=== PATIENT | male | born 1940 | race Caucasian/White ===

== ENCOUNTER → 2020-08-29 | Outpatient (CLI) | payer MEDICARE, OTHER ==
[~2020-08-29] MED LIST: ATOR80 PO; Bactrim Ds Tab1 EACH PO; Flagyl500 MG PO; GLIP5 PO; LOSA25 PO; MIRALAX119 G2; Magnesium Citr296 ML PO; Percocet 5-3251 EACH PO; TRAM50 PO
== END ==
LOC: LAB EV 12:00 → LAB SHORT 12:00
DX: N39.0 Urinary tract infection, site not specified (principal)
CPT/HCPCS: 87077; 87086; 87186

== ENCOUNTER 2020-09-01 09:55 | Emergency (ER) | payer MEDICARE, OTHER ==
[~2020-09-01] VITALS: Ht 182.9 cm; Wt 87.5 kg
[~2020-09-01 09:55] MED LIST changes: -ATOR80 PO; -GLIP5 PO; -LOSA25 PO; -MIRALAX119 G2
[2020-09-01] MEDS ORDERED: MIRALAX119 G2 (10:41)
[2020-09-01 10:42] LABS: BASOPHILS ABSOLUTE AUTO 0.02 K/mm3 (0.00-0.23); BASOPHILS PERCENT AUTO 0 % (0-2); EOSINOPHILS ABSOLUTE AUTO 0.06 K/mm3 (0.00-0.68); EOSINOPHILS PERCENT AUTO 1 % (0-6); Hematocrit 38.6 % (37.0-53.0); Hemoglobin 12.1 g/dL (13.5-17.5); IMMATURE GRAN ABSOLUTE AUTO 0.02 K/mm3 (0.00-0.10); IMMATURE GRAN PERCENT AUTO 0 % (0-1); LYMPHOCYTES ABSOLUTE AUTO 0.36 K/mm3 (0.84-5.20); LYMPHOCYTES PERCENT AUTO 7 % (21-46); MONOCYTES ABSOLUTE AUTO 0.33 K/mm3 (0.16-1.47); MONOCYTES PERCENT AUTO 7 % (4-13); Mean Corpuscular HGB 28.8 pg (26.0-34.0); Mean Corpuscular HGB Conc 31.3 g/dL (31.5-36.5); Mean Corpuscular Volume 92 fL (80-100); Mean Platelet Volume 10.3 fL (9.1-12.4); NEUTROPHILS ABSOLUTE AUTO 4.16 K/mm3 (1.96-9.15); NEUTROPHILS PERCENT AUTO 84 % (41-73); Platelet Count 196 K/mm3 (150-400); RDW Standard Deviation 47.2 fL (35.1-46.3); White Blood Cell Count 4.95 K/mm3 (4.00-11.30)
[2020-09-01 10:56] LABS: Albumin, Blood 3.7 g/dL (3.4-5.0); Albumin/Globulin Ratio 0.9 (0.8-1.8); Bilirubin, Total 0.3 mg/dL (0.1-1.0); Calcium, Blood 9.4 mg/dL (8.5-10.1); Creatinine, Blood 2.2 mg/dL (0.60-1.20); Globulin, Blood 3.9 g/dL (2.2-4.0); Potassium, Blood 4.5 mmol/L (3.5-5.5); Total Protein, Blood 7.6 g/dL (6.4-8.2)
[2020-09-01 11:19] LABS: Source, Urine Clean Catch
[2020-09-01 11:39] LABS: Appearance, Urine Hazy (Clear); Bilirubin, Urine Neg (Neg); Blood, Urine 4+ (Neg); Color, Urine Yellow (P-Yellow); Glucose Qualitative, Urine Neg (Neg); Ketones, Urine Neg (Neg); Leukocyte Esterase, Urine 3+ (Neg); Nitrite, Urine Neg (Neg); Protein, Urine 3+ (Neg); Urobilinogen, Urine NORM (Normal)
[2020-09-01 11:49] LABS: White Blood Cells, Urine TNTC /hpf (0-5)
[2020-09-01 11:50] LABS: Bacteria Many /hpf; Squamous Epithelial Cells Not Seen /hpf (Few)
[2020-09-01] MEDS ORDERED: Percocet 5-3251 EACH PO (12:18)
[2020-09-05] MEDS ORDERED: LOSA25 (04:25)
== END 2020-09-01 12:27 | disposition home or self-care (01) ==
LOC: ER 09:55
PROVIDERS: Physician Assistant
DX: M25.561 Pain in right knee (principal); G89.29 Other chronic pain; N18.9 Chronic kidney disease, unspecified; Z43.6 Encounter for attention to other artificial openings of urinary tract; Z79.899 Other long term (current) drug therapy
CPT/HCPCS: 36415; 73562-RT; 80053; 81001; 83690; 85025; 87077; 87086; 87186; 99283-25

== ENCOUNTER 2020-09-05 04:13 | Observation (INO) | payer MEDICARE, OTHER ==
[~2020-09-05] VITALS: Ht 182.9 cm; Wt 87.9 kg
[~2020-09-05 04:13] MED LIST changes: +MIRALAX119 G2
[2020-09-05] MEDS ORDERED: LOSA25 PO (04:25)
[2020-09-05] MEDS ORDERED: ATOR80 PO (04:26)
[2020-09-05] MEDS ORDERED: GLIP5 PO (04:26)
[2020-09-05 05:42] LABS: BASOPHILS ABSOLUTE AUTO 0.03 K/mm3 (0.00-0.23); BASOPHILS PERCENT AUTO 1 % (0-2); EOSINOPHILS ABSOLUTE AUTO 0.17 K/mm3 (0.00-0.68); EOSINOPHILS PERCENT AUTO 4 % (0-6); Hematocrit 36.9 % (37.0-53.0); Hemoglobin 11.6 g/dL (13.5-17.5); IMMATURE GRAN ABSOLUTE AUTO 0.01 K/mm3 (0.00-0.10); IMMATURE GRAN PERCENT AUTO 0 % (0-1); LYMPHOCYTES PERCENT AUTO 13 % (21-46); MONOCYTES PERCENT AUTO 10 % (4-13); Mean Corpuscular HGB 29.5 pg (26.0-34.0); Mean Corpuscular HGB Conc 31.4 g/dL (31.5-36.5); Mean Corpuscular Volume 94 fL (80-100); Mean Platelet Volume 11.5 fL (9.1-12.4); NEUTROPHILS ABSOLUTE AUTO 2.72 K/mm3 (1.96-9.15); NEUTROPHILS PERCENT AUTO 71 % (41-73); Platelet Count 185 K/mm3 (150-400); RDW Coefficient Variation 14.8 % (11.7-14.2); RDW Standard Deviation 50.1 fL (35.1-46.3); Red Blood Cell Count 3.93 M/mm3 (4.30-5.90); White Blood Cell Count 3.83 K/mm3 (4.00-11.30)
[2020-09-05 06:03] LABS: Albumin, Blood 3.2 g/dL (3.4-5.0); Albumin/Globulin Ratio 0.9 (0.8-1.8); Bilirubin, Total 0.3 mg/dL (0.1-1.0); Bun/Creatinine Ratio 16.4 (12.0-20.0); Calcium, Blood 9.1 mg/dL (8.5-10.1); Creatinine, Blood 1.77 mg/dL (0.60-1.20); Globulin, Blood 3.7 g/dL (2.2-4.0); Potassium, Blood 4.8 mmol/L (3.5-5.5); Total Protein, Blood 6.9 g/dL (6.4-8.2)
--- NOTE | 2020-09-05 15:33 | NUR ---
HE IS SLEEPING LIGHTLY.HIS IS AT THE BEDSIDE. HE HAS RECEIVED FENTANYL AT SHIFT CHANGE, THEN PERCOCET WITH SIPS OF WATER. I SPOKE WITH WHO WILL NOT SEE THIS PATIENT BECAUSE HE HAS NOT HAD HIS FIRST [facility] VISIT YET TO BECOME ESTABLISHED. IT WOULD HAVE BEEN TODAY BUT HE ENDED UP IN THE EMERGENCY ROOM INSTEAD. I THEN SPOKE WITH AND CONSULTED . DILAUDID WAS ORDERED AND GIVEN. HE HAS TAKEN IT Q2 HRS. HIS RT.NEPHROSTOMY TUBE HAS BEEN DRAINING PRETTY CLEAR YELLOW URINE. DRESSING FALLING OFF AND SUTURE IS NO LONGER CONNECTED TO THE SKIN. NEW DRESSING APPLIED AND DRAINAGE BAG PINNED TO GOWN SO IT DOES NOT PULL. THE PHYSICIAN SLAB PULLER AND HAVE EACH ROUNDED ON THE PATIENT. LT.NEPH SITE RED. NO TUBE. WILL COVER WITH A BAND AID. COVID TEST NEGATIVE. BP IMPROVED AFTER PAIN CONTROLLED WITH DILAUDID.
--- NOTE | 2020-09-05 16:14 | NUR ---
TO THE [facility] FOR HIS PROCEDURE.
--- NOTE | 2020-09-05 18:46 | NUR ---
HE IS TOO SLEEPY TO EAT. LAST DILAUDID DOSE WAS JUST BEFORE 4 PM. HIS IS AT THE BEDSIDE. SCD'S ON BILAT. OXIMETRY ON. RA 89 TO 90%. WILL PUT 2L NC ON. TACHY BUT REGULAR UP TO 120. BP STABLE. BILATERAL NEPH TUBES DRAINING DANY COLORED URINE, THE LEFT MORE THAN THE RIGHT.
[2020-09-06] MEDS ORDERED: Percocet 5-3251 EACH PO (09:13)
--- NOTE | 2020-09-06 10:18 | NUR ---
HE HAD 1 PERCOCET FOR ABD PAIN AT SHIFT CHANGE. HIS URINE IS BLOOD TINGED DORIS IN THE RT.NEPHROSTOMY BAG AND MEDIUM RED IN THE LT. NEPHROSTOMY BAG. HE FEELS MUCH BETTER AND HAS BEEN ANXIOUS TO LEAVE. DISCHARGED NOW AT 1022 TO HOME WITH HIS BELONGINGS AND INSTRUCTIONS. HIS PICKED HIM UP.
== END 2020-09-06 10:19 | disposition home or self-care (01) ==
LOC: ER 04:13 → MEDS 04:14 → ENPENDDIS 09-06 08:18 → MEDS 09-06 10:19
PROVIDERS: Emergency Medicine; ADMIT Internal Medicine
DX: T83.022A Displacement of nephrostomy catheter, initial encounter (principal); N13.6 Pyonephrosis; I16.0 Hypertensive urgency; I12.9 Hypertensive chronic kidney disease with stage 1 through stage 4 chronic kidney disease, or unspecified chronic kidney disease; E11.22 Type 2 diabetes mellitus with diabetic chronic kidney disease; N18.4 Chronic kidney disease, stage 4 (severe); Z79.84 Long term (current) use of oral hypoglycemic drugs; Z79.899 Other long term (current) drug therapy; Z85.46 Personal history of malignant neoplasm of prostate; Z92.3 Personal history of irradiation; Z20.828 Contact with and (suspected) exposure to other viral communicable diseases; Z23 Encounter for immunization; Y84.6 Urinary catheterization as the cause of abnormal reaction of the patient, or of later complication, without mention of misadventure at the time of the procedure
CPT/HCPCS: 36415; 50432; 50435; 76937; 80053; 85025; 94762; 96374-59; 96375; 96376; 96376-59; 99152; 99153; 99284-25; A9270; A9270-GY; C1729; C1769; C1887; G0378; J1170; J2250; J2405; J3010; J7040; J7050; Q9967; U0004

== ENCOUNTER → 2020-09-16 | Outpatient (CLI) | payer MEDICARE, OTHER ==
[~2020-09-16] MED LIST changes: +ATOR80 PO; +GLIP5 PO; +LOSA25 PO
== END | disposition home or self-care (01) ==
LOC: LAB SHORT 14:31 → PLD 14:31
DX: N39.0 Urinary tract infection, site not specified (principal)
CPT/HCPCS: 87077; 87086; 87186

== ENCOUNTER → 2020-10-14 | Outpatient (CLI) | payer MEDICARE, OTHER ==
[~2020-10-14] MED LIST changes: +AMLODIPINE BES2.5 MG PO; +AMOCLA500 PO; +AMOCLA875 PO; +ATOR40TA PO; -ATOR80 PO; +BISA10S PR; +DOC250 PO; +LEVFLO500 PO; +LINE600 PO; -LOSA25 PO; +LOSARTAN POTAS100 M1 PO; +Levaquin500 MG PO; +METFORMIN HCL500 M3 PO; +Macrobid 100 M100 MG PO; +OXYACE7.5T PO; +OXYC5; +PHENA200 PO; +Pyridium100 MG PO; +SULFAMETHOXAZO1 EACH PO
== END | disposition home or self-care (01) ==
LOC: LAB SHORT 10:15 → LAB EV 10:15
PROVIDERS: Family Medicine
DX: G89.4 Chronic pain syndrome (principal); Z79.899 Other long term (current) drug therapy
CPT/HCPCS: G0480

== ENCOUNTER 2020-10-20 11:05 | Emergency (ER) | payer MEDICARE, OTHER ==
[~2020-10-20] VITALS: Ht 182.9 cm; Wt 85.3 kg
[~2020-10-20 11:05] MED LIST changes: -AMLODIPINE BES2.5 MG PO; -AMOCLA500 PO; -AMOCLA875 PO; -ATOR40TA PO; +ATOR80 PO; -BISA10S PR; -DOC250 PO; -LEVFLO500 PO; -LINE600 PO; +LOSA25 PO; -LOSARTAN POTAS100 M1 PO; -Levaquin500 MG PO; -METFORMIN HCL500 M3 PO; -Macrobid 100 M100 MG PO; -OXYACE7.5T PO; -OXYC5; -PHENA200 PO; -Pyridium100 MG PO; -SULFAMETHOXAZO1 EACH PO
[2020-10-20 11:39] LABS: BASOPHILS ABSOLUTE AUTO 0.02 K/mm3 (0.00-0.23); BASOPHILS PERCENT AUTO 0 % (0-2); EOSINOPHILS ABSOLUTE AUTO 0.08 K/mm3 (0.00-0.68); EOSINOPHILS PERCENT AUTO 2 % (0-6); Hematocrit 38.3 % (37.0-53.0); Hemoglobin 12.2 g/dL (13.5-17.5); IMMATURE GRAN ABSOLUTE AUTO 0.11 K/mm3 (0.00-0.10); IMMATURE GRAN PERCENT AUTO 3 % (0-1); LYMPHOCYTES ABSOLUTE AUTO 0.71 K/mm3 (0.84-5.20); LYMPHOCYTES PERCENT AUTO 16 % (21-46); MONOCYTES ABSOLUTE AUTO 0.45 K/mm3 (0.16-1.47); MONOCYTES PERCENT AUTO 10 % (4-13); Mean Corpuscular HGB 29.3 pg (26.0-34.0); Mean Corpuscular HGB Conc 31.9 g/dL (31.5-36.5); Mean Corpuscular Volume 92 fL (80-100); Mean Platelet Volume 9.5 fL (9.1-12.4); NEUTROPHILS PERCENT AUTO 69 % (41-73); Platelet Count 251 K/mm3 (150-400); RDW Coefficient Variation 15.6 % (11.7-14.2); RDW Standard Deviation 52.5 fL (35.1-46.3); Red Blood Cell Count 4.17 M/mm3 (4.30-5.90); White Blood Cell Count 4.47 K/mm3 (4.00-11.30)
[2020-10-20 11:52] LABS: Albumin, Blood 3.2 g/dL (3.4-5.0); Albumin/Globulin Ratio 0.7 (0.8-1.8); Bilirubin, Total 0.5 mg/dL (0.1-1.0); Bun/Creatinine Ratio 14.5 (12.0-20.0); Calcium, Blood 9.5 mg/dL (8.5-10.1); Creatinine, Blood 1.79 mg/dL (0.60-1.20); Globulin, Blood 4.6 g/dL (2.2-4.0); Potassium, Blood 3.9 mmol/L (3.5-5.5); Total Protein, Blood 7.8 g/dL (6.4-8.2)
== END 2020-10-20 12:45 | disposition home or self-care (01) ==
LOC: ER 11:05
PROVIDERS: Emergency Medicine
DX: R10.9 Unspecified abdominal pain (principal); G89.29 Other chronic pain; Z79.899 Other long term (current) drug therapy; Z79.84 Long term (current) use of oral hypoglycemic drugs
CPT/HCPCS: 36415; 80053; 83690; 85025; 99284

== ENCOUNTER → 2020-10-31 | Outpatient (CLI) | payer MEDICARE, OTHER ==
[~2020-10-31] MED LIST changes: +AMLODIPINE BES2.5 MG PO; +AMOCLA500 PO; +AMOCLA875 PO; +ATOR40TA PO; -ATOR80 PO; +BISA10S PR; +DOC250 PO; +LEVFLO500 PO; +LINE600 PO; -LOSA25 PO; +LOSARTAN POTAS100 M1 PO; +Levaquin500 MG PO; +METFORMIN HCL500 M3 PO; +Macrobid 100 M100 MG PO; +OXYACE7.5T PO; +OXYC5; +PHENA200 PO; +Pyridium100 MG PO; +SULFAMETHOXAZO1 EACH PO
== END | disposition home or self-care (01) ==
LOC: LAB SHORT 11:35 → LAB 11:35
DX: N39.0 Urinary tract infection, site not specified (principal)
CPT/HCPCS: 87077; 87086; 87186

== ENCOUNTER 2020-11-08 11:18 | Emergency (ER) | payer MEDICARE, OTHER ==
[~2020-11-08] VITALS: Ht 182.9 cm; Wt 79.4 kg
[~2020-11-08 11:18] MED LIST changes: -AMLODIPINE BES2.5 MG PO; -AMOCLA500 PO; -AMOCLA875 PO; -BISA10S PR; -DOC250 PO; -LEVFLO500 PO; -LINE600 PO; -Levaquin500 MG PO; -METFORMIN HCL500 M3 PO; -Macrobid 100 M100 MG PO; -OXYACE7.5T PO; -OXYC5; -PHENA200 PO; -Pyridium100 MG PO; -SULFAMETHOXAZO1 EACH PO
[2020-11-08] MEDS ORDERED: METFORMIN HCL500 M3 PO (11:38)
[2020-11-08 12:19] LABS: BASOPHILS ABSOLUTE AUTO 0.02 K/mm3 (0.00-0.23); BASOPHILS PERCENT AUTO 1 % (0-2); EOSINOPHILS ABSOLUTE AUTO 0.04 K/mm3 (0.00-0.68); EOSINOPHILS PERCENT AUTO 1 % (0-6); Hematocrit 35.4 % (37.0-53.0); Hemoglobin 11.3 g/dL (13.5-17.5); IMMATURE GRAN ABSOLUTE AUTO 0.01 K/mm3 (0.00-0.10); IMMATURE GRAN PERCENT AUTO 0 % (0-1); LYMPHOCYTES PERCENT AUTO 12 % (21-46); MONOCYTES ABSOLUTE AUTO 0.32 K/mm3 (0.16-1.47); MONOCYTES PERCENT AUTO 8 % (4-13); Mean Corpuscular HGB 29.6 pg (26.0-34.0); Mean Corpuscular HGB Conc 31.9 g/dL (31.5-36.5); Mean Corpuscular Volume 93 fL (80-100); Mean Platelet Volume 9.8 fL (9.1-12.4); NEUTROPHILS ABSOLUTE AUTO 3.15 K/mm3 (1.96-9.15); NEUTROPHILS PERCENT AUTO 78 % (41-73); Platelet Count 145 K/mm3 (150-400); RDW Coefficient Variation 15.9 % (11.7-14.2); RDW Standard Deviation 53.5 fL (35.1-46.3); Red Blood Cell Count 3.82 M/mm3 (4.30-5.90); White Blood Cell Count 4.04 K/mm3 (4.00-11.30)
[2020-11-08 12:36] LABS: Albumin, Blood 3.5 g/dL (3.4-5.0); Bilirubin, Total 0.5 mg/dL (0.1-1.0); Bun/Creatinine Ratio 12.9 (12.0-20.0); Calcium, Blood 9.2 mg/dL (8.5-10.1); Creatinine, Blood 1.86 mg/dL (0.60-1.20); Globulin, Blood 3.6 g/dL (2.2-4.0); Potassium, Blood 3.6 mmol/L (3.5-5.5); Total Protein, Blood 7.1 g/dL (6.4-8.2)
[2020-11-08] MEDS ORDERED: OXYACE7.5T PO (13:08)
== END 2020-11-08 13:23 | disposition home or self-care (01) ==
LOC: ER 11:18
PROVIDERS: Emergency Medicine
DX: K59.00 Constipation, unspecified (principal); Z79.84 Long term (current) use of oral hypoglycemic drugs; Z79.899 Other long term (current) drug therapy
CPT/HCPCS: 36415; 74176; 80053; 85025; 99284-25; A9270; J3010

== ENCOUNTER 2020-11-12 20:43 | Emergency (ER) | payer MEDICARE, OTHER ==
[~2020-11-12] VITALS: Ht 182.9 cm; Wt 86.2 kg
[~2020-11-12 20:43] MED LIST changes: +METFORMIN HCL500 M3 PO; +OXYACE7.5T PO
== END 2020-11-12 22:13 | disposition home or self-care (01) ==
LOC: ER 20:43
DX: R10.9 Unspecified abdominal pain (principal); G89.29 Other chronic pain; Z79.899 Other long term (current) drug therapy; Z79.84 Long term (current) use of oral hypoglycemic drugs
CPT/HCPCS: 96372; 99283-25; J1170

== ENCOUNTER → 2020-11-13 | Outpatient (CLI) | payer MEDICARE, OTHER ==
[~2020-11-13] MED LIST changes: +AMLODIPINE BES2.5 MG PO; +AMOCLA500 PO; +AMOCLA875 PO; +BISA10S PR; +DOC250 PO; +LEVFLO500 PO; +LINE600 PO; +Levaquin500 MG PO; +Macrobid 100 M100 MG PO; +OXYC5; +PHENA200 PO; +Pyridium100 MG PO; +SULFAMETHOXAZO1 EACH PO
== END | disposition home or self-care (01) ==
LOC: LAB SHORT 10:41 → LAB 10:41
DX: R35.0 Frequency of micturition (principal)
CPT/HCPCS: 87086

== ENCOUNTER → 2020-11-29 | Outpatient (CLI) | payer MEDICARE, OTHER | END | disposition home or self-care (01) | LOC: LAB 18:22 → LAB SHORT 18:22 | DX: R30.9 Painful micturition, unspecified (principal) | CPT/HCPCS: 87077; 87086; 87186 ==

== ENCOUNTER 2020-12-05 11:39 | Emergency (ER) | payer MEDICARE, OTHER ==
[~2020-12-05] VITALS: Ht 182.9 cm; Wt 85.7 kg
[~2020-12-05 11:39] MED LIST changes: -AMLODIPINE BES2.5 MG PO; -AMOCLA500 PO; -AMOCLA875 PO; -BISA10S PR; -DOC250 PO; -LEVFLO500 PO; -LINE600 PO; -Levaquin500 MG PO; -Macrobid 100 M100 MG PO; -OXYC5; -PHENA200 PO; -Pyridium100 MG PO; -SULFAMETHOXAZO1 EACH PO
[2020-12-05 13:25] LABS: BASOPHILS ABSOLUTE AUTO 0.01 K/mm3 (0.00-0.23); BASOPHILS PERCENT AUTO 0 % (0-2); EOSINOPHILS ABSOLUTE AUTO 0.07 K/mm3 (0.00-0.68); EOSINOPHILS PERCENT AUTO 3 % (0-6); Hematocrit 36.8 % (37.0-53.0); Hemoglobin 11.9 g/dL (13.5-17.5); IMMATURE GRAN ABSOLUTE AUTO 0.01 K/mm3 (0.00-0.10); IMMATURE GRAN PERCENT AUTO 0 % (0-1); LYMPHOCYTES ABSOLUTE AUTO 0.45 K/mm3 (0.84-5.20); LYMPHOCYTES PERCENT AUTO 16 % (21-46); MONOCYTES ABSOLUTE AUTO 0.25 K/mm3 (0.16-1.47); MONOCYTES PERCENT AUTO 9 % (4-13); Mean Corpuscular HGB 30.9 pg (26.0-34.0); Mean Corpuscular HGB Conc 32.3 g/dL (31.5-36.5); Mean Corpuscular Volume 96 fL (80-100); Mean Platelet Volume 9.8 fL (9.1-12.4); NEUTROPHILS ABSOLUTE AUTO 2.03 K/mm3 (1.96-9.15); NEUTROPHILS PERCENT AUTO 72 % (41-73); Platelet Count 163 K/mm3 (150-400); RDW Coefficient Variation 14.8 % (11.7-14.2); RDW Standard Deviation 51.9 fL (35.1-46.3); Red Blood Cell Count 3.85 M/mm3 (4.30-5.90); White Blood Cell Count 2.82 K/mm3 (4.00-11.30)
[2020-12-05 13:59] LABS: Albumin, Blood 3.3 g/dL (3.4-5.0); Albumin/Globulin Ratio 0.9 (0.8-1.8); Bilirubin, Total 0.4 mg/dL (0.1-1.0); Bun/Creatinine Ratio 14.2 (12.0-20.0); Calcium, Blood 9.1 mg/dL (8.5-10.1); Creatinine, Blood 1.76 mg/dL (0.60-1.20); Globulin, Blood 3.7 g/dL (2.2-4.0); Potassium, Blood 5.1 mmol/L (3.5-5.5)
[2020-12-05] MEDS ORDERED: DOC250 PO (14:41)
[2020-12-05] MEDS ORDERED: BISA10S PR (14:41)
== END 2020-12-05 15:05 | disposition home or self-care (01) ==
LOC: ER 11:39
PROVIDERS: Emergency Medicine
DX: N39.0 Urinary tract infection, site not specified (principal); K59.00 Constipation, unspecified; Z79.84 Long term (current) use of oral hypoglycemic drugs
CPT/HCPCS: 36415; 74176; 80053; 83690; 85025; 96374; 96375; 99284-25; J2405; J3010

== ENCOUNTER 2020-12-12 10:26 | Emergency (ER) | payer MEDICARE, OTHER ==
[~2020-12-12] VITALS: Ht 182.9 cm; Wt 86.2 kg
[~2020-12-12 10:26] MED LIST changes: +BISA10S PR; +DOC250 PO
[2020-12-12 11:41] LABS: BASOPHILS ABSOLUTE AUTO 0.02 K/mm3 (0.00-0.23); BASOPHILS PERCENT AUTO 0 % (0-2); EOSINOPHILS ABSOLUTE AUTO 0.09 K/mm3 (0.00-0.68); EOSINOPHILS PERCENT AUTO 2 % (0-6); Hematocrit 37.8 % (37.0-53.0); Hemoglobin 12.6 g/dL (13.5-17.5); IMMATURE GRAN ABSOLUTE AUTO 0.01 K/mm3 (0.00-0.10); IMMATURE GRAN PERCENT AUTO 0 % (0-1); LYMPHOCYTES ABSOLUTE AUTO 0.51 K/mm3 (0.84-5.20); LYMPHOCYTES PERCENT AUTO 11 % (21-46); MONOCYTES ABSOLUTE AUTO 0.36 K/mm3 (0.16-1.47); MONOCYTES PERCENT AUTO 8 % (4-13); Mean Corpuscular HGB 31.1 pg (26.0-34.0); Mean Corpuscular HGB Conc 33.3 g/dL (31.5-36.5); Mean Corpuscular Volume 93 fL (80-100); Mean Platelet Volume 9.6 fL (9.1-12.4); NEUTROPHILS ABSOLUTE AUTO 3.58 K/mm3 (1.96-9.15); NEUTROPHILS PERCENT AUTO 78 % (41-73); Platelet Count 175 K/mm3 (150-400); RDW Coefficient Variation 14.3 % (11.7-14.2); RDW Standard Deviation 48.9 fL (35.1-46.3); Red Blood Cell Count 4.05 M/mm3 (4.30-5.90); White Blood Cell Count 4.57 K/mm3 (4.00-11.30)
[2020-12-12 12:16] LABS: Albumin, Blood 3.5 g/dL (3.4-5.0); Albumin/Globulin Ratio 0.9 (0.8-1.8); Bilirubin, Total 0.5 mg/dL (0.1-1.0); Bun/Creatinine Ratio 17.3 (12.0-20.0); Calcium, Blood 9.1 mg/dL (8.5-10.1); Creatinine, Blood 1.56 mg/dL (0.60-1.20); Globulin, Blood 3.7 g/dL (2.2-4.0); Total Protein, Blood 7.2 g/dL (6.4-8.2)
[2020-12-12] MEDS ORDERED: Percocet 5-3251 EACH PO (13:17)
== END 2020-12-12 13:58 | disposition home or self-care (01) ==
LOC: ER 10:26
PROVIDERS: Physician Assistant
DX: K59.00 Constipation, unspecified (principal); Z79.84 Long term (current) use of oral hypoglycemic drugs; Z79.899 Other long term (current) drug therapy
CPT/HCPCS: 36415; 74018; 80053; 85025; 99284-25; A9270

== ENCOUNTER 2020-12-24 07:09 | Day surgery (SDC) | payer MEDICARE, OTHER ==
[~2020-12-24] VITALS: Ht 182.9 cm; Wt 85.8 kg
--- NOTE | 2020-12-24 07:22 | NUR ---
History, Chart, Medications and Allergies reviewed before start of procedure. Patient confirms NPO status and agrees with scheduled surgery. Patient States Post-Procedure ride home has been arranged with his .
--- NOTE | 2020-12-24 08:44 | NUR ---
Ambulatory in Day Surgery History, Chart, Medications and Allergies reviewed before start of procedure. Lungs clear T/O to Auscultation. Patient confirms NPO status and agrees with scheduled surgery. Patient reports completing Chlorhexadine shower X2 prior to admission to hospital. PT AMBULATES TO RESTROOM c STEADY GAIT TO VOID.
--- NOTE | 2020-12-24 11:42 | NUR ---
Patient up to Ambulate independently. Gait steady. PATIENT WITH CHRONIC PAIN. MEDICATED WITH 2 PERCOCET IN RECOVERY FOR PAIN. PT REPORTS /. BELEIVES TO BE SURGICAL, BUT UNCERTAIN TO CHRONIC VS SURGICAL PAIN. HAS NORMAL PERCOCET AT HOME FOR PAIN. PT IRRITABLE. REPORTS FREQUENTLY IRRITABLE AND NORMAL FOR PATIETN. DENIES NAUSEA, TOLERATING PO, VITALS STABLE. Discharge instructions reviewed with patient. Patient verbalizes understanding. Copy given to patient to take home. Discharged via wheelchair to private car for ride home WITH SPOUSE.
== END 2020-12-24 23:26 | disposition home or self-care (01) ==
LOC: ORSCMMR 07:09 → ORD 08:30 → ORSCMMR 23:26
PROVIDERS: Surgery
PROC: 0WUF4JZ Supplement Abdominal Wall with Synthetic Substitute, Percutaneous Endoscopic Approach (ICD-10-PCS; principal; 2020-12-24 08:30)
DX: K42.0 Umbilical hernia with obstruction, without gangrene (principal); I10 Essential (primary) hypertension; N18.9 Chronic kidney disease, unspecified; E11.9 Type 2 diabetes mellitus without complications; E78.5 Hyperlipidemia, unspecified; Z79.899 Other long term (current) drug therapy; Z79.84 Long term (current) use of oral hypoglycemic drugs
CPT/HCPCS: 82947; A9270; C1781; J0690; J1100; J2370; J2405; J2704; J3010; J7120

== ENCOUNTER 2020-12-30 15:29 | Emergency (ER) | payer MEDICARE, OTHER ==
[~2020-12-30] VITALS: Ht 182.9 cm; Wt 86.6 kg
[2020-12-30 16:02] LABS: Source, Urine Clean Catch
[2020-12-30 16:16] LABS: Appearance, Urine Cloudy (Clear); Bilirubin, Urine Neg (Neg); Blood, Urine 5+ (Neg); Color, Urine Yellow (P-Yellow); Glucose Qualitative, Urine Neg (Neg); Ketones, Urine Neg (Neg); Leukocyte Esterase, Urine 3+ (Neg); Nitrite, Urine Neg (Neg); Protein, Urine 3+ (Neg); Urobilinogen, Urine NORM (Normal)
[2020-12-30 16:33] LABS: Red Blood Cells, Urine TNTC /hpf (0-2); White Blood Cells, Urine TNTC /hpf (0-5)
[2020-12-30 16:34] LABS: Bacteria Many /hpf; Squamous Epithelial Cells Not Seen /hpf (Few)
[2020-12-30] MEDS ORDERED: LEVFLO500 PO (16:52)
[2020-12-30] MEDS ORDERED: PHENA200 PO (16:52)
== END 2020-12-30 17:14 | disposition home or self-care (01) ==
LOC: ER 15:29
PROVIDERS: Physician Assistant
DX: N39.0 Urinary tract infection, site not specified (principal); Z79.84 Long term (current) use of oral hypoglycemic drugs; Z79.899 Other long term (current) drug therapy; Z91.041 Radiographic dye allergy status
CPT/HCPCS: 74018; 81001; 87077; 87086; 87186; 99283-25; A9270

== ENCOUNTER 2020-12-31 16:58 | Emergency (ER) | payer MEDICARE, OTHER ==
[~2020-12-31] VITALS: Ht 182.9 cm; Wt 86.2 kg
[~2020-12-31 16:58] MED LIST changes: +LEVFLO500 PO; +PHENA200 PO
[2020-12-31 20:09] LABS: BASOPHILS ABSOLUTE AUTO 0.01 K/mm3 (0.00-0.23); BASOPHILS PERCENT AUTO 0 % (0-2); EOSINOPHILS ABSOLUTE AUTO 0.08 K/mm3 (0.00-0.68); EOSINOPHILS PERCENT AUTO 1 % (0-6); Hematocrit 35.6 % (37.0-53.0); Hemoglobin 11.8 g/dL (13.5-17.5); IMMATURE GRAN ABSOLUTE AUTO 0.04 K/mm3 (0.00-0.10); IMMATURE GRAN PERCENT AUTO 0 % (0-1); LYMPHOCYTES ABSOLUTE AUTO 0.63 K/mm3 (0.84-5.20); LYMPHOCYTES PERCENT AUTO 6 % (21-46); MONOCYTES ABSOLUTE AUTO 0.85 K/mm3 (0.16-1.47); MONOCYTES PERCENT AUTO 8 % (4-13); Mean Corpuscular HGB 31.1 pg (26.0-34.0); Mean Corpuscular HGB Conc 33.1 g/dL (31.5-36.5); Mean Corpuscular Volume 94 fL (80-100); Mean Platelet Volume 9.9 fL (9.1-12.4); NEUTROPHILS ABSOLUTE AUTO 8.72 K/mm3 (1.96-9.15); NEUTROPHILS PERCENT AUTO 84 % (41-73); Platelet Count 145 K/mm3 (150-400); RDW Coefficient Variation 13.4 % (11.7-14.2); RDW Standard Deviation 45.9 fL (35.1-46.3); Red Blood Cell Count 3.79 M/mm3 (4.30-5.90); White Blood Cell Count 10.33 K/mm3 (4.00-11.30)
[2020-12-31 20:23] LABS: International Normalized Ratio 1.12; Prothrombin Time Results 11.9 Sec (9.7-11.5)
[2020-12-31 20:29] LABS: Albumin, Blood 3.2 g/dL (3.4-5.0); Albumin/Globulin Ratio 0.8 (0.8-1.8); Bilirubin, Total 0.3 mg/dL (0.1-1.0); Bun/Creatinine Ratio 17.6 (12.0-20.0); Calcium, Blood 9.1 mg/dL (8.5-10.1); Creatinine, Blood 2.04 mg/dL (0.60-1.20); Globulin, Blood 4.1 g/dL (2.2-4.0); Total Protein, Blood 7.3 g/dL (6.4-8.2)
== END 2020-12-31 20:08 | disposition left against medical advice (07) ==
LOC: ER 16:58
PROVIDERS: Physician Assistant
DX: T83.092A Other mechanical complication of nephrostomy catheter, initial encounter (principal); N13.2 Hydronephrosis with renal and ureteral calculous obstruction; C61 Malignant neoplasm of prostate; Z91.040 Latex allergy status; Z79.899 Other long term (current) drug therapy
CPT/HCPCS: 36415; 76770; 80053; 85025; 85610; 99283-25

== ENCOUNTER → 2021-01-24 | Outpatient (CLI) | payer MEDICARE, OTHER ==
[~2021-01-24] MED LIST changes: +AMLODIPINE BES2.5 MG PO; +AMOCLA500 PO; +AMOCLA875 PO; +LINE600 PO; +Levaquin500 MG PO; +Macrobid 100 M100 MG PO; +OXYC5; +Pyridium100 MG PO; +SULFAMETHOXAZO1 EACH PO
[2021-01-24 11:08] LABS: BASOPHILS ABSOLUTE AUTO 0.02 K/mm3 (0.00-0.23); BASOPHILS PERCENT AUTO 0 % (0-2); EOSINOPHILS ABSOLUTE AUTO 0.13 K/mm3 (0.00-0.68); EOSINOPHILS PERCENT AUTO 3 % (0-6); Hematocrit 38.7 % (37.0-53.0); Hemoglobin 12.7 g/dL (13.5-17.5); IMMATURE GRAN ABSOLUTE AUTO 0.02 K/mm3 (0.00-0.10); IMMATURE GRAN PERCENT AUTO 0 % (0-1); LYMPHOCYTES ABSOLUTE AUTO 0.58 K/mm3 (0.84-5.20); LYMPHOCYTES PERCENT AUTO 13 % (21-46); MONOCYTES ABSOLUTE AUTO 0.39 K/mm3 (0.16-1.47); MONOCYTES PERCENT AUTO 9 % (4-13); Mean Corpuscular HGB 30.3 pg (26.0-34.0); Mean Corpuscular HGB Conc 32.8 g/dL (31.5-36.5); Mean Corpuscular Volume 92 fL (80-100); Mean Platelet Volume 9.9 fL (9.1-12.4); NEUTROPHILS ABSOLUTE AUTO 3.38 K/mm3 (1.96-9.15); NEUTROPHILS PERCENT AUTO 75 % (41-73); Platelet Count 150 K/mm3 (150-400); RDW Coefficient Variation 13.4 % (11.7-14.2); RDW Standard Deviation 45.4 fL (35.1-46.3); Red Blood Cell Count 4.19 M/mm3 (4.30-5.90); White Blood Cell Count 4.52 K/mm3 (4.00-11.30)
[2021-01-24 11:27] LABS: Albumin, Blood 3.6 g/dL (3.4-5.0); Albumin/Globulin Ratio 0.9 (0.8-1.8); Bilirubin, Total 0.5 mg/dL (0.1-1.0); Calcium, Blood 9.8 mg/dL (8.5-10.1); Creatinine, Blood 1.79 mg/dL (0.60-1.20); Globulin, Blood 3.9 g/dL (2.2-4.0); Potassium, Blood 4.7 mmol/L (3.5-5.5); Total Protein, Blood 7.5 g/dL (6.4-8.2)
== END | disposition home or self-care (01) ==
LOC: LAB SHORT 11:03 → LAB EV 11:03
PROVIDERS: General Practice
DX: R10.9 Unspecified abdominal pain (principal)
CPT/HCPCS: 80053; 85025

== ENCOUNTER 2021-02-06 07:44 | Inpatient (IN) | payer MEDICARE, OTHER ==
[~2021-02-06] VITALS: Ht 182.9 cm; Wt 83.0 kg
[~2021-02-06 07:44] MED LIST changes: -AMLODIPINE BES2.5 MG PO; -AMOCLA500 PO; -AMOCLA875 PO; -LINE600 PO; -Levaquin500 MG PO; -Macrobid 100 M100 MG PO; -OXYC5; -Pyridium100 MG PO; -SULFAMETHOXAZO1 EACH PO
[2021-02-06 08:46] LABS: BASOPHILS ABSOLUTE AUTO 0.02 K/mm3 (0.00-0.23); BASOPHILS PERCENT AUTO 1 % (0-2); EOSINOPHILS ABSOLUTE AUTO 0.08 K/mm3 (0.00-0.68); EOSINOPHILS PERCENT AUTO 2 % (0-6); Hematocrit 40.6 % (37.0-53.0); Hemoglobin 13.7 g/dL (13.5-17.5); IMMATURE GRAN ABSOLUTE AUTO 0.01 K/mm3 (0.00-0.10); IMMATURE GRAN PERCENT AUTO 0 % (0-1); LYMPHOCYTES ABSOLUTE AUTO 0.45 K/mm3 (0.84-5.20); LYMPHOCYTES PERCENT AUTO 13 % (21-46); MONOCYTES ABSOLUTE AUTO 0.29 K/mm3 (0.16-1.47); MONOCYTES PERCENT AUTO 9 % (4-13); Mean Corpuscular HGB 30.6 pg (26.0-34.0); Mean Corpuscular HGB Conc 33.7 g/dL (31.5-36.5); Mean Corpuscular Volume 91 fL (80-100); Mean Platelet Volume 9.7 fL (9.1-12.4); NEUTROPHILS ABSOLUTE AUTO 2.58 K/mm3 (1.96-9.15); NEUTROPHILS PERCENT AUTO 75 % (41-73); Platelet Count 162 K/mm3 (150-400); RDW Coefficient Variation 13.3 % (11.7-14.2); RDW Standard Deviation 44.8 fL (35.1-46.3); Red Blood Cell Count 4.48 M/mm3 (4.30-5.90); White Blood Cell Count 3.43 K/mm3 (4.00-11.30)
[2021-02-06 09:05] LABS: Bilirubin, Total 0.8 mg/dL (0.1-1.0); Bun/Creatinine Ratio 13.5 (12.0-20.0); Calcium, Blood 9.4 mg/dL (8.5-10.1); Creatinine, Blood 2.29 mg/dL (0.60-1.20); Globulin, Blood 3.9 g/dL (2.2-4.0); Potassium, Blood 4.1 mmol/L (3.5-5.5); Total Protein, Blood 7.9 g/dL (6.4-8.2)
[2021-02-06] MEDS ORDERED: SULFAMETHOXAZO1 EACH PO (12:31)
[2021-02-06 14:13] LABS: Source, Urine Catheter; Source, Urine Urostomy Bag
[2021-02-06 14:18] LABS: Appearance, Urine Hazy (Clear); Bilirubin, Urine Neg (Neg); Blood, Urine 2+ (Neg); Color, Urine Yellow (P-Yellow); Glucose Qualitative, Urine Neg (Neg); Ketones, Urine Neg (Neg); Leukocyte Esterase, Urine 3+ (Neg); Nitrite, Urine Neg (Neg); Protein, Urine 2+ (Neg); Urobilinogen, Urine NORM (Normal)
[2021-02-06 14:19] LABS: Appearance, Urine Clear (Clear); Bilirubin, Urine Neg (Neg); Blood, Urine 1+ (Neg); Color, Urine Yellow (P-Yellow); Glucose Qualitative, Urine Neg (Neg); Ketones, Urine Neg (Neg); Leukocyte Esterase, Urine 1+ (Neg); Nitrite, Urine Neg (Neg); Protein, Urine 2+ (Neg); Urobilinogen, Urine NORM (Normal)
[2021-02-06 14:32] LABS: Bacteria Many /hpf; Squamous Epithelial Cells Few /hpf (Few); White Blood Cells, Urine 25-50 /hpf (0-5)
[2021-02-06 14:36] LABS: Hyaline Casts Rare /lpf (0-2); Red Blood Cells, Urine 0-2 /hpf (0-2)
[2021-02-06 14:38] LABS: Bacteria Many /hpf; Squamous Epithelial Cells Rare /hpf (Few)
[2021-02-06 14:57] LABS: Influenza A, PCR NEGATIVE (NEGATIVE); Influenza B, PCR NEGATIVE (NEGATIVE); Resp Syncytial Virus, PCR NEGATIVE (NEGATIVE); SARS-Cov-2 (COVID-19) PCR, MMC NEGATIVE (NEGATIVE)
--- NOTE | 2021-02-06 15:19 | NUR ---
PATIENT ADMITTED FROM ED TO THIS UNIT AT APPROX 1345. HOUSESMITH REPORT FROM RADHA CHOWDHURY. PT A&OX4, ABLE TO MAKE NEEDS KNOWN. PLEASANT AND COOOPERATIVE TO CARE. NO C/O PAIN OR ANY DISCOMFORT UPON ADMISSION. DENIES CP, SOB, OR N&V. NEHEMIAS NEPRHO TUBES INTACT TO AA. NO ISSUES NOTED TO AA. PT CALM AND COOPERATIVE T/O ASSESSMENT.
--- NOTE | 2021-02-06 16:16 | NUR ---
RETURN FROM [employer]RO[employer]PER[employer]INE[employer] PT RETURNED FROM [employer], TRANSPORTED BY RAILROAD OPERATING ENGINEER STAFF. NO ACUTE CHANGES NOTED TO PATIENT, A&OX4, ABLE TO MAKE NEEDS KNOWN. DENIES ANY PAIN OR DISCOMFORT. VSS. BED AT LOWEST POSITION. CALL LIGHT WITHIN REACH.
--- NOTE | 2021-02-06 19:19 | NUR ---
PT CONCERN PT REPORTED THAT HE IS CONCERNED THAT HE IS GOING TO MISS HIS SCHEDULED APPOINTMENT WITH HCP TOMORROW 02/07/21 AT 0945, PT VERBALIZED THAT IF HE MISSED THE APPOINTMENT THAT HE IS GOING TO HAVE TO WAIT ANOTHER MONTH FOR A REFILL ON HIS PAIN MEDICATION. NOTIFIED DR. GALVAN ON PATIENT'S CONCERN. PER DR. GALVAN, PLAN IS TO DC PATIENT PRIOR TO SCHEDULED APPOINTMENT TOMORROW. NOTIFIED ENERGY CONTROL OFFICER RN AND PATIENT VIA BEDSIDE REPORT.
--- NOTE | 2021-02-06 20:19 | NUR ---
PT GAVE THIS STUDENT PERMISSION TO PROVIDE CARE ON 02/06/21
--- NOTE | 2021-02-07 04:31 | NUR ---
SHIFT SUMMARY START OF SHIFT PT AGITATED&UPSET WITH NOT BEING D/C. PT WAS ANXIOUS & FIXATED ON KEEPING APT WITH NEW PCP IN [facility] TODAY 02/07. PT MEDICATED T/O THE NIGHT FOR PAIN PER DEC. PT. RESTED COMFORTABLY FROM 2300 ON. L NEPHROSTOMY DRAINING APPROPRIATELY. BED IN LOWEST POSITION, CALL LIGHT WITHIN REACH. WILL CONTINUE TO MONITOR UNTIL DAY RN COMES ON.
[2021-02-07 06:05] LABS: BASOPHILS ABSOLUTE AUTO 0.02 K/mm3 (0.00-0.23); BASOPHILS PERCENT AUTO 1 % (0-2); EOSINOPHILS ABSOLUTE AUTO 0.12 K/mm3 (0.00-0.68); EOSINOPHILS PERCENT AUTO 3 % (0-6); Hematocrit 38.9 % (37.0-53.0); Hemoglobin 12.5 g/dL (13.5-17.5); IMMATURE GRAN ABSOLUTE AUTO 0.02 K/mm3 (0.00-0.10); IMMATURE GRAN PERCENT AUTO 1 % (0-1); LYMPHOCYTES ABSOLUTE AUTO 0.41 K/mm3 (0.84-5.20); LYMPHOCYTES PERCENT AUTO 11 % (21-46); MONOCYTES ABSOLUTE AUTO 0.35 K/mm3 (0.16-1.47); MONOCYTES PERCENT AUTO 10 % (4-13); Mean Corpuscular HGB 30.4 pg (26.0-34.0); Mean Corpuscular HGB Conc 32.1 g/dL (31.5-36.5); Mean Corpuscular Volume 95 fL (80-100); Mean Platelet Volume 10.5 fL (9.1-12.4); NEUTROPHILS ABSOLUTE AUTO 2.67 K/mm3 (1.96-9.15); NEUTROPHILS PERCENT AUTO 74 % (41-73); Platelet Count 147 K/mm3 (150-400); RDW Coefficient Variation 13.3 % (11.7-14.2); RDW Standard Deviation 46.6 fL (35.1-46.3); Red Blood Cell Count 4.11 M/mm3 (4.30-5.90); White Blood Cell Count 3.59 K/mm3 (4.00-11.30)
[2021-02-07 06:18] LABS: Albumin, Blood 3.3 g/dL (3.4-5.0); Bilirubin, Total 0.4 mg/dL (0.1-1.0); Bun/Creatinine Ratio 14.7 (12.0-20.0); Calcium, Blood 8.9 mg/dL (8.5-10.1); Creatinine, Blood 1.97 mg/dL (0.60-1.20); Globulin, Blood 3.4 g/dL (2.2-4.0); Potassium, Blood 4.8 mmol/L (3.5-5.5); Total Protein, Blood 6.7 g/dL (6.4-8.2)
[2021-02-07] MEDS ORDERED: AMOCLA500 PO (14:42)
--- NOTE | 2021-02-07 15:00 | NUR ---
DISCHARGE NOTE PT IS AOX4 AND ANXIOUS. PT IV REMOVED BY THIS RN PER DOCUMENTATION. DC INSTRUCTIONS AND MEDICATIONS REVIEWED WITH PT WHO VERBALIZED UNDERSTANDING. PT GATHERED BELONGINGS FROM ROOM AND DRESSED SELF IN HOME CLOTHING. THIS RN PROVIDED HARD SCRIPT FOR PERCOCET WITH PT'S DC INSTRUCTIONS. PT GATHERED BELONGINGS AND PAPERWORK AND WALKED OFF THE UNIT WITH FOREST PATROLMAN. CONTACT PRECUATIONS MAINTAINED T/O SHIFT.
== END 2021-02-07 14:58 | disposition home or self-care (01) | DRG 690 ==
LOC: ER 07:44 → MEDS 12:07
PROVIDERS: Emergency Medicine; Nurse Practitioner Acute Care; ADMIT Internal Medicine
PROC: 0T25X0Z Change Drainage Device in Kidney, External Approach (ICD-10-PCS; principal; 2021-02-06)
DX: N13.6 Pyonephrosis (principal); F11.20 Opioid dependence, uncomplicated; N17.9 Acute kidney failure, unspecified; Z20.822 Contact with and (suspected) exposure to COVID-19; I12.9 Hypertensive chronic kidney disease with stage 1 through stage 4 chronic kidney disease, or unspecified chronic kidney disease; N18.30 Chronic kidney disease, stage 3 unspecified; E11.22 Type 2 diabetes mellitus with diabetic chronic kidney disease; G89.4 Chronic pain syndrome; E78.5 Hyperlipidemia, unspecified; Z85.46 Personal history of malignant neoplasm of prostate; Z98.890 Other specified postprocedural states; Z79.84 Long term (current) use of oral hypoglycemic drugs; Z79.899 Other long term (current) drug therapy
CPT/HCPCS: 0241U; 36415; 50435; 74176; 80053; 81001; 82550; 82947; 83690; 83735; 84100; 85025; 87077; 87086; 87186; 96374; 96375; 99152; 99285-25; A9270; C1729; C1769; C1887; J0295; J0690; J1170; J2250; J2405; J3010; J7030; J7040; Q9967

== ENCOUNTER → 2021-02-19 | Outpatient (CLI) | payer MEDICARE, OTHER ==
[~2021-02-19] MED LIST changes: +AMOCLA500 PO; +SULFAMETHOXAZO1 EACH PO
[2021-02-19 16:21] LABS: Creatinine Urine 51.9 mg/dL (27.00-270.00); Protein, Urine Quantitative 89.7 mg/dL (0.0-11.9)
== END | disposition home or self-care (01) ==
LOC: LAB 13:31 → LAB SHORT 13:31
PROVIDERS: Internal Medicine Nephrology
DX: E11.21 Type 2 diabetes mellitus with diabetic nephropathy (principal); E11.22 Type 2 diabetes mellitus with diabetic chronic kidney disease; N18.30 Chronic kidney disease, stage 3 unspecified; D63.1 Anemia in chronic kidney disease; N25.81 Secondary hyperparathyroidism of renal origin; E55.9 Vitamin D deficiency, unspecified; E78.00 Pure hypercholesterolemia, unspecified; D51.8 Other vitamin B12 deficiency anemias; D52.8 Other folate deficiency anemias; R76.9 Abnormal immunological finding in serum, unspecified; R94.5 Abnormal results of liver function studies; R94.6 Abnormal results of thyroid function studies
CPT/HCPCS: 81050; 82570; 84156

== ENCOUNTER 2021-03-07 08:16 | Emergency (ER) | payer MEDICARE, OTHER ==
[~2021-03-07] VITALS: Ht 182.9 cm; Wt 86.2 kg
[2021-03-07 08:48] LABS: BASOPHILS ABSOLUTE AUTO 0.02 K/mm3 (0.00-0.23); BASOPHILS PERCENT AUTO 1 % (0-2); EOSINOPHILS PERCENT AUTO 3 % (0-6); Hematocrit 37.4 % (37.0-53.0); Hemoglobin 12.2 g/dL (13.5-17.5); IMMATURE GRAN ABSOLUTE AUTO 0.01 K/mm3 (0.00-0.10); IMMATURE GRAN PERCENT AUTO 0 % (0-1); LYMPHOCYTES ABSOLUTE AUTO 0.66 K/mm3 (0.84-5.20); LYMPHOCYTES PERCENT AUTO 19 % (21-46); MONOCYTES ABSOLUTE AUTO 0.33 K/mm3 (0.16-1.47); MONOCYTES PERCENT AUTO 9 % (4-13); Mean Corpuscular HGB 30.5 pg (26.0-34.0); Mean Corpuscular HGB Conc 32.6 g/dL (31.5-36.5); Mean Corpuscular Volume 94 fL (80-100); Mean Platelet Volume 9.8 fL (9.1-12.4); NEUTROPHILS ABSOLUTE AUTO 2.41 K/mm3 (1.96-9.15); NEUTROPHILS PERCENT AUTO 68 % (41-73); Platelet Count 175 K/mm3 (150-400); RDW Coefficient Variation 14.2 % (11.7-14.2); RDW Standard Deviation 48.4 fL (35.1-46.3); White Blood Cell Count 3.53 K/mm3 (4.00-11.30)
[2021-03-07 09:05] LABS: Albumin, Blood 3.4 g/dL (3.4-5.0); Albumin/Globulin Ratio 0.8 (0.8-1.8); Bilirubin, Total 0.5 mg/dL (0.1-1.0); Bun/Creatinine Ratio 15.9 (12.0-20.0); Calcium, Blood 8.8 mg/dL (8.5-10.1); Creatinine, Blood 1.7 mg/dL (0.60-1.20); Globulin, Blood 4.1 g/dL (2.2-4.0); Potassium, Blood 4.4 mmol/L (3.5-5.5); Total Protein, Blood 7.5 g/dL (6.4-8.2)
[2021-03-07] MEDS ORDERED: Percocet 5-3251 EACH PO (11:00)
== END 2021-03-07 11:12 | disposition home or self-care (01) ==
LOC: ER 08:16
PROVIDERS: Emergency Medicine
DX: R10.9 Unspecified abdominal pain (principal); G89.18 Other acute postprocedural pain; R03.0 Elevated blood-pressure reading, without diagnosis of hypertension; Z76.0 Encounter for issue of repeat prescription
CPT/HCPCS: 36415; 74176; 80053; 85025; 99284-25; A9270

== ENCOUNTER 2021-03-26 14:25 | Emergency (ER) | payer MEDICARE, OTHER ==
[~2021-03-26] VITALS: Ht 177.8 cm; Wt 86.2 kg
[2021-03-26 15:50] LABS: BASOPHILS ABSOLUTE AUTO 0.02 K/mm3 (0.00-0.23); BASOPHILS PERCENT AUTO 1 % (0-2); EOSINOPHILS ABSOLUTE AUTO 0.02 K/mm3 (0.00-0.68); EOSINOPHILS PERCENT AUTO 1 % (0-6); Hematocrit 37.2 % (37.0-53.0); Hemoglobin 12.1 g/dL (13.5-17.5); IMMATURE GRAN ABSOLUTE AUTO 0.01 K/mm3 (0.00-0.10); IMMATURE GRAN PERCENT AUTO 0 % (0-1); LYMPHOCYTES ABSOLUTE AUTO 0.49 K/mm3 (0.84-5.20); LYMPHOCYTES PERCENT AUTO 12 % (21-46); MONOCYTES ABSOLUTE AUTO 0.36 K/mm3 (0.16-1.47); MONOCYTES PERCENT AUTO 9 % (4-13); Mean Corpuscular HGB 30.5 pg (26.0-34.0); Mean Corpuscular HGB Conc 32.5 g/dL (31.5-36.5); Mean Corpuscular Volume 94 fL (80-100); Mean Platelet Volume 9.9 fL (9.1-12.4); NEUTROPHILS ABSOLUTE AUTO 3.04 K/mm3 (1.96-9.15); NEUTROPHILS PERCENT AUTO 77 % (41-73); Platelet Count 166 K/mm3 (150-400); RDW Standard Deviation 47.6 fL (35.1-46.3); Red Blood Cell Count 3.97 M/mm3 (4.30-5.90); White Blood Cell Count 3.94 K/mm3 (4.00-11.30)
[2021-03-26 16:07] LABS: Albumin, Blood 3.4 g/dL (3.4-5.0); Albumin/Globulin Ratio 0.9 (0.8-1.8); Bilirubin, Total 0.4 mg/dL (0.1-1.0); Bun/Creatinine Ratio 12.5 (12.0-20.0); Creatinine, Blood 1.84 mg/dL (0.60-1.20); Globulin, Blood 3.7 g/dL (2.2-4.0); Potassium, Blood 5.5 mmol/L (3.5-5.5); Total Protein, Blood 7.1 g/dL (6.4-8.2)
[2021-03-26 16:42] LABS: Source, Urine Catheter
[2021-03-26 16:46] LABS: Bilirubin, Urine Neg (Neg); Blood, Urine 5+ (Neg); Glucose Qualitative, Urine Neg (Neg); Ketones, Urine Neg (Neg); Leukocyte Esterase, Urine 3+ (Neg); Nitrite, Urine Pos (Neg); Protein, Urine 3+ (Neg); Urobilinogen, Urine NORM (Normal)
[2021-03-26] MEDS ORDERED: AMLODIPINE BES2.5 MG PO (16:50)
[2021-03-26 16:54] LABS: Appearance, Urine Cloudy (Clear); Color, Urine Yellow (P-Yellow)
[2021-03-26 16:55] LABS: Bacteria Many /hpf; Red Blood Cells, Urine TNTC /hpf (0-2); Squamous Epithelial Cells Mod /hpf (Few); White Blood Cells, Urine TNTC /hpf (0-5)
[2021-03-26] MEDS ORDERED: Macrobid 100 M100 MG PO (18:40)
== END 2021-03-26 19:08 | disposition home or self-care (01) ==
LOC: ER 14:25
PROVIDERS: Emergency Medicine; Physician Assistant
DX: N39.0 Urinary tract infection, site not specified (principal); G89.28 Other chronic postprocedural pain; Z91.041 Radiographic dye allergy status; Z79.899 Other long term (current) drug therapy
CPT/HCPCS: 36415; 74022; 80053; 81001; 83690; 85025; 87086; 99284-25

== ENCOUNTER 2021-04-06 12:18 | Emergency (ER) | payer MEDICARE, OTHER ==
[~2021-04-06] VITALS: Ht 182.9 cm; Wt 84.4 kg
[~2021-04-06 12:18] MED LIST changes: +AMLODIPINE BES2.5 MG PO; +Macrobid 100 M100 MG PO
[2021-04-06 14:18] LABS: Source, Urine Urostomy Bag
[2021-04-06 14:25] LABS: Appearance, Urine Cloudy (Clear); Bilirubin, Urine Neg (Neg); Blood, Urine 5+ (Neg); Color, Urine Yellow (P-Yellow); Glucose Qualitative, Urine Neg (Neg); Ketones, Urine Neg (Neg); Leukocyte Esterase, Urine 3+ (Neg); Nitrite, Urine Neg (Neg); Protein, Urine 3+ (Neg); Specific Gravity, Urine 1.015 (1.003-1.022); Urobilinogen, Urine NORM (Normal)
[2021-04-06 14:32] LABS: Mucus Light (0-Heavy); Transitional Epithelial Cells Few /hpf (0-Rare)
[2021-04-06 14:33] LABS: Bacteria Few /hpf; Red Blood Cells, Urine TNTC /hpf (0-2); Renal Epithelial Rare /hpf (0-Rare); Squamous Epithelial Cells Not Seen /hpf (Few); White Blood Cells, Urine TNTC /hpf (0-5)
[2021-04-06] MEDS ORDERED: Levaquin500 MG PO (15:11)
== END 2021-04-06 15:20 | disposition home or self-care (01) ==
LOC: ER 12:18
PROVIDERS: Physician Assistant
DX: N39.0 Urinary tract infection, site not specified (principal); Z79.899 Other long term (current) drug therapy; Z91.041 Radiographic dye allergy status
CPT/HCPCS: 81001; 87077; 87086; 87186; 96372; 99283; A9270; J1885

== ENCOUNTER 2021-04-10 06:03 | Emergency (ER) | payer MEDICARE, OTHER ==
[~2021-04-10] VITALS: Ht 182.9 cm; Wt 83.9 kg
[~2021-04-10 06:03] MED LIST changes: +Levaquin500 MG PO
[2021-04-10] MEDS ORDERED: AMOCLA875 PO (06:51)
== END 2021-04-10 06:58 | disposition home or self-care (01) ==
LOC: ER 06:03
DX: N39.0 Urinary tract infection, site not specified (principal); Z91.041 Radiographic dye allergy status; Z79.899 Other long term (current) drug therapy
CPT/HCPCS: 99283; A9270

== ENCOUNTER 2021-04-12 11:52 | Emergency (ER) | payer MEDICARE, OTHER ==
[~2021-04-12] VITALS: Ht 182.9 cm; Wt 83.9 kg
[~2021-04-12 11:52] MED LIST changes: +AMOCLA875 PO
[2021-04-12 12:24] LABS: BASOPHILS ABSOLUTE AUTO 0.02 K/mm3 (0.00-0.23); BASOPHILS PERCENT AUTO 0 % (0-2); EOSINOPHILS ABSOLUTE AUTO 0.03 K/mm3 (0.00-0.68); EOSINOPHILS PERCENT AUTO 1 % (0-6); Hematocrit 41.2 % (37.0-53.0); Hemoglobin 13.7 g/dL (13.5-17.5); IMMATURE GRAN ABSOLUTE AUTO 0.02 K/mm3 (0.00-0.10); IMMATURE GRAN PERCENT AUTO 0 % (0-1); LYMPHOCYTES ABSOLUTE AUTO 0.66 K/mm3 (0.84-5.20); LYMPHOCYTES PERCENT AUTO 14 % (21-46); MONOCYTES ABSOLUTE AUTO 0.47 K/mm3 (0.16-1.47); MONOCYTES PERCENT AUTO 10 % (4-13); Mean Corpuscular HGB 30.9 pg (26.0-34.0); Mean Corpuscular HGB Conc 33.3 g/dL (31.5-36.5); Mean Corpuscular Volume 93 fL (80-100); Mean Platelet Volume 9.9 fL (9.1-12.4); NEUTROPHILS ABSOLUTE AUTO 3.42 K/mm3 (1.96-9.15); NEUTROPHILS PERCENT AUTO 74 % (41-73); Platelet Count 159 K/mm3 (150-400); RDW Standard Deviation 48.3 fL (35.1-46.3); Red Blood Cell Count 4.44 M/mm3 (4.30-5.90); White Blood Cell Count 4.62 K/mm3 (4.00-11.30)
[2021-04-12 12:38] LABS: Albumin, Blood 3.7 g/dL (3.4-5.0); Bilirubin, Total 0.4 mg/dL (0.1-1.0); Bun/Creatinine Ratio 15.7 (12.0-20.0); Calcium, Blood 8.1 mg/dL (8.5-10.1); Creatinine, Blood 1.66 mg/dL (0.60-1.20); Globulin, Blood 3.7 g/dL (2.2-4.0); Total Protein, Blood 7.4 g/dL (6.4-8.2)
[2021-04-12] MEDS ORDERED: OXYC5 (13:22)
[2021-04-12] MEDS ORDERED: LINE600 PO (14:46)
[2021-04-12] MEDS ORDERED: Pyridium100 MG PO (14:46)
== END 2021-04-12 15:02 | disposition home or self-care (01) ==
LOC: ER 11:52
PROVIDERS: Physician Assistant
DX: N39.0 Urinary tract infection, site not specified (principal); Z91.041 Radiographic dye allergy status; Z79.899 Other long term (current) drug therapy
CPT/HCPCS: 36415; 80053; 85025; 99283; A9270; J0878

== ENCOUNTER 2021-04-13 07:23 | Emergency (ER) | payer MEDICARE, OTHER ==
[~2021-04-13] VITALS: Ht 182.9 cm; Wt 83.9 kg
[~2021-04-13 07:23] MED LIST changes: +LINE600 PO; +OXYC5; +Pyridium100 MG PO
== END 2021-04-13 14:30 | disposition home or self-care (01) ==
LOC: ER 07:23
DX: K59.00 Constipation, unspecified (principal); Z91.041 Radiographic dye allergy status; Z79.899 Other long term (current) drug therapy
CPT/HCPCS: 74176; 93005; 93010; 96374; 96375; 99284-25; A9270; J1170; J2405

== ENCOUNTER 2021-04-14 08:12 | Emergency (ER) | payer MEDICARE, OTHER ==
[~2021-04-14] VITALS: Ht 182.9 cm; Wt 80.9 kg
== END 2021-04-14 10:15 | disposition home or self-care (01) ==
LOC: ER 08:12
DX: R10.9 Unspecified abdominal pain (principal); R39.89 Other symptoms and signs involving the genitourinary system; Z91.041 Radiographic dye allergy status; Z79.899 Other long term (current) drug therapy
CPT/HCPCS: 99283

== ENCOUNTER 2021-04-16 22:54 | Emergency (ER) | payer MEDICARE, OTHER ==
[~2021-04-16] VITALS: Ht 182.9 cm; Wt 79.4 kg
== END 2021-04-16 23:48 | disposition home or self-care (01) ==
LOC: ER 22:54
DX: T83.84XA Pain due to genitourinary prosthetic devices, implants and grafts, initial encounter (principal); R10.33 Periumbilical pain; Z79.899 Other long term (current) drug therapy; Z91.041 Radiographic dye allergy status
CPT/HCPCS: 96374; 99284-25; J3010

== ENCOUNTER → 2021-06-13 | Outpatient (CLI) | payer MEDICARE, OTHER ==
[~2021-06-13] MED LIST changes: +AMLO5 PO; +HYOS.125 PO; +LOSA25 PO
[2021-06-13 18:01] LABS: CHOL/HDL RATIO 3.7; Cholesterol 131 mg/dL (50-200); Free Thyroxine 0.94 ng/dL (0.70-1.60); HDL Cholesterol 35 mg/dL (>39); LDL/HDL RATIO 1.5; Low Density Lipoprotein Chol 53 mg/dL (0-110); Triglycerides 213 mg/dL (30-160); Triiodothyronine, Free 2.21 pg/mL (2.18-3.98); Very Low Density Lipoprot Chol 42 mg/dL (6-32)
[2021-06-13 18:07] LABS: Albumin, Blood 3.5 g/dL (3.4-5.0); Bilirubin, Total 0.4 mg/dL (0.1-1.0); Bun/Creatinine Ratio 18.1 (12.0-20.0); Calcium, Blood 8.4 mg/dL (8.5-10.1); Creatinine, Blood 1.82 mg/dL (0.60-1.20); Globulin, Blood 3.5 g/dL (2.2-4.0); Potassium, Blood 4.4 mmol/L (3.5-5.5); Thyroid Stimulating Hormone 0.922 uIU/mL (0.360-4.800)
[2021-06-14 07:11] LABS: HCV ANTIBODY 0.1 (0.0-0.9)
[2021-06-14 08:12] LABS: EBV NUCLEAR ANTIGEN AB, IGG >600.0 U/mL (0.0-17.9)
== END | disposition home or self-care (01) ==
LOC: LAB SHORT 12:30 → LAB 12:30
PROVIDERS: Family Medicine
DX: Z11.59 Encounter for screening for other viral diseases (principal); E11.21 Type 2 diabetes mellitus with diabetic nephropathy; E11.22 Type 2 diabetes mellitus with diabetic chronic kidney disease; N18.4 Chronic kidney disease, stage 4 (severe); F32.9 Major depressive disorder, single episode, unspecified; E78.00 Pure hypercholesterolemia, unspecified; R53.83 Other fatigue
CPT/HCPCS: 80053; 80061; 82043; 82306; 83036; 84439; 84443; 84481; 86664; 86803

== ENCOUNTER → 2021-06-26 | Outpatient (CLI) | payer MEDICARE, OTHER | END | disposition home or self-care (01) | LOC: LAB SHORT 14:43 | DX: N39.0 Urinary tract infection, site not specified (principal) | CPT/HCPCS: 87077; 87086; 87186 ==

== ENCOUNTER 2021-07-03 08:19 | Emergency (ER) | payer MEDICARE, OTHER ==
[~2021-07-03] VITALS: Ht 182.9 cm; Wt 83.9 kg
[~2021-07-03 08:19] MED LIST changes: -AMLO5 PO
[2021-07-03] MEDS ORDERED: AMLO5 PO (08:48)
== END 2021-07-03 10:51 | disposition home or self-care (01) ==
LOC: ER 08:19
DX: R07.81 Pleurodynia (principal); Z91.041 Radiographic dye allergy status; Z79.899 Other long term (current) drug therapy; W18.30XA Fall on same level, unspecified, initial encounter
CPT/HCPCS: 71101; 99283-25

== ENCOUNTER → 2021-07-16 | Outpatient (CLI) | payer MEDICARE, OTHER ==
[~2021-07-16] MED LIST changes: +AMLO5 PO; +Cipro250 MG PO; +ESCI10 PO; +Nitrofurantoin100 M1
[2021-07-16 14:51] LABS: Source, Urine Catheter
[2021-07-16 15:57] LABS: Squamous Epithelial Cells Few /hpf (Few); White Blood Cells, Urine 50-100 /hpf (0-5)
[2021-07-16 15:58] LABS: Bacteria Few /hpf
== END | disposition home or self-care (01) ==
LOC: LAB SHORT 12:30
PROVIDERS: Family Medicine
DX: N39.0 Urinary tract infection, site not specified (principal)
CPT/HCPCS: 81015

== ENCOUNTER 2021-07-21 16:08 | Emergency (ER) | payer MEDICARE, OTHER ==
[~2021-07-21] VITALS: Ht 182.9 cm; Wt 83.9 kg
[~2021-07-21 16:08] MED LIST changes: -Cipro250 MG PO; -ESCI10 PO; -Nitrofurantoin100 M1
[2021-07-21 16:43] LABS: BASOPHILS ABSOLUTE AUTO 0.03 K/mm3 (0.00-0.23); BASOPHILS PERCENT AUTO 1 % (0-2); EOSINOPHILS ABSOLUTE AUTO 0.11 K/mm3 (0.00-0.68); EOSINOPHILS PERCENT AUTO 2 % (0-6); Hematocrit 37.1 % (37.0-53.0); Hemoglobin 12.3 g/dL (13.5-17.5); IMMATURE GRAN ABSOLUTE AUTO 0.02 K/mm3 (0.00-0.10); IMMATURE GRAN PERCENT AUTO 0 % (0-1); LYMPHOCYTES ABSOLUTE AUTO 0.76 K/mm3 (0.84-5.20); LYMPHOCYTES PERCENT AUTO 16 % (21-46); MONOCYTES ABSOLUTE AUTO 0.26 K/mm3 (0.16-1.47); MONOCYTES PERCENT AUTO 5 % (4-13); Mean Corpuscular HGB 31.9 pg (26.0-34.0); Mean Corpuscular HGB Conc 33.2 g/dL (31.5-36.5); Mean Corpuscular Volume 96 fL (80-100); Mean Platelet Volume 9.4 fL (9.1-12.4); NEUTROPHILS PERCENT AUTO 75 % (41-73); Platelet Count 165 K/mm3 (150-400); RDW Coefficient Variation 13.2 % (11.7-14.2); RDW Standard Deviation 46.8 fL (35.1-46.3); Red Blood Cell Count 3.86 M/mm3 (4.30-5.90); White Blood Cell Count 4.78 K/mm3 (4.00-11.30)
[2021-07-21 17:09] LABS: Albumin, Blood 3.2 g/dL (3.4-5.0); Albumin/Globulin Ratio 0.8 (0.8-1.8); Bilirubin, Total 0.4 mg/dL (0.1-1.0); Bun/Creatinine Ratio 19.1 (12.0-20.0); Calcium, Blood 9.3 mg/dL (8.5-10.1); Creatinine, Blood 1.88 mg/dL (0.60-1.20); Globulin, Blood 3.9 g/dL (2.2-4.0); Potassium, Blood 4.7 mmol/L (3.5-5.5); Total Protein, Blood 7.1 g/dL (6.4-8.2)
[2021-07-21] MEDS ORDERED: Cipro250 MG PO (19:11)
[2021-07-21] MEDS ORDERED: Nitrofurantoin100 M1 (19:18)
[2021-07-21] MEDS ORDERED: ESCI10 PO (19:18)
== END 2021-07-21 19:43 | disposition home or self-care (01) ==
LOC: ER 16:08
PROVIDERS: Physician Assistant
DX: N39.0 Urinary tract infection, site not specified (principal); B96.5 Pseudomonas (aeruginosa) (mallei) (pseudomallei) as the cause of diseases classified elsewhere; Z91.041 Radiographic dye allergy status; Z79.899 Other long term (current) drug therapy; Z85.46 Personal history of malignant neoplasm of prostate
CPT/HCPCS: 36415; 80053; 85025; 96365; 99281-25; A9270; J2185

== ENCOUNTER 2021-07-22 10:02 | Day surgery (SDC) | payer MEDICARE, OTHER ==
[~2021-07-22 10:02] MED LIST changes: +Cipro250 MG PO; +ESCI10 PO; +Nitrofurantoin100 M1
== END 2021-07-22 16:47 | disposition home or self-care (01) ==
LOC: ATC 10:02
DX: N39.0 Urinary tract infection, site not specified (principal); A49.8 Other bacterial infections of unspecified site; Z85.46 Personal history of malignant neoplasm of prostate; Z91.041 Radiographic dye allergy status
CPT/HCPCS: 96365; J2185

== ENCOUNTER 2021-07-25 00:25 | Day surgery (SDC) | payer MEDICARE, OTHER | END 2021-07-25 17:36 | disposition home or self-care (01) | LOC: ATC 00:25 | DX: N39.0 Urinary tract infection, site not specified (principal); A49.8 Other bacterial infections of unspecified site | CPT/HCPCS: 96365; J2185 ==

== ENCOUNTER 2021-07-27 02:05 | Day surgery (SDC) | payer MEDICARE, OTHER ==
[2021-07-27] MEDS ORDERED: MEROPENEM IV (07:53)
== END 2021-07-27 16:40 | disposition home or self-care (01) ==
LOC: ATC 02:05
DX: N39.0 Urinary tract infection, site not specified (principal); B96.5 Pseudomonas (aeruginosa) (mallei) (pseudomallei) as the cause of diseases classified elsewhere; Z85.46 Personal history of malignant neoplasm of prostate; Z91.041 Radiographic dye allergy status
CPT/HCPCS: 96365; J2185

== ENCOUNTER 2021-07-30 02:14 | Day surgery (SDC) | payer MEDICARE, OTHER ==
[~2021-07-30 02:14] MED LIST changes: +MEROPENEM IV
== END 2021-07-30 16:47 | disposition home or self-care (01) ==
LOC: ATC 02:14
DX: N39.0 Urinary tract infection, site not specified (principal); B96.5 Pseudomonas (aeruginosa) (mallei) (pseudomallei) as the cause of diseases classified elsewhere; B96.89 Other specified bacterial agents as the cause of diseases classified elsewhere; Z85.46 Personal history of malignant neoplasm of prostate; Z93.6 Other artificial openings of urinary tract status
CPT/HCPCS: 96365; J2185

== ENCOUNTER 2021-07-31 01:23 | Day surgery (SDC) | payer MEDICARE, OTHER ==
--- NOTE | 2021-07-31 08:40 | NUR ---
PT STATES HIS IV IS BOTHERING HIM. WE WILL DISCONTINUE AFTER TONIGHTS DOSE.
== END 2021-07-31 12:00 | disposition home or self-care (01) ==
LOC: ATC 01:23
DX: N39.0 Urinary tract infection, site not specified (principal); B96.5 Pseudomonas (aeruginosa) (mallei) (pseudomallei) as the cause of diseases classified elsewhere; Z85.46 Personal history of malignant neoplasm of prostate; Z91.041 Radiographic dye allergy status; Z79.899 Other long term (current) drug therapy
CPT/HCPCS: 96365; J2185

== ENCOUNTER 2021-07-31 01:36 | Day surgery (SDC) | payer MEDICARE, OTHER | END 2021-07-31 16:47 | disposition home or self-care (01) | LOC: ATC 01:36 | DX: Z43.6 Encounter for attention to other artificial openings of urinary tract (principal); Z91.041 Radiographic dye allergy status; Z79.899 Other long term (current) drug therapy; Z85.46 Personal history of malignant neoplasm of prostate | CPT/HCPCS: J2185 ==

== ENCOUNTER 2021-08-01 01:39 | Day surgery (SDC) | payer MEDICARE, OTHER | END 2021-08-01 16:47 | disposition home or self-care (01) | LOC: ATC 01:39 | DX: N39.0 Urinary tract infection, site not specified (principal); B95.62 Methicillin resistant Staphylococcus aureus infection as the cause of diseases classified elsewhere; Z85.46 Personal history of malignant neoplasm of prostate; Z91.041 Radiographic dye allergy status; Z79.899 Other long term (current) drug therapy | CPT/HCPCS: 96365; J2185 ==

== ENCOUNTER 2021-08-02 04:49 | Day surgery (SDC) | payer MEDICARE, OTHER | END 2021-08-02 16:59 | disposition home or self-care (01) | LOC: ATC 04:49 | DX: N39.0 Urinary tract infection, site not specified (principal); B95.62 Methicillin resistant Staphylococcus aureus infection as the cause of diseases classified elsewhere; Z85.46 Personal history of malignant neoplasm of prostate; Z91.041 Radiographic dye allergy status; Z79.899 Other long term (current) drug therapy | CPT/HCPCS: 96365; J2185 ==

== ENCOUNTER → 2021-08-14 | Outpatient (CLI) | payer MEDICARE, OTHER | END | disposition home or self-care (01) | LOC: LAB SHORT 19:03 | DX: R39.198 Other difficulties with micturition (principal) | CPT/HCPCS: 87077; 87086; 87186 ==

== ENCOUNTER 2021-08-20 11:12 | Emergency (ER) | payer MEDICARE, OTHER ==
[~2021-08-20] VITALS: Ht 182.9 cm; Wt 81.7 kg
[2021-08-20] MEDS ORDERED: ONDA4ODT MM (12:32)
[2021-08-21] MEDS ORDERED: Percocet 5-3251 EACH PO (08:56)
== END 2021-08-20 14:31 | disposition home or self-care (01) ==
LOC: ER 11:12
DX: U07.1 COVID-19 (principal); Z91.048 Other nonmedicinal substance allergy status; Z79.899 Other long term (current) drug therapy
CPT/HCPCS: 96374; 99283; A9270; J2405; J7030; M0243; Q0243

== ENCOUNTER 2021-08-21 08:23 | Emergency (ER) | payer MEDICARE, OTHER ==
[~2021-08-21] VITALS: Ht 182.9 cm; Wt 81.7 kg
[~2021-08-21 08:23] MED LIST changes: +ONDA4ODT MM
[2021-08-21] MEDS ORDERED: Percocet 5-3251 EACH PO (08:56)
[2021-08-22] MEDS ORDERED: GLIP5 (09:41)
[2021-08-22] MEDS ORDERED: ATOR10 (09:42)
[2021-08-22] MEDS ORDERED: BACTRIM DS TAB1 EAC6 PO (09:42)
[2021-08-22] MEDS ORDERED: SERT25 (09:42)
[2021-08-22] MEDS ORDERED: CEFP200 PO (12:56)
== END 2021-08-21 09:17 | disposition home or self-care (01) ==
LOC: ER 08:23
DX: Z00.00 Encounter for general adult medical examination without abnormal findings (principal); U07.1 COVID-19; G89.29 Other chronic pain; Z76.0 Encounter for issue of repeat prescription; Z91.041 Radiographic dye allergy status; Z79.899 Other long term (current) drug therapy
CPT/HCPCS: 99283

== ENCOUNTER 2021-08-22 09:09 | Emergency (ER) | payer MEDICARE, OTHER ==
[~2021-08-22] VITALS: Ht 182.9 cm; Wt 81.7 kg
[2021-08-22 09:30] LABS: Calcium, Ionized (POC) 1.13 mmol/L (1.10-1.46); Chloride (POC) 102 mmol/L (98-108); Creatinine (POC) 2.6 mg/dL (0.8-1.3); Glucose (ISTAT POC) 76 mg/dL (70-99); Hemoglobin (POC) 13.9 g/dL (13.5-17.5); Potassium (POC) 3.3 mmol/L (3.5-5.5); Sodium (POC) 139 mmol/L (135-148); Total CO2 (POC) 24 mmol/L (21-32)
[2021-08-22] MEDS ORDERED: GLIP5 (09:41)
[2021-08-22] MEDS ORDERED: BACTRIM DS TAB1 EAC6 PO (09:42)
[2021-08-22] MEDS ORDERED: SERT25 (09:42)
[2021-08-22] MEDS ORDERED: ATOR10 (09:42)
[2021-08-22 09:50] LABS: BASOPHILS ABSOLUTE AUTO 0.01 K/mm3 (0.00-0.23); BASOPHILS PERCENT AUTO 0 % (0-2); EOSINOPHILS ABSOLUTE AUTO 0.01 K/mm3 (0.00-0.68); EOSINOPHILS PERCENT AUTO 0 % (0-6); Hematocrit 40.1 % (37.0-53.0); Hemoglobin 13.4 g/dL (13.5-17.5); IMMATURE GRAN ABSOLUTE AUTO 0.01 K/mm3 (0.00-0.10); IMMATURE GRAN PERCENT AUTO 0 % (0-1); LYMPHOCYTES ABSOLUTE AUTO 0.33 K/mm3 (0.84-5.20); LYMPHOCYTES PERCENT AUTO 8 % (21-46); MONOCYTES ABSOLUTE AUTO 0.23 K/mm3 (0.16-1.47); MONOCYTES PERCENT AUTO 5 % (4-13); Mean Corpuscular HGB 31.5 pg (26.0-34.0); Mean Corpuscular HGB Conc 33.4 g/dL (31.5-36.5); Mean Corpuscular Volume 94 fL (80-100); Mean Platelet Volume 10.4 fL (9.1-12.4); NEUTROPHILS PERCENT AUTO 87 % (41-73); Platelet Count 112 K/mm3 (150-400); RDW Coefficient Variation 12.8 % (11.7-14.2); RDW Standard Deviation 44.2 fL (35.1-46.3); Red Blood Cell Count 4.25 M/mm3 (4.30-5.90); White Blood Cell Count 4.39 K/mm3 (4.00-11.30)
[2021-08-22 09:59] LABS: Alanine Aminotransfer (ALT/SGP 18 U/L (12-78); Albumin, Blood 2.8 g/dL (3.4-5.0); Albumin/Globulin Ratio 0.6 (0.8-1.8); Alk Phos 90 U/L (50-136); Anion Gap 8 mmol/L (6-16); Aspartate Aminotrans (AST/SGOT 33 U/L (12-37); Bilirubin, Total 0.3 mg/dL (0.1-1.0); Blood Urea Nitrogen 47 mg/dL (8-24); Bun/Creatinine Ratio 19.9 (12.0-20.0); CO2, Blood 25 mmol/L (21-32); Calcium, Blood 9.4 mg/dL (8.5-10.1); Chloride, Blood 105 mmol/L (98-108); Creatinine, Blood 2.36 mg/dL (0.60-1.20); Ethanol (Alcohol), Blood, Med <3 mg/dL; Globulin, Blood 4.7 g/dL (2.2-4.0); Glomerular Filtration Rate 27 (60-); Glucose, Blood 77 mg/dL (70-99); Potassium, Blood 3.4 mmol/L (3.5-5.5); Salicylate 2.7 mg/dL (2.8-20.0); Sodium, Blood 138 mmol/L (136-145); Thyroxine (T4) 10.7 ug/dL (4.5-12.1); Total Protein, Blood 7.5 g/dL (6.4-8.2)
[2021-08-22 10:08] LABS: Acetaminophen, Random <2.0 ug/mL (10.0-30.0)
[2021-08-22 12:05] LABS: Source, Urine Clean Catch
[2021-08-22 12:08] LABS: Appearance, Urine Cloudy (Clear); Bilirubin, Urine Neg (Neg); Blood, Urine 4+ (Neg); Color, Urine Yellow (P-Yellow); Glucose Qualitative, Urine 1+ (Neg); Ketones, Urine Neg (Neg); Leukocyte Esterase, Urine 3+ (Neg); Nitrite, Urine Neg (Neg); Protein, Urine 3+ (Neg); Urobilinogen, Urine NORM (Normal)
[2021-08-22 12:20] LABS: White Blood Cells, Urine 50-100 /hpf (0-5)
[2021-08-22 12:21] LABS: Bacteria Many /hpf; Red Blood Cells, Urine 25-50 /hpf (0-2); Squamous Epithelial Cells Few /hpf (Few)
[2021-08-22 12:36] LABS: U Amphetamine Screen Not Detected; U Barbituate Screen Not Detected; U Benzodiazapine Screen Not Detected; U Cocaine Screen Not Detected; U Methadone Screen Not Detected; U Methamphetamine Screen Not Detected; U Opiates Screen DETECTED
[2021-08-22 12:37] LABS: U Buprenorphine Screen Not Detected; U Cannabinoids Screen Not Detected; U Oxycodone Screen DETECTED; U Phencyclidine Screen Not Detected; U Propoxyphene Screen Not Detected
[2021-08-22] MEDS ORDERED: CEFP200 PO (12:56)
[2021-08-23] MEDS ORDERED: Percocet 10-321 EACH PO (15:00)
[2021-08-23] MEDS ORDERED: Roxicodone5 MG PO (16:33)
== END 2021-08-22 13:15 | disposition home or self-care (01) ==
LOC: ER 09:09
PROVIDERS: Student in an Organized Health Care Education/Training Program
DX: N39.0 Urinary tract infection, site not specified (principal); U07.1 COVID-19; G89.29 Other chronic pain; R10.9 Unspecified abdominal pain; R82.71 Bacteriuria; Z91.041 Radiographic dye allergy status; Z79.899 Other long term (current) drug therapy
CPT/HCPCS: 36415; 51798; 71045; 74176; 80047; 80053; 81001; 82947; 84436; 85014; 85025; 87077; 87086; 87186; 93005; 93010; 96374; 96375; 99285-25; A9270; G0480; J1790; J7042

== ENCOUNTER 2021-08-23 14:22 | Emergency (ER) | payer MEDICARE, OTHER ==
[~2021-08-23] VITALS: Ht 188 cm; Wt 81.7 kg
[~2021-08-23 14:22] MED LIST changes: +ATOR10; +BACTRIM DS TAB1 EAC6 PO; +CEFP200 PO; +GLIP5; +SERT25
[2021-08-23] MEDS ORDERED: Percocet 10-321 EACH PO (15:00)
[2021-08-23 15:27] LABS: BASOPHILS PERCENT AUTO 0 % (0-2); EOSINOPHILS ABSOLUTE AUTO 0.01 K/mm3 (0.00-0.68); EOSINOPHILS PERCENT AUTO 0 % (0-6); Hematocrit 38.1 % (37.0-53.0); Hemoglobin 12.9 g/dL (13.5-17.5); IMMATURE GRAN ABSOLUTE AUTO 0.02 K/mm3 (0.00-0.10); IMMATURE GRAN PERCENT AUTO 1 % (0-1); LYMPHOCYTES ABSOLUTE AUTO 0.27 K/mm3 (0.84-5.20); LYMPHOCYTES PERCENT AUTO 8 % (21-46); MONOCYTES ABSOLUTE AUTO 0.29 K/mm3 (0.16-1.47); MONOCYTES PERCENT AUTO 9 % (4-13); Mean Corpuscular HGB 31.9 pg (26.0-34.0); Mean Corpuscular HGB Conc 33.9 g/dL (31.5-36.5); Mean Corpuscular Volume 94 fL (80-100); Mean Platelet Volume 9.6 fL (9.1-12.4); NEUTROPHILS ABSOLUTE AUTO 2.65 K/mm3 (1.96-9.15); NEUTROPHILS PERCENT AUTO 82 % (41-73); Platelet Count 119 K/mm3 (150-400); RDW Coefficient Variation 12.7 % (11.7-14.2); RDW Standard Deviation 44.4 fL (35.1-46.3); Red Blood Cell Count 4.05 M/mm3 (4.30-5.90); White Blood Cell Count 3.24 K/mm3 (4.00-11.30)
[2021-08-23 15:46] LABS: Albumin, Blood 2.7 g/dL (3.4-5.0); Albumin/Globulin Ratio 0.6 (0.8-1.8); Bilirubin, Total 0.4 mg/dL (0.1-1.0); Bun/Creatinine Ratio 16.4 (12.0-20.0); Calcium, Blood 9.2 mg/dL (8.5-10.1); Creatinine, Blood 1.89 mg/dL (0.60-1.20); Globulin, Blood 4.5 g/dL (2.2-4.0); Potassium, Blood 4.5 mmol/L (3.5-5.5); Total Protein, Blood 7.2 g/dL (6.4-8.2)
[2021-08-23] MEDS ORDERED: Roxicodone5 MG PO (16:33)
== END 2021-08-23 16:49 | disposition home or self-care (01) ==
LOC: ER 14:22
PROVIDERS: Emergency Medicine
DX: U07.1 COVID-19 (principal); Z76.0 Encounter for issue of repeat prescription; R10.9 Unspecified abdominal pain; Z79.899 Other long term (current) drug therapy
CPT/HCPCS: 80053; 85025; 99285; A9270

== ENCOUNTER 2021-08-25 07:09 | Emergency (ER) | payer MEDICARE, OTHER ==
[~2021-08-25] VITALS: Ht 182.9 cm; Wt 81.7 kg
[~2021-08-25 07:09] MED LIST changes: +Percocet 10-321 EACH PO; +Roxicodone5 MG PO
[2021-08-25] MEDS ORDERED: CEFP200 PO (08:25)
== END 2021-08-25 09:17 | disposition home or self-care (01) ==
LOC: ER 07:09
DX: U07.1 COVID-19 (principal); N39.0 Urinary tract infection, site not specified; Z79.899 Other long term (current) drug therapy
CPT/HCPCS: 71045; 99284-25; A9270

== ENCOUNTER 2021-08-26 15:14 | Emergency (ER) | payer MEDICARE, OTHER ==
[~2021-08-26] VITALS: Ht 182.9 cm; Wt 81.7 kg
== END 2021-08-26 18:00 | disposition home or self-care (01) ==
LOC: ER 15:14
DX: N39.0 Urinary tract infection, site not specified (principal); Z91.041 Radiographic dye allergy status; Z79.899 Other long term (current) drug therapy
CPT/HCPCS: 96365; 99283-25; J0696

== ENCOUNTER → 2021-10-02 | Outpatient (CLI) | payer MEDICARE, OTHER | END | disposition home or self-care (01) | LOC: LAB SHORT 17:47 → LAB 17:47 | DX: N39.0 Urinary tract infection, site not specified (principal) | CPT/HCPCS: 87077; 87086; 87186 ==

== ENCOUNTER → 2021-11-02 | Outpatient (CLI) | payer MEDICARE, OTHER | END | disposition home or self-care (01) | LOC: LAB SHORT 16:19 | DX: N39.0 Urinary tract infection, site not specified (principal) | CPT/HCPCS: 87077; 87086; 87186 ==

== ENCOUNTER → 2021-11-11 | Outpatient (CLI) | payer MEDICARE, OTHER ==
[2021-11-11 18:04] LABS: Source, Urine Clean Catch
[2021-11-11 19:26] LABS: Bacteria Many /hpf; Red Blood Cells, Urine TNTC /hpf (0-2); Squamous Epithelial Cells Few /hpf (Few)
== END | disposition home or self-care (01) ==
LOC: LAB SHORT 18:00
PROVIDERS: Student in an Organized Health Care Education/Training Program
DX: R31.9 Hematuria, unspecified (principal)
CPT/HCPCS: 81015

== ENCOUNTER → 2021-11-24 | Outpatient (CLI) | payer MEDICARE, OTHER ==
[2021-11-24 20:33] LABS: Alanine Aminotransfer (ALT/SGP 14 U/L (12-78); Albumin, Blood 3.4 g/dL (3.4-5.0); Alk Phos 97 U/L (50-136); Anion Gap 6 mmol/L (6-16); Aspartate Aminotrans (AST/SGOT 12 U/L (12-37); Bilirubin, Total 0.3 mg/dL (0.1-1.0); Blood Urea Nitrogen 31 mg/dL (8-24); Bun/Creatinine Ratio 15.5 (12.0-20.0); CHOL/HDL RATIO 4.3; CO2, Blood 24 mmol/L (21-32); Calcium, Blood 9.1 mg/dL (8.5-10.1); Chloride, Blood 107 mmol/L (98-108); Cholesterol 143 mg/dL (50-200); Globulin, Blood 3.4 g/dL (2.2-4.0); Glomerular Filtration Rate 32 (60-); Glucose, Blood 109 mg/dL (70-99); HDL Cholesterol 33 mg/dL (>39); LDL/HDL RATIO 2.1; Low Density Lipoprotein Chol 68 mg/dL (0-110); Potassium, Blood 4.3 mmol/L (3.5-5.5); Sodium, Blood 137 mmol/L (136-145); Total Protein, Blood 6.8 g/dL (6.4-8.2); Triglycerides 211 mg/dL (30-160); Very Low Density Lipoprot Chol 42 mg/dL (6-32)
== END ==
LOC: LAB SHORT 18:24
PROVIDERS: Family Medicine
DX: Z00.00 Encounter for general adult medical examination without abnormal findings (principal); Z13.6 Encounter for screening for cardiovascular disorders
CPT/HCPCS: 80053; 80061

== ENCOUNTER → 2021-12-05 | Outpatient (CLI) | payer MEDICARE, OTHER | LOC: LAB SHORT 14:08 → LAB 14:08 | DX: R30.0 Dysuria (principal) | CPT/HCPCS: 87077; 87086; 87186 ==

== ENCOUNTER 2021-12-09 07:49 | Emergency (ER) | payer MEDICARE, OTHER ==
[~2021-12-09] VITALS: Ht 182.9 cm; Wt 82.5 kg
[2021-12-09] MEDS ORDERED: DICY20 PO (09:08)
[2021-12-09] MEDS ORDERED: AMOCLA875 PO (09:08)
== END 2021-12-09 09:28 | disposition home or self-care (01) ==
LOC: ER 07:49
DX: N39.0 Urinary tract infection, site not specified (principal); Z85.46 Personal history of malignant neoplasm of prostate; Z91.041 Radiographic dye allergy status; Z79.899 Other long term (current) drug therapy
CPT/HCPCS: A9270

== ENCOUNTER 2021-12-23 00:23 | Day surgery (SDC) | payer MEDICARE, OTHER ==
[~2021-12-23 00:23] MED LIST changes: +DICY20 PO
== END 2021-12-23 23:03 | disposition home or self-care (01) ==
LOC: WOUND 00:23
DX: S31.60 Unspecified open wound of abdominal wall with penetration into peritoneal cavity (principal); C61 Malignant neoplasm of prostate; D50.9 Iron deficiency anemia, unspecified; I10 Essential (primary) hypertension; E11.9 Type 2 diabetes mellitus without complications; Z96.0 Presence of urogenital implants
CPT/HCPCS: G0463

== ENCOUNTER 2022-01-07 09:07 | Emergency (ER) | payer MEDICARE, OTHER ==
[~2022-01-07] VITALS: Ht 182.9 cm; Wt 82.5 kg
[~2022-01-07 09:07] MED LIST changes: -ATOR10; +ATOR10 PO
[2022-01-07 10:12] LABS: BASOPHILS ABSOLUTE AUTO 0.02 K/mm3 (0.00-0.23); BASOPHILS PERCENT AUTO 0 % (0-2); EOSINOPHILS ABSOLUTE AUTO 0.07 K/mm3 (0.00-0.68); EOSINOPHILS PERCENT AUTO 1 % (0-6); Hematocrit 40.3 % (37.0-53.0); Hemoglobin 13.1 g/dL (13.5-17.5); IMMATURE GRAN ABSOLUTE AUTO 0.01 K/mm3 (0.00-0.10); IMMATURE GRAN PERCENT AUTO 0 % (0-1); LYMPHOCYTES ABSOLUTE AUTO 0.54 K/mm3 (0.84-5.20); LYMPHOCYTES PERCENT AUTO 11 % (21-46); MONOCYTES PERCENT AUTO 6 % (4-13); Mean Corpuscular HGB Conc 32.5 g/dL (31.5-36.5); Mean Corpuscular Volume 95 fL (80-100); Mean Platelet Volume 9.4 fL (9.1-12.4); NEUTROPHILS ABSOLUTE AUTO 4.18 K/mm3 (1.96-9.15); NEUTROPHILS PERCENT AUTO 82 % (41-73); Platelet Count 202 K/mm3 (150-400); RDW Coefficient Variation 14.6 % (11.7-14.2); RDW Standard Deviation 51.2 fL (35.1-46.3); Red Blood Cell Count 4.23 M/mm3 (4.30-5.90); White Blood Cell Count 5.12 K/mm3 (4.00-11.30)
[2022-01-07] MEDS ORDERED: LOSA50 PO (10:41)
[2022-01-07 10:42] LABS: Albumin, Blood 3.9 g/dL (3.4-5.0); Albumin/Globulin Ratio 0.9 (0.8-1.8); Bilirubin, Total 0.5 mg/dL (0.1-1.0); Bun/Creatinine Ratio 13.5 (12.0-20.0); Creatinine, Blood 2.22 mg/dL (0.60-1.20); Globulin, Blood 4.4 g/dL (2.2-4.0); Potassium, Blood 4.4 mmol/L (3.5-5.5); Total Protein, Blood 8.3 g/dL (6.4-8.2)
[2022-01-07 11:30] LABS: Source, Urine Clean Catch
[2022-01-07 11:36] LABS: Appearance, Urine Hazy (Clear); Bilirubin, Urine Neg (Neg); Blood, Urine 4+ (Neg); Color, Urine Yellow (P-Yellow); Glucose Qualitative, Urine Neg (Neg); Ketones, Urine 2+ (Neg); Leukocyte Esterase, Urine 3+ (Neg); Nitrite, Urine Neg (Neg); Protein, Urine 3+ (Neg); Urobilinogen, Urine NORM (Normal)
[2022-01-07 12:39] LABS: Bacteria Few /hpf; Squamous Epithelial Cells Few /hpf (Few); White Blood Cells, Urine 50-100 /hpf (0-5)
[2022-01-07 12:41] LABS: Mucus Light (0-Heavy)
[2022-01-07] MEDS ORDERED: CEFD300 PO (12:46)
[2022-05-31] MEDS ORDERED: Bactrim Ds Tab1 EACH PO (14:38)
[2022-05-31] MEDS ORDERED: LINE600 PO (14:38)
[2022-07-23] MEDS ORDERED: NITR100CA PO (15:44)
== END 2022-01-07 13:14 | disposition home or self-care (01) ==
LOC: ER 09:07
PROVIDERS: Emergency Medicine
DX: N39.0 Urinary tract infection, site not specified (principal); Z91.048 Other nonmedicinal substance allergy status; Z79.899 Other long term (current) drug therapy
CPT/HCPCS: 36415; 74022; 80053; 81001; 85025; 87077; 87086; 87186; 93005; 93010; 96374; 96375; 99284-25; J1200; J1790

== ENCOUNTER → 2022-01-14 | Outpatient (CLI) | payer MEDICARE, OTHER ==
[~2022-01-14] MED LIST changes: +ATOR10; -ATOR10 PO; +CEFD300 PO; +LOSA50 PO
== END | disposition home or self-care (01) ==
LOC: LAB SHORT 11:00
DX: N39.0 Urinary tract infection, site not specified (principal)
CPT/HCPCS: 87077; 87086; 87186

== ENCOUNTER → 2022-02-07 | Outpatient (CLI) | payer MEDICARE, OTHER | LOC: LAB SHORT 12:00 → LAB 12:00 | DX: R30.0 Dysuria (principal) | CPT/HCPCS: 87077; 87086; 87186 ==

== ENCOUNTER → 2022-03-14 | Outpatient (CLI) | payer MEDICARE, OTHER | LOC: LAB SHORT 11:40 → LAB 11:40 | DX: R30.0 Dysuria (principal) | CPT/HCPCS: 87086 ==

== ENCOUNTER 2022-03-17 10:17 | Emergency (ER) | payer MEDICARE, OTHER ==
[~2022-03-17] VITALS: Ht 182.9 cm; Wt 82.1 kg
[2022-03-17 11:12] LABS: Source, Urine Clean Catch
[2022-03-17 11:17] LABS: Appearance, Urine Hazy (Clear); Bilirubin, Urine Neg (Neg); Blood, Urine 5+ (Neg); Color, Urine Yellow (P-Yellow); Glucose Qualitative, Urine Neg (Neg); Ketones, Urine Neg (Neg); Leukocyte Esterase, Urine 3+ (Neg); Nitrite, Urine Neg (Neg); Protein, Urine 3+ (Neg); Specific Gravity, Urine 1.015 (1.003-1.022); Urobilinogen, Urine NORM (Normal)
[2022-03-17 11:27] LABS: Bacteria Few /hpf; Red Blood Cells, Urine 50-100 /hpf (0-2); Squamous Epithelial Cells Few /hpf (Few); White Blood Cells, Urine 50-100 /hpf (0-5)
[2022-03-17 12:08] LABS: BASOPHILS ABSOLUTE AUTO 0.03 K/mm3 (0.00-0.23); BASOPHILS PERCENT AUTO 0 % (0-2); EOSINOPHILS ABSOLUTE AUTO 0.09 K/mm3 (0.00-0.68); EOSINOPHILS PERCENT AUTO 1 % (0-6); Hematocrit 33.6 % (37.0-53.0); Hemoglobin 11.1 g/dL (13.5-17.5); IMMATURE GRAN ABSOLUTE AUTO 0.02 K/mm3 (0.00-0.10); IMMATURE GRAN PERCENT AUTO 0 % (0-1); LYMPHOCYTES PERCENT AUTO 7 % (21-46); MONOCYTES PERCENT AUTO 7 % (4-13); Mean Corpuscular HGB 31.5 pg (26.0-34.0); Mean Corpuscular Volume 96 fL (80-100); Mean Platelet Volume 9.6 fL (9.1-12.4); NEUTROPHILS ABSOLUTE AUTO 5.94 K/mm3 (1.96-9.15); NEUTROPHILS PERCENT AUTO 84 % (41-73); Platelet Count 182 K/mm3 (150-400); RDW Coefficient Variation 13.4 % (11.7-14.2); RDW Standard Deviation 47.5 fL (35.1-46.3); Red Blood Cell Count 3.52 M/mm3 (4.30-5.90); White Blood Cell Count 7.08 K/mm3 (4.00-11.30)
[2022-03-17 12:27] LABS: Bun/Creatinine Ratio 16.9 (12.0-20.0); Calcium, Blood 9.1 mg/dL (8.5-10.1); Creatinine, Blood 2.19 mg/dL (0.60-1.20); Potassium, Blood 4.3 mmol/L (3.5-5.5)
== END 2022-03-17 12:57 | disposition home or self-care (01) ==
LOC: ER 10:17
PROVIDERS: Physician Assistant; Student in an Organized Health Care Education/Training Program
DX: R10.30 Lower abdominal pain, unspecified (principal); R30.0 Dysuria; N20.2 Calculus of kidney with calculus of ureter; N18.30 Chronic kidney disease, stage 3 unspecified; Z93.6 Other artificial openings of urinary tract status; Z91.041 Radiographic dye allergy status; Z79.84 Long term (current) use of oral hypoglycemic drugs; Z79.899 Other long term (current) drug therapy; Z85.46 Personal history of malignant neoplasm of prostate
CPT/HCPCS: 80048; 81001; 85025; A9270

== ENCOUNTER 2022-03-21 07:54 | Inpatient (IN) | payer MEDICARE, OTHER ==
[~2022-03-21] VITALS: Ht 182.9 cm; Wt 80.5 kg
[2022-03-21 09:38] LABS: BASOPHILS ABSOLUTE AUTO 0.03 K/mm3 (0.00-0.23); BASOPHILS PERCENT AUTO 1 % (0-2); EOSINOPHILS ABSOLUTE AUTO 0.15 K/mm3 (0.00-0.68); EOSINOPHILS PERCENT AUTO 3 % (0-6); Hematocrit 35.9 % (37.0-53.0); Hemoglobin 11.7 g/dL (13.5-17.5); IMMATURE GRAN ABSOLUTE AUTO 0.01 K/mm3 (0.00-0.10); IMMATURE GRAN PERCENT AUTO 0 % (0-1); LYMPHOCYTES ABSOLUTE AUTO 0.66 K/mm3 (0.84-5.20); LYMPHOCYTES PERCENT AUTO 14 % (21-46); MONOCYTES ABSOLUTE AUTO 0.33 K/mm3 (0.16-1.47); MONOCYTES PERCENT AUTO 7 % (4-13); Mean Corpuscular HGB 31.6 pg (26.0-34.0); Mean Corpuscular HGB Conc 32.6 g/dL (31.5-36.5); Mean Corpuscular Volume 97 fL (80-100); NEUTROPHILS ABSOLUTE AUTO 3.61 K/mm3 (1.96-9.15); NEUTROPHILS PERCENT AUTO 75 % (41-73); Platelet Count 173 K/mm3 (150-400); RDW Coefficient Variation 13.5 % (11.7-14.2); RDW Standard Deviation 48.1 fL (35.1-46.3); White Blood Cell Count 4.79 K/mm3 (4.00-11.30)
[2022-03-21 09:55] LABS: Bun/Creatinine Ratio 14.9 (12.0-20.0); Creatinine, Blood 2.22 mg/dL (0.60-1.20); Potassium, Blood 4.2 mmol/L (3.5-5.5)
--- NOTE | 2022-03-21 19:13 | NUR ---
SHIFT SUMMARY PATIENT A&OX4. INDEPENDENT IN ROOM. ADMITTED FROM ER TODAY FOR IV ANTIBIOTICS WITH INFECTIONS IN THE URINE AND ON CONTACT ISOLATION. BILATERAL NEPHROSTOMY TUBES PRESENT AND DRAINING, LEFT MORE THAN RIGHT. PATIENT STATES HE HAS ABDOMINAL PAIN FOR PAST 18MONTHS WITH UNKNOWN CAUSE. C/O RIGHT SHOULDER PAIN WELL. VSS. WILL CONTINUE TO MONITOR.
--- NOTE | 2022-03-22 04:06 | NUR ---
Patient A&OX4, kind of frustrated with his antibiotic schedule which I explained that each antibiotic has a specific regimen and not all are given the same amount of times per day. At HS, he asked where his IV (Gentamycin) infusion was, then was upset because he was waiting to ask for pain medication "until he got his infusion". After bringing his pain med, it was explained that he doesn't need to wait for an infusion to take a medication for pain relief. This seemed to satisfy Mr. Bran, and abdominal and R. shoulder pain resolved and he was able to sleep. Urine from nephrostomy tubes ramos and clear. patient maintains himself. He is very private gentleman
[2022-03-22 05:03] LABS: BASOPHILS ABSOLUTE AUTO 0.03 K/mm3 (0.00-0.23); BASOPHILS PERCENT AUTO 1 % (0-2); EOSINOPHILS ABSOLUTE AUTO 0.18 K/mm3 (0.00-0.68); EOSINOPHILS PERCENT AUTO 4 % (0-6); Hematocrit 37.3 % (37.0-53.0); IMMATURE GRAN ABSOLUTE AUTO 0.01 K/mm3 (0.00-0.10); IMMATURE GRAN PERCENT AUTO 0 % (0-1); LYMPHOCYTES ABSOLUTE AUTO 0.69 K/mm3 (0.84-5.20); LYMPHOCYTES PERCENT AUTO 17 % (21-46); MONOCYTES ABSOLUTE AUTO 0.35 K/mm3 (0.16-1.47); MONOCYTES PERCENT AUTO 9 % (4-13); Mean Corpuscular HGB 32.4 pg (26.0-34.0); Mean Corpuscular HGB Conc 32.2 g/dL (31.5-36.5); Mean Corpuscular Volume 101 fL (80-100); Mean Platelet Volume 9.5 fL (9.1-12.4); NEUTROPHILS ABSOLUTE AUTO 2.83 K/mm3 (1.96-9.15); NEUTROPHILS PERCENT AUTO 69 % (41-73); Platelet Count 156 K/mm3 (150-400); RDW Coefficient Variation 13.3 % (11.7-14.2); RDW Standard Deviation 49.6 fL (35.1-46.3); White Blood Cell Count 4.09 K/mm3 (4.00-11.30)
[2022-03-22 05:39] LABS: Bun/Creatinine Ratio 15.6 (12.0-20.0); Calcium, Blood 8.7 mg/dL (8.5-10.1); Creatinine, Blood 2.05 mg/dL (0.60-1.20)
[2022-03-22 12:02] LABS: Gentamicin, Trough 1.3 ug/mL (0.0-1.9)
--- NOTE | 2022-03-22 18:52 | NUR ---
SHIFT SUMMARY PATIENT AO X4. INDEPENDENT IN ROOM AND CALLS APPROPRIATLY. C/O INCREASING PAIN IN RIGHT SHOULDER AND CHRONIC PAIN IN HIS ABD. MEDICATED PER DEC X2. C/O ACID REFLUX, MEDICATED PER DEC. RECEIVING IV ANTIBIOTICS. WILL CONTINUE TO MONITOR.
--- NOTE | 2022-03-23 04:25 | NUR ---
SHIFT SUMMARY: PT IS ALERT AND ORIENTED. PT IS CALM AND COOEPRATIVE WITH CARE. PT CALLS APPROPRIATELY. PT IS INDEPENDENT IN THE ROOM. PT REPORTS PAIN ON SEVERAL OCCASIONS, MEDICATING PER EMAR. PT DENIES NAUSEA, VOMITING, AND SOB. PT SLEPT MUCH OF THE NIGHT WHEN NOT DISTURBED. POSSIBLE DC TODAY. BED IN LOW POSITION, CALL LIGHT WITHIN REACH. WILL REPORT TO DAY NURSE AND CONTINUE TO MONITOR.
[2022-03-23] MEDS ORDERED: LINE600 PO (12:49)
== END 2022-03-23 14:22 | disposition home or self-care (01) | DRG 690 ==
LOC: ER 07:54 → MEDS 09:25
PROVIDERS: Student in an Organized Health Care Education/Training Program; ADMIT Internal Medicine
DX: N39.0 Urinary tract infection, site not specified (principal); Z16.24 Resistance to multiple antibiotics; Z16.21 Resistance to vancomycin; B95.2 Enterococcus as the cause of diseases classified elsewhere; M25.511 Pain in right shoulder; R10.30 Lower abdominal pain, unspecified; G89.29 Other chronic pain; N18.30 Chronic kidney disease, stage 3 unspecified; N13.9 Obstructive and reflux uropathy, unspecified; D50.9 Iron deficiency anemia, unspecified; Z91.041 Radiographic dye allergy status; Z79.899 Other long term (current) drug therapy; Z79.84 Long term (current) use of oral hypoglycemic drugs; Z85.46 Personal history of malignant neoplasm of prostate; Z98.890 Other specified postprocedural states; Z87.442 Personal history of urinary calculi
CPT/HCPCS: 36415; 73030; 80048; 80170; 82947; 85025; 99284; A9270; J1580; J1650; J7040

== ENCOUNTER 2022-03-24 09:28 | Day surgery (SDC) | payer MEDICARE, OTHER ==
[~2022-03-24] VITALS: Ht 182.9 cm; Wt 84.4 kg
[2022-03-24 10:20] LABS: Creatinine, Blood 2.33 mg/dL (0.60-1.20); Gentamicin, Trough 1.2 ug/mL (0.0-1.9)
== END 2022-03-24 12:05 | disposition home or self-care (01) ==
LOC: ATC 09:28
PROVIDERS: Internal Medicine
DX: N39.0 Urinary tract infection, site not specified (principal); B95.2 Enterococcus as the cause of diseases classified elsewhere; Z16.21 Resistance to vancomycin; N20.0 Calculus of kidney; E11.22 Type 2 diabetes mellitus with diabetic chronic kidney disease; E78.00 Pure hypercholesterolemia, unspecified; F32.9 Major depressive disorder, single episode, unspecified; N18.4 Chronic kidney disease, stage 4 (severe)
CPT/HCPCS: 80170; 82565; 96365; J1580

== ENCOUNTER 2022-03-28 08:34 | Day surgery (SDC) | payer MEDICARE, OTHER ==
[2022-03-28] MEDS ORDERED: GENTAMICIN IV (09:03)
--- NOTE | 2022-03-28 10:13 | NUR ---
PT STATES HE FEELS BETTER. HE DRANK A ROOT BEER AND HAD A FEW CRACKERS. I ASKED PT IF HIS GLUCOSE WAS LOW WHEN HE GOT HERE AND HE STATES YES. PT AMBULATED WELL AT DISCHARGE.
== END 2022-03-28 09:50 | disposition home or self-care (01) ==
LOC: ATC 08:34
DX: N39.0 Urinary tract infection, site not specified (principal); B95.2 Enterococcus as the cause of diseases classified elsewhere; Z16.21 Resistance to vancomycin; Z93.6 Other artificial openings of urinary tract status; Z91.041 Radiographic dye allergy status; Z79.84 Long term (current) use of oral hypoglycemic drugs; N20.0 Calculus of kidney
CPT/HCPCS: 96365; J1580

== ENCOUNTER → 2022-04-07 | Outpatient (CLI) | payer MEDICARE, OTHER ==
[~2022-04-07] MED LIST changes: +GENTAMICIN IV
== END | disposition home or self-care (01) ==
LOC: LAB 16:40 → LAB SHORT 16:40
DX: N39.0 Urinary tract infection, site not specified (principal)
CPT/HCPCS: 87077; 87086; 87186

== ENCOUNTER 2022-04-10 16:37 | Inpatient (IN) | payer MEDICARE, OTHER ==
[~2022-04-10] VITALS: Ht 182.9 cm; Wt 79.4 kg
[2022-04-10 17:34] LABS: BASOPHILS ABSOLUTE AUTO 0.02 K/mm3 (0.00-0.23); BASOPHILS PERCENT AUTO 0 % (0-2); EOSINOPHILS ABSOLUTE AUTO 0.06 K/mm3 (0.00-0.68); EOSINOPHILS PERCENT AUTO 1 % (0-6); Hemoglobin 11.8 g/dL (13.5-17.5); IMMATURE GRAN ABSOLUTE AUTO 0.02 K/mm3 (0.00-0.10); IMMATURE GRAN PERCENT AUTO 0 % (0-1); LYMPHOCYTES PERCENT AUTO 13 % (21-46); MONOCYTES ABSOLUTE AUTO 0.31 K/mm3 (0.16-1.47); MONOCYTES PERCENT AUTO 7 % (4-13); Mean Corpuscular HGB 32.2 pg (26.0-34.0); Mean Corpuscular HGB Conc 33.7 g/dL (31.5-36.5); Mean Corpuscular Volume 95 fL (80-100); Mean Platelet Volume 9.4 fL (9.1-12.4); NEUTROPHILS ABSOLUTE AUTO 3.71 K/mm3 (1.96-9.15); NEUTROPHILS PERCENT AUTO 79 % (41-73); Platelet Count 165 K/mm3 (150-400); RDW Coefficient Variation 12.6 % (11.7-14.2); Red Blood Cell Count 3.67 M/mm3 (4.30-5.90); White Blood Cell Count 4.72 K/mm3 (4.00-11.30)
[2022-04-10 17:55] LABS: Albumin, Blood 3.4 g/dL (3.4-5.0); Albumin/Globulin Ratio 0.9 (0.8-1.8); Bilirubin, Total 0.3 mg/dL (0.1-1.0); Bun/Creatinine Ratio 18.4 (12.0-20.0); Calcium, Blood 9.3 mg/dL (8.5-10.1); Creatinine, Blood 2.12 mg/dL (0.60-1.20); Globulin, Blood 3.6 g/dL (2.2-4.0); Potassium, Blood 4.7 mmol/L (3.5-5.5)
[2022-04-10 23:05] LABS: Source, Urine Nephrostomy
[2022-04-10 23:09] LABS: Bilirubin, Urine Neg (Neg); Blood, Urine 2+ (Neg); Glucose Qualitative, Urine Neg (Neg); Ketones, Urine 1+ (Neg); Leukocyte Esterase, Urine 3+ (Neg); Nitrite, Urine Pos (Neg); Protein, Urine 3+ (Neg); Specific Gravity, Urine 1.005 (1.003-1.022); Urobilinogen, Urine NORM (Normal)
[2022-04-10 23:17] LABS: Appearance, Urine Hazy (Clear); Bacteria Many /hpf; Color, Urine Yellow (P-Yellow); Squamous Epithelial Cells Few /hpf (Few); White Blood Cells, Urine TNTC /hpf (0-5)
[2022-04-10 23:54] LABS: Source, Urine Nephrostomy
[2022-04-10 23:58] LABS: Bilirubin, Urine Neg (Neg); Blood, Urine 5+ (Neg); Glucose Qualitative, Urine Neg (Neg); Ketones, Urine Neg (Neg); Leukocyte Esterase, Urine 3+ (Neg); Nitrite, Urine Pos (Neg); Protein, Urine 3+ (Neg); Specific Gravity, Urine 1.005 (1.003-1.022); Urobilinogen, Urine NORM (Normal)
[2022-04-11] LABS: Appearance, Urine Hazy (Clear); Color, Urine Yellow (P-Yellow)
[2022-04-11 00:15] LABS: Bacteria Many /hpf; Red Blood Cells, Urine 50-100 /hpf (0-2); Squamous Epithelial Cells Not Seen /hpf (Few); White Blood Cells, Urine TNTC /hpf (0-5)
--- NOTE | 2022-04-11 04:18 | NUR ---
SHIFT SUMMARY 81 YR M ADMITTED ON 04/10/22 FOR UTI. FULL CODE. PT WAS BROUGHT UP FROM THE ED EARLY THIS A.M. HE IS AN ISOLATION PT FOR VRE URINE. PT HAS NEHEMIAS NEPHROSTOMY TUBES. PER PT HE IS INDEPENDANT AND DOES NOT HAVE ANY SIGNIFICANT HEALTH ISSUES. HE HAS MOSTLY SLEPT SINCE COMING TO THIS UNIT SO THIS NURSE HAS NOT HAD THE OPPORTUNITY TO WATCH PT AMBULATE OR TO READILY DETERMINE HOW STEADY HE IS ON HIS FEET.
--- NOTE | 2022-04-11 16:53 | NUR ---
DAYSHIFT SUMMARY Patient c/o moderate abdominal pain, requested oxycodone/tylenol for pain, PRN effective. IV ABX infused, right AC patent. Bilateral nephrology tubes draining to gravity, patient requested assistance with emptying bags. Patient OOB to use toilet, steady gait, ambulated independently. Vitals stable this shift. Pending urine cultures.
--- NOTE | 2022-04-12 05:17 | NUR ---
SHIFT SUMMARY 81 YR M ADMITTED ON 04/11/22 FOR UTI SEPSIS. FULL CODE. NO ACUTE CHANGES THIS SHIFT. PT C/O ABDOMINAL PAIN AND WAS MEDICATED PER EMAR. ABX WERE INFUSED AND HE SLEPT FOR MOST OF THIS SHIFT. PT STATES THAT HE WANTS TO TALK TO DOC ABOUT HAVING NEPHEROSTOMY BAGS REPLACED HE FEELS THAT THEY ARE FULL OF INFECTION. ADVISED PT THAT HE WAS WELCOME TO TALK TO DOC WHEN HE MAKES HIS NEXT ROUNDS. PT IS PLEASANT AND COOPERATIVE.
[2022-04-12 08:41] LABS: BASOPHILS ABSOLUTE AUTO 0.02 K/mm3 (0.00-0.23); BASOPHILS PERCENT AUTO 1 % (0-2); EOSINOPHILS ABSOLUTE AUTO 0.11 K/mm3 (0.00-0.68); EOSINOPHILS PERCENT AUTO 3 % (0-6); Hematocrit 34.6 % (37.0-53.0); Hemoglobin 11.3 g/dL (13.5-17.5); IMMATURE GRAN ABSOLUTE AUTO 0.01 K/mm3 (0.00-0.10); IMMATURE GRAN PERCENT AUTO 0 % (0-1); LYMPHOCYTES ABSOLUTE AUTO 0.53 K/mm3 (0.84-5.20); LYMPHOCYTES PERCENT AUTO 15 % (21-46); MONOCYTES ABSOLUTE AUTO 0.28 K/mm3 (0.16-1.47); MONOCYTES PERCENT AUTO 8 % (4-13); Mean Corpuscular HGB 32.3 pg (26.0-34.0); Mean Corpuscular HGB Conc 32.7 g/dL (31.5-36.5); Mean Corpuscular Volume 99 fL (80-100); Mean Platelet Volume 9.6 fL (9.1-12.4); NEUTROPHILS ABSOLUTE AUTO 2.58 K/mm3 (1.96-9.15); NEUTROPHILS PERCENT AUTO 73 % (41-73); Platelet Count 159 K/mm3 (150-400); RDW Coefficient Variation 12.9 % (11.7-14.2); White Blood Cell Count 3.53 K/mm3 (4.00-11.30)
[2022-04-12 08:54] LABS: Bun/Creatinine Ratio 16.9 (12.0-20.0); Calcium, Blood 8.7 mg/dL (8.5-10.1); Creatinine, Blood 1.83 mg/dL (0.60-1.20); Potassium, Blood 4.9 mmol/L (3.5-5.5)
--- NOTE | 2022-04-12 10:21 | NUR ---
PT A/O PLEASNT STATES PAIN BACK DOWN TO TOLERABLE AT 5 AT ABD. BILAT NEPHROSTOMY TUBES INTACT. STATES THINKS WANTS CHANGED. ADVISED DR. DONOHUE. H/R SOME IRREG. NO MURMUR NOTED. NO TELE. LUNGS CLEAR, RESP EASEY, UNLABORED. ON R.A. BT X4 ALST BM 2 DAYS. REQUEST MIRALAX. NOT ON EMAR. REQUEST FROM DR. CARBALLO IN ROOM. BED IN LOW POSITION, CALLLITE IN REACH, CALLS APPROP
--- NOTE | 2022-04-12 17:13 | NUR ---
PT STATES HAD BM TODAY
--- NOTE | 2022-04-12 17:18 | NUR ---
STATED CALLED, MICAELA. [phone] HE DECLINED TO ALLOW ME TO TALK TO HER. HE STATES WILL CALL HER HIMSELF
--- NOTE | 2022-04-12 17:32 | NUR ---
PT HAS BEEN PLEASNT TODAY. HE FEELS HIS NEPHROSTOMY TUBES NEED REPLACED. SPOKE TO DR DONOHUE ABOUT THIS, THIS AM. WE DO NOT DO. HOWEVER, IF HE JUST WANTS THE BAGS REPLACED, WE WILL TRY TO OBTAIN AND PLACE FOR HIM. PT STATES THIS WILL DO FOR HIM. CALLED SUPPLY SEVERAL TIMES TODAY. NOT GETTING ITEMS TODAY, WEDNESDAY. WILL TRY AGAIN TOMORROW. PAIN IN CONTROL WITH AVAIL MEDS. HE STATES DID HAVE BM TODAY. NO OTHER NEW CONCERNS NOTED TODAY. BED IN LOW POSITION, CALL LITE IN REACH, CALLS APPROP
--- NOTE | 2022-04-13 05:41 | NUR ---
A&Ox4. hostile towards this proposal manager writer at times. pt said, " you shouldn't be here because you aren't from here." V/S WNL. INDEPENDANT IN ROOM. NEPHROSTOMIES BILAT. OUTPUT WHITE CLEAR. PT CHANGES BAG HIMSELF. ACUCHECKS AC & HS. HS BS NOT INSULIN INDICATED. NO BM THIS SHIFT. PRN PERCOCET GIVEN FOR ABDOMINAL PAIN X3 PER EMAR. WILL CONTINUE TO MONITOR.
[2022-04-13 05:54] LABS: BASOPHILS ABSOLUTE AUTO 0.02 K/mm3 (0.00-0.23); BASOPHILS PERCENT AUTO 1 % (0-2); EOSINOPHILS ABSOLUTE AUTO 0.15 K/mm3 (0.00-0.68); EOSINOPHILS PERCENT AUTO 4 % (0-6); Hemoglobin 11.3 g/dL (13.5-17.5); IMMATURE GRAN ABSOLUTE AUTO 0.02 K/mm3 (0.00-0.10); IMMATURE GRAN PERCENT AUTO 1 % (0-1); LYMPHOCYTES ABSOLUTE AUTO 0.64 K/mm3 (0.84-5.20); LYMPHOCYTES PERCENT AUTO 16 % (21-46); MONOCYTES ABSOLUTE AUTO 0.34 K/mm3 (0.16-1.47); MONOCYTES PERCENT AUTO 9 % (4-13); Mean Corpuscular HGB 32.2 pg (26.0-34.0); Mean Corpuscular HGB Conc 33.2 g/dL (31.5-36.5); Mean Corpuscular Volume 97 fL (80-100); Mean Platelet Volume 9.5 fL (9.1-12.4); NEUTROPHILS ABSOLUTE AUTO 2.78 K/mm3 (1.96-9.15); NEUTROPHILS PERCENT AUTO 70 % (41-73); Platelet Count 164 K/mm3 (150-400); RDW Coefficient Variation 12.8 % (11.7-14.2); RDW Standard Deviation 45.1 fL (35.1-46.3); Red Blood Cell Count 3.51 M/mm3 (4.30-5.90); White Blood Cell Count 3.95 K/mm3 (4.00-11.30)
[2022-04-13 06:18] LABS: Calcium, Blood 9.1 mg/dL (8.5-10.1); Creatinine, Blood 1.79 mg/dL (0.60-1.20); Potassium, Blood 4.8 mmol/L (3.5-5.5)
--- NOTE | 2022-04-13 09:00 | NUR ---
PT A/O X3 SOMEWHAT FLIGHTY IN IDEAS. WANTS TO GET RESULTS OF LAB TO KNOW WHAT ABX KILLS BUG AND GET HOME. REFUSES TO ACCEPT THIS MAY TAKE DAY OR TWO. STATES WILL DISCUSS WITH DR WHEN IN. H/R REG, NO MURMER NOTED. NO TELE . LUNGS CLEAR, RESP EASY, UNLABORED. ON R.A. BT X4 LAST BM YEST. GLAD TO HAVE MIRALAX THIS AM. SAYS PAIN IS ABOUT NORMAL FOR HIM. IN ABD. VOIDS INDEPENDANT IN ROOM TO BATHROOM. MED PER EMAR FOR PAIN REQUEST. BED IN LOW POSITION, CALL LITE IN REACH. CALLS APPROP
--- NOTE | 2022-04-13 15:07 | NUR ---
PT HAS BEEN COMPLAINING THAT WE HAVE NOT GIVEN RESULTS ON 72 HR BLOOD TEST YET. EXPLAINED IT IS A 3 DAYS TEST FOR GROWTH. HE STATES SHOULD BE DONE IN 1 DAY. OVERHEARD HIM MAKE SAME COMPLAINT TO DR SALOMON ADAMS.
--- NOTE | 2022-04-13 16:45 | NUR ---
PT HAS CALLED SEVERAL TIMES THIS AFT. STATES DEMANDS RESULT OF TEST RESULTS TO TEST AND IF NOT WANTS TO LEAVE. CALLED DR. DONOHUE. HE IN TO SEE PT AND SEE IF CAN SETTLE HIM.
--- NOTE | 2022-04-13 16:51 | NUR ---
PT APPEARS TO BE QUITE UPSET. VERY AGITATED. TRYING TO CONVINCE TO STAY. HE APPEARS NOT TO BE CONVICED TO STAY. HE ESCALATED. SAW AND HE IS GOING AMA. SIGNED AMA FORM. PT WHEELED TO DOOR AT 1700
== END 2022-04-13 16:56 | disposition left against medical advice (07) | DRG 690 ==
LOC: ER 16:37 → MEDS 04-11 00:25 → ER 04-11 02:05 → MEDS 04-11 02:05
PROVIDERS: Internal Medicine; Physician Assistant; Student in an Organized Health Care Education/Training Program; ADMIT Internal Medicine
DX: N39.0 Urinary tract infection, site not specified (principal); Z16.24 Resistance to multiple antibiotics; N13.8 Other obstructive and reflux uropathy; I12.9 Hypertensive chronic kidney disease with stage 1 through stage 4 chronic kidney disease, or unspecified chronic kidney disease; E11.22 Type 2 diabetes mellitus with diabetic chronic kidney disease; N18.30 Chronic kidney disease, stage 3 unspecified; B96.89 Other specified bacterial agents as the cause of diseases classified elsewhere; K59.00 Constipation, unspecified; Z85.46 Personal history of malignant neoplasm of prostate; Z87.19 Personal history of other diseases of the digestive system; Z87.442 Personal history of urinary calculi; Z93.6 Other artificial openings of urinary tract status; Z98.890 Other specified postprocedural states; Z91.041 Radiographic dye allergy status; Z79.84 Long term (current) use of oral hypoglycemic drugs; Z79.899 Other long term (current) drug therapy; Y83.3 Surgical operation with formation of external stoma as the cause of abnormal reaction of the patient, or of later complication, without mention of misadventure at the time of the procedure
CPT/HCPCS: 36415; 80048; 80053; 81001; 82947; 83690; 85025; 87077; 87086; 87186; 96374; 96375; 99284-25; A9270; J0696; J1650; J2185; J2270; J2405; J3010; J7030

== ENCOUNTER 2022-04-15 15:59 | Day surgery (SDC) | payer MEDICARE, OTHER ==
[~2022-04-15 15:59] MED LIST changes: -ERTAPENEM1 G6 IV
== END 2022-04-15 17:02 | disposition home or self-care (01) ==
LOC: ATC 15:59
DX: N39.0 Urinary tract infection, site not specified (principal); B95.2 Enterococcus as the cause of diseases classified elsewhere; Z16.21 Resistance to vancomycin; Z91.041 Radiographic dye allergy status; I12.9 Hypertensive chronic kidney disease with stage 1 through stage 4 chronic kidney disease, or unspecified chronic kidney disease; N18.4 Chronic kidney disease, stage 4 (severe); E11.22 Type 2 diabetes mellitus with diabetic chronic kidney disease; Z79.84 Long term (current) use of oral hypoglycemic drugs; Z79.899 Other long term (current) drug therapy
CPT/HCPCS: 96365; C1751; J2185

== ENCOUNTER → 2022-04-15 | Outpatient (CLI) | payer MEDICARE, OTHER ==
[~2022-04-15] MED LIST changes: +ERTAPENEM1 G6 IV
== END | disposition home or self-care (01) ==
LOC: LAB SHORT 11:52 → LAB 11:52
DX: Z01.89 Encounter for other specified special examinations (principal); N39.0 Urinary tract infection, site not specified; B95.2 Enterococcus as the cause of diseases classified elsewhere; Z16.21 Resistance to vancomycin
CPT/HCPCS: 87086

== ENCOUNTER 2022-04-16 00:36 | Day surgery (SDC) | payer MEDICARE, OTHER | END 2022-04-16 16:02 | disposition home or self-care (01) | LOC: ATC 00:36 | DX: N39.0 Urinary tract infection, site not specified (principal); B95.2 Enterococcus as the cause of diseases classified elsewhere; Z16.21 Resistance to vancomycin; Z91.041 Radiographic dye allergy status; I12.9 Hypertensive chronic kidney disease with stage 1 through stage 4 chronic kidney disease, or unspecified chronic kidney disease; N18.4 Chronic kidney disease, stage 4 (severe); E11.22 Type 2 diabetes mellitus with diabetic chronic kidney disease; Z79.84 Long term (current) use of oral hypoglycemic drugs; Z79.899 Other long term (current) drug therapy | CPT/HCPCS: 96365; J2185 ==

== ENCOUNTER 2022-04-17 00:34 | Day surgery (SDC) | payer MEDICARE, OTHER | END 2022-04-17 17:33 | disposition home or self-care (01) | LOC: ATC 00:34 | DX: N39.0 Urinary tract infection, site not specified (principal); B95.2 Enterococcus as the cause of diseases classified elsewhere; Z16.21 Resistance to vancomycin; E11.22 Type 2 diabetes mellitus with diabetic chronic kidney disease; I12.9 Hypertensive chronic kidney disease with stage 1 through stage 4 chronic kidney disease, or unspecified chronic kidney disease; N18.4 Chronic kidney disease, stage 4 (severe) | CPT/HCPCS: 96365; 99211; J2185 ==

== ENCOUNTER 2022-04-18 07:42 | Day surgery (SDC) | payer MEDICARE, OTHER | END 2022-04-18 15:53 | disposition home or self-care (01) | LOC: ATC 07:42 | DX: N39.0 Urinary tract infection, site not specified (principal); B95.2 Enterococcus as the cause of diseases classified elsewhere; Z16.21 Resistance to vancomycin; Z91.041 Radiographic dye allergy status; I12.9 Hypertensive chronic kidney disease with stage 1 through stage 4 chronic kidney disease, or unspecified chronic kidney disease; N18.4 Chronic kidney disease, stage 4 (severe); E11.22 Type 2 diabetes mellitus with diabetic chronic kidney disease; Z79.899 Other long term (current) drug therapy | CPT/HCPCS: J2185 ==

== ENCOUNTER 2022-04-19 00:35 | Day surgery (SDC) | payer MEDICARE, OTHER ==
[2022-04-20] MEDS ORDERED: ERTAPENEM1 G6 IV (07:51)
== END 2022-04-19 15:47 | disposition home or self-care (01) ==
LOC: ATC 00:35
DX: N39.0 Urinary tract infection, site not specified (principal); B95.2 Enterococcus as the cause of diseases classified elsewhere; E11.9 Type 2 diabetes mellitus without complications; I10 Essential (primary) hypertension; Z16.21 Resistance to vancomycin; Z91.041 Radiographic dye allergy status; Z85.46 Personal history of malignant neoplasm of prostate; Z93.6 Other artificial openings of urinary tract status
CPT/HCPCS: J2185

== ENCOUNTER 2022-04-20 02:19 | Day surgery (SDC) | payer MEDICARE, OTHER ==
[2022-04-20] MEDS ORDERED: ERTAPENEM1 G6 IV (07:51)
== END 2022-04-20 17:07 | disposition home or self-care (01) ==
LOC: ATC 02:19
DX: N39.0 Urinary tract infection, site not specified (principal); B95.2 Enterococcus as the cause of diseases classified elsewhere; K59.00 Constipation, unspecified; K57.30 Diverticulosis of large intestine without perforation or abscess without bleeding; Z16.21 Resistance to vancomycin; Z79.84 Long term (current) use of oral hypoglycemic drugs; Z93.6 Other artificial openings of urinary tract status
CPT/HCPCS: J2185

== ENCOUNTER 2022-04-21 05:14 | Day surgery (SDC) | payer MEDICARE, OTHER ==
[~2022-04-21 05:14] MED LIST changes: +ERTAPENEM1 G6 IV
== END 2022-04-21 17:06 | disposition home or self-care (01) ==
LOC: ATC 05:14
DX: N39.0 Urinary tract infection, site not specified (principal); B95.2 Enterococcus as the cause of diseases classified elsewhere; Z16.21 Resistance to vancomycin
CPT/HCPCS: J2185

== ENCOUNTER 2022-04-22 01:29 | Day surgery (SDC) | payer MEDICARE, OTHER | END 2022-04-22 17:02 | disposition home or self-care (01) | LOC: ATC 01:29 | DX: N39.0 Urinary tract infection, site not specified (principal); B95.2 Enterococcus as the cause of diseases classified elsewhere; K59.00 Constipation, unspecified; E11.9 Type 2 diabetes mellitus without complications; I10 Essential (primary) hypertension; Z16.21 Resistance to vancomycin; Z93.6 Other artificial openings of urinary tract status; Z79.84 Long term (current) use of oral hypoglycemic drugs | CPT/HCPCS: 96365; J2185 ==

== ENCOUNTER 2022-04-23 00:15 | Day surgery (SDC) | payer MEDICARE, OTHER | END 2022-04-23 16:19 | disposition home or self-care (01) | LOC: ATC 00:15 | DX: N39.0 Urinary tract infection, site not specified (principal); B95.2 Enterococcus as the cause of diseases classified elsewhere; Z16.21 Resistance to vancomycin | CPT/HCPCS: 96365; J2185 ==

== ENCOUNTER 2022-04-25 07:40 | Day surgery (SDC) | payer MEDICARE, OTHER | END 2022-04-25 16:30 | disposition home or self-care (01) | LOC: ATC 07:40 | DX: N39.0 Urinary tract infection, site not specified (principal); B95.2 Enterococcus as the cause of diseases classified elsewhere; Z16.21 Resistance to vancomycin | CPT/HCPCS: 96365; J2185 ==

== ENCOUNTER 2022-04-26 07:37 | Day surgery (SDC) | payer MEDICARE, OTHER | END 2022-04-26 16:24 | disposition home or self-care (01) | LOC: ATC 07:37 | DX: N39.0 Urinary tract infection, site not specified (principal); B95.2 Enterococcus as the cause of diseases classified elsewhere; N20.0 Calculus of kidney; E11.9 Type 2 diabetes mellitus without complications; I10 Essential (primary) hypertension; Z16.21 Resistance to vancomycin; Z91.041 Radiographic dye allergy status; Z85.46 Personal history of malignant neoplasm of prostate; Z93.6 Other artificial openings of urinary tract status; Z79.84 Long term (current) use of oral hypoglycemic drugs | CPT/HCPCS: 96365; J2185 ==

== ENCOUNTER 2022-04-27 07:20 | Day surgery (SDC) | payer MEDICARE, OTHER | END 2022-04-27 14:50 | disposition home or self-care (01) | LOC: ATC 07:20 | DX: N39.0 Urinary tract infection, site not specified (principal); B95.2 Enterococcus as the cause of diseases classified elsewhere; I12.9 Hypertensive chronic kidney disease with stage 1 through stage 4 chronic kidney disease, or unspecified chronic kidney disease; E11.22 Type 2 diabetes mellitus with diabetic chronic kidney disease; N18.9 Chronic kidney disease, unspecified; Z16.21 Resistance to vancomycin; Z91.041 Radiographic dye allergy status; Z85.46 Personal history of malignant neoplasm of prostate; Z93.6 Other artificial openings of urinary tract status; Z88.8 Allergy status to other drugs, medicaments and biological substances; Z79.84 Long term (current) use of oral hypoglycemic drugs | CPT/HCPCS: 96365; J2185 ==

== ENCOUNTER 2022-05-01 16:05 | Day surgery (SDC) | payer MEDICARE, OTHER ==
[~2022-05-01 16:05] MED LIST changes: -ATOR10; +ATOR10 PO
== END 2022-05-01 16:50 | disposition home or self-care (01) ==
LOC: ATC 16:05
DX: Z43.6 Encounter for attention to other artificial openings of urinary tract (principal); R82.79 Other abnormal findings on microbiological examination of urine; B95.2 Enterococcus as the cause of diseases classified elsewhere; Z16.21 Resistance to vancomycin; I12.9 Hypertensive chronic kidney disease with stage 1 through stage 4 chronic kidney disease, or unspecified chronic kidney disease; N18.4 Chronic kidney disease, stage 4 (severe); E11.22 Type 2 diabetes mellitus with diabetic chronic kidney disease; Z85.46 Personal history of malignant neoplasm of prostate; Z91.041 Radiographic dye allergy status; Z88.8 Allergy status to other drugs, medicaments and biological substances
CPT/HCPCS: 87070; 87205; 99211

== ENCOUNTER → 2022-05-03 | Outpatient (CLI) | payer MEDICARE, OTHER ==
[~2022-05-03] MED LIST changes: +Glucagon Emergen1 MG; +NITR100CA PO
== END | disposition home or self-care (01) ==
LOC: LAB 11:53 → LAB SHORT 11:53
DX: N39.0 Urinary tract infection, site not specified (principal)
CPT/HCPCS: 87077; 87086; 87186

== ENCOUNTER 2022-05-08 02:20 | Day surgery (SDC) | payer MEDICARE, OTHER ==
[~2022-05-08 02:20] MED LIST changes: -Glucagon Emergen1 MG; -NITR100CA PO
[2022-05-31] MEDS ORDERED: LINE600 PO (14:38)
[2022-05-31] MEDS ORDERED: Bactrim Ds Tab1 EACH PO (14:38)
== END 2022-05-08 23:33 | disposition home or self-care (01) ==
LOC: ATC 02:20
DX: Z43.6 Encounter for attention to other artificial openings of urinary tract (principal); B95.2 Enterococcus as the cause of diseases classified elsewhere; I12.9 Hypertensive chronic kidney disease with stage 1 through stage 4 chronic kidney disease, or unspecified chronic kidney disease; N18.4 Chronic kidney disease, stage 4 (severe); E11.22 Type 2 diabetes mellitus with diabetic chronic kidney disease; Z16.24 Resistance to multiple antibiotics
CPT/HCPCS: 80053; 81001; 82947; 85025; 87077; 87086; 87186; 99285; G0480; J7060

== ENCOUNTER 2022-05-09 17:54 | Inpatient (IN) | payer MEDICARE, OTHER ==
[~2022-05-09] VITALS: Ht 182.9 cm; Wt 79.5 kg
[2022-05-09 18:34] LABS: BASOPHILS ABSOLUTE AUTO 0.01 K/mm3 (0.00-0.23); BASOPHILS PERCENT AUTO 0 % (0-2); EOSINOPHILS ABSOLUTE AUTO 0.12 K/mm3 (0.00-0.68); EOSINOPHILS PERCENT AUTO 3 % (0-6); Hematocrit 30.4 % (37.0-53.0); Hemoglobin 10.1 g/dL (13.5-17.5); IMMATURE GRAN ABSOLUTE AUTO 0.02 K/mm3 (0.00-0.10); IMMATURE GRAN PERCENT AUTO 1 % (0-1); LYMPHOCYTES ABSOLUTE AUTO 0.32 K/mm3 (0.84-5.20); LYMPHOCYTES PERCENT AUTO 8 % (21-46); MONOCYTES PERCENT AUTO 10 % (4-13); Mean Corpuscular HGB 32.9 pg (26.0-34.0); Mean Corpuscular HGB Conc 33.2 g/dL (31.5-36.5); Mean Corpuscular Volume 99 fL (80-100); Mean Platelet Volume 9.9 fL (9.1-12.4); NEUTROPHILS ABSOLUTE AUTO 3.33 K/mm3 (1.96-9.15); NEUTROPHILS PERCENT AUTO 79 % (41-73); Platelet Count 146 K/mm3 (150-400); RDW Coefficient Variation 13.2 % (11.7-14.2); RDW Standard Deviation 47.2 fL (35.1-46.3); Red Blood Cell Count 3.07 M/mm3 (4.30-5.90)
[2022-05-09 19:00] LABS: Albumin, Blood 3.1 g/dL (3.4-5.0); Bilirubin, Total 0.2 mg/dL (0.1-1.0); Bun/Creatinine Ratio 24.7 (12.0-20.0); Calcium, Blood 9.5 mg/dL (8.5-10.1); Creatinine, Blood 1.86 mg/dL (0.60-1.20); Globulin, Blood 3.2 g/dL (2.2-4.0); Potassium, Blood 3.7 mmol/L (3.5-5.5); Total Protein, Blood 6.3 g/dL (6.4-8.2)
--- NOTE | 2022-05-10 02:43 | NUR ---
PATIENT TO ROOM ICU 12 FROM ER AT 2220. PATIENT IS ALERT AND ORIENTED X4, FOLLOWS COMMANDS, AMBULATES INDEPENDENTLY. 02 SATS >95% ON RA, LS CLEAR, DENIES SOB. HR SR 60s. BP STABLE, PATIENT DENIES CP/PRESSURE. BILATERAL NEPHROSTOMY DRESSINGS CHANGED AND INSERTION SITES CLEANED, PHOTOS IN CHART. URINE SAMPLE CULTURES FOR RIGHT AND LEFT NEPHROSTOMY SENT TO LAB LABELED. GLUCOSE LEVELS LABILE RANGING FROM 70s-40s, D10 RATE INCREASED FROM 20 MLS/HR ON ARRIVAL TO 75 MLS/HR, GLUCAGON GIVEN ONCE PER DOCTORS ORDERS. ANTIBIOTICS GIVEN. MEDICATED FOR CHRONIC ABDOMINAL PAIN AND BLADDER SPASMS PER EMAR. PATIENT CURRENTLY SLEEPING. CALL LIGHT IN REACH.
[2022-05-10 03:41] LABS: Hematocrit 31.9 % (37.0-53.0); Hemoglobin 10.6 g/dL (13.5-17.5); Mean Corpuscular HGB 32.6 pg (26.0-34.0); Mean Corpuscular HGB Conc 33.2 g/dL (31.5-36.5); Mean Corpuscular Volume 98 fL (80-100); Mean Platelet Volume 9.8 fL (9.1-12.4); Platelet Count 145 K/mm3 (150-400); RDW Coefficient Variation 13.1 % (11.7-14.2); RDW Standard Deviation 46.9 fL (35.1-46.3); Red Blood Cell Count 3.25 M/mm3 (4.30-5.90); White Blood Cell Count 6.62 K/mm3 (4.00-11.30)
[2022-05-10 04:03] LABS: Albumin/Globulin Ratio 0.9 (0.8-1.8); BAND PERCENT MAN 8 % (0-8); BASOPHILS PERCENT MAN 0 % (0-2); Bilirubin, Total 0.4 mg/dL (0.1-1.0); Bun/Creatinine Ratio 23.8 (12.0-20.0); Calcium, Blood 9.6 mg/dL (8.5-10.1); Creatinine, Blood 1.93 mg/dL (0.60-1.20); EOSINOPHILS ABSOLUTE MAN 0.13 K/mm3 (0.00-0.68); EOSINOPHILS PERCENT MAN 2 % (0-6); Globulin, Blood 3.2 g/dL (2.2-4.0); LYMPHOCYTES ABSOLUTE MAN 0.46 K/mm3 (0.84-5.20); LYMPHOCYTES PERCENT MAN 7 % (21-46); MONOCYTES ABSOLUTE MAN 0.33 K/mm3 (0.16-1.47); MONOCYTES PERCENT MAN 5 % (4-13); NEUTROPHILS ABSOLUTE MAN 5.69 K/mm3 (1.96-9.15); Potassium, Blood 3.9 mmol/L (3.5-5.5); SEG NEUTROPHILS PERCENT MAN 78 % (41-73); TOTAL CELLS COUNTED 100; Total Protein, Blood 6.2 g/dL (6.4-8.2)
--- NOTE | 2022-05-10 05:53 | NUR ---
SHIFT SUMMARY PATIENT REMAINS ALERT AND ORIENTED X4. 02 SATS >95% ON RA. HR SR AT 60s. PATIENT HYPERTENSIVE AT TIMES, MOSTLY WHEN IN PAIN, MEDICATED FOR PAIN PER EMAR. PATIENT STATES CHRONIC ABDOMINAL PAIN AND BLADDER SPASMS. BILATERAL NEPHROSTOMY DRAINING. PATIENT INDEPENDENT IN BED. BLOOD GLUCOSE CHECKS Q2 HOURS NOW THAT PATIENTS GLUCOSE IS STABLE ON D10, ORDERS TO TITRATE NEEDED. CALL LIGHT IN REACH.
--- NOTE | 2022-05-10 09:06 | NUR ---
AM NOTE PT ALERT AND ORIENTED AT BASELINE, SLIGHTLY LETHARGIC BU IS ABLE TO HELP MOVE SELF IN BED, VITALS HRR SR 70'S, BP SYSTOLIC 140-150'S, SATS ABOVE 95% ON RA, AFEBRILE. 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 NEPHROSTOMY TUBES DRESSED IN PLACE, DRAINING PATENT HAD 700MLS URINE OUT THIS AM. WILL CONTINUE TO MONITOR
--- NOTE | 2022-05-10 17:17 | NUR ---
PT SUMMARY: D10 GTT HAS BEEN ON STANDBY SINCE , PT ATE ALL HIS MEALS TODAY CBG RANGING 150-170'S, PT HAS BEEN ALERT AND TALKING CAME IN TO VISIT WAS ABLE TO DISCUSS PLAN WITH DR EMERSON. HRR STAYED SR AT 60-70'S, BP SYSTOLIC 130-160'S, SATS ABOVE 92% ON RA. BILATERAL NEPHROSTOMY TUBE DRAINING PATENT WITH CLEAR DORIS URINE. PT'S PAIN MEDICINE RESUMED HAD 2 DOSES OF NORCO FOR BACK AND ABD PAIN. PT IS ABLE TO MOVE AROUND AND RESPOSITION SELF IN BED. CALLS APPROPRIATELY. TRANSITIONED TO MEDICAL STATUS WITH NO TELE. WILL REPORT TO ONCOMING SHIFT
--- NOTE | 2022-05-10 20:30 | NUR ---
PATIENT AWAKENS TO SLIGHT STIMULI, VERBALIZED THAT HIS ABD PAIN IS RETURNING. SHARP CONSTANT IN NATURE RATING 7/10. PERCOCET AND DICYCLOMINE PO GIVEN. LEFT NEPHROSTOMY BAG FULL AND DRAINED OF CLOUDY YELLOW URINE, RIGHT NEPHROSTOMY BAG HALF FULL AND ALSO EMPTIED OF CLOUDY YELLOW URINE. DRESSINGS TO BOTH TUBES CLEAN DRY AND INTACT. DOCTOR BARBARA CALLED TO CLARIFY CBG ORDER DUE TO D10 BEING OFF AND GLUCOSE ISABELLA
[2022-05-11 04:07] LABS: Bun/Creatinine Ratio 25.3 (12.0-20.0); Calcium, Blood 9.7 mg/dL (8.5-10.1); Creatinine, Blood 1.62 mg/dL (0.60-1.20); Potassium, Blood 4.5 mmol/L (3.5-5.5)
--- NOTE | 2022-05-11 05:48 | NUR ---
SUMMARY PATIENT SLEEPING OFF AND ON T/O NIGHT. CONTINUES TO HAVE CRAMPING PAIN TO ABD, MEDICATED WITH PERCOCET AND BENTYL PER EMAR. NEPHROSTOMIES BOTH DRAINING WELL T/O NIGHT.
--- NOTE | 2022-05-11 08:23 | NUR ---
DR EMERSON: PROVIDER AT BEDSIDE TO JOSIE PT THIS AM. HE HAS SPOKEN W/ THE PT & WILL BE PLACING DISCHARGE ORDERS THIS AM AFTER UPDATING THE PT's , NORMAN. HARD SCRIPT WRITTEN FOR GLUCOMETER, LANCETS & TEST STRIPS - PHOTOCOPY PLACED ON CHART. NO OTHER CHANGES AT THIS TIME.
--- NOTE | 2022-05-11 09:00 | NUR ---
ASSUMED CARE: REPORT RECEIVED FROM BRENDA Cassidy RN. ASSUMED CARE OF THIS PT AT APPROX 0700. ON ASSESSMENT, THE PT IS AWAKE, REQUESTING PAIN MEDICATION FOR CHRONIC ABD PAIN/ CRAMPING. MEDS PER EMAR. LS CLEAR T/O, PT ON RA W/ O2 SATS > 95%. NO MONITOR IN PLACE, MEDICAL W/O TELE STATUS. PULSES STRONG/ REGULAR ON PALPATION. PT TOLERATING PO INTAKE WELL W/ NO COMPLAINTS OF INCREASED PAIN. BILATERAL NEPHROSOMIES PATENT/ DRAINING CLOUDY YELLOW URINE. SKIN CONDITION OVERALL INTACT. WILL CONTINUE TO MONITOR & UPDATE NEEDED.
[2022-05-11] MEDS ORDERED: Glucagon Emergen1 MG (12:46)
--- NOTE | 2022-05-11 13:11 | NUR ---
DISCHARGE TO HOME: THE PT's BLOOD SUGARS REMAIN STABLE AT 1130 CHECK & DR EMERSON HAS BEEN NOTIFIED, DISCHARGE ORDERS PLACED. PIV REMOVED & THE PT HAS BEEN ABLE TO DRESS HIMSELF W/ AT BEDSIDE. NEPHROSTOMIES EMPTIED & DRESSINGS REMAIN CDI. ALL BELONGINGS HAVE BEEN GATHERED BY THE PT & HIS . DISCHARGE EDUCATION COMPLETED, HARD SCRIPT GIVEN TO PT & WRITTEN SCRIPTS CALLED TO [facility] PER PT REQUEST. PT HAS AMBULATED OUT OF THE UNIT W/ HIS AT APPROX 1300.
[2022-05-12 05:10] LABS: C-PEPTIDE, SERUM 8.4 ng/mL (1.1-4.4)
[2022-05-13 14:08] LABS: PROINSULIN 16.2 pmol/L (0.0-10.0)
== END 2022-05-11 13:00 | disposition home or self-care (01) | DRG 637 ==
LOC: ER 17:54 → ICUW 19:59
PROVIDERS: Emergency Medicine; Internal Medicine; ADMIT Internal Medicine
DX: E11.649 Type 2 diabetes mellitus with hypoglycemia without coma (principal); G92.8 Other toxic encephalopathy; N39.0 Urinary tract infection, site not specified; I12.9 Hypertensive chronic kidney disease with stage 1 through stage 4 chronic kidney disease, or unspecified chronic kidney disease; E11.22 Type 2 diabetes mellitus with diabetic chronic kidney disease; N18.30 Chronic kidney disease, stage 3 unspecified; N13.9 Obstructive and reflux uropathy, unspecified; E86.0 Dehydration; Z87.19 Personal history of other diseases of the digestive system; Z87.442 Personal history of urinary calculi; Z85.46 Personal history of malignant neoplasm of prostate; Z98.890 Other specified postprocedural states; Z93.6 Other artificial openings of urinary tract status; Z79.899 Other long term (current) drug therapy; Z91.041 Radiographic dye allergy status; Z88.8 Allergy status to other drugs, medicaments and biological substances; Z22.8 Carrier of other infectious diseases
CPT/HCPCS: 36415; 80048; 80053; 82010; 82947; 85025; 87077; 87086; 87186; 93005; 93010; 96360; 99285-25; A9270; J1610; J1650; J2020; J2185; J3010; J7040; J7060

== ENCOUNTER 2022-05-15 16:25 | Day surgery (SDC) | payer MEDICARE, OTHER ==
[~2022-05-15 16:25] MED LIST changes: +Glucagon Emergen1 MG
[2022-05-31] MEDS ORDERED: Bactrim Ds Tab1 EACH PO (14:38)
[2022-05-31] MEDS ORDERED: LINE600 PO (14:38)
== END 2022-05-15 16:50 | disposition home or self-care (01) ==
LOC: ATC 16:25
DX: Z43.6 Encounter for attention to other artificial openings of urinary tract (principal); I12.9 Hypertensive chronic kidney disease with stage 1 through stage 4 chronic kidney disease, or unspecified chronic kidney disease; N18.4 Chronic kidney disease, stage 4 (severe); E11.22 Type 2 diabetes mellitus with diabetic chronic kidney disease
CPT/HCPCS: 99211

== ENCOUNTER 2022-05-22 01:01 | Day surgery (SDC) | payer MEDICARE, OTHER ==
[2022-05-31] MEDS ORDERED: Bactrim Ds Tab1 EACH PO (14:38)
[2022-05-31] MEDS ORDERED: LINE600 PO (14:38)
== END 2022-05-22 16:30 | disposition home or self-care (01) ==
LOC: ATC 01:01
DX: Z43.6 Encounter for attention to other artificial openings of urinary tract (principal); I12.9 Hypertensive chronic kidney disease with stage 1 through stage 4 chronic kidney disease, or unspecified chronic kidney disease; N18.4 Chronic kidney disease, stage 4 (severe); E11.22 Type 2 diabetes mellitus with diabetic chronic kidney disease
CPT/HCPCS: 99211

== ENCOUNTER → 2022-05-23 | Outpatient (CLI) | payer MEDICARE, OTHER ==
[2022-05-23 11:55] LABS: BASOPHILS ABSOLUTE AUTO 0.03 K/mm3 (0.00-0.23); BASOPHILS PERCENT AUTO 1 % (0-2); EOSINOPHILS ABSOLUTE AUTO 0.25 K/mm3 (0.00-0.68); EOSINOPHILS PERCENT AUTO 5 % (0-6); Hematocrit 34.6 % (37.0-53.0); Hemoglobin 11.7 g/dL (13.5-17.5); IMMATURE GRAN ABSOLUTE AUTO 0.02 K/mm3 (0.00-0.10); IMMATURE GRAN PERCENT AUTO 0 % (0-1); LYMPHOCYTES ABSOLUTE AUTO 0.54 K/mm3 (0.84-5.20); LYMPHOCYTES PERCENT AUTO 12 % (21-46); MONOCYTES ABSOLUTE AUTO 0.27 K/mm3 (0.16-1.47); MONOCYTES PERCENT AUTO 6 % (4-13); Mean Corpuscular HGB 32.4 pg (26.0-34.0); Mean Corpuscular HGB Conc 33.8 g/dL (31.5-36.5); Mean Corpuscular Volume 96 fL (80-100); Mean Platelet Volume 9.4 fL (9.1-12.4); NEUTROPHILS ABSOLUTE AUTO 3.57 K/mm3 (1.96-9.15); NEUTROPHILS PERCENT AUTO 76 % (41-73); Platelet Count 169 K/mm3 (150-400); RDW Coefficient Variation 13.2 % (11.7-14.2); RDW Standard Deviation 46.6 fL (35.1-46.3); Red Blood Cell Count 3.61 M/mm3 (4.30-5.90); White Blood Cell Count 4.68 K/mm3 (4.00-11.30)
[2022-05-23 12:11] LABS: Albumin, Blood 3.3 g/dL (3.4-5.0); Albumin/Globulin Ratio 0.9 (0.8-1.8); Bilirubin, Total 0.3 mg/dL (0.1-1.0); Bun/Creatinine Ratio 24.6 (12.0-20.0); Calcium, Blood 8.3 mg/dL (8.5-10.1); Creatinine, Blood 2.03 mg/dL (0.60-1.20); Globulin, Blood 3.6 g/dL (2.2-4.0); Potassium, Blood 5.1 mmol/L (3.5-5.5); Total Protein, Blood 6.9 g/dL (6.4-8.2)
== END ==
LOC: LAB SHORT 11:50
PROVIDERS: Physician Assistant
DX: R10.30 Lower abdominal pain, unspecified (principal)
CPT/HCPCS: 80053; 83690; 85025

== ENCOUNTER → 2022-05-31 | Outpatient (CLI) | payer MEDICARE, OTHER | END | disposition home or self-care (01) | LOC: LAB 10:00 → LAB SHORT 10:00 | DX: R30.0 Dysuria (principal); R31.9 Hematuria, unspecified | CPT/HCPCS: 87077; 87086; 87186 ==

== ENCOUNTER 2022-06-05 01:33 | Day surgery (SDC) | payer MEDICARE, OTHER ==
--- NOTE | 2022-06-05 17:54 | NUR ---
CDC SPECIMEN COLLECTION SPECIMEN COLLECTED FOR CDC DIRECTED PER INSTRUCTIONS PROVIDED BY ANJELICA BAUGH RN, INFECTION CONTROL. SPECIMEN TAKEN DIRECTLY TO LAB AND GIVEN TO [facility]TC TECHNICIAN. EDUCATED THE PATIENT ONCE AGAIN TO CALL FRO HIS CAR AND A NURSE WILL COME OUT AND GET HIM FOR EACH APPOINTMENT. EDUCATED THE PATIENT ON THE IMPORTANCE OF THIS TO PREVENT BACTERIAL SPREAD. PATIENT WAS NOT VERY RECEPTIVE. HE CONTINUALLY SPOKE OVER ME AND TALKED ABOUT GIVERNENT CONSPIRACIES. MULTIPLE ATTEMPTS MADE TO EDUCATE.
== END 2022-06-05 17:00 | disposition home or self-care (01) ==
LOC: ATC 01:33
DX: Z43.6 Encounter for attention to other artificial openings of urinary tract (principal); I12.9 Hypertensive chronic kidney disease with stage 1 through stage 4 chronic kidney disease, or unspecified chronic kidney disease; N18.4 Chronic kidney disease, stage 4 (severe); E11.22 Type 2 diabetes mellitus with diabetic chronic kidney disease; Z91.041 Radiographic dye allergy status; Z79.899 Other long term (current) drug therapy
CPT/HCPCS: 99211

== ENCOUNTER → 2022-06-09 | Outpatient (CLI) | payer MEDICARE, OTHER | END | disposition home or self-care (01) | LOC: LAB SHORT 15:00 | DX: R10.9 Unspecified abdominal pain (principal) | CPT/HCPCS: 87077; 87086; 87186 ==

== ENCOUNTER 2022-06-12 00:15 | Day surgery (SDC) | payer MEDICARE, OTHER | END 2022-06-12 16:45 | disposition home or self-care (01) | LOC: ATC 00:15 | DX: Z43.6 Encounter for attention to other artificial openings of urinary tract (principal); I12.9 Hypertensive chronic kidney disease with stage 1 through stage 4 chronic kidney disease, or unspecified chronic kidney disease; N18.4 Chronic kidney disease, stage 4 (severe); E11.22 Type 2 diabetes mellitus with diabetic chronic kidney disease; Z79.84 Long term (current) use of oral hypoglycemic drugs; Z79.899 Other long term (current) drug therapy; Z91.041 Radiographic dye allergy status | CPT/HCPCS: 99211 ==

== ENCOUNTER 2022-06-19 01:50 | Day surgery (SDC) | payer MEDICARE, OTHER | END 2022-06-19 16:34 | disposition home or self-care (01) | LOC: ATC 01:50 | DX: Z43.6 Encounter for attention to other artificial openings of urinary tract (principal); I12.9 Hypertensive chronic kidney disease with stage 1 through stage 4 chronic kidney disease, or unspecified chronic kidney disease; N18.4 Chronic kidney disease, stage 4 (severe); E11.22 Type 2 diabetes mellitus with diabetic chronic kidney disease; Z91.041 Radiographic dye allergy status; Z79.84 Long term (current) use of oral hypoglycemic drugs; Z79.899 Other long term (current) drug therapy | CPT/HCPCS: 99211 ==

== ENCOUNTER 2022-06-26 01:17 | Day surgery (SDC) | payer MEDICARE, OTHER ==
--- NOTE | 2022-06-26 17:10 | NUR ---
ASSISTED PT IN PUTTING [facility] BACK NURSE LINE PHONE NUMBER AND [facility]AG[facility] CHARGEMASTER SPECIALIST PHONE NUMBER IN HIS CONTACTS IN HIS PHONE. HE THEN USED HIS CELL PHONE TO SUCCESSFULLY CALL THE BACK NURSE LINE FOR THE [facility] AND TALK TO THE NURSE. EXPLAINED TO HIM AGAIN THAT HE MUST WAIT IN HIS CAR AND CALL THE NURSE NUMBER AND THEN THE NURSE WILL PREPARE HIS ROOM AND COME OUT AND MEET HIM AT THE FRONT ENTRANCE. CONTACT ISOLATION PRECAUTIONS MAINTAINED.
== END 2022-06-26 17:00 | disposition home or self-care (01) ==
LOC: ATC 01:17
DX: Z43.6 Encounter for attention to other artificial openings of urinary tract (principal); I12.9 Hypertensive chronic kidney disease with stage 1 through stage 4 chronic kidney disease, or unspecified chronic kidney disease; N18.4 Chronic kidney disease, stage 4 (severe); E11.22 Type 2 diabetes mellitus with diabetic chronic kidney disease; Z91.041 Radiographic dye allergy status; Z85.46 Personal history of malignant neoplasm of prostate
CPT/HCPCS: 99211

== ENCOUNTER → 2022-06-27 | Outpatient (CLI) | payer MEDICARE, OTHER | END | disposition home or self-care (01) | LOC: LAB SHORT 14:00 → LAB 14:00 | DX: R30.0 Dysuria (principal) | CPT/HCPCS: 87077; 87086; 87186 ==

== ENCOUNTER → 2022-07-02 | Outpatient (CLI) | payer MEDICARE, OTHER ==
[2022-07-03 20:10] LABS: ANA DIRECT Negative (Negative); ANTI-DNA (DS) AB QN 8 IU/mL (0-9); RNP ANTIBODIES <0.2 AI (0.0-0.9); SJOGREN'S ANTI-SS-A <0.2 AI (0.0-0.9); SJOGREN'S ANTI-SS-B <0.2 AI (0.0-0.9); SMITH ANTIBODIES <0.2 AI (0.0-0.9)
== END | disposition home or self-care (01) ==
LOC: LAB SHORT 09:35
PROVIDERS: Family Medicine
DX: R53.82 Chronic fatigue, unspecified (principal)
CPT/HCPCS: 85651; 86140; 86225; 86235

== ENCOUNTER → 2022-07-29 | Outpatient (CLI) | payer MEDICARE, OTHER ==
[~2022-07-29] MED LIST changes: +NITR100CA PO
== END | disposition home or self-care (01) ==
LOC: LAB 16:30 → LAB SHORT 16:30
DX: N39.0 Urinary tract infection, site not specified (principal)
CPT/HCPCS: 87077; 87086; 87186

== ENCOUNTER → 2022-08-15 | Outpatient (CLI) | payer MEDICARE, OTHER | END | disposition home or self-care (01) | LOC: LAB SHORT 12:19 → LAB 12:19 | DX: N39.0 Urinary tract infection, site not specified (principal) | CPT/HCPCS: 87077; 87086; 87186 ==

== ENCOUNTER 2022-08-16 10:08 | Emergency (ER) | payer MEDICARE, OTHER ==
[~2022-08-16] VITALS: Ht 182.9 cm; Wt 79.4 kg
[2022-08-16] MEDS ORDERED: NITR100CA PO (11:15)
== END 2022-08-16 11:20 | disposition home or self-care (01) ==
LOC: ER 10:08
DX: N39.0 Urinary tract infection, site not specified (principal); N18.9 Chronic kidney disease, unspecified; Z79.899 Other long term (current) drug therapy
CPT/HCPCS: 99282

== ENCOUNTER → 2022-08-26 | Outpatient (CLI) | payer MEDICARE, OTHER ==
[~2022-08-26] MED LIST changes: +AMITRIPTYLINE H25 MG PO; +ENDOCET 7.5-321 EACH PO; +MIRT30 PO; +Oxybutynin Chlo10 MG PO
[2022-08-26 11:20] LABS: Source, Urine Nephrostomy
[2022-08-26 12:00] LABS: Red Blood Cells, Urine 25-50 /hpf (0-2)
[2022-08-26 12:01] LABS: Bacteria Few /hpf; Squamous Epithelial Cells Few /hpf (Few)
[2022-08-26 12:03] LABS: Renal Epithelial Rare /hpf (0-Rare); Transitional Epithelial Cells Few /hpf (0-Rare)
== END | disposition home or self-care (01) ==
LOC: LAB 11:18 → LAB SHORT 11:18
PROVIDERS: Nurse Practitioner Family
DX: R10.9 Unspecified abdominal pain (principal)
CPT/HCPCS: 81015; 87077; 87086; 87186

== ENCOUNTER 2022-08-31 10:23 | Emergency (ER) | payer MEDICARE, OTHER ==
[~2022-08-31] VITALS: Ht 182.9 cm; Wt 79.4 kg
[~2022-08-31 10:23] MED LIST changes: -AMITRIPTYLINE H25 MG PO; -ENDOCET 7.5-321 EACH PO; -MIRT30 PO; -Oxybutynin Chlo10 MG PO
[2022-08-31 11:12] LABS: BASOPHILS ABSOLUTE AUTO 0.02 K/mm3 (0.00-0.23); BASOPHILS PERCENT AUTO 0 % (0-2); EOSINOPHILS ABSOLUTE AUTO 0.03 K/mm3 (0.00-0.68); EOSINOPHILS PERCENT AUTO 0 % (0-6); Hematocrit 44.7 % (37.0-53.0); Hemoglobin 15.2 g/dL (13.5-17.5); IMMATURE GRAN ABSOLUTE AUTO 0.05 K/mm3 (0.00-0.10); IMMATURE GRAN PERCENT AUTO 1 % (0-1); LYMPHOCYTES ABSOLUTE AUTO 0.69 K/mm3 (0.84-5.20); LYMPHOCYTES PERCENT AUTO 8 % (21-46); MONOCYTES ABSOLUTE AUTO 0.56 K/mm3 (0.16-1.47); MONOCYTES PERCENT AUTO 6 % (4-13); Mean Corpuscular HGB 31.7 pg (26.0-34.0); Mean Corpuscular Volume 93 fL (80-100); NEUTROPHILS ABSOLUTE AUTO 7.43 K/mm3 (1.96-9.15); NEUTROPHILS PERCENT AUTO 85 % (41-73); Platelet Count 197 K/mm3 (150-400); RDW Coefficient Variation 12.5 % (11.7-14.2); RDW Standard Deviation 43.6 fL (35.1-46.3); Red Blood Cell Count 4.79 M/mm3 (4.30-5.90); White Blood Cell Count 8.78 K/mm3 (4.00-11.30)
[2022-08-31 11:40] LABS: Albumin, Blood 3.6 g/dL (3.4-5.0); Albumin/Globulin Ratio 0.8 (0.8-1.8); Bilirubin, Total 0.7 mg/dL (0.1-1.0); Bun/Creatinine Ratio 15.7 (12.0-20.0); Calcium, Blood 10.2 mg/dL (8.5-10.1); Creatinine, Blood 2.17 mg/dL (0.60-1.20); Globulin, Blood 4.8 g/dL (2.2-4.0); Potassium, Blood 4.8 mmol/L (3.5-5.5); Total Protein, Blood 8.4 g/dL (6.4-8.2)
[2022-08-31] MEDS ORDERED: Oxybutynin Chlo10 MG PO (14:54)
[2022-08-31] MEDS ORDERED: ENDOCET 7.5-321 EACH PO (14:54)
[2022-08-31] MEDS ORDERED: AMITRIPTYLINE H25 MG PO (14:55)
[2022-08-31] MEDS ORDERED: MIRT30 PO (14:56)
[2022-08-31 16:39] LABS: Source, Urine Nephrostomy
[2022-08-31 16:42] LABS: Appearance, Urine Turbid (Clear); Blood, Urine 5+ (Neg); Color, Urine Yellow (P-Yellow); Glucose Qualitative, Urine Neg (Neg); Ketones, Urine 1+ (Neg); Leukocyte Esterase, Urine 3+ (Neg); Nitrite, Urine Neg (Neg); Protein, Urine 3+ (Neg); Urobilinogen, Urine 1+ (Normal)
[2022-08-31 16:55] LABS: Bilirubin, Urine 1+ (Neg)
[2022-08-31 16:57] LABS: Granular Casts 0-2 /lpf (0); White Blood Cells, Urine TNTC /hpf (0-5)
[2022-08-31 16:58] LABS: Bacteria Mod /hpf; Renal Epithelial Few /hpf (0-Rare); Squamous Epithelial Cells Few /hpf (Few)
== END 2022-08-31 20:10 | disposition left against medical advice (07) ==
LOC: ER 10:23
PROVIDERS: Physician Assistant; Student in an Organized Health Care Education/Training Program
DX: N39.0 Urinary tract infection, site not specified (principal); N18.30 Chronic kidney disease, stage 3 unspecified; N20.1 Calculus of ureter; K57.92 Diverticulitis of intestine, part unspecified, without perforation or abscess without bleeding; Z85.46 Personal history of malignant neoplasm of prostate; Z91.041 Radiographic dye allergy status; Z79.899 Other long term (current) drug therapy; Z93.6 Other artificial openings of urinary tract status
CPT/HCPCS: 36415; 74176; 80053; 81001; 83690; 85025; J2185

== ENCOUNTER 2022-09-06 13:18 | Emergency (ER) | payer MEDICARE, OTHER ==
[~2022-09-06] VITALS: Ht 182.9 cm; Wt 74.4 kg
[~2022-09-06 13:18] MED LIST changes: +AMITRIPTYLINE H25 MG PO; +ENDOCET 7.5-321 EACH PO; +MIRT30 PO; +Oxybutynin Chlo10 MG PO
[2022-09-06 13:49] LABS: BASOPHILS ABSOLUTE AUTO 0.02 K/mm3 (0.00-0.23); BASOPHILS PERCENT AUTO 0 % (0-2); EOSINOPHILS PERCENT AUTO 2 % (0-6); Hematocrit 38.5 % (37.0-53.0); Hemoglobin 13.2 g/dL (13.5-17.5); IMMATURE GRAN ABSOLUTE AUTO 0.03 K/mm3 (0.00-0.10); IMMATURE GRAN PERCENT AUTO 1 % (0-1); LYMPHOCYTES PERCENT AUTO 11 % (21-46); MONOCYTES ABSOLUTE AUTO 0.43 K/mm3 (0.16-1.47); MONOCYTES PERCENT AUTO 7 % (4-13); Mean Corpuscular HGB 31.6 pg (26.0-34.0); Mean Corpuscular HGB Conc 34.3 g/dL (31.5-36.5); Mean Corpuscular Volume 92 fL (80-100); Mean Platelet Volume 9.2 fL (9.1-12.4); NEUTROPHILS ABSOLUTE AUTO 5.24 K/mm3 (1.96-9.15); NEUTROPHILS PERCENT AUTO 80 % (41-73); Platelet Count 245 K/mm3 (150-400); RDW Coefficient Variation 12.4 % (11.7-14.2); RDW Standard Deviation 42.4 fL (35.1-46.3); Red Blood Cell Count 4.18 M/mm3 (4.30-5.90); White Blood Cell Count 6.52 K/mm3 (4.00-11.30)
[2022-09-06 14:09] LABS: Albumin, Blood 3.2 g/dL (3.4-5.0); Albumin/Globulin Ratio 0.7 (0.8-1.8); Bilirubin, Total 0.3 mg/dL (0.1-1.0); Creatinine, Blood 1.76 mg/dL (0.60-1.20); Globulin, Blood 4.3 g/dL (2.2-4.0); Potassium, Blood 4.3 mmol/L (3.5-5.5); Total Protein, Blood 7.5 g/dL (6.4-8.2)
[2022-09-06] MEDS ORDERED: METAMUCIL POWD798 GM PO (18:04)
== END 2022-09-06 18:31 | disposition home or self-care (01) ==
LOC: ER 13:18
PROVIDERS: Physician Assistant
DX: R10.9 Unspecified abdominal pain (principal); Z91.041 Radiographic dye allergy status; Z79.899 Other long term (current) drug therapy; Z93.6 Other artificial openings of urinary tract status
CPT/HCPCS: 36415; 51798; 80053; 83690; 85025; A9270

== ENCOUNTER → 2022-10-09 | Outpatient (CLI) | payer MEDICARE, OTHER ==
[~2022-10-09] MED LIST changes: +METAMUCIL POWD798 GM PO; +ONDANSETRON ODT 4MG SL
== END ==
LOC: LAB SHORT 16:55 → LAB 16:55
DX: N39.0 Urinary tract infection, site not specified (principal)
CPT/HCPCS: 87077; 87086; 87186

== ENCOUNTER 2022-11-02 15:39 | Emergency (ER) | payer MEDICARE, OTHER ==
[~2022-11-02] VITALS: Ht 182.9 cm; Wt 70.3 kg
[2022-11-02] MEDS ORDERED: Levaquin750 MG PO (15:53)
== END 2022-11-02 15:52 | disposition home or self-care (01) ==
LOC: ER 15:39
DX: N39.0 Urinary tract infection, site not specified (principal); B96.1 Klebsiella pneumoniae [K. pneumoniae] as the cause of diseases classified elsewhere; B96.89 Other specified bacterial agents as the cause of diseases classified elsewhere; N18.9 Chronic kidney disease, unspecified; Z79.899 Other long term (current) drug therapy; Z91.041 Radiographic dye allergy status
CPT/HCPCS: 99282

== ENCOUNTER 2022-11-05 14:34 | Emergency (ER) | payer MEDICARE, OTHER ==
[~2022-11-05] VITALS: Ht 182.9 cm; Wt 72.6 kg
[~2022-11-05 14:34] MED LIST changes: +Levaquin750 MG PO
[2022-11-05 15:09] LABS: BASOPHILS ABSOLUTE AUTO 0.01 K/mm3 (0.00-0.23); BASOPHILS PERCENT AUTO 0 % (0-2); EOSINOPHILS ABSOLUTE AUTO 0.08 K/mm3 (0.00-0.68); EOSINOPHILS PERCENT AUTO 2 % (0-6); Hematocrit 30.3 % (37.0-53.0); Hemoglobin 9.7 g/dL (13.5-17.5); IMMATURE GRAN ABSOLUTE AUTO 0.02 K/mm3 (0.00-0.10); IMMATURE GRAN PERCENT AUTO 1 % (0-1); LYMPHOCYTES ABSOLUTE AUTO 0.34 K/mm3 (0.84-5.20); LYMPHOCYTES PERCENT AUTO 9 % (21-46); MONOCYTES ABSOLUTE AUTO 0.27 K/mm3 (0.16-1.47); MONOCYTES PERCENT AUTO 7 % (4-13); Mean Corpuscular HGB 32.2 pg (26.0-34.0); Mean Corpuscular Volume 101 fL (80-100); Mean Platelet Volume 9.3 fL (9.1-12.4); NEUTROPHILS ABSOLUTE AUTO 3.15 K/mm3 (1.96-9.15); NEUTROPHILS PERCENT AUTO 81 % (41-73); Platelet Count 169 K/mm3 (150-400); RDW Coefficient Variation 13.9 % (11.7-14.2); RDW Standard Deviation 51.9 fL (35.1-46.3); Red Blood Cell Count 3.01 M/mm3 (4.30-5.90); White Blood Cell Count 3.87 K/mm3 (4.00-11.30)
[2022-11-05 15:32] LABS: Albumin, Blood 2.8 g/dL (3.4-5.0); Albumin/Globulin Ratio 0.8 (0.8-1.8); Bilirubin, Total 0.2 mg/dL (0.1-1.0); Bun/Creatinine Ratio 16.9 (12.0-20.0); Calcium, Blood 9.4 mg/dL (8.5-10.1); Creatinine, Blood 2.25 mg/dL (0.60-1.20); Globulin, Blood 3.5 g/dL (2.2-4.0); Potassium, Blood 4.7 mmol/L (3.5-5.5); Total Protein, Blood 6.3 g/dL (6.4-8.2)
[2022-11-05] MEDS ORDERED: AMOCLA875 PO (18:19)
== END 2022-11-05 18:33 | disposition home or self-care (01) ==
LOC: ER 14:34
PROVIDERS: Physician Assistant
DX: K94.12 Enterostomy infection (principal); Y83.8 Other surgical procedures as the cause of abnormal reaction of the patient, or of later complication, without mention of misadventure at the time of the procedure; N18.9 Chronic kidney disease, unspecified; Z79.899 Other long term (current) drug therapy
CPT/HCPCS: 36415; 80053; 83605; 85025; 86140

== ENCOUNTER 2022-11-11 09:47 | Emergency (ER) | payer MEDICARE, OTHER ==
[~2022-11-11] VITALS: Ht 182.9 cm; Wt 72.6 kg
[2022-11-11 11:07] LABS: BASOPHILS ABSOLUTE AUTO 0.03 K/mm3 (0.00-0.23); BASOPHILS PERCENT AUTO 1 % (0-2); EOSINOPHILS ABSOLUTE AUTO 0.15 K/mm3 (0.00-0.68); EOSINOPHILS PERCENT AUTO 4 % (0-6); Hematocrit 32.9 % (37.0-53.0); Hemoglobin 10.7 g/dL (13.5-17.5); IMMATURE GRAN ABSOLUTE AUTO 0.07 K/mm3 (0.00-0.10); IMMATURE GRAN PERCENT AUTO 2 % (0-1); LYMPHOCYTES ABSOLUTE AUTO 0.54 K/mm3 (0.84-5.20); LYMPHOCYTES PERCENT AUTO 13 % (21-46); MONOCYTES ABSOLUTE AUTO 0.34 K/mm3 (0.16-1.47); MONOCYTES PERCENT AUTO 8 % (4-13); Mean Corpuscular HGB 32.2 pg (26.0-34.0); Mean Corpuscular HGB Conc 32.5 g/dL (31.5-36.5); Mean Corpuscular Volume 99 fL (80-100); Mean Platelet Volume 9.4 fL (9.1-12.4); NEUTROPHILS ABSOLUTE AUTO 2.91 K/mm3 (1.96-9.15); NEUTROPHILS PERCENT AUTO 72 % (41-73); Platelet Count 203 K/mm3 (150-400); RDW Coefficient Variation 13.6 % (11.7-14.2); RDW Standard Deviation 49.6 fL (35.1-46.3); Red Blood Cell Count 3.32 M/mm3 (4.30-5.90); White Blood Cell Count 4.04 K/mm3 (4.00-11.30)
[2022-11-11 11:31] LABS: Albumin/Globulin Ratio 0.8 (0.8-1.8); Bilirubin, Total 0.2 mg/dL (0.1-1.0); Bun/Creatinine Ratio 20.2 (12.0-20.0); Calcium, Blood 9.3 mg/dL (8.5-10.1); Creatinine, Blood 1.98 mg/dL (0.60-1.20); Globulin, Blood 3.8 g/dL (2.2-4.0); Total Protein, Blood 6.8 g/dL (6.4-8.2)
[2022-11-11 13:44] LABS: Source, Urine Clean Catch
[2022-11-11 13:51] LABS: Appearance, Urine Clear (Clear); Bilirubin, Urine Neg (Neg); Blood, Urine Neg (Neg); Color, Urine Yellow (P-Yellow); Glucose Qualitative, Urine Neg (Neg); Ketones, Urine Neg (Neg); Leukocyte Esterase, Urine Neg (Neg); Nitrite, Urine Neg (Neg); Protein, Urine Neg (Neg); Specific Gravity, Urine 1.015 (1.003-1.022); Urobilinogen, Urine NORM (Normal)
[2022-11-11] MEDS ORDERED: PROBIOTIC1 EA13 PO (14:18)
[2022-11-11] MEDS ORDERED: BACTRIM DS TAB1 EAC1 PO (14:18)
== END 2022-11-11 14:39 | disposition home or self-care (01) ==
LOC: ER 09:47
PROVIDERS: Physician Assistant
DX: L02.211 Cutaneous abscess of abdominal wall (principal); Z79.899 Other long term (current) drug therapy; Z93.2 Ileostomy status
CPT/HCPCS: 36415; 74177; 80053; 81003; 85025; A9270; Q9967

== ENCOUNTER → 2022-11-13 | Outpatient (CLI) | payer MEDICARE, OTHER ==
[~2022-11-13] MED LIST changes: +BACTRIM DS TAB1 EAC1 PO; +PROBIOTIC1 EA13 PO
== END | disposition home or self-care (01) ==
LOC: LAB SHORT 17:26
DX: N39.0 Urinary tract infection, site not specified (principal); N18.4 Chronic kidney disease, stage 4 (severe); Z96.0 Presence of urogenital implants
CPT/HCPCS: 87077; 87086; 87186

== ENCOUNTER 2022-11-14 08:21 | Emergency (ER) | payer MEDICARE, OTHER ==
[~2022-11-14] VITALS: Ht 170.2 cm; Wt 59.0 kg
== END 2022-11-14 09:31 | disposition home or self-care (01) ==
LOC: ER 08:21
DX: L02.211 Cutaneous abscess of abdominal wall (principal); G89.18 Other acute postprocedural pain; Z79.899 Other long term (current) drug therapy; N18.9 Chronic kidney disease, unspecified
CPT/HCPCS: 36415

== ENCOUNTER → 2022-11-19 | Outpatient (CLI) | payer MEDICARE, OTHER | LOC: LAB 14:01 → LAB SHORT 14:01 | DX: R30.0 Dysuria (principal) | CPT/HCPCS: 87077; 87086; 87186 ==

== ENCOUNTER → 2022-12-12 | Outpatient (CLI) | payer MEDICARE, OTHER | END | disposition home or self-care (01) | LOC: LAB SHORT 10:50 → LAB 10:50 | DX: R10.9 Unspecified abdominal pain (principal) | CPT/HCPCS: 87086 ==

== ENCOUNTER 2022-12-16 09:19 | Emergency (ER) | payer MEDICARE, OTHER ==
[~2022-12-16] VITALS: Ht 182.9 cm; Wt 72.6 kg
[2022-12-16] MEDS ORDERED: ATOR40TA PO (09:39)
[2022-12-16 11:51] LABS: Source, Urine Urostomy Bag
[2022-12-16 12:03] LABS: Appearance, Urine Hazy (Clear); Bilirubin, Urine Neg (Neg); Blood, Urine Neg (Neg); Color, Urine Yellow (P-Yellow); Glucose Qualitative, Urine Neg (Neg); Ketones, Urine Neg (Neg); Leukocyte Esterase, Urine 1+ (Neg); Nitrite, Urine Neg (Neg); Protein, Urine 1+ (Neg); Specific Gravity, Urine 1.015 (1.003-1.022); Urobilinogen, Urine NORM (Normal)
[2022-12-16 12:28] LABS: Bacteria Rare /hpf; Red Blood Cells, Urine Not Seen /hpf (0-2); Squamous Epithelial Cells Rare /hpf (Few)
[2022-12-16] MEDS ORDERED: CEFP200 PO (12:49)
== END 2022-12-16 13:03 | disposition home or self-care (01) ==
LOC: ER 09:19
PROVIDERS: Emergency Medicine
DX: Z76.0 Encounter for issue of repeat prescription (principal); N18.30 Chronic kidney disease, stage 3 unspecified; Z79.899 Other long term (current) drug therapy
CPT/HCPCS: 81001; 87077; 87086; 87186; 99283

== ENCOUNTER → 2023-01-08 | Outpatient (CLI) | payer MEDICARE, OTHER | END | disposition home or self-care (01) | LOC: LAB 10:38 → LAB SHORT 10:38 | DX: R10.9 Unspecified abdominal pain (principal); R30.0 Dysuria | CPT/HCPCS: 87077; 87086; 87186 ==

== ENCOUNTER 2023-01-19 12:59 | Emergency (ER) | payer MEDICARE, OTHER ==
[~2023-01-19] VITALS: Ht 182.9 cm; Wt 72.6 kg
[2023-01-19 13:31] LABS: BASOPHILS ABSOLUTE AUTO 0.01 K/mm3 (0.00-0.23); BASOPHILS PERCENT AUTO 0 % (0-2); EOSINOPHILS ABSOLUTE AUTO 0.12 K/mm3 (0.00-0.68); EOSINOPHILS PERCENT AUTO 2 % (0-6); Hematocrit 37.3 % (37.0-53.0); Hemoglobin 12.1 g/dL (13.5-17.5); IMMATURE GRAN ABSOLUTE AUTO 0.04 K/mm3 (0.00-0.10); IMMATURE GRAN PERCENT AUTO 1 % (0-1); LYMPHOCYTES ABSOLUTE AUTO 0.76 K/mm3 (0.84-5.20); LYMPHOCYTES PERCENT AUTO 10 % (21-46); MONOCYTES PERCENT AUTO 4 % (4-13); Mean Corpuscular HGB 31.3 pg (26.0-34.0); Mean Corpuscular HGB Conc 32.4 g/dL (31.5-36.5); Mean Corpuscular Volume 97 fL (80-100); Mean Platelet Volume 9.5 fL (9.1-12.4); NEUTROPHILS ABSOLUTE AUTO 6.44 K/mm3 (1.96-9.15); NEUTROPHILS PERCENT AUTO 84 % (41-73); Platelet Count 136 K/mm3 (150-400); RDW Coefficient Variation 13.2 % (11.7-14.2); RDW Standard Deviation 46.7 fL (35.1-46.3); Red Blood Cell Count 3.86 M/mm3 (4.30-5.90); White Blood Cell Count 7.67 K/mm3 (4.00-11.30)
[2023-01-19 13:52] LABS: Albumin, Blood 3.3 g/dL (3.4-5.0); Albumin/Globulin Ratio 0.8 (0.8-1.8); Bilirubin, Total 0.3 mg/dL (0.1-1.0); Bun/Creatinine Ratio 19.1 (12.0-20.0); Calcium, Blood 9.8 mg/dL (8.5-10.1); Creatinine, Blood 2.15 mg/dL (0.60-1.20); Globulin, Blood 4.2 g/dL (2.2-4.0); Potassium, Blood 5.4 mmol/L (3.5-5.5); Total Protein, Blood 7.5 g/dL (6.4-8.2)
[2023-01-19] MEDS ORDERED: LOSARTAN POTASS25 M2 PO (14:05)
[2023-01-19] MEDS ORDERED: OXYCODONE-ACET1 EA13 PO (14:05)
[2023-01-19 14:22] LABS: Source, Urine Voided
[2023-01-19 14:40] LABS: Bilirubin, Urine Neg (Neg); Blood, Urine 2+ (Neg); Color, Urine Yellow (P-Yellow); Glucose Qualitative, Urine Neg (Neg); Ketones, Urine Neg (Neg); Leukocyte Esterase, Urine 2+ (Neg); Nitrite, Urine Neg (Neg); Protein, Urine 3+ (Neg); Urobilinogen, Urine NORM (Normal)
[2023-01-19 14:45] LABS: Appearance, Urine Clear (Clear)
[2023-01-19 14:50] LABS: Bacteria Few /hpf; Squamous Epithelial Cells Rare /hpf (Few)
[2023-01-19] MEDS ORDERED: FAMO20 PO (16:03)
[2023-01-19] MEDS ORDERED: CARAFATE1 GM/10 M1 PO (16:03)
== END 2023-01-19 16:32 | disposition home or self-care (01) ==
LOC: ER 12:59
PROVIDERS: Emergency Medicine
DX: K29.70 Gastritis, unspecified, without bleeding (principal); N39.0 Urinary tract infection, site not specified; N18.30 Chronic kidney disease, stage 3 unspecified; Z79.899 Other long term (current) drug therapy
CPT/HCPCS: 36415; 80053; 81001; 83690; 85025; A9270

== ENCOUNTER → 2023-01-25 | Outpatient (CLI) | payer MEDICARE, OTHER ==
[~2023-01-25] MED LIST changes: +CARAFATE1 GM/10 M1 PO; +FAMO20 PO; +LOSARTAN POTASS25 M2 PO; +OXYCODONE-ACET1 EA13 PO
== END ==
LOC: LAB 12:30 → LAB SHORT 12:30
DX: R30.0 Dysuria (principal)
CPT/HCPCS: 87077; 87086; 87186

== ENCOUNTER 2023-02-06 07:34 | Emergency (ER) | payer MEDICARE, OTHER ==
[~2023-02-06] VITALS: Ht 182.9 cm; Wt 72.6 kg
[2023-02-06 08:29] LABS: Source, Urine Foley catheter
[2023-02-06 08:35] LABS: Appearance, Urine Cloudy (Clear); Bilirubin, Urine Neg (Neg); Blood, Urine 5+ (Neg); Color, Urine Yellow (P-Yellow); Glucose Qualitative, Urine Neg (Neg); Ketones, Urine Neg (Neg); Leukocyte Esterase, Urine 3+ (Neg); Nitrite, Urine Neg (Neg); Protein, Urine 3+ (Neg); Urobilinogen, Urine NORM (Normal)
[2023-02-06 08:43] LABS: Bacteria Many /hpf; Red Blood Cells, Urine TNTC /hpf (0-2); White Blood Cells, Urine TNTC /hpf (0-5)
[2023-02-06 08:46] LABS: Mucus Heavy (0-Heavy); Squamous Epithelial Cells Mod /hpf (Few)
[2023-02-06] MEDS ORDERED: Macrobid 100 M100 MG PO (08:55)
[2023-02-06 09:15] VITALS: BP 172/108
== END 2023-02-06 09:13 | disposition home or self-care (01) ==
LOC: ER 07:34
PROVIDERS: Physician Assistant
DX: N39.0 Urinary tract infection, site not specified (principal); Z79.899 Other long term (current) drug therapy
CPT/HCPCS: 81001; 87077; 87086; 87186; 99283

== ENCOUNTER 2023-02-09 09:58 | Observation (INO) | payer MEDICARE, OTHER ==
[~2023-02-09] VITALS: Ht 182.9 cm; Wt 71.3 kg
[2023-02-09 10:55] LABS: BASOPHILS ABSOLUTE AUTO 0.03 K/mm3 (0.00-0.23); BASOPHILS PERCENT AUTO 1 % (0-2); EOSINOPHILS ABSOLUTE AUTO 0.06 K/mm3 (0.00-0.68); EOSINOPHILS PERCENT AUTO 1 % (0-6); Hematocrit 32.9 % (37.0-53.0); Hemoglobin 11.1 g/dL (13.5-17.5); IMMATURE GRAN ABSOLUTE AUTO 0.01 K/mm3 (0.00-0.10); IMMATURE GRAN PERCENT AUTO 0 % (0-1); LYMPHOCYTES PERCENT AUTO 16 % (21-46); MONOCYTES ABSOLUTE AUTO 0.33 K/mm3 (0.16-1.47); MONOCYTES PERCENT AUTO 7 % (4-13); Mean Corpuscular HGB Conc 33.7 g/dL (31.5-36.5); Mean Corpuscular Volume 95 fL (80-100); Mean Platelet Volume 9.3 fL (9.1-12.4); NEUTROPHILS ABSOLUTE AUTO 3.34 K/mm3 (1.96-9.15); NEUTROPHILS PERCENT AUTO 75 % (41-73); Platelet Count 162 K/mm3 (150-400); RDW Coefficient Variation 13.9 % (11.7-14.2); RDW Standard Deviation 47.1 fL (35.1-46.3); Red Blood Cell Count 3.47 M/mm3 (4.30-5.90); White Blood Cell Count 4.47 K/mm3 (4.00-11.30)
[2023-02-09 11:14] LABS: Source, Urine Urostomy Bag
[2023-02-09 11:14] LABS: Albumin, Blood 3.5 g/dL (3.4-5.0); Albumin/Globulin Ratio 1.1 (0.8-1.8); Bilirubin, Total 0.3 mg/dL (0.1-1.0); Bun/Creatinine Ratio 19.6 (12.0-20.0); Calcium, Blood 8.9 mg/dL (8.5-10.1); Creatinine, Blood 1.68 mg/dL (0.60-1.20); Globulin, Blood 3.3 g/dL (2.2-4.0); Potassium, Blood 4.8 mmol/L (3.5-5.5); Total Protein, Blood 6.8 g/dL (6.4-8.2)
[2023-02-09 11:17] LABS: Appearance, Urine Clear (Clear); Bilirubin, Urine Neg (Neg); Blood, Urine 4+ (Neg); Color, Urine Yellow (P-Yellow); Glucose Qualitative, Urine Neg (Neg); Ketones, Urine Neg (Neg); Leukocyte Esterase, Urine 3+ (Neg); Nitrite, Urine Pos (Neg); Protein, Urine 3+ (Neg); Urobilinogen, Urine NORM (Normal)
[2023-02-09 11:30] LABS: Bacteria Many /hpf; Mucus Mod (0-Heavy); Squamous Epithelial Cells Mod /hpf (Few)
[2023-02-09 13:52] VITALS: BP 129/84
[2023-02-09 15:14] VITALS: BP 141/85
--- NOTE | 2023-02-09 18:32 | NUR ---
SHIFT SUMMARY NEW ADMIT FROM ER FOR UTI. POSITIVE URINE CULTURE OUTPATIENT ON 02/01, SEEN IN ED ON 02/06, RETURNED TO ED TODAY BECAUSE SYMPTOMS OF BLADDER PAIN AND BURNING PERSIST. ADMITTED FOR NEW CULTURES AND IV ABX. ALERT AND ORIENTED AND INDEPENDENT IN ROOM. HX PROSTATE CX AND UROSTOMY THAT PATIENT SELF MANAGES. GOOD URINE OUTPUT, YELLOW. TOLERATING REGULAR DIET AND LIQUIDS. MEDICATED FOR PAIN PER EMAR. DR DIEZ HAS BEEN CONSULTED, DR GALVAN SPOKE WITH HIM PER H&P.
[2023-02-09 21:29] VITALS: BP 141/89
[2023-02-10 04:41] VITALS: BP 147/86
--- NOTE | 2023-02-10 06:39 | NUR ---
AO, INDEPENDENT IN ROOM, VSS ON RA, ISOLATION MAINTAINED FOR VRE IN URINE. PRN PAIN MEDS GIVEN FREQUENTLY POSSIBLE PER PATIENT REQUEST, Q6 ROXICODONE ORDER CHANGED TO Q4 DUE TO POOR PAIN CONTROL. UROSTOMY MANAGED INDEPENDENTLY BY PATIENT.
[2023-02-10 07:24] VITALS: BP 135/85
--- NOTE | 2023-02-10 11:12 | NUR ---
Patient AOx4, vitals stable. Patient stated he needed to leave by 1030, for his nephrology appt this morning. He siad he could not wait and would leave AMA if he had to. Notified MD. Discharge ordered. Pt left at 1000.
== END 2023-02-10 10:30 | disposition home or self-care (01) ==
LOC: ER 09:58 → MEDS 09:59
PROVIDERS: Student in an Organized Health Care Education/Training Program; ADMIT Internal Medicine
DX: N39.0 Urinary tract infection, site not specified (principal); N18.30 Chronic kidney disease, stage 3 unspecified; I12.9 Hypertensive chronic kidney disease with stage 1 through stage 4 chronic kidney disease, or unspecified chronic kidney disease; E78.5 Hyperlipidemia, unspecified; E86.9 Volume depletion, unspecified; E87.20 Acidosis, unspecified; D64.9 Anemia, unspecified; N28.9 Disorder of kidney and ureter, unspecified; Z79.891 Long term (current) use of opiate analgesic; Z79.899 Other long term (current) drug therapy; Z85.46 Personal history of malignant neoplasm of prostate; Z93.6 Other artificial openings of urinary tract status
CPT/HCPCS: 76770; 80053; 81001; 83605; 85025; 87077; 87086; 87186; 93005; 93010; 96365; 96372; 96375; 96376; 99284-25; A9270; G0378; J0696; J1650; J2543

== ENCOUNTER 2023-02-18 13:50 | Emergency (ER) | payer MEDICARE, OTHER ==
[~2023-02-18] VITALS: Ht 182.9 cm; Wt 72.6 kg
[2023-02-18 14:16] VITALS: BP 161/118
[2023-02-18 16:45] LABS: Calcium, Ionized (POC) 1.37 mmol/L (1.10-1.46); Chloride (POC) 110 mmol/L (98-108); Creatinine (POC) 1.9 mg/dL (0.8-1.3); Glucose (ISTAT POC) 88 mg/dL (70-99); Hemoglobin (POC) 12.2 g/dL (13.5-17.5); Potassium (POC) 5.5 mmol/L (3.5-5.5); Sodium (POC) 139 mmol/L (135-148); Total CO2 (POC) 21 mmol/L (21-32)
== END 2023-02-18 16:51 | disposition home or self-care (01) ==
LOC: ER 13:50
PROVIDERS: Student in an Organized Health Care Education/Training Program
DX: K43.5 Parastomal hernia without obstruction or gangrene (principal); Z79.899 Other long term (current) drug therapy; N18.30 Chronic kidney disease, stage 3 unspecified
CPT/HCPCS: 76857; 80047; 85014; 99284-25

== ENCOUNTER → 2023-02-18 | Outpatient (CLI) | payer MEDICARE, OTHER ==
[2023-02-18 12:07] LABS: BASOPHILS ABSOLUTE AUTO 0.02 K/mm3 (0.00-0.23); BASOPHILS PERCENT AUTO 1 % (0-2); EOSINOPHILS ABSOLUTE AUTO 0.23 K/mm3 (0.00-0.68); EOSINOPHILS PERCENT AUTO 6 % (0-6); Hematocrit 34.8 % (37.0-53.0); Hemoglobin 11.6 g/dL (13.5-17.5); IMMATURE GRAN ABSOLUTE AUTO 0.01 K/mm3 (0.00-0.10); IMMATURE GRAN PERCENT AUTO 0 % (0-1); LYMPHOCYTES ABSOLUTE AUTO 0.79 K/mm3 (0.84-5.20); LYMPHOCYTES PERCENT AUTO 19 % (21-46); MONOCYTES PERCENT AUTO 7 % (4-13); Mean Corpuscular HGB Conc 33.3 g/dL (31.5-36.5); Mean Corpuscular Volume 96 fL (80-100); Mean Platelet Volume 9.4 fL (9.1-12.4); NEUTROPHILS ABSOLUTE AUTO 2.86 K/mm3 (1.96-9.15); NEUTROPHILS PERCENT AUTO 68 % (41-73); Platelet Count 173 K/mm3 (150-400); RDW Standard Deviation 53.1 fL (35.1-46.3); Red Blood Cell Count 3.63 M/mm3 (4.30-5.90); White Blood Cell Count 4.21 K/mm3 (4.00-11.30)
[2023-02-18 14:07] LABS: Albumin, Blood 3.6 g/dL (3.4-5.0); Albumin/Globulin Ratio 1.1 (0.8-1.8); Bilirubin, Total 0.2 mg/dL (0.1-1.0); Calcium, Blood 9.8 mg/dL (8.5-10.1); Creatinine, Blood 1.76 mg/dL (0.60-1.20); Globulin, Blood 3.4 g/dL (2.2-4.0); Potassium, Blood 6.2 mmol/L (3.5-5.5)
== END | disposition home or self-care (01) ==
LOC: LAB SHORT 11:31 → LAB 11:31
PROVIDERS: Emergency Medicine
DX: R10.9 Unspecified abdominal pain (principal); R31.9 Hematuria, unspecified
CPT/HCPCS: 80053; 85025

== ENCOUNTER 2023-02-21 08:46 | Emergency (ER) | payer MEDICARE, OTHER ==
[~2023-02-21] VITALS: Ht 182.9 cm; Wt 72.6 kg
[2023-02-21 09:05] VITALS: BP 153/97
== END 2023-02-21 09:29 | disposition home or self-care (01) ==
LOC: ER 08:46
DX: K43.5 Parastomal hernia without obstruction or gangrene (principal); N18.30 Chronic kidney disease, stage 3 unspecified; Z87.442 Personal history of urinary calculi; Z85.46 Personal history of malignant neoplasm of prostate
CPT/HCPCS: 99283

== ENCOUNTER 2023-03-05 09:43 | Emergency (ER) | payer MEDICARE, OTHER ==
[~2023-03-05] VITALS: Ht 182.9 cm; Wt 72.6 kg
[2023-03-05 09:52] VITALS: BP 149/99
== END 2023-03-05 10:50 | disposition home or self-care (01) ==
LOC: ER 09:43
DX: K43.5 Parastomal hernia without obstruction or gangrene (principal); N18.30 Chronic kidney disease, stage 3 unspecified; Z87.442 Personal history of urinary calculi; Z85.46 Personal history of malignant neoplasm of prostate
CPT/HCPCS: 99282

== ENCOUNTER → 2023-03-14 | Outpatient (CLI) | payer MEDICARE, OTHER ==
[~2023-03-14] MED LIST changes: +MEGE40T PO
== END ==
LOC: LAB 12:00 → LAB SHORT 12:00
DX: R30.0 Dysuria (principal)
CPT/HCPCS: 87077; 87086; 87186

== ENCOUNTER 2023-03-17 09:24 | Emergency (ER) | payer MEDICARE, OTHER ==
[~2023-03-17] VITALS: Ht 182.9 cm; Wt 71.2 kg
[~2023-03-17 09:24] MED LIST changes: -MEGE40T PO
[2023-03-17 09:38] VITALS: BP 177/102
[2023-03-17] MEDS ORDERED: MEGE40T PO (09:40)
== END 2023-03-17 11:58 | disposition home or self-care (01) ==
LOC: ER 09:24
DX: Z71.89 Other specified counseling (principal); N18.30 Chronic kidney disease, stage 3 unspecified; Z87.442 Personal history of urinary calculi; Z85.46 Personal history of malignant neoplasm of prostate
CPT/HCPCS: 99281

== ENCOUNTER 2023-03-19 08:50 | Emergency (ER) | payer MEDICARE, OTHER ==
[~2023-03-19] VITALS: Ht 182.9 cm; Wt 72.6 kg
[~2023-03-19 08:50] MED LIST changes: +MEGE40T PO
[2023-03-19 09:16] VITALS: BP 131/98
== END 2023-03-19 10:19 | disposition home or self-care (01) ==
LOC: ER 08:50
DX: Z76.0 Encounter for issue of repeat prescription (principal); N18.30 Chronic kidney disease, stage 3 unspecified; Z87.442 Personal history of urinary calculi; Z85.46 Personal history of malignant neoplasm of prostate
CPT/HCPCS: 99283

== ENCOUNTER → 2023-03-30 | Outpatient (CLI) | payer MEDICARE, OTHER ==
[2023-03-30 10:08] LABS: BASOPHILS ABSOLUTE AUTO 0.03 K/mm3 (0.00-0.23); BASOPHILS PERCENT AUTO 1 % (0-2); EOSINOPHILS ABSOLUTE AUTO 0.12 K/mm3 (0.00-0.68); EOSINOPHILS PERCENT AUTO 3 % (0-6); Hematocrit 39.5 % (37.0-53.0); Hemoglobin 13.2 g/dL (13.5-17.5); IMMATURE GRAN ABSOLUTE AUTO 0.03 K/mm3 (0.00-0.10); IMMATURE GRAN PERCENT AUTO 1 % (0-1); LYMPHOCYTES ABSOLUTE AUTO 0.77 K/mm3 (0.84-5.20); LYMPHOCYTES PERCENT AUTO 19 % (21-46); MONOCYTES ABSOLUTE AUTO 0.36 K/mm3 (0.16-1.47); MONOCYTES PERCENT AUTO 9 % (4-13); Mean Corpuscular HGB 33.4 pg (26.0-34.0); Mean Corpuscular HGB Conc 33.4 g/dL (31.5-36.5); Mean Corpuscular Volume 100 fL (80-100); Mean Platelet Volume 9.4 fL (9.1-12.4); NEUTROPHILS ABSOLUTE AUTO 2.82 K/mm3 (1.96-9.15); NEUTROPHILS PERCENT AUTO 68 % (41-73); Platelet Count 164 K/mm3 (150-400); RDW Standard Deviation 58.5 fL (35.1-46.3); Red Blood Cell Count 3.95 M/mm3 (4.30-5.90); White Blood Cell Count 4.13 K/mm3 (4.00-11.30)
[2023-03-30 10:22] LABS: Bilirubin, Total 0.4 mg/dL (0.1-1.0); Bun/Creatinine Ratio 25.2 (12.0-20.0); Calcium, Blood 9.3 mg/dL (8.5-10.1); Creatinine, Blood 2.02 mg/dL (0.60-1.20); Potassium, Blood 4.9 mmol/L (3.5-5.5)
== END ==
LOC: LAB 09:57 → LAB SHORT 09:57
PROVIDERS: Physician Assistant
DX: N39.0 Urinary tract infection, site not specified (principal); R30.0 Dysuria
CPT/HCPCS: 80053; 85025; 87077; 87086; 87186

== ENCOUNTER → 2023-04-05 | Outpatient (CLI) | payer MEDICARE, OTHER ==
[2023-04-05 16:02] LABS: U Amphetamine Screen Not Detected; U Barbituate Screen Not Detected; U Benzodiazapine Screen Not Detected; U Buprenorphine Screen Not Detected; U Cannabinoids Screen DETECTED; U Cocaine Screen Not Detected; U Methadone Screen Not Detected; U Methamphetamine Screen Not Detected; U Opiates Screen Not Detected; U Oxycodone Screen Not Detected; U Phencyclidine Screen Not Detected; U Propoxyphene Screen Not Detected
== END | disposition home or self-care (01) ==
LOC: LAB SHORT 13:55 → LAB 13:55
PROVIDERS: Internal Medicine Hematology & Oncology
DX: Z51.81 Encounter for therapeutic drug level monitoring (principal); Z79.899 Other long term (current) drug therapy

== ENCOUNTER → 2023-05-05 | Outpatient (CLI) | payer MEDICARE, OTHER ==
[2023-05-05 15:48] LABS: U Amphetamine Screen Not Detected
[2023-05-05 15:49] LABS: U Barbituate Screen Not Detected; U Benzodiazapine Screen Not Detected; U Buprenorphine Screen Not Detected; U Cannabinoids Screen DETECTED; U Cocaine Screen Not Detected; U Methadone Screen Not Detected; U Methamphetamine Screen Not Detected; U Opiates Screen Not Detected; U Oxycodone Screen DETECTED; U Phencyclidine Screen Not Detected; U Propoxyphene Screen Not Detected
[2023-05-09 15:07] LABS: CARBOXY-THC 121 (.)
== END | disposition home or self-care (01) ==
LOC: LAB 11:29 → LAB SHORT 11:29
PROVIDERS: Internal Medicine Hematology & Oncology
DX: Z51.81 Encounter for therapeutic drug level monitoring (principal); Z79.899 Other long term (current) drug therapy
CPT/HCPCS: G0480

== ENCOUNTER → 2023-05-15 | Outpatient (CLI) | payer MEDICARE, OTHER | LOC: LAB SHORT 11:50 → LAB 11:50 | DX: N39.0 Urinary tract infection, site not specified (principal) | CPT/HCPCS: 87077; 87086; 87186 ==

== ENCOUNTER → 2023-06-01 | Outpatient (CLI) | payer MEDICARE, OTHER ==
[2023-06-01 14:19] LABS: Source, Urine Voided
[2023-06-01 15:45] LABS: Bacteria Many /hpf; Renal Epithelial Rare /hpf (0-Rare); Squamous Epithelial Cells Mod /hpf (Few); Transitional Epithelial Cells Few /hpf (0-Rare); White Blood Cells, Urine 50-100 /hpf (0-5)
[2023-06-01 18:05] LABS: U Amphetamine Screen Not Detected; U Barbituate Screen Not Detected; U Benzodiazapine Screen Not Detected; U Buprenorphine Screen Not Detected; U Cannabinoids Screen DETECTED; U Cocaine Screen Not Detected; U Methadone Screen Not Detected; U Methamphetamine Screen Not Detected; U Opiates Screen Not Detected; U Oxycodone Screen DETECTED; U Phencyclidine Screen Not Detected; U Propoxyphene Screen Not Detected
[2023-06-05 11:12] LABS: CARBOXY-THC 85 (.)
== END | disposition home or self-care (01) ==
LOC: LAB SHORT 10:13 → LAB 10:13
PROVIDERS: Internal Medicine Hematology & Oncology; Physician Assistant
DX: R30.0 Dysuria (principal); Z79.899 Other long term (current) drug therapy
CPT/HCPCS: 81015; 87086

== ENCOUNTER → 2023-06-12 | Outpatient (CLI) | payer MEDICARE, OTHER | LOC: LAB 11:30 → LAB SHORT 11:30 | DX: R10.30 Lower abdominal pain, unspecified (principal) | CPT/HCPCS: 87077; 87086; 87186 ==

== ENCOUNTER 2023-06-30 13:23 | Day surgery (SDC) | payer MEDICARE, OTHER ==
[~2023-06-30] VITALS: Ht 182.9 cm; Wt 71.8 kg
[2023-06-30] MEDS ORDERED: ONDA4 (14:03)
[2023-06-30 14:45] VITALS: BP 105/57
== END 2023-06-30 14:46 | disposition home or self-care (01) ==
LOC: ORSCSDS 13:23
PROVIDERS: Internal Medicine Gastroenterology
PROC: 0DB68ZX Excision of Stomach, Via Natural or Artificial Opening Endoscopic, Diagnostic (ICD-10-PCS; principal; 2023-06-30 15:00)
DX: R13.19 Other dysphagia (principal); K44.9 Diaphragmatic hernia without obstruction or gangrene; K52.9 Noninfective gastroenteritis and colitis, unspecified; E11.9 Type 2 diabetes mellitus without complications; E78.5 Hyperlipidemia, unspecified; I12.9 Hypertensive chronic kidney disease with stage 1 through stage 4 chronic kidney disease, or unspecified chronic kidney disease; E11.22 Type 2 diabetes mellitus with diabetic chronic kidney disease; N18.30 Chronic kidney disease, stage 3 unspecified; Z79.899 Other long term (current) drug therapy
CPT/HCPCS: 88305; 88312; J0461; J2001; J2405; J2704; J7120; Q9968

== ENCOUNTER → 2023-07-02 | Outpatient (CLI) | payer MEDICARE, OTHER ==
[~2023-07-02] MED LIST changes: +ONDA4
[2023-07-02 13:31] LABS: Source, Urine Urostomy Bag
[2023-07-02 14:44] LABS: Appearance, Urine Cloudy (Clear); Bilirubin, Urine Neg (Neg); Blood, Urine 4+ (Neg); Color, Urine Yellow (P-Yellow); Glucose Qualitative, Urine Neg (Neg); Ketones, Urine Neg (Neg); Leukocyte Esterase, Urine 3+ (Neg); Nitrite, Urine Neg (Neg); Protein, Urine 3+ (Neg); Urobilinogen, Urine NORM (Normal)
[2023-07-02 15:13] LABS: Bacteria Many /hpf; Red Blood Cells, Urine 25-50 /hpf (0-2); Squamous Epithelial Cells Not Seen /hpf (Few); White Blood Cells, Urine TNTC /hpf (0-5)
== END | disposition home or self-care (01) ==
LOC: LAB 13:22 → LAB SHORT 13:22
PROVIDERS: Internal Medicine Hematology & Oncology
DX: N39.0 Urinary tract infection, site not specified (principal)
CPT/HCPCS: 81001; 87086

== ENCOUNTER → 2023-08-11 | Outpatient (CLI) | payer MEDICARE, OTHER | END | disposition home or self-care (01) | LOC: LAB SHORT 16:48 → LAB 16:48 | DX: N39.0 Urinary tract infection, site not specified (principal) | CPT/HCPCS: 87077; 87086; 87186 ==

== ENCOUNTER → 2023-09-07 | Outpatient (CLI) | payer MEDICARE, OTHER | LOC: LAB SHORT 12:00 → LAB 12:00 | DX: N39.0 Urinary tract infection, site not specified (principal) | CPT/HCPCS: 87077; 87086; 87186 ==

== ENCOUNTER → 2023-10-11 | Outpatient (CLI) | payer MEDICARE, OTHER | END | disposition home or self-care (01) | LOC: LAB SHORT 15:31 → LAB 15:31 | DX: N39.0 Urinary tract infection, site not specified (principal) | CPT/HCPCS: 87077; 87086; 87186 ==

== ENCOUNTER → 2023-10-28 | Outpatient (CLI) | payer MEDICARE, OTHER | LOC: LAB 16:28 → LAB SHORT 16:28 | DX: N39.0 Urinary tract infection, site not specified (principal) | CPT/HCPCS: 87077; 87086; 87186 ==

== ENCOUNTER → 2023-11-08 | Outpatient (CLI) | payer MEDICARE, OTHER ==
[2023-11-08 18:41] LABS: Source, Urine Clean Catch
[2023-11-08 19:15] LABS: Appearance, Urine Hazy (Clear); Bilirubin, Urine Neg (Neg); Blood, Urine 3+ (Neg); Color, Urine Yellow (P-Yellow); Glucose Qualitative, Urine Neg (Neg); Ketones, Urine Neg (Neg); Leukocyte Esterase, Urine 3+ (Neg); Nitrite, Urine Neg (Neg); Protein, Urine 3+ (Neg); Urobilinogen, Urine NORM (Normal)
[2023-11-08 19:25] LABS: Bacteria Many /hpf; Squamous Epithelial Cells Rare /hpf (Few); White Blood Cells, Urine 50-100 /hpf (0-5)
== END ==
LOC: LAB SHORT 18:39 → LAB 18:39
PROVIDERS: Physician Assistant
DX: N39.0 Urinary tract infection, site not specified (principal)
CPT/HCPCS: 81001

== ENCOUNTER → 2023-11-15 | Outpatient (CLI) | payer MEDICARE, OTHER | END | disposition home or self-care (01) | LOC: LAB EV 15:44 → LAB SHORT 15:44 | DX: N39.0 Urinary tract infection, site not specified (principal) | CPT/HCPCS: 87077; 87086; 87186 ==

== ENCOUNTER → 2023-11-23 | Outpatient (CLI) | payer MEDICARE, OTHER ==
[~2023-11-23] MED LIST changes: +Zyvox600 MG PO
== END ==
LOC: LAB SHORT 13:00 → LAB 13:00
DX: R82.90 Unspecified abnormal findings in urine (principal)
CPT/HCPCS: 87086

== ENCOUNTER 2023-11-24 14:20 | Emergency (ER) | payer MEDICARE, OTHER ==
[~2023-11-24] VITALS: Ht 182.9 cm; Wt 72.6 kg
[~2023-11-24 14:20] MED LIST changes: -Zyvox600 MG PO
[2023-11-24 14:31] VITALS: BP 154/88
[2023-11-24 15:13] LABS: Source, Urine Urostomy Bag
[2023-11-24 15:22] LABS: Appearance, Urine Hazy (Clear); Bilirubin, Urine Neg (Neg); Blood, Urine 5+ (Neg); Color, Urine Yellow (P-Yellow); Glucose Qualitative, Urine Neg (Neg); Ketones, Urine Neg (Neg); Leukocyte Esterase, Urine 3+ (Neg); Nitrite, Urine Neg (Neg); Protein, Urine 3+ (Neg); Urobilinogen, Urine NORM (Normal)
[2023-11-24 15:35] LABS: Bacteria Few /hpf; Squamous Epithelial Cells Few /hpf (Few)
[2023-11-24 15:36] LABS: Renal Epithelial Rare /hpf (0-Rare)
[2023-11-29] MEDS ORDERED: Zyvox600 MG PO (10:20)
== END 2023-11-24 16:20 | disposition home or self-care (01) ==
LOC: ER 14:20
PROVIDERS: Physician Assistant
DX: T83.84XA Pain due to genitourinary prosthetic devices, implants and grafts, initial encounter (principal); Y73.2 Prosthetic and other implants, materials and accessory gastroenterology and urology devices associated with adverse incidents; N18.30 Chronic kidney disease, stage 3 unspecified; Z87.442 Personal history of urinary calculi; Z93.6 Other artificial openings of urinary tract status; Z85.46 Personal history of malignant neoplasm of prostate; Z79.899 Other long term (current) drug therapy
CPT/HCPCS: 81001; 87077; 87086; 87186; 99282

== ENCOUNTER 2023-11-29 15:02 | Emergency (ER) | payer MEDICARE, OTHER ==
[~2023-11-29] VITALS: Ht 182.9 cm; Wt 72.6 kg
[~2023-11-29 15:02] MED LIST changes: +Zyvox600 MG PO
[2023-11-29 16:06] LABS: BASOPHILS ABSOLUTE AUTO 0.03 K/mm3 (0.00-0.23); BASOPHILS PERCENT AUTO 0 % (0-2); EOSINOPHILS PERCENT AUTO 0 % (0-6); Hematocrit 46.6 % (37.0-53.0); Hemoglobin 15.9 g/dL (13.5-17.5); IMMATURE GRAN ABSOLUTE AUTO 0.05 K/mm3 (0.00-0.10); IMMATURE GRAN PERCENT AUTO 1 % (0-1); LYMPHOCYTES ABSOLUTE AUTO 0.79 K/mm3 (0.84-5.20); LYMPHOCYTES PERCENT AUTO 7 % (21-46); MONOCYTES ABSOLUTE AUTO 0.58 K/mm3 (0.16-1.47); MONOCYTES PERCENT AUTO 6 % (4-13); Mean Corpuscular HGB 33.3 pg (26.0-34.0); Mean Corpuscular HGB Conc 34.1 g/dL (31.5-36.5); Mean Corpuscular Volume 98 fL (80-100); Mean Platelet Volume 9.5 fL (9.1-12.4); NEUTROPHILS ABSOLUTE AUTO 9.18 K/mm3 (1.96-9.15); NEUTROPHILS PERCENT AUTO 86 % (41-73); Platelet Count 203 K/mm3 (150-400); RDW Coefficient Variation 12.9 % (11.7-14.2); RDW Standard Deviation 46.8 fL (35.1-46.3); Red Blood Cell Count 4.77 M/mm3 (4.30-5.90); White Blood Cell Count 10.63 K/mm3 (4.00-11.30)
[2023-11-29 16:37] LABS: Albumin, Blood 4.2 g/dL (3.4-5.0); Albumin/Globulin Ratio 1.1 (0.8-1.8); Bilirubin, Total 0.5 mg/dL (0.1-1.0); Bun/Creatinine Ratio 25.6 (12.0-20.0); Calcium, Blood 9.9 mg/dL (8.5-10.1); Creatinine, Blood 1.8 mg/dL (0.60-1.20); Globulin, Blood 3.7 g/dL (2.2-4.0); Potassium, Blood 4.6 mmol/L (3.5-5.5); Total Protein, Blood 7.9 g/dL (6.4-8.2)
[2023-11-29] MEDS ORDERED: NS 1,000 ML IV SCH (20:35)
[2023-11-29] MEDS ORDERED: OxyCODONE 10/Acetamin 325 TABLET PO ONE (20:35)
[2023-11-29 20:47] LABS: Influenza A, PCR NEGATIVE (NEGATIVE); Influenza B, PCR NEGATIVE (NEGATIVE); Resp Syncytial Virus, PCR NEGATIVE (NEGATIVE); SARS-Cov-2 (COVID-19) PCR, MMC NEGATIVE (NEGATIVE)
[2023-11-29 21:35] VITALS: BP 152/92
== END 2023-11-29 22:14 | disposition home or self-care (01) ==
LOC: ER 15:02
PROVIDERS: Physician Assistant; Student in an Organized Health Care Education/Training Program
DX: R10.31 Right lower quadrant pain (principal); G89.29 Other chronic pain; R53.1 Weakness; N18.30 Chronic kidney disease, stage 3 unspecified; Z93.6 Other artificial openings of urinary tract status; Z79.899 Other long term (current) drug therapy
CPT/HCPCS: 0241U; 80053; 82947; 85025; 96360; 99284-25; A9270; J7030

== ENCOUNTER → 2023-12-13 | Outpatient (CLI) | payer MEDICARE, OTHER ==
[2023-12-13 12:38] LABS: Creatinine Urine 45.4 mg/dL (27.00-270.00); Protein, Urine Quantitative 47.8 mg/dL (0.0-11.9)
[2023-12-13 13:31] LABS: Calcium, Urine <5.0 mg/dL (< 17.5); Calcium, Urine Calculation Unable to Calculate mg/24hrs (42.0-353.0)
== END ==
LOC: LAB 09:28 → LAB SHORT 09:28
PROVIDERS: Internal Medicine Nephrology
DX: N18.30 Chronic kidney disease, stage 3 unspecified (principal); N25.81 Secondary hyperparathyroidism of renal origin; E55.9 Vitamin D deficiency, unspecified; E78.00 Pure hypercholesterolemia, unspecified; R76.9 Abnormal immunological finding in serum, unspecified; R94.5 Abnormal results of liver function studies; R94.6 Abnormal results of thyroid function studies; D63.1 Anemia in chronic kidney disease
CPT/HCPCS: 81050; 82043; 82340; 82570; 84156

== ENCOUNTER 2024-02-23 03:00 | Day surgery (SDC) | payer MEDICARE, OTHER ==
[2024-02-23] MEDS ORDERED: CefTRIAXone Sodium 1,000 MG in NS 100 ML IV SCH (08:35)
[2024-02-23 11:41] VITALS: BP 157/76
[2024-02-23] MEDS ORDERED: CEFTRIAXON1 GM/50 M1 IV (11:52)
== END 2024-02-23 12:00 | disposition home or self-care (01) ==
LOC: ATC 03:00
DX: N39.0 Urinary tract infection, site not specified (principal); I12.9 Hypertensive chronic kidney disease with stage 1 through stage 4 chronic kidney disease, or unspecified chronic kidney disease; E11.22 Type 2 diabetes mellitus with diabetic chronic kidney disease; N18.32 Chronic kidney disease, stage 3b; D63.1 Anemia in chronic kidney disease; N25.81 Secondary hyperparathyroidism of renal origin; E11.21 Type 2 diabetes mellitus with diabetic nephropathy; Z79.899 Other long term (current) drug therapy
CPT/HCPCS: 96365; J0696

== ENCOUNTER 2024-02-24 02:42 | Day surgery (SDC) | payer MEDICARE, OTHER ==
[~2024-02-24 02:42] MED LIST changes: +CEFTRIAXON1 GM/50 M1 IV
[2024-02-24] MEDS ORDERED: CefTRIAXone Sodium 1,000 MG in NS 100 ML IV SCH (06:00)
[2024-02-24 16:24] VITALS: BP 139/85
== END 2024-02-24 16:57 | disposition home or self-care (01) ==
LOC: ATC 02:42
DX: N39.0 Urinary tract infection, site not specified (principal); I12.9 Hypertensive chronic kidney disease with stage 1 through stage 4 chronic kidney disease, or unspecified chronic kidney disease; N18.32 Chronic kidney disease, stage 3b; D63.1 Anemia in chronic kidney disease; E11.21 Type 2 diabetes mellitus with diabetic nephropathy; Z79.899 Other long term (current) drug therapy
CPT/HCPCS: 96365; J0696

== ENCOUNTER 2024-02-26 02:30 | Day surgery (SDC) | payer MEDICARE, OTHER ==
[2024-02-26] MEDS ORDERED: CefTRIAXone Sodium 1,000 MG in NS 100 ML IV SCH (06:00)
[2024-02-26 11:44] VITALS: BP 128/82
== END 2024-02-26 12:05 | disposition home or self-care (01) ==
LOC: ATC 02:30
DX: N39.0 Urinary tract infection, site not specified (principal); I12.9 Hypertensive chronic kidney disease with stage 1 through stage 4 chronic kidney disease, or unspecified chronic kidney disease; N18.32 Chronic kidney disease, stage 3b; D63.1 Anemia in chronic kidney disease; N25.81 Secondary hyperparathyroidism of renal origin; D50.9 Iron deficiency anemia, unspecified; E11.21 Type 2 diabetes mellitus with diabetic nephropathy; E11.22 Type 2 diabetes mellitus with diabetic chronic kidney disease; R80.9 Proteinuria, unspecified; E83.30 Disorder of phosphorus metabolism, unspecified; E87.5 Hyperkalemia; G60.9 Hereditary and idiopathic neuropathy, unspecified; Z79.899 Other long term (current) drug therapy; E86.9 Volume depletion, unspecified
CPT/HCPCS: 96365; J0696

== ENCOUNTER 2024-02-27 02:58 | Day surgery (SDC) | payer MEDICARE, OTHER ==
[2024-02-27] MEDS ORDERED: CefTRIAXone Sodium 1,000 MG in NS 100 ML IV SCH (06:00)
[2024-02-27 11:16] VITALS: BP 133/86
== END 2024-02-27 11:40 | disposition home or self-care (01) ==
LOC: ATC 02:58
DX: N39.0 Urinary tract infection, site not specified (principal); I12.9 Hypertensive chronic kidney disease with stage 1 through stage 4 chronic kidney disease, or unspecified chronic kidney disease; N18.32 Chronic kidney disease, stage 3b; E86.9 Volume depletion, unspecified; D63.1 Anemia in chronic kidney disease; N25.81 Secondary hyperparathyroidism of renal origin; D50.9 Iron deficiency anemia, unspecified; E11.21 Type 2 diabetes mellitus with diabetic nephropathy; E11.22 Type 2 diabetes mellitus with diabetic chronic kidney disease; R80.9 Proteinuria, unspecified; E83.30 Disorder of phosphorus metabolism, unspecified; E87.5 Hyperkalemia; G60.9 Hereditary and idiopathic neuropathy, unspecified; Z79.899 Other long term (current) drug therapy
CPT/HCPCS: 96365; J0696

== ENCOUNTER → 2024-04-02 | Outpatient (CLI) | payer MEDICARE, OTHER ==
[2024-04-02 12:06] LABS: Source, Urine Clean Catch
[2024-04-02 12:42] LABS: Bacteria Many /hpf; Red Blood Cells, Urine 25-50 /hpf (0-2); Squamous Epithelial Cells Few /hpf (Few); White Blood Cells, Urine TNTC /hpf (0-5)
== END ==
LOC: LAB 12:04 → LAB SHORT 12:04
PROVIDERS: Internal Medicine
DX: R39.9 Unspecified symptoms and signs involving the genitourinary system (principal)
CPT/HCPCS: 81015; 87077; 87086; 87186

== ENCOUNTER → 2024-04-17 | Outpatient (CLI) | payer MEDICARE, OTHER ==
[2024-04-17 18:58] LABS: Alanine Aminotransfer (ALT/SGP 12 U/L (12-78); Albumin, Blood 3.2 g/dL (3.4-5.0); Albumin/Globulin Ratio 1.2 (0.8-1.8); Alk Phos 78 U/L (50-136); Anion Gap 8 mmol/L (3-11); Aspartate Aminotrans (AST/SGOT 11 U/L (12-37); Bilirubin, Direct <0.1 mg/dL (0.0-0.3); Bilirubin, Indirect Unable to Calculate mg/dL (0.1-0.7); Bilirubin, Total 0.3 mg/dL (0.1-1.0); Blood Urea Nitrogen 41 mg/dL (8-24); Bun/Creatinine Ratio 23.7 (12.0-20.0); CO2, Blood 23 mmol/L (21-32); Calcium, Blood 8.2 mg/dL (8.5-10.1); Chloride, Blood 114 mmol/L (98-108); Creatinine, Blood 1.73 mg/dL (0.60-1.20); Globulin, Blood 2.7 g/dL (2.2-4.0); Glomerular Filtration Rate 39 (60-); Glucose, Blood 116 mg/dL (70-99); Potassium, Blood 4.5 mmol/L (3.5-5.5); Sodium, Blood 140 mmol/L (136-145); Total Protein, Blood 5.9 g/dL (6.4-8.2)
== END ==
LOC: LAB SHORT 12:47 → LAB 12:47
PROVIDERS: Internal Medicine Hematology & Oncology
DX: N39.0 Urinary tract infection, site not specified (principal); R10.33 Periumbilical pain; B96.1 Klebsiella pneumoniae [K. pneumoniae] as the cause of diseases classified elsewhere; Z16.24 Resistance to multiple antibiotics
CPT/HCPCS: 80053; 82248

== ENCOUNTER → 2024-04-17 | Outpatient (CLI) | payer MEDICARE, OTHER | END | disposition home or self-care (01) | LOC: LAB SHORT 11:18 → LAB 11:18 | DX: N39.0 Urinary tract infection, site not specified (principal); R10.33 Periumbilical pain | CPT/HCPCS: 87077; 87086; 87186 ==

== ENCOUNTER → 2024-04-24 | Outpatient (CLI) | payer MEDICARE, OTHER | LOC: LAB SHORT 16:20 → LAB 16:20 | DX: N39.0 Urinary tract infection, site not specified (principal) | CPT/HCPCS: 87077; 87086; 87186 ==

== ENCOUNTER → 2024-05-03 | Outpatient (CLI) | payer MEDICARE, OTHER | LOC: LAB 15:55 → LAB SHORT 15:55 | DX: N39.0 Urinary tract infection, site not specified (principal) | CPT/HCPCS: 87077; 87086; 87186 ==

== ENCOUNTER → 2024-05-19 | Outpatient (CLI) | payer MEDICARE, OTHER | END | disposition home or self-care (01) | LOC: LAB SHORT 16:02 | DX: N39.0 Urinary tract infection, site not specified (principal) | CPT/HCPCS: 87086 ==

== ENCOUNTER → 2024-05-24 | Outpatient (CLI) | payer MEDICARE, OTHER | END | disposition home or self-care (01) | LOC: LAB SHORT 16:20 → LAB 16:20 | DX: N39.0 Urinary tract infection, site not specified (principal) | CPT/HCPCS: 87086 ==

== ENCOUNTER → 2024-06-12 | Outpatient (CLI) | payer MEDICARE, OTHER | LOC: LAB SHORT 15:58 → LAB 15:58 | DX: N39.0 Urinary tract infection, site not specified (principal) | CPT/HCPCS: 87077; 87086; 87186 ==

== ENCOUNTER 2024-06-27 11:38 | Day surgery (SDC) | payer MEDICARE, OTHER ==
[2024-06-27] MEDS ORDERED: Meropenem 1,000 MG in NS 100 ML IV SCH (15:25)
[2024-06-27 17:39] VITALS: BP 106/77
== END 2024-06-27 17:57 | disposition home or self-care (01) ==
LOC: ATC 11:38
DX: N39.0 Urinary tract infection, site not specified (principal); I12.9 Hypertensive chronic kidney disease with stage 1 through stage 4 chronic kidney disease, or unspecified chronic kidney disease; E11.22 Type 2 diabetes mellitus with diabetic chronic kidney disease; N18.32 Chronic kidney disease, stage 3b; E86.9 Volume depletion, unspecified; D63.1 Anemia in chronic kidney disease; N25.81 Secondary hyperparathyroidism of renal origin; E11.21 Type 2 diabetes mellitus with diabetic nephropathy; Z79.899 Other long term (current) drug therapy
CPT/HCPCS: 96365; J2185

== ENCOUNTER 2024-06-28 07:10 | Day surgery (SDC) | payer MEDICARE, OTHER ==
[2024-06-28] MEDS ORDERED: Meropenem 1,000 MG in NS 100 ML IV SCH (09:25)
[2024-06-28 17:19] VITALS: BP 133/89
== END 2024-06-28 17:46 | disposition home or self-care (01) ==
LOC: ATC 07:10
DX: N39.0 Urinary tract infection, site not specified (principal); I12.9 Hypertensive chronic kidney disease with stage 1 through stage 4 chronic kidney disease, or unspecified chronic kidney disease; N18.31 Chronic kidney disease, stage 3a; D63.1 Anemia in chronic kidney disease; N25.81 Secondary hyperparathyroidism of renal origin; E11.21 Type 2 diabetes mellitus with diabetic nephropathy; Z79.899 Other long term (current) drug therapy
CPT/HCPCS: 96365; J2185

== ENCOUNTER 2024-06-29 00:57 | Day surgery (SDC) | payer MEDICARE, OTHER ==
[2024-06-29 07:18] VITALS: BP 128/78
[2024-06-29] MEDS ORDERED: Meropenem 1,000 MG in NS 100 ML IV SCH (09:00)
[2024-06-29 16:35] VITALS: BP 93/65
== END 2024-06-29 16:55 | disposition home or self-care (01) ==
LOC: ATC 00:57
DX: N39.0 Urinary tract infection, site not specified (principal); I12.9 Hypertensive chronic kidney disease with stage 1 through stage 4 chronic kidney disease, or unspecified chronic kidney disease; N18.31 Chronic kidney disease, stage 3a; D63.1 Anemia in chronic kidney disease; N25.81 Secondary hyperparathyroidism of renal origin; E11.21 Type 2 diabetes mellitus with diabetic nephropathy; Z79.899 Other long term (current) drug therapy; E55.9 Vitamin D deficiency, unspecified; E78.00 Pure hypercholesterolemia, unspecified; R76.9 Abnormal immunological finding in serum, unspecified; R94.5 Abnormal results of liver function studies; R94.6 Abnormal results of thyroid function studies
CPT/HCPCS: 36415; 80069; 85018; 96365; J2185

== ENCOUNTER → 2024-07-07 | Outpatient (CLI) | payer MEDICARE, OTHER ==
[2024-07-07 17:23] LABS: U Amphetamine Screen Not Detected; U Barbituate Screen Not Detected; U Benzodiazapine Screen Not Detected; U Buprenorphine Screen Not Detected; U Cannabinoids Screen Not Detected; U Cocaine Screen Not Detected; U Methadone Screen Not Detected; U Methamphetamine Screen Not Detected; U Opiates Screen Not Detected; U Oxycodone Screen DETECTED; U Phencyclidine Screen Not Detected
== END ==
LOC: LAB SHORT 15:39 → LAB 15:39
PROVIDERS: Internal Medicine Hematology & Oncology
DX: Z51.81 Encounter for therapeutic drug level monitoring (principal); Z79.899 Other long term (current) drug therapy

== ENCOUNTER 2024-07-09 12:50 | Emergency (ER) | payer MEDICARE, OTHER ==
[~2024-07-09] VITALS: Ht 182.9 cm; Wt 68.0 kg
[2024-07-09 14:11] LABS: BASOPHILS ABSOLUTE AUTO 0.03 K/mm3 (0.00-0.23); BASOPHILS PERCENT AUTO 1 % (0-2); EOSINOPHILS ABSOLUTE AUTO 0.14 K/mm3 (0.00-0.68); EOSINOPHILS PERCENT AUTO 3 % (0-6); Hematocrit 36.4 % (37.0-53.0); Hemoglobin 11.9 g/dL (13.5-17.5); IMMATURE GRAN ABSOLUTE AUTO 0.01 K/mm3 (0.00-0.10); IMMATURE GRAN PERCENT AUTO 0 % (0-1); LYMPHOCYTES ABSOLUTE AUTO 0.79 K/mm3 (0.84-5.20); LYMPHOCYTES PERCENT AUTO 16 % (21-46); MONOCYTES ABSOLUTE AUTO 0.27 K/mm3 (0.16-1.47); MONOCYTES PERCENT AUTO 6 % (4-13); Mean Corpuscular HGB 33.4 pg (26.0-34.0); Mean Corpuscular HGB Conc 32.7 g/dL (31.5-36.5); Mean Corpuscular Volume 102 fL (80-100); Mean Platelet Volume 10.1 fL (9.1-12.4); NEUTROPHILS ABSOLUTE AUTO 3.57 K/mm3 (1.96-9.15); NEUTROPHILS PERCENT AUTO 74 % (41-73); Platelet Count 148 K/mm3 (150-400); RDW Coefficient Variation 13.4 % (11.7-14.2); RDW Standard Deviation 50.8 fL (35.1-46.3); Red Blood Cell Count 3.56 M/mm3 (4.30-5.90); White Blood Cell Count 4.81 K/mm3 (4.00-11.30)
[2024-07-09 14:24] LABS: Albumin, Blood 3.4 g/dL (3.4-5.0); Albumin/Globulin Ratio 1.2 (0.8-1.8); Bilirubin, Total 0.4 mg/dL (0.1-1.0); Bun/Creatinine Ratio 18.8 (12.0-20.0); Calcium, Blood 8.7 mg/dL (8.5-10.1); Creatinine, Blood 1.86 mg/dL (0.60-1.20); Globulin, Blood 2.8 g/dL (2.2-4.0); Potassium, Blood 5.5 mmol/L (3.5-5.5); Total Protein, Blood 6.2 g/dL (6.4-8.2)
[2024-07-09] MEDS ORDERED: NS IV SCH (15:30)
[2024-07-09] MEDS ORDERED: GENTAMICIN SULFATE IV SCH (15:30)
[2024-07-09 16:00] VITALS: BP 147/78
== END 2024-07-09 16:10 | disposition home or self-care (01) ==
LOC: ER 12:50
PROVIDERS: Physician Assistant
DX: N39.0 Urinary tract infection, site not specified (principal); B96.1 Klebsiella pneumoniae [K. pneumoniae] as the cause of diseases classified elsewhere; Z79.899 Other long term (current) drug therapy
CPT/HCPCS: 80053; 85025; 99283; J1580

== ENCOUNTER 2024-07-11 14:26 | Day surgery (SDC) | payer MEDICARE, OTHER ==
[~2024-07-11] VITALS: Ht 182.9 cm; Wt 69.4 kg
[2024-07-11] MEDS ORDERED: GENTAMICIN SULFATE IV SCH (14:40)
[2024-07-11] MEDS ORDERED: NS IV SCH (14:40)
[2024-07-11 16:04] VITALS: BP 171/88
--- NOTE | 2024-07-11 17:39 | NUR ---
END TIME FOR GENT WAS 1705. 07/11/24.
[2024-07-11 18:08] LABS: Gentamicin, Peak >48.0 ug/mL (4.0-8.0)
== END 2024-07-11 17:12 | disposition home or self-care (01) ==
LOC: ATC 14:26
PROVIDERS: Pharmacist Pharmacotherapy
DX: N39.0 Urinary tract infection, site not specified (principal); I12.9 Hypertensive chronic kidney disease with stage 1 through stage 4 chronic kidney disease, or unspecified chronic kidney disease; N18.31 Chronic kidney disease, stage 3a; E11.22 Type 2 diabetes mellitus with diabetic chronic kidney disease; N25.81 Secondary hyperparathyroidism of renal origin; Z79.899 Other long term (current) drug therapy
CPT/HCPCS: 80170; 96365; J1580

== ENCOUNTER 2024-07-12 01:41 | Day surgery (SDC) | payer MEDICARE, OTHER ==
[2024-07-12 15:29] VITALS: BP 127/80
[2024-07-12 16:18] LABS: Creatinine, Blood 1.74 mg/dL (0.60-1.20); Gentamicin, Trough 5.8 ug/mL (0.0-1.9)
== END 2024-07-12 15:55 | disposition home or self-care (01) ==
LOC: ATC 01:41
PROVIDERS: Pharmacist Pharmacotherapy
DX: N39.0 Urinary tract infection, site not specified (principal); I12.9 Hypertensive chronic kidney disease with stage 1 through stage 4 chronic kidney disease, or unspecified chronic kidney disease; E11.22 Type 2 diabetes mellitus with diabetic chronic kidney disease; N18.31 Chronic kidney disease, stage 3a; E11.21 Type 2 diabetes mellitus with diabetic nephropathy
CPT/HCPCS: 36415; 80170; 82565; 99211

== ENCOUNTER 2024-07-13 07:05 | Day surgery (SDC) | payer MEDICARE, OTHER ==
[2024-07-13 16:46] LABS: Blood Urea Nitrogen 37 mg/dL (8-24); Creatinine, Blood 2.07 mg/dL (0.60-1.20); Gentamicin, Random 1.9 ug/Ml
[2024-07-13 17:08] VITALS: BP 116/78
--- NOTE | 2024-07-13 17:44 | NUR ---
PT DID NOT RECEIVE A DOSE OF GENTAMYCIN TODAY. WILL REDRAW RANDOM GENT TOMORROW PER PHARMACIST.
== END 2024-07-13 17:00 | disposition home or self-care (01) ==
LOC: ATC 07:05
PROVIDERS: Internal Medicine Nephrology
DX: N39.0 Urinary tract infection, site not specified (principal); I12.9 Hypertensive chronic kidney disease with stage 1 through stage 4 chronic kidney disease, or unspecified chronic kidney disease; E11.22 Type 2 diabetes mellitus with diabetic chronic kidney disease; N18.31 Chronic kidney disease, stage 3a; D63.1 Anemia in chronic kidney disease; E11.21 Type 2 diabetes mellitus with diabetic nephropathy; Z79.899 Other long term (current) drug therapy
CPT/HCPCS: 36415; 80170; 82565; 84520

== ENCOUNTER 2024-07-16 15:17 | Day surgery (SDC) | payer MEDICARE, OTHER ==
[2024-07-16 16:05] LABS: Creatinine, Blood 1.83 mg/dL (0.60-1.20); Gentamicin, Trough 0.6 ug/mL (0.0-1.9)
[2024-07-16 16:45] VITALS: BP 134/83
== END 2024-07-16 17:12 | disposition home or self-care (01) ==
LOC: ATC 15:17
PROVIDERS: Internal Medicine Nephrology
DX: N39.0 Urinary tract infection, site not specified (principal); I12.9 Hypertensive chronic kidney disease with stage 1 through stage 4 chronic kidney disease, or unspecified chronic kidney disease; N18.31 Chronic kidney disease, stage 3a; D63.1 Anemia in chronic kidney disease; N25.81 Secondary hyperparathyroidism of renal origin; E11.21 Type 2 diabetes mellitus with diabetic nephropathy; Z79.899 Other long term (current) drug therapy
CPT/HCPCS: 80170; 82565; 96365; J1580

== ENCOUNTER 2024-07-23 08:34 | Emergency (ER) | payer MEDICARE, OTHER ==
[~2024-07-23] VITALS: Ht 182.9 cm; Wt 68.0 kg
[2024-07-23] MEDS ORDERED: Meropenem 1,000 MG in NS 100 ML IV ONE (08:50)
[2024-07-23 09:47] VITALS: BP 125/69
[2024-07-24] MEDS ORDERED: MEROPENEM1 G1 IV (16:59)
== END 2024-07-23 09:55 | disposition home or self-care (01) ==
LOC: ER 08:34
DX: N39.0 Urinary tract infection, site not specified (principal); B96.1 Klebsiella pneumoniae [K. pneumoniae] as the cause of diseases classified elsewhere; Z76.0 Encounter for issue of repeat prescription; N18.30 Chronic kidney disease, stage 3 unspecified; Z79.899 Other long term (current) drug therapy
CPT/HCPCS: 96365; 99281-25; J2185

== ENCOUNTER 2024-07-24 09:05 | Day surgery (SDC) | payer MEDICARE, OTHER ==
[2024-07-24] MEDS ORDERED: Meropenem 1,000 MG in NS 100 ML IV SCH (09:35)
[2024-07-24 15:18] VITALS: BP 142/84
[2024-07-24] MEDS ORDERED: MEROPENEM1 G1 IV (16:59)
== END 2024-07-24 15:50 | disposition home or self-care (01) ==
LOC: ATC 09:05
DX: N39.0 Urinary tract infection, site not specified (principal); N18.30 Chronic kidney disease, stage 3 unspecified; Z79.899 Other long term (current) drug therapy; Z85.46 Personal history of malignant neoplasm of prostate
CPT/HCPCS: 96365; J2185

== ENCOUNTER 2024-07-25 02:19 | Day surgery (SDC) | payer MEDICARE, OTHER ==
[~2024-07-25 02:19] MED LIST changes: +MEROPENEM1 G1 IV; +Meropenem 1,000 MG in NS 100 ML IV SCH
[2024-07-25 15:30] VITALS: BP 102/63
== END 2024-07-25 16:00 | disposition home or self-care (01) ==
LOC: ATC 02:19
DX: N39.0 Urinary tract infection, site not specified (principal); N18.30 Chronic kidney disease, stage 3 unspecified; Z79.899 Other long term (current) drug therapy
CPT/HCPCS: 96374; J2185

== ENCOUNTER 2024-07-26 02:13 | Day surgery (SDC) | payer MEDICARE, OTHER ==
[~2024-07-26 02:13] MED LIST changes: -Meropenem 1,000 MG in NS 100 ML IV SCH
[2024-07-26] MEDS ORDERED: Meropenem 1,000 MG in NS 100 ML IV SCH (06:00)
[2024-07-26 15:17] VITALS: BP 133/79
== END 2024-07-26 15:44 | disposition home or self-care (01) ==
LOC: ATC 02:13
DX: N39.0 Urinary tract infection, site not specified (principal); N18.30 Chronic kidney disease, stage 3 unspecified; Z79.82 Long term (current) use of aspirin; Z79.899 Other long term (current) drug therapy
CPT/HCPCS: 96365; J2185

== ENCOUNTER 2024-07-27 02:28 | Day surgery (SDC) | payer MEDICARE, OTHER ==
[2024-07-27] MEDS ORDERED: Meropenem 1,000 MG in NS 100 ML IV SCH (06:00)
[2024-07-27 15:31] VITALS: BP 116/88
== END 2024-07-27 16:04 | disposition home or self-care (01) ==
LOC: ATC 02:28
DX: N39.0 Urinary tract infection, site not specified (principal); N18.30 Chronic kidney disease, stage 3 unspecified; Z79.899 Other long term (current) drug therapy
CPT/HCPCS: 96365; J2185

== ENCOUNTER 2024-07-28 03:50 | Day surgery (SDC) | payer MEDICARE, OTHER ==
[2024-07-28] MEDS ORDERED: Meropenem 1,000 MG in NS 100 ML IV SCH (06:00)
[2024-07-28 15:19] VITALS: BP 144/76
== END 2024-07-28 15:51 | disposition home or self-care (01) ==
LOC: ATC 03:50
DX: N39.0 Urinary tract infection, site not specified (principal); N18.30 Chronic kidney disease, stage 3 unspecified; Z79.899 Other long term (current) drug therapy
CPT/HCPCS: 96365; J2185

== ENCOUNTER → 2024-07-30 | Outpatient (CLI) | payer MEDICARE, OTHER | LOC: LAB SHORT 11:27 → LAB 11:27 | DX: N39.0 Urinary tract infection, site not specified (principal) | CPT/HCPCS: 87086 ==

== ENCOUNTER → 2024-08-02 | Outpatient (CLI) | payer MEDICARE, OTHER ==
[2024-08-02 13:21] LABS: Source, Urine Voided
[2024-08-02 15:16] LABS: Appearance, Urine Hazy (Clear); Bilirubin, Urine Neg (Neg); Blood, Urine 2+ (Neg); Color, Urine Yellow (P-Yellow); Glucose Qualitative, Urine Neg (Neg); Ketones, Urine Neg (Neg); Leukocyte Esterase, Urine 3+ (Neg); Nitrite, Urine Pos (Neg); Protein, Urine 2+ (Neg); Urobilinogen, Urine NORM (Normal)
[2024-08-02 15:44] LABS: White Blood Cells, Urine TNTC /hpf (0-5)
[2024-08-02 15:45] LABS: Bacteria Many /hpf; Squamous Epithelial Cells Few /hpf (Few)
== END ==
LOC: LAB 12:44 → LAB SHORT 12:44
PROVIDERS: Internal Medicine Hematology & Oncology
DX: N39.0 Urinary tract infection, site not specified (principal)
CPT/HCPCS: 81001; 87077; 87086; 87186

== ENCOUNTER → 2024-08-26 | Outpatient (CLI) | payer MEDICARE, OTHER | LOC: LAB SHORT 12:27 → LAB 12:27 | DX: N39.0 Urinary tract infection, site not specified (principal) | CPT/HCPCS: 87077; 87086; 87186 ==

== ENCOUNTER 2024-09-02 13:28 | Day surgery (SDC) | payer MEDICARE, OTHER ==
[~2024-09-02 13:28] MED LIST changes: +CefTRIAXone Sodium 1,000 MG in NS 100 ML IV SCH
[2024-09-02 13:50] VITALS: BP 125/80
== END 2024-09-02 14:20 | disposition home or self-care (01) ==
LOC: ATC 13:28
DX: N39.0 Urinary tract infection, site not specified (principal); I12.9 Hypertensive chronic kidney disease with stage 1 through stage 4 chronic kidney disease, or unspecified chronic kidney disease; E11.22 Type 2 diabetes mellitus with diabetic chronic kidney disease; N18.32 Chronic kidney disease, stage 3b; N25.81 Secondary hyperparathyroidism of renal origin; E11.21 Type 2 diabetes mellitus with diabetic nephropathy; Z79.899 Other long term (current) drug therapy
CPT/HCPCS: 96365; J0696

== ENCOUNTER 2024-09-03 13:07 | Day surgery (SDC) | payer MEDICARE, OTHER ==
[2024-09-03 13:48] VITALS: BP 126/85
== END 2024-09-03 14:08 | disposition home or self-care (01) ==
LOC: ATC 13:07
DX: N39.0 Urinary tract infection, site not specified (principal); I12.9 Hypertensive chronic kidney disease with stage 1 through stage 4 chronic kidney disease, or unspecified chronic kidney disease; N18.32 Chronic kidney disease, stage 3b; D63.1 Anemia in chronic kidney disease; N25.81 Secondary hyperparathyroidism of renal origin; E11.21 Type 2 diabetes mellitus with diabetic nephropathy; Z79.899 Other long term (current) drug therapy
CPT/HCPCS: 96365; J0696

== ENCOUNTER 2024-09-04 01:45 | Day surgery (SDC) | payer MEDICARE, OTHER ==
[~2024-09-04 01:45] MED LIST changes: -CefTRIAXone Sodium 1,000 MG in NS 100 ML IV SCH
[2024-09-04] MEDS ORDERED: CefTRIAXone Sodium 1,000 MG in NS 100 ML IV SCH (06:00)
[2024-09-04 16:00] VITALS: BP 132/83
== END 2024-09-04 16:18 | disposition home or self-care (01) ==
LOC: ATC 01:45
DX: N39.0 Urinary tract infection, site not specified (principal); B96.1 Klebsiella pneumoniae [K. pneumoniae] as the cause of diseases classified elsewhere; B95.2 Enterococcus as the cause of diseases classified elsewhere; I12.9 Hypertensive chronic kidney disease with stage 1 through stage 4 chronic kidney disease, or unspecified chronic kidney disease; E11.22 Type 2 diabetes mellitus with diabetic chronic kidney disease; N18.32 Chronic kidney disease, stage 3b; D63.1 Anemia in chronic kidney disease; N25.81 Secondary hyperparathyroidism of renal origin; Z79.899 Other long term (current) drug therapy
CPT/HCPCS: J0696

== ENCOUNTER 2024-09-06 05:13 | Day surgery (SDC) | payer MEDICARE, OTHER ==
[2024-09-06] MEDS ORDERED: CefTRIAXone Sodium 1,000 MG in NS 100 ML IV SCH (06:00)
[2024-09-06 15:41] VITALS: BP 104/69
== END 2024-09-06 15:50 | disposition home or self-care (01) ==
LOC: ATC 05:13
DX: N39.0 Urinary tract infection, site not specified (principal); B96.1 Klebsiella pneumoniae [K. pneumoniae] as the cause of diseases classified elsewhere; B95.2 Enterococcus as the cause of diseases classified elsewhere; I12.9 Hypertensive chronic kidney disease with stage 1 through stage 4 chronic kidney disease, or unspecified chronic kidney disease; E11.22 Type 2 diabetes mellitus with diabetic chronic kidney disease; N18.32 Chronic kidney disease, stage 3b; N25.81 Secondary hyperparathyroidism of renal origin; D63.1 Anemia in chronic kidney disease; Z79.899 Other long term (current) drug therapy
CPT/HCPCS: 96365; J0696

== ENCOUNTER 2024-09-07 04:44 | Day surgery (SDC) | payer MEDICARE, OTHER ==
[2024-09-07] MEDS ORDERED: CefTRIAXone Sodium 1,000 MG in NS 100 ML IV SCH (06:00)
[2024-09-07 15:34] VITALS: BP 148/58
== END 2024-09-07 16:00 | disposition home or self-care (01) ==
LOC: ATC 04:44
DX: N39.0 Urinary tract infection, site not specified (principal); Z79.899 Other long term (current) drug therapy
CPT/HCPCS: 96365; J0696

== ENCOUNTER 2024-09-16 02:06 | Day surgery (SDC) | payer MEDICARE, OTHER ==
[~2024-09-16 02:06] MED LIST changes: +CEPH500 PO
[2024-09-16] MEDS ORDERED: Meropenem 1,000 MG in NS 100 ML IV SCH (06:00)
[2024-09-16 13:02] VITALS: BP 107/78
== END 2024-09-16 13:22 | disposition home or self-care (01) ==
LOC: ATC 02:06
DX: N39.0 Urinary tract infection, site not specified (principal); I12.9 Hypertensive chronic kidney disease with stage 1 through stage 4 chronic kidney disease, or unspecified chronic kidney disease; N18.32 Chronic kidney disease, stage 3b; D63.1 Anemia in chronic kidney disease; N25.81 Secondary hyperparathyroidism of renal origin; G60.9 Hereditary and idiopathic neuropathy, unspecified; M81.0 Age-related osteoporosis without current pathological fracture; Z79.899 Other long term (current) drug therapy
CPT/HCPCS: 96365; J2185

== ENCOUNTER 2024-09-17 06:17 | Day surgery (SDC) | payer MEDICARE, OTHER ==
[~2024-09-17 06:17] MED LIST changes: +Meropenem 1,000 MG in NS 100 ML IV SCH
[2024-09-17 12:49] VITALS: BP 137/77
== END 2024-09-17 13:04 | disposition home or self-care (01) ==
LOC: ATC 06:17
DX: N39.0 Urinary tract infection, site not specified (principal); I12.9 Hypertensive chronic kidney disease with stage 1 through stage 4 chronic kidney disease, or unspecified chronic kidney disease; N18.32 Chronic kidney disease, stage 3b; M81.0 Age-related osteoporosis without current pathological fracture
CPT/HCPCS: 96365; J2185

== ENCOUNTER 2024-09-18 02:40 | Day surgery (SDC) | payer MEDICARE, OTHER ==
[~2024-09-18 02:40] MED LIST changes: -Meropenem 1,000 MG in NS 100 ML IV SCH
[2024-09-18] MEDS ORDERED: Meropenem 1,000 MG in NS 100 ML IV SCH (06:00)
[2024-09-18 15:17] VITALS: BP 116/80
== END 2024-09-18 15:43 | disposition home or self-care (01) ==
LOC: ATC 02:40
DX: N39.0 Urinary tract infection, site not specified (principal); I12.9 Hypertensive chronic kidney disease with stage 1 through stage 4 chronic kidney disease, or unspecified chronic kidney disease; N18.9 Chronic kidney disease, unspecified
CPT/HCPCS: 96365; J2185

== ENCOUNTER 2024-09-19 00:41 | Day surgery (SDC) | payer MEDICARE, OTHER ==
[2024-09-19] MEDS ORDERED: Meropenem 1,000 MG in NS 100 ML IV SCH (06:00)
[2024-09-19 15:29] VITALS: BP 109/81
== END 2024-09-19 15:50 | disposition home or self-care (01) ==
LOC: ATC 00:41
DX: N39.0 Urinary tract infection, site not specified (principal); B96.1 Klebsiella pneumoniae [K. pneumoniae] as the cause of diseases classified elsewhere; E11.22 Type 2 diabetes mellitus with diabetic chronic kidney disease; I12.9 Hypertensive chronic kidney disease with stage 1 through stage 4 chronic kidney disease, or unspecified chronic kidney disease; N18.32 Chronic kidney disease, stage 3b; N25.81 Secondary hyperparathyroidism of renal origin; D63.1 Anemia in chronic kidney disease; G60.9 Hereditary and idiopathic neuropathy, unspecified; M81.0 Age-related osteoporosis without current pathological fracture; E55.9 Vitamin D deficiency, unspecified; E29.1 Testicular hypofunction; R76.9 Abnormal immunological finding in serum, unspecified; R94.5 Abnormal results of liver function studies; R94.6 Abnormal results of thyroid function studies; Z79.899 Other long term (current) drug therapy
CPT/HCPCS: 36415; 80048; 80069; 85018; 85025; 96365; J2185

== ENCOUNTER 2024-09-20 00:27 | Day surgery (SDC) | payer MEDICARE, OTHER ==
[2024-09-20] MEDS ORDERED: Meropenem 1,000 MG in NS 100 ML IV SCH (06:00)
[2024-09-20 15:15] VITALS: BP 122/69
== END 2024-09-20 15:45 | disposition home or self-care (01) ==
LOC: ATC 00:27
DX: N39.0 Urinary tract infection, site not specified (principal); I12.9 Hypertensive chronic kidney disease with stage 1 through stage 4 chronic kidney disease, or unspecified chronic kidney disease; E11.22 Type 2 diabetes mellitus with diabetic chronic kidney disease; N18.32 Chronic kidney disease, stage 3b; N25.81 Secondary hyperparathyroidism of renal origin; D63.1 Anemia in chronic kidney disease; E11.21 Type 2 diabetes mellitus with diabetic nephropathy; Z79.899 Other long term (current) drug therapy
CPT/HCPCS: 96365; J2185

== ENCOUNTER → 2024-09-22 | Outpatient (CLI) | payer MEDICARE, OTHER | LOC: LAB 12:03 → LAB SHORT 12:03 | DX: R82.998 Other abnormal findings in urine (principal) | CPT/HCPCS: 87086 ==

== ENCOUNTER → 2024-09-26 | Outpatient (CLI) | payer MEDICARE, OTHER ==
[~2024-09-26] MED LIST changes: +CEFEPIME HCL2 G1 IV
[2024-09-26 15:27] LABS: Source, Urine Clean Catch
[2024-09-26 16:57] LABS: Appearance, Urine Hazy (Clear); Bilirubin, Urine Neg (Neg); Blood, Urine 3+ (Neg); Color, Urine Yellow (P-Yellow); Glucose Qualitative, Urine Neg (Neg); Ketones, Urine Neg (Neg); Leukocyte Esterase, Urine 3+ (Neg); Nitrite, Urine Neg (Neg); Protein, Urine 3+ (Neg); Urobilinogen, Urine NORM (Normal); pH, Urine 6.5 (5.0-8.0)
[2024-09-26 17:17] LABS: U Amphetamine Screen Not Detected; U Barbituate Screen Not Detected; U Benzodiazapine Screen Not Detected; U Buprenorphine Screen Not Detected; U Cannabinoids Screen Not Detected; U Cocaine Screen Not Detected; U Methadone Screen Not Detected; U Methamphetamine Screen Not Detected; U Opiates Screen Not Detected; U Oxycodone Screen DETECTED; U Phencyclidine Screen Not Detected
[2024-09-26 17:34] LABS: White Blood Cells, Urine TNTC /hpf (0-5)
[2024-09-26 17:35] LABS: Amorphous Light (0-Heavy); Bacteria Many /hpf; Hyaline Casts 0-2 /lpf (0-2); Squamous Epithelial Cells Rare /hpf (Few)
== END ==
LOC: LAB 14:00 → LAB SHORT 14:00
PROVIDERS: Internal Medicine Hematology & Oncology
DX: N39.0 Urinary tract infection, site not specified (principal); Z79.899 Other long term (current) drug therapy
CPT/HCPCS: 81001; 87077; 87086; 87186

== ENCOUNTER 2024-10-03 12:47 | Day surgery (SDC) | payer MEDICARE, OTHER ==
[~2024-10-03 12:47] MED LIST changes: -CEFEPIME HCL2 G1 IV
[2024-10-03] MEDS ORDERED: Cefepime HCl 2,000 MG in NS 100 ML IV SCH (13:10)
[2024-10-03 16:27] VITALS: BP 136/93
[2024-10-03] MEDS ORDERED: CEFEPIME HCL2 G1 IV (16:34)
== END 2024-10-03 16:52 | disposition home or self-care (01) ==
LOC: ATC 12:47
DX: N39.0 Urinary tract infection, site not specified (principal); B96.1 Klebsiella pneumoniae [K. pneumoniae] as the cause of diseases classified elsewhere; I12.9 Hypertensive chronic kidney disease with stage 1 through stage 4 chronic kidney disease, or unspecified chronic kidney disease; E11.22 Type 2 diabetes mellitus with diabetic chronic kidney disease; N18.32 Chronic kidney disease, stage 3b; D63.1 Anemia in chronic kidney disease; N25.81 Secondary hyperparathyroidism of renal origin; M81.0 Age-related osteoporosis without current pathological fracture; Z79.899 Other long term (current) drug therapy
CPT/HCPCS: 96365; J0692

== ENCOUNTER 2024-10-04 03:22 | Day surgery (SDC) | payer MEDICARE, OTHER ==
[~2024-10-04 03:22] MED LIST changes: +CEFEPIME HCL2 G1 IV
[2024-10-04] MEDS ORDERED: Cefepime HCl 2,000 MG in NS 100 ML IV SCH (06:00)
[2024-10-04 16:10] VITALS: BP 153/93
== END 2024-10-04 16:39 | disposition home or self-care (01) ==
LOC: ATC 03:22
DX: N39.0 Urinary tract infection, site not specified (principal); I12.9 Hypertensive chronic kidney disease with stage 1 through stage 4 chronic kidney disease, or unspecified chronic kidney disease; N18.32 Chronic kidney disease, stage 3b; D63.1 Anemia in chronic kidney disease; N25.81 Secondary hyperparathyroidism of renal origin; E11.21 Type 2 diabetes mellitus with diabetic nephropathy; Z79.899 Other long term (current) drug therapy
CPT/HCPCS: 96365; J0692

== ENCOUNTER 2024-10-04 09:36 | Emergency (ER) | payer MEDICARE, OTHER ==
[~2024-10-04] VITALS: Ht 182.9 cm; Wt 65.8 kg
[2024-10-04 10:14] VITALS: BP 174/99
[2024-10-04] MEDS ORDERED: HYDROmorphone HCl 2 MG Tab PO ONE (11:15)
== END 2024-10-04 11:34 | disposition home or self-care (01) ==
LOC: ER 09:36
DX: N39.0 Urinary tract infection, site not specified (principal); G89.29 Other chronic pain; I12.9 Hypertensive chronic kidney disease with stage 1 through stage 4 chronic kidney disease, or unspecified chronic kidney disease; E11.22 Type 2 diabetes mellitus with diabetic chronic kidney disease; N18.32 Chronic kidney disease, stage 3b; D63.1 Anemia in chronic kidney disease; N25.81 Secondary hyperparathyroidism of renal origin; E11.21 Type 2 diabetes mellitus with diabetic nephropathy; Z85.46 Personal history of malignant neoplasm of prostate; Z79.899 Other long term (current) drug therapy
CPT/HCPCS: 96365; 99283; A9270; J0692

== ENCOUNTER 2024-10-05 02:24 | Day surgery (SDC) | payer MEDICARE, OTHER ==
[~2024-10-05 02:24] MED LIST changes: +Cefepime HCl 2,000 MG in NS 100 ML IV SCH
[2024-10-05 16:04] VITALS: BP 147/118
== END 2024-10-05 16:30 | disposition home or self-care (01) ==
LOC: ATC 02:24
DX: N39.0 Urinary tract infection, site not specified (principal); I12.9 Hypertensive chronic kidney disease with stage 1 through stage 4 chronic kidney disease, or unspecified chronic kidney disease; E11.22 Type 2 diabetes mellitus with diabetic chronic kidney disease; N18.32 Chronic kidney disease, stage 3b; D63.1 Anemia in chronic kidney disease; N25.81 Secondary hyperparathyroidism of renal origin; E11.21 Type 2 diabetes mellitus with diabetic nephropathy
CPT/HCPCS: 96365; J0692

== ENCOUNTER 2024-10-06 04:07 | Day surgery (SDC) | payer MEDICARE, OTHER ==
[~2024-10-06 04:07] MED LIST changes: -Cefepime HCl 2,000 MG in NS 100 ML IV SCH
[2024-10-06] MEDS ORDERED: Cefepime HCl 2,000 MG in NS 100 ML IV SCH (06:00)
[2024-10-06 16:15] VITALS: BP 128/87
== END 2024-10-06 16:39 | disposition home or self-care (01) ==
LOC: ATC 04:07
DX: N39.0 Urinary tract infection, site not specified (principal); I12.9 Hypertensive chronic kidney disease with stage 1 through stage 4 chronic kidney disease, or unspecified chronic kidney disease; E11.22 Type 2 diabetes mellitus with diabetic chronic kidney disease; N18.32 Chronic kidney disease, stage 3b; M81.0 Age-related osteoporosis without current pathological fracture; Z79.899 Other long term (current) drug therapy
CPT/HCPCS: 96365; J0692

== ENCOUNTER 2024-10-08 11:22 | Emergency (ER) | payer MEDICARE, OTHER ==
[~2024-10-08] VITALS: Ht 182.9 cm; Wt 65.8 kg
[2024-10-08] MEDS ORDERED: Morphine Sulfate 4 MG/1 ML Injection IM ONE (12:00)
[2024-10-08 14:15] VITALS: BP 148/89
== END 2024-10-08 14:26 | disposition home or self-care (01) ==
LOC: ER 11:22
DX: R10.2 Pelvic and perineal pain (principal); G89.29 Other chronic pain; N39.0 Urinary tract infection, site not specified; N18.30 Chronic kidney disease, stage 3 unspecified; Z85.46 Personal history of malignant neoplasm of prostate; Z98.890 Other specified postprocedural states; Z87.442 Personal history of urinary calculi; Z87.440 Personal history of urinary (tract) infections; Z79.899 Other long term (current) drug therapy
CPT/HCPCS: 96372; 99283-25; J2270

== ENCOUNTER → 2024-10-17 | Outpatient (CLI) | payer MEDICARE, OTHER | LOC: LAB SHORT 13:41 → LAB 13:41 | DX: R30.0 Dysuria (principal) | CPT/HCPCS: 87086 ==

== ENCOUNTER 2024-10-24 11:11 | Emergency (ER) | payer MEDICARE, OTHER ==
[~2024-10-24] VITALS: Ht 182.9 cm; Wt 65.8 kg
[2024-10-24 11:37] VITALS: BP 176/86
[2024-10-24 12:06] LABS: BASOPHILS ABSOLUTE AUTO 0.03 K/mm3 (0.00-0.23); BASOPHILS PERCENT AUTO 1 % (0-2); EOSINOPHILS ABSOLUTE AUTO 0.05 K/mm3 (0.00-0.68); EOSINOPHILS PERCENT AUTO 1 % (0-6); Hematocrit 37.3 % (37.0-53.0); Hemoglobin 12.3 g/dL (13.5-17.5); IMMATURE GRAN ABSOLUTE AUTO 0.02 K/mm3 (0.00-0.10); IMMATURE GRAN PERCENT AUTO 0 % (0-1); LYMPHOCYTES PERCENT AUTO 14 % (21-46); MONOCYTES ABSOLUTE AUTO 0.27 K/mm3 (0.16-1.47); MONOCYTES PERCENT AUTO 5 % (4-13); Mean Corpuscular HGB 33.2 pg (26.0-34.0); Mean Corpuscular Volume 101 fL (80-100); Mean Platelet Volume 9.9 fL (9.1-12.4); NEUTROPHILS ABSOLUTE AUTO 4.39 K/mm3 (1.96-9.15); NEUTROPHILS PERCENT AUTO 79 % (41-73); Platelet Count 137 K/mm3 (150-400); RDW Coefficient Variation 13.7 % (11.7-14.2); RDW Standard Deviation 50.2 fL (35.1-46.3); White Blood Cell Count 5.56 K/mm3 (4.00-11.30)
[2024-10-24 12:29] LABS: Source, Urine Suprapubic Cath
[2024-10-24 12:41] LABS: Albumin, Blood 3.6 g/dL (3.4-5.0); Albumin/Globulin Ratio 1.1 (0.8-1.8); Bilirubin, Total 0.4 mg/dL (0.1-1.0); Bun/Creatinine Ratio 26.5 (12.0-20.0); Creatinine, Blood 1.62 mg/dL (0.60-1.20); Globulin, Blood 3.4 g/dL (2.2-4.0)
[2024-10-24 13:14] LABS: Appearance, Urine Hazy (Clear); Bilirubin, Urine Neg (Neg); Blood, Urine 2+ (Neg); Color, Urine Yellow (P-Yellow); Glucose Qualitative, Urine Neg (Neg); Ketones, Urine Neg (Neg); Leukocyte Esterase, Urine 3+ (Neg); Nitrite, Urine Neg (Neg); Protein, Urine 2+ (Neg); Urobilinogen, Urine NORM (Normal)
[2024-10-24 13:46] LABS: Bacteria Many /hpf; Squamous Epithelial Cells Rare /hpf (Few); White Blood Cells, Urine 25-50 /hpf (0-5)
[2024-10-24] MEDS ORDERED: Cephalexin Monohydrate 500 MG Cap PO ONE (15:50)
[2024-10-24] MEDS ORDERED: CEPH500 PO (15:53)
== END 2024-10-24 16:23 | disposition home or self-care (01) ==
LOC: ER 11:11
PROVIDERS: Student in an Organized Health Care Education/Training Program
DX: N39.0 Urinary tract infection, site not specified (principal); Z79.899 Other long term (current) drug therapy
CPT/HCPCS: 74177; 80053; 81001; 85025; 87086; 99283-25; A9270; Q9967

== ENCOUNTER 2024-10-30 11:29 | Emergency (ER) | payer MEDICARE, OTHER ==
[~2024-10-30] VITALS: Ht 182.9 cm; Wt 65.8 kg
[2024-10-30 12:05] LABS: Source, Urine Clean Catch
[2024-10-30 12:08] LABS: BASOPHILS ABSOLUTE AUTO 0.01 K/mm3 (0.00-0.23); BASOPHILS PERCENT AUTO 0 % (0-2); EOSINOPHILS ABSOLUTE AUTO 0.05 K/mm3 (0.00-0.68); EOSINOPHILS PERCENT AUTO 1 % (0-6); Hematocrit 38.8 % (37.0-53.0); IMMATURE GRAN ABSOLUTE AUTO 0.02 K/mm3 (0.00-0.10); IMMATURE GRAN PERCENT AUTO 1 % (0-1); LYMPHOCYTES ABSOLUTE AUTO 0.56 K/mm3 (0.84-5.20); LYMPHOCYTES PERCENT AUTO 13 % (21-46); MONOCYTES ABSOLUTE AUTO 0.25 K/mm3 (0.16-1.47); MONOCYTES PERCENT AUTO 6 % (4-13); Mean Corpuscular HGB 33.6 pg (26.0-34.0); Mean Corpuscular HGB Conc 33.5 g/dL (31.5-36.5); Mean Corpuscular Volume 100 fL (80-100); Mean Platelet Volume 9.7 fL (9.1-12.4); NEUTROPHILS PERCENT AUTO 79 % (41-73); Platelet Count 127 K/mm3 (150-400); RDW Coefficient Variation 13.4 % (11.7-14.2); RDW Standard Deviation 49.4 fL (35.1-46.3); Red Blood Cell Count 3.87 M/mm3 (4.30-5.90); White Blood Cell Count 4.19 K/mm3 (4.00-11.30)
[2024-10-30 12:29] LABS: Albumin, Blood 3.8 g/dL (3.4-5.0); Albumin/Globulin Ratio 1.1 (0.8-1.8); Appearance, Urine Hazy (Clear); Bilirubin, Total 0.4 mg/dL (0.1-1.0); Bilirubin, Urine Neg (Neg); Blood, Urine 4+ (Neg); Bun/Creatinine Ratio 16.5 (12.0-20.0); Calcium, Blood 9.1 mg/dL (8.5-10.1); Color, Urine Yellow (P-Yellow); Creatinine, Blood 1.64 mg/dL (0.60-1.20); Globulin, Blood 3.6 g/dL (2.2-4.0); Glucose Qualitative, Urine Neg (Neg); Ketones, Urine Neg (Neg); Leukocyte Esterase, Urine 3+ (Neg); Nitrite, Urine Neg (Neg); Potassium, Blood 4.3 mmol/L (3.5-5.5); Protein, Urine 3+ (Neg); Total Protein, Blood 7.4 g/dL (6.4-8.2); Urobilinogen, Urine NORM (Normal); pH, Urine 6.5 (5.0-8.0)
[2024-10-30 12:41] LABS: Red Blood Cells, Urine 25-50 /hpf (0-2); White Blood Cells, Urine 50-100 /hpf (0-5)
[2024-10-30 12:42] LABS: Bacteria Many /hpf; Squamous Epithelial Cells Not Seen /hpf (Few)
[2024-10-30] MEDS ORDERED: CefTRIAXone Sodium 1,000 MG in NS 100 ML IV ONE (14:40)
[2024-10-30] MEDS ORDERED: Cefepime HCl 1,000 MG in NS 100 ML IV ONE (16:45)
[2024-10-30 17:15] VITALS: BP 143/85
== END 2024-10-30 17:33 | disposition home or self-care (01) ==
LOC: ER 11:29
PROVIDERS: Student in an Organized Health Care Education/Training Program
DX: N39.0 Urinary tract infection, site not specified (principal); N18.30 Chronic kidney disease, stage 3 unspecified; Z85.46 Personal history of malignant neoplasm of prostate; Z92.3 Personal history of irradiation; Z79.899 Other long term (current) drug therapy
CPT/HCPCS: 74177; 80053; 81001; 85025; 87077; 87086; 87186; 96365; 96367; 99284-25; J0692; J0696; Q9967

== ENCOUNTER 2024-10-31 09:14 | Emergency (ER) | payer MEDICARE, OTHER ==
[~2024-10-31] VITALS: Ht 180.3 cm; Wt 68.0 kg
[2024-10-31 09:50] VITALS: BP 161/98
[2024-10-31] MEDS ORDERED: Cefepime HCl 2,000 MG in NS 100 ML IV ONE (09:50)
[2024-10-31] MEDS ORDERED: Ketorolac Tromethamine 15mg Vial IV ONE (09:55)
== END 2024-10-31 11:22 | disposition home or self-care (01) ==
LOC: ER 09:14
DX: N39.0 Urinary tract infection, site not specified (principal); M25.551 Pain in right hip
CPT/HCPCS: 73502; 73552; 96365; 96375; 99281-25; J0692; J1885

== ENCOUNTER 2024-11-01 03:40 | Day surgery (SDC) | payer MEDICARE, OTHER ==
[2024-11-01] MEDS ORDERED: Cefepime HCl 1,000 MG in NS 100 ML IV SCH (06:00)
[2024-11-01 08:00] VITALS: BP 125/79
== END 2024-11-01 23:00 | disposition home or self-care (01) ==
LOC: ATC 03:40
DX: N39.0 Urinary tract infection, site not specified (principal); N18.30 Chronic kidney disease, stage 3 unspecified; Z79.899 Other long term (current) drug therapy; Z85.46 Personal history of malignant neoplasm of prostate; Z93.6 Other artificial openings of urinary tract status
CPT/HCPCS: 96365; J0692

== ENCOUNTER 2024-11-02 01:41 | Day surgery (SDC) | payer MEDICARE, OTHER ==
[2024-11-02] MEDS ORDERED: Cefepime HCl 1,000 MG in NS 100 ML IV SCH (06:00)
[2024-11-02 07:32] VITALS: BP 121/78
[2024-11-02 16:12] VITALS: BP 140/78
== END 2024-11-02 16:33 | disposition home or self-care (01) ==
LOC: ATC 01:41
DX: N39.0 Urinary tract infection, site not specified (principal); N18.30 Chronic kidney disease, stage 3 unspecified; Z79.899 Other long term (current) drug therapy
CPT/HCPCS: 96365; J0692

== ENCOUNTER 2024-11-03 07:20 | Day surgery (SDC) | payer MEDICARE, OTHER ==
[~2024-11-03 07:20] MED LIST changes: +Cefepime HCl 1,000 MG in NS 100 ML IV SCH
[2024-11-03 07:22] VITALS: BP 154/77
[2024-11-03 16:00] VITALS: BP 103/80
== END 2024-11-03 16:30 | disposition home or self-care (01) ==
LOC: ATC 07:20
DX: N39.0 Urinary tract infection, site not specified (principal); N18.30 Chronic kidney disease, stage 3 unspecified
CPT/HCPCS: 96365; J0692

== ENCOUNTER 2024-11-04 02:41 | Day surgery (SDC) | payer MEDICARE, OTHER ==
[~2024-11-04 02:41] MED LIST changes: -Cefepime HCl 1,000 MG in NS 100 ML IV SCH
[2024-11-04] MEDS ORDERED: Cefepime HCl 1,000 MG in NS 100 ML IV SCH (06:00)
[2024-11-04 07:59] VITALS: BP 111/58
[2024-11-04 16:39] VITALS: BP 122/59
== END 2024-11-04 17:00 | disposition home or self-care (01) ==
LOC: ATC 02:41
DX: N39.0 Urinary tract infection, site not specified (principal); N18.30 Chronic kidney disease, stage 3 unspecified; Z79.899 Other long term (current) drug therapy; Z85.46 Personal history of malignant neoplasm of prostate
CPT/HCPCS: 96365; J0692

== ENCOUNTER 2024-11-05 01:49 | Day surgery (SDC) | payer MEDICARE, OTHER ==
[2024-11-05] MEDS ORDERED: Cefepime HCl 1,000 MG in NS 100 ML IV SCH (06:00)
[2024-11-05 07:31] VITALS: BP 117/70
[2024-11-05 16:06] VITALS: BP 131/72
== END 2024-11-05 16:35 | disposition home or self-care (01) ==
LOC: ATC 01:49
DX: N39.0 Urinary tract infection, site not specified (principal); N18.30 Chronic kidney disease, stage 3 unspecified; R10.9 Unspecified abdominal pain; Z79.899 Other long term (current) drug therapy; Z16.19 Resistance to other specified beta lactam antibiotics; Z87.442 Personal history of urinary calculi; Z85.46 Personal history of malignant neoplasm of prostate; Z92.3 Personal history of irradiation
CPT/HCPCS: 80053; 81001; 85025; 87077; 87086; 87186; 96365; 96374; 99283-25; J0692; J2270

== ENCOUNTER 2024-11-05 16:30 | Emergency (ER) | payer MEDICARE, OTHER ==
[~2024-11-05] VITALS: Ht 182.9 cm; Wt 65.8 kg
[2024-11-05 18:14] LABS: BASOPHILS ABSOLUTE AUTO 0.05 K/mm3 (0.00-0.23); BASOPHILS PERCENT AUTO 1 % (0-2); EOSINOPHILS PERCENT AUTO 2 % (0-6); Hematocrit 34.3 % (37.0-53.0); Hemoglobin 11.2 g/dL (13.5-17.5); IMMATURE GRAN ABSOLUTE AUTO 0.02 K/mm3 (0.00-0.10); IMMATURE GRAN PERCENT AUTO 0 % (0-1); LYMPHOCYTES ABSOLUTE AUTO 0.75 K/mm3 (0.84-5.20); LYMPHOCYTES PERCENT AUTO 13 % (21-46); MONOCYTES ABSOLUTE AUTO 0.45 K/mm3 (0.16-1.47); MONOCYTES PERCENT AUTO 8 % (4-13); Mean Corpuscular HGB 32.9 pg (26.0-34.0); Mean Corpuscular HGB Conc 32.7 g/dL (31.5-36.5); Mean Corpuscular Volume 101 fL (80-100); Mean Platelet Volume 9.4 fL (9.1-12.4); NEUTROPHILS ABSOLUTE AUTO 4.31 K/mm3 (1.96-9.15); NEUTROPHILS PERCENT AUTO 76 % (41-73); Platelet Count 101 K/mm3 (150-400); RDW Coefficient Variation 13.3 % (11.7-14.2); RDW Standard Deviation 49.7 fL (35.1-46.3); White Blood Cell Count 5.68 K/mm3 (4.00-11.30)
[2024-11-05 18:31] LABS: Albumin, Blood 3.1 g/dL (3.4-5.0); Bilirubin, Total 0.3 mg/dL (0.1-1.0); Bun/Creatinine Ratio 20.9 (12.0-20.0); Calcium, Blood 8.7 mg/dL (8.5-10.1); Creatinine, Blood 1.58 mg/dL (0.60-1.20); Globulin, Blood 3.2 g/dL (2.2-4.0); Potassium, Blood 5.1 mmol/L (3.5-5.5); Total Protein, Blood 6.3 g/dL (6.4-8.2)
[2024-11-05 18:58] VITALS: BP 150/88
[2024-11-05] MEDS ORDERED: Morphine Sulfate 4 MG/1 ML Injection IV ONE (19:50)
[2024-11-05 19:57] LABS: Source, Urine Foley catheter
[2024-11-05 20:02] LABS: Appearance, Urine Clear (Clear); Bilirubin, Urine Neg (Neg); Blood, Urine 3+ (Neg); Color, Urine Yellow (P-Yellow); Glucose Qualitative, Urine Neg (Neg); Ketones, Urine Neg (Neg); Leukocyte Esterase, Urine 3+ (Neg); Nitrite, Urine Neg (Neg); Protein, Urine 2+ (Neg); Specific Gravity, Urine 1.005 (1.003-1.022); Urobilinogen, Urine NORM (Normal)
[2024-11-05 20:10] LABS: White Blood Cells, Urine 25-50 /hpf (0-5)
[2024-11-05 20:11] LABS: Bacteria Few /hpf; Squamous Epithelial Cells Rare /hpf (Few)
== END 2024-11-05 22:03 | disposition home or self-care (01) ==
LOC: ER 16:30
PROVIDERS: Student in an Organized Health Care Education/Training Program
DX: N39.0 Urinary tract infection, site not specified (principal); N18.30 Chronic kidney disease, stage 3 unspecified; Z16.19 Resistance to other specified beta lactam antibiotics; Z87.442 Personal history of urinary calculi; Z85.46 Personal history of malignant neoplasm of prostate; Z92.3 Personal history of irradiation; Z79.899 Other long term (current) drug therapy
CPT/HCPCS: 80053; 81001; 85025; J2270

== ENCOUNTER 2024-11-06 04:15 | Day surgery (SDC) | payer MEDICARE, OTHER ==
[2024-11-06] MEDS ORDERED: Cefepime HCl 1,000 MG in NS 100 ML IV SCH (06:00)
[2024-11-06 07:34] VITALS: BP 135/77
[2024-11-06 16:03] VITALS: BP 129/83
== END 2024-11-06 16:26 | disposition home or self-care (01) ==
LOC: ATC 04:15
DX: N39.0 Urinary tract infection, site not specified (principal); N18.30 Chronic kidney disease, stage 3 unspecified; Z93.6 Other artificial openings of urinary tract status; Z79.899 Other long term (current) drug therapy; Z85.46 Personal history of malignant neoplasm of prostate
CPT/HCPCS: 96365; J0692

== ENCOUNTER 2024-11-07 07:22 | Day surgery (SDC) | payer MEDICARE, OTHER ==
[~2024-11-07 07:22] MED LIST changes: +Cefepime HCl 1,000 MG in NS 100 ML IV SCH
[2024-11-07 07:35] VITALS: BP 132/75
[2024-11-07 16:08] VITALS: BP 116/71
== END 2024-11-07 16:30 | disposition home or self-care (01) ==
LOC: ATC 07:22
DX: N39.0 Urinary tract infection, site not specified (principal); N18.30 Chronic kidney disease, stage 3 unspecified; Z79.899 Other long term (current) drug therapy; Z93.6 Other artificial openings of urinary tract status; Z85.46 Personal history of malignant neoplasm of prostate; Z87.19 Personal history of other diseases of the digestive system
CPT/HCPCS: 96365; J0692

== ENCOUNTER → 2024-11-09 | Outpatient (CLI) | payer MEDICARE, OTHER ==
[~2024-11-09] MED LIST changes: -Cefepime HCl 1,000 MG in NS 100 ML IV SCH
[2024-11-09 13:18] LABS: Source, Urine Urostomy Bag
[2024-11-09 14:25] LABS: Appearance, Urine Hazy (Clear); Bilirubin, Urine Neg (Neg); Blood, Urine 2+ (Neg); Glucose Qualitative, Urine Neg (Neg); Ketones, Urine Neg (Neg); Leukocyte Esterase, Urine 3+ (Neg); Nitrite, Urine Neg (Neg); Protein, Urine 3+ (Neg); Specific Gravity, Urine 1.005 (1.003-1.022); Urobilinogen, Urine NORM (Normal)
[2024-11-09 14:46] LABS: Color, Urine Pale Yellow (P-Yellow)
[2024-11-09 14:48] LABS: White Blood Cells, Urine TNTC /hpf (0-5)
[2024-11-09 14:49] LABS: Bacteria Few /hpf; Squamous Epithelial Cells Not Seen /hpf (Few)
== END ==
LOC: LAB SHORT 13:16 → LAB 13:16
PROVIDERS: Internal Medicine Hematology & Oncology
DX: N39.0 Urinary tract infection, site not specified (principal)
CPT/HCPCS: 81001; 87077; 87086; 87186

== ENCOUNTER 2024-11-18 08:52 | Emergency (ER) | payer MEDICARE, OTHER ==
[~2024-11-18] VITALS: Ht 182.9 cm; Wt 65.8 kg
[2024-11-18 10:06] VITALS: BP 163/97
[2024-11-18 10:12] LABS: Source, Urine Foley catheter
[2024-11-18 10:22] LABS: Appearance, Urine Turbid (Clear); Bilirubin, Urine Neg (Neg); Blood, Urine 4+ (Neg); Color, Urine Yellow (P-Yellow); Glucose Qualitative, Urine Neg (Neg); Ketones, Urine Neg (Neg); Leukocyte Esterase, Urine 3+ (Neg); Nitrite, Urine Neg (Neg); Protein, Urine 3+ (Neg); Urobilinogen, Urine NORM (Normal)
[2024-11-18 10:29] LABS: Hyaline Casts 0-2 /lpf (0-2)
[2024-11-18 10:30] LABS: Bacteria Many /hpf; Squamous Epithelial Cells Not Seen /hpf (Few); White Blood Cells, Urine 50-100 /hpf (0-5)
== END 2024-11-18 11:40 | disposition home or self-care (01) ==
LOC: ER 08:52
PROVIDERS: Student in an Organized Health Care Education/Training Program
DX: T83.511A Infection and inflammatory reaction due to indwelling urethral catheter, initial encounter (principal); N39.0 Urinary tract infection, site not specified; N18.30 Chronic kidney disease, stage 3 unspecified; Z16.20 Resistance to unspecified antibiotic; Z79.899 Other long term (current) drug therapy
CPT/HCPCS: 81001; 87077; 87086; 87186; 99283

== ENCOUNTER 2024-11-26 08:23 | Emergency (ER) | payer MEDICARE, OTHER ==
[~2024-11-26] VITALS: Ht 182.9 cm; Wt 65.8 kg
[2024-11-26] MEDS ORDERED: OXYCODONE-ACET1 EAC2 PO (09:46)
[2024-11-26] MEDS ORDERED: MONDOXYNE NL100 MG PO (09:46)
[2024-11-26] MEDS ORDERED: Morphine Sulfate 4 MG/1 ML Injection IV ONE (10:35)
[2024-11-26 10:54] VITALS: BP 145/81
[2024-11-26] MEDS ORDERED: OxyCODONE 10/Acetamin 325 TABLET PO ONE (11:50)
== END 2024-11-26 12:27 | disposition home or self-care (01) ==
LOC: ER 08:23
DX: N39.0 Urinary tract infection, site not specified (principal); Z79.899 Other long term (current) drug therapy
CPT/HCPCS: 96374; 99283-25; A9270; J2270

== ENCOUNTER 2024-11-30 09:52 | Emergency (ER) | payer MEDICARE, OTHER ==
[~2024-11-30] VITALS: Ht 185.4 cm; Wt 65.8 kg
[~2024-11-30 09:52] MED LIST changes: +MONDOXYNE NL100 MG PO; +OXYCODONE-ACET1 EAC2 PO
[2024-11-30 10:45] VITALS: BP 173/103
[2024-11-30 11:17] LABS: Source, Urine Suprapubic Cath
[2024-11-30 11:22] LABS: Appearance, Urine Hazy (Clear); Bilirubin, Urine Neg (Neg); Blood, Urine 3+ (Neg); Color, Urine Yellow (P-Yellow); Glucose Qualitative, Urine Neg (Neg); Ketones, Urine Neg (Neg); Leukocyte Esterase, Urine 3+ (Neg); Nitrite, Urine Neg (Neg); Protein, Urine 3+ (Neg); Specific Gravity, Urine 1.005 (1.003-1.022); Urobilinogen, Urine NORM (Normal)
[2024-11-30 11:51] LABS: White Blood Cells, Urine TNTC /hpf (0-5)
[2024-11-30 11:56] LABS: Yeast/Fungi Urine Mod /hpf
[2024-11-30 11:57] LABS: Bacteria Many /hpf; Squamous Epithelial Cells Rare /hpf (Few)
[2024-11-30] MEDS ORDERED: Clotrimazole 1% Cream 15 GM Tube TOP ONE (16:15)
[2024-11-30] MEDS ORDERED: Phenazopyridine HCl 100 MG Tab PO ONE (16:15)
[2024-11-30] MEDS ORDERED: Ketorolac Tromethamine 15mg Vial IM ONE (16:15)
[2024-11-30] MEDS ORDERED: ALEVAZOL56.7 G1 TOP (16:21)
[2024-11-30] MEDS ORDERED: Pyridium100 MG PO (16:21)
[2024-12-01] MEDS ORDERED: PERCOCET 10-321 EA13 PO (14:26)
== END 2024-11-30 16:40 | disposition home or self-care (01) ==
LOC: ER 09:52
PROVIDERS: Student in an Organized Health Care Education/Training Program
DX: R39.89 Other symptoms and signs involving the genitourinary system (principal); R10.9 Unspecified abdominal pain; N18.30 Chronic kidney disease, stage 3 unspecified; Z87.442 Personal history of urinary calculi; Z79.899 Other long term (current) drug therapy
CPT/HCPCS: 74176; 81001; 87086; 96372; 99284-25; A9270; J1885

== ENCOUNTER 2024-12-01 12:34 | Emergency (ER) | payer MEDICARE, OTHER ==
[~2024-12-01] VITALS: Ht 182.9 cm; Wt 72.6 kg
[~2024-12-01 12:34] MED LIST changes: +ALEVAZOL56.7 G1 TOP
[2024-12-01 12:50] VITALS: BP 153/117
[2024-12-01] MEDS ORDERED: PERCOCET 10-321 EA13 PO (14:26)
== END 2024-12-01 14:33 | disposition home or self-care (01) ==
LOC: ER 12:34
DX: G89.29 Other chronic pain (principal); R10.30 Lower abdominal pain, unspecified; Z79.899 Other long term (current) drug therapy
CPT/HCPCS: 99283

== ENCOUNTER 2024-12-03 07:05 | Emergency (ER) | payer MEDICARE, OTHER ==
[~2024-12-03] VITALS: Ht 182.9 cm; Wt 65.8 kg
[~2024-12-03 07:05] MED LIST changes: +PERCOCET 10-321 EA13 PO
[2024-12-03 07:37] VITALS: BP 189/106
[2024-12-03] MEDS ORDERED: HYDROmorphone HCl/Pf 1MG SYR IM ONE (07:55)
== END 2024-12-03 08:50 | disposition home or self-care (01) ==
LOC: ER 07:05
DX: R10.30 Lower abdominal pain, unspecified (principal); N18.30 Chronic kidney disease, stage 3 unspecified; Z79.2 Long term (current) use of antibiotics; Z79.02 Long term (current) use of antithrombotics/antiplatelets; Z79.84 Long term (current) use of oral hypoglycemic drugs; Z79.899 Other long term (current) drug therapy
CPT/HCPCS: 96372; 99283-25; J1171

== ENCOUNTER 2024-12-04 10:40 | Emergency (ER) | payer MEDICARE, OTHER ==
[~2024-12-04] VITALS: Ht 182.9 cm; Wt 63.5 kg
[2024-12-04 11:20] VITALS: BP 157/95
== END 2024-12-04 12:02 | disposition home or self-care (01) ==
LOC: ER 10:40
DX: R10.9 Unspecified abdominal pain (principal); N18.30 Chronic kidney disease, stage 3 unspecified; N20.0 Calculus of kidney; Z20.2 Contact with and (suspected) exposure to infections with a predominantly sexual mode of transmission; Z79.810 Long term (current) use of selective estrogen receptor modulators (SERMs); Z79.52 Long term (current) use of systemic steroids; Z79.1 Long term (current) use of non-steroidal anti-inflammatories (NSAID); Z79.811 Long term (current) use of aromatase inhibitors
CPT/HCPCS: 99283

== ENCOUNTER → 2024-12-06 | Outpatient (CLI) | payer MEDICARE, OTHER ==
[2024-12-06 10:30] LABS: Source, Urine Voided
[2024-12-06 11:19] LABS: Appearance, Urine Hazy (Clear); Bilirubin, Urine Neg (Neg); Blood, Urine 2+ (Neg); Color, Urine Yellow (P-Yellow); Glucose Qualitative, Urine Neg (Neg); Ketones, Urine Neg (Neg); Leukocyte Esterase, Urine 3+ (Neg); Nitrite, Urine Neg (Neg); Protein, Urine 2+ (Neg); Specific Gravity, Urine 1.005 (1.003-1.022); Urobilinogen, Urine NORM (Normal)
[2024-12-06 12:04] LABS: White Blood Cells, Urine TNTC /hpf (0-5)
[2024-12-06 12:05] LABS: Bacteria Mod /hpf; Squamous Epithelial Cells Not Seen /hpf (Few)
== END | disposition home or self-care (01) ==
LOC: LAB SHORT 10:26 → LAB 10:26
PROVIDERS: Internal Medicine Hematology & Oncology
DX: N39.0 Urinary tract infection, site not specified (principal)
CPT/HCPCS: 81001; 87077; 87086; 87186

== ENCOUNTER 2024-12-14 09:38 | Emergency (ER) | payer MEDICARE, OTHER ==
[~2024-12-14] VITALS: Ht 182.9 cm; Wt 56.7 kg
[2024-12-14 10:08] VITALS: BP 173/107
[2024-12-14] MEDS ORDERED: Acetaminophen 500 MG Tab PO ONE (10:25)
== END 2024-12-14 10:42 | disposition home or self-care (01) ==
LOC: ER 09:38
DX: R10.30 Lower abdominal pain, unspecified (principal); G89.29 Other chronic pain; Z79.899 Other long term (current) drug therapy
CPT/HCPCS: 99283; A9270

== ENCOUNTER 2024-12-20 20:13 | Emergency (ER) | payer MEDICARE, OTHER ==
[~2024-12-20] VITALS: Ht 182.9 cm; Wt 63.0 kg
[2024-12-21] VITALS: BP 141/71
== END 2024-12-21 00:24 | disposition home or self-care (01) ==
LOC: ER 20:13
DX: R10.30 Lower abdominal pain, unspecified (principal); N18.30 Chronic kidney disease, stage 3 unspecified; Z93.6 Other artificial openings of urinary tract status; Z79.891 Long term (current) use of opiate analgesic; Z79.899 Other long term (current) drug therapy
CPT/HCPCS: 99283

== ENCOUNTER 2024-12-22 10:18 | Emergency (ER) | payer MEDICARE, OTHER ==
[~2024-12-22] VITALS: Ht 182.9 cm; Wt 59.0 kg
[2024-12-22 10:24] VITALS: BP 128/78
[2024-12-22 11:10] LABS: BASOPHILS ABSOLUTE AUTO 0.01 K/mm3 (0.00-0.23); BASOPHILS PERCENT AUTO 0 % (0-2); EOSINOPHILS ABSOLUTE AUTO 0.06 K/mm3 (0.00-0.68); EOSINOPHILS PERCENT AUTO 1 % (0-6); Hematocrit 35.7 % (37.0-53.0); Hemoglobin 11.6 g/dL (13.5-17.5); IMMATURE GRAN ABSOLUTE AUTO 0.04 K/mm3 (0.00-0.10); IMMATURE GRAN PERCENT AUTO 1 % (0-1); LYMPHOCYTES ABSOLUTE AUTO 0.49 K/mm3 (0.84-5.20); LYMPHOCYTES PERCENT AUTO 11 % (21-46); MONOCYTES ABSOLUTE AUTO 0.32 K/mm3 (0.16-1.47); MONOCYTES PERCENT AUTO 7 % (4-13); Mean Corpuscular HGB 33.2 pg (26.0-34.0); Mean Corpuscular HGB Conc 32.5 g/dL (31.5-36.5); Mean Corpuscular Volume 102 fL (80-100); Mean Platelet Volume 9.8 fL (9.1-12.4); NEUTROPHILS ABSOLUTE AUTO 3.59 K/mm3 (1.96-9.15); NEUTROPHILS PERCENT AUTO 80 % (41-73); Platelet Count 138 K/mm3 (150-400); RDW Coefficient Variation 13.4 % (11.7-14.2); RDW Standard Deviation 50.4 fL (35.1-46.3); Red Blood Cell Count 3.49 M/mm3 (4.30-5.90); White Blood Cell Count 4.51 K/mm3 (4.00-11.30)
[2024-12-22 11:35] LABS: Albumin, Blood 3.4 g/dL (3.4-5.0); Albumin/Globulin Ratio 1.1 (0.8-1.8); Bilirubin, Total 0.4 mg/dL (0.1-1.0); Bun/Creatinine Ratio 24.7 (12.0-20.0); Calcium, Blood 8.8 mg/dL (8.5-10.1); Creatinine, Blood 1.66 mg/dL (0.60-1.20); Globulin, Blood 3.2 g/dL (2.2-4.0); Potassium, Blood 4.7 mmol/L (3.5-5.5); Total Protein, Blood 6.6 g/dL (6.4-8.2)
[2024-12-30] MEDS ORDERED: ACET325 PO (10:33)
[2024-12-30] MEDS ORDERED: MIRALAX17 GM PO (10:35)
[2024-12-30] MEDS ORDERED: METHENAMINE MAND1 GM PO (10:35)
[2024-12-30] MEDS ORDERED: SENNA LAXATIVE8.6 MG PO (10:36)
[2024-12-30] MEDS ORDERED: SODBIC650 PO (10:37)
== END 2024-12-22 14:20 | disposition home or self-care (01) ==
LOC: ER 10:18
PROVIDERS: Student in an Organized Health Care Education/Training Program
DX: R07.89 Other chest pain (principal); N18.30 Chronic kidney disease, stage 3 unspecified; Z79.02 Long term (current) use of antithrombotics/antiplatelets; Z79.2 Long term (current) use of antibiotics; Z79.899 Other long term (current) drug therapy
CPT/HCPCS: 71046; 80053; 84484; 85025; 93005; 93010; 99285-25

== ENCOUNTER → 2024-12-26 | Outpatient (CLI) | payer MEDICARE, OTHER ==
[~2024-12-26] MED LIST changes: +ACET325 PO; +METHENAMINE MAND1 GM PO; +MIRALAX17 GM PO; +Neurontin 100100 MG PO; +SENNA LAXATIVE8.6 MG PO; +SODBIC650 PO
== END ==
LOC: LAB 18:07 → LAB SHORT 18:07
DX: N39.0 Urinary tract infection, site not specified (principal)
CPT/HCPCS: 87077; 87086; 87186

== ENCOUNTER 2024-12-29 10:42 | Observation (INO) | payer MEDICARE, OTHER ==
[~2024-12-29] VITALS: Ht 177.8 cm; Wt 63.3 kg
[~2024-12-29 10:42] MED LIST changes: -ACET325 PO; -METHENAMINE MAND1 GM PO; -MIRALAX17 GM PO; -Neurontin 100100 MG PO; -SENNA LAXATIVE8.6 MG PO; -SODBIC650 PO
[2024-12-29] MEDS ORDERED: Acetaminophen 325 MG TABLET PO ONE (11:10)
[2024-12-29] MEDS ORDERED: NS 1,000 ML IV SCH ×2 (11:30→14:45)
[2024-12-29 12:23] LABS: BASOPHILS ABSOLUTE AUTO 0.01 K/mm3 (0.00-0.23); BASOPHILS PERCENT AUTO 0 % (0-2); EOSINOPHILS ABSOLUTE AUTO 0.02 K/mm3 (0.00-0.68); EOSINOPHILS PERCENT AUTO 1 % (0-6); Hematocrit 35.3 % (37.0-53.0); Hemoglobin 11.7 g/dL (13.5-17.5); IMMATURE GRAN ABSOLUTE AUTO 0.03 K/mm3 (0.00-0.10); IMMATURE GRAN PERCENT AUTO 1 % (0-1); LYMPHOCYTES ABSOLUTE AUTO 0.35 K/mm3 (0.84-5.20); LYMPHOCYTES PERCENT AUTO 9 % (21-46); MONOCYTES ABSOLUTE AUTO 0.25 K/mm3 (0.16-1.47); MONOCYTES PERCENT AUTO 7 % (4-13); Mean Corpuscular HGB 33.3 pg (26.0-34.0); Mean Corpuscular HGB Conc 33.1 g/dL (31.5-36.5); Mean Corpuscular Volume 101 fL (80-100); Mean Platelet Volume 9.7 fL (9.1-12.4); NEUTROPHILS ABSOLUTE AUTO 3.13 K/mm3 (1.96-9.15); NEUTROPHILS PERCENT AUTO 83 % (41-73); Platelet Count 140 K/mm3 (150-400); RDW Coefficient Variation 13.5 % (11.7-14.2); RDW Standard Deviation 49.6 fL (35.1-46.3); Red Blood Cell Count 3.51 M/mm3 (4.30-5.90); White Blood Cell Count 3.79 K/mm3 (4.00-11.30)
[2024-12-29 12:55] LABS: Albumin/Globulin Ratio 0.9 (0.8-1.8); Bilirubin, Total 0.3 mg/dL (0.1-1.0); Creatinine, Blood 1.71 mg/dL (0.60-1.20); Globulin, Blood 3.5 g/dL (2.2-4.0); Potassium, Blood 4.9 mmol/L (3.5-5.5); Total Protein, Blood 6.5 g/dL (6.4-8.2)
[2024-12-29] MEDS ORDERED: CefTRIAXone Sodium 1,000 MG in NS 100 ML IV ONE (15:00)
[2024-12-29 16:36] LABS: Source, Urine Urostomy Bag
[2024-12-29 16:43] LABS: Appearance, Urine Clear (Clear); Bilirubin, Urine Neg (Neg); Blood, Urine 1+ (Neg); Color, Urine Yellow (P-Yellow); Glucose Qualitative, Urine Neg (Neg); Ketones, Urine Neg (Neg); Leukocyte Esterase, Urine 3+ (Neg); Nitrite, Urine Pos (Neg); Protein, Urine 2+ (Neg); Specific Gravity, Urine 1.005 (1.003-1.022); Urobilinogen, Urine NORM (Normal)
[2024-12-29 16:54] LABS: Red Blood Cells, Urine 0-2 /hpf (0-2); White Blood Cells, Urine 25-50 /hpf (0-5)
[2024-12-29 16:55] LABS: Bacteria Few /hpf; Squamous Epithelial Cells Not Seen /hpf (Few)
[2024-12-29] MEDS ORDERED: HYDROmorphone HCl 2 MG Tab PO PRN ×2 (16:55→17:15)
[2024-12-29] MEDS ORDERED: Lactated Ringer's 1,000 ML IV SCH (16:55)
[2024-12-29] MEDS ORDERED: FLU VACC TS2024-25(6MOS UP)/PF 45 MCG/0.5 ML SYRINGE IM SCH (17:00)
[2024-12-29] MEDS ORDERED: Polyethylene Glycol 3350 17 gm PO SCH (17:00)
[2024-12-29] MEDS ORDERED: Acetaminophen 325 MG TABLET PO PRN (17:15)
[2024-12-29] MEDS ORDERED: Sodium Bicarbonate 650 MG Tab PO SCH (18:00)
[2024-12-29 19:52] VITALS: BP 169/89
[2024-12-29] MEDS ORDERED: Methenamine 1 GM TAB PO SCH (21:00)
[2024-12-29] MEDS ORDERED: Sennosides 8.6 MG Tab PO SCH (21:00)
[2024-12-29] MEDS ORDERED: FentaNYL Citrate 50 MCG/ML 2 ML Injection IV PRN (21:35)
[2024-12-30 03:12] VITALS: BP 117/58
[2024-12-30] MEDS ORDERED: OxyCODONE 10/Acetamin 325 TABLET PO PRN (05:20)
[2024-12-30 05:35] LABS: BASOPHILS ABSOLUTE AUTO 0.02 K/mm3 (0.00-0.23); BASOPHILS PERCENT AUTO 1 % (0-2); EOSINOPHILS ABSOLUTE AUTO 0.04 K/mm3 (0.00-0.68); EOSINOPHILS PERCENT AUTO 1 % (0-6); Hematocrit 31.3 % (37.0-53.0); IMMATURE GRAN ABSOLUTE AUTO 0.03 K/mm3 (0.00-0.10); IMMATURE GRAN PERCENT AUTO 1 % (0-1); LYMPHOCYTES ABSOLUTE AUTO 0.52 K/mm3 (0.84-5.20); LYMPHOCYTES PERCENT AUTO 19 % (21-46); MONOCYTES ABSOLUTE AUTO 0.28 K/mm3 (0.16-1.47); MONOCYTES PERCENT AUTO 10 % (4-13); Mean Corpuscular HGB 32.7 pg (26.0-34.0); Mean Corpuscular HGB Conc 31.9 g/dL (31.5-36.5); Mean Corpuscular Volume 102 fL (80-100); Mean Platelet Volume 9.5 fL (9.1-12.4); NEUTROPHILS ABSOLUTE AUTO 1.88 K/mm3 (1.96-9.15); NEUTROPHILS PERCENT AUTO 68 % (41-73); Platelet Count 151 K/mm3 (150-400); RDW Coefficient Variation 13.5 % (11.7-14.2); RDW Standard Deviation 50.9 fL (35.1-46.3); Red Blood Cell Count 3.06 M/mm3 (4.30-5.90); White Blood Cell Count 2.77 K/mm3 (4.00-11.30)
[2024-12-30 06:01] LABS: Alanine Aminotransfer (ALT/SGP 22 U/L (12-78); Albumin, Blood 2.7 g/dL (3.4-5.0); Albumin/Globulin Ratio 0.9 (0.8-1.8); Alk Phos 77 U/L (50-136); Anion Gap 11 mmol/L (3-11); Aspartate Aminotrans (AST/SGOT 17 U/L (12-37); Bilirubin, Total 0.2 mg/dL (0.1-1.0); Blood Urea Nitrogen 43 mg/dL (8-24); Bun/Creatinine Ratio 27.4 (12.0-20.0); CO2, Blood 18 mmol/L (21-32); Calcium, Blood 7.7 mg/dL (8.5-10.1); Chloride, Blood 115 mmol/L (98-108); Creatinine, Blood 1.57 mg/dL (0.60-1.20); Glomerular Filtration Rate 44 (60-); Glucose, Blood 104 mg/dL (70-99); Potassium, Blood 4.5 mmol/L (3.5-5.5); Prostate Specific Antigen 0.056 ng/mL (0.000-4.000); Sodium, Blood 139 mmol/L (136-145); Total Protein, Blood 5.7 g/dL (6.4-8.2)
--- NOTE | 2024-12-30 06:40 | NUR ---
SHIFT SUMMARY PT A&Ox4, ABLE TO ANSWER ALL ORIENTATION QUESTIONS, BUT VERY FORGETGFUL. C/O ABD PAIN THAT WAS 7-8 CONSISTENTLY BUT WOULD, AT TIMES, FALL ASLEEP BEFORE PAIN MEDS WERE GIVEN. PLACED ON 1L OF OXYGEN DURING THE NIGHT AND SATS REMAINED ABOVE 95%. UROSTOMY PUTTING OUT MODERATE AMOUNT OF YELLOW URINE WITH SOME SEDEMENT. PT CALLS APPROPRIATLY BUT BED ALARM ON FOR SAFETY. BED IN LOWEST POSITION AND CALL LIGHT IN REACH.
[2024-12-30 07:42] VITALS: BP 137/75
[2024-12-30] MEDS ORDERED: Enoxaparin 40 MG/0.4 ML SYR SC SCH ×2 (09:00)
[2024-12-30] MEDS ORDERED: Atorvastatin 40 MG Tab PO SCH (09:00)
[2024-12-30] MEDS ORDERED: OxyCODONE 10/Acetamin 325 TABLET PO ONE (09:20)
[2024-12-30] MEDS ORDERED: ACET325 PO ×2 (10:33)
[2024-12-30] MEDS ORDERED: METHENAMINE MAND1 GM PO ×2 (10:35)
[2024-12-30] MEDS ORDERED: MIRALAX17 GM PO ×2 (10:35)
[2024-12-30] MEDS ORDERED: SENNA LAXATIVE8.6 MG PO ×2 (10:36)
[2024-12-30] MEDS ORDERED: SODBIC650 PO ×2 (10:37)
--- NOTE | 2024-12-30 12:29 | NUR ---
SHIFT/DISCHARGE SUMMARY: PATIENT A/OX4, PLEASANT AND COOPERATIVE c CARE. PATIENT DENIES CP/PRESSURE, N/V, SOB, AND DIZINESS. PATIENT REPORTS PAIN TO ABDOMEN, MEDICATED FOR PAIN PER EMAR c GOOD EFFECT. PATIENT HAS GOOD APPETITE, UROSTOMY IN PLACED PATENT DRAINING YELLOW URINE TO GRAVITY. PATIENT RECEIVED SCHEDULED MEDS PER EMAR. VITAL SIGNS REVIEWED. PIV DC'D PATIENT DISCHARGE HOME. DISCHARGE INSTRUCTIONS PACKET GIVEN TO PATIENT. PATIENT EDUCATED ON ADMITTING DX'S OF ABDOMINAL PAIN, TX, NEW RX AND F/U c PCP. PATIENT VERBALIZED UNDERSTANDING AND NO FURTHER QUESTIONS. RX WAS FAXED TO PATIENT PREFERRED [facility]ARMACY-[facility]. ALL PERSONAL BELONGINGS WERE SENT HOME c THE PATIENT. PATIENT LEFT THE ROOM AT 1148, TRANSPORTED VIA W/CHAIR BY PLASTERER STUCCO TO PATIENT ENTRANCE.
== END 2024-12-30 12:08 | disposition home health service (06) ==
LOC: ER 10:42 → ERHOLD 10:43 → MEDS 19:41
PROVIDERS: Student in an Organized Health Care Education/Training Program; ADMIT Internal Medicine
DX: R10.33 Periumbilical pain (principal); G89.29 Other chronic pain; E87.20 Acidosis, unspecified; N13.9 Obstructive and reflux uropathy, unspecified; R82.71 Bacteriuria; I12.9 Hypertensive chronic kidney disease with stage 1 through stage 4 chronic kidney disease, or unspecified chronic kidney disease; N18.30 Chronic kidney disease, stage 3 unspecified; F11.90 Opioid use, unspecified, uncomplicated; Z79.899 Other long term (current) drug therapy; Z93.2 Ileostomy status
CPT/HCPCS: 36415; 74177; 80053; 81001; 83605; 83690; 85025; 93005; 93010; 96361; 96365; 96375; 99285-25; A9270; G0103; G0378; J0696; J3010; J7030; J7120; Q9967

== ENCOUNTER 2025-01-01 08:02 | Emergency (ER) | payer MEDICARE, OTHER ==
[~2025-01-01] VITALS: Ht 182.9 cm; Wt 63.5 kg
[~2025-01-01 08:02] MED LIST changes: +ACET325 PO; +METHENAMINE MAND1 GM PO; +MIRALAX17 GM PO; +SENNA LAXATIVE8.6 MG PO; +SODBIC650 PO
[2025-01-01] MEDS ORDERED: Neurontin 100100 MG PO (09:16)
[2025-01-01 09:28] VITALS: BP 167/85
== END 2025-01-01 09:49 | disposition home or self-care (01) ==
LOC: ER 08:02
DX: R10.30 Lower abdominal pain, unspecified (principal); N18.30 Chronic kidney disease, stage 3 unspecified; Z79.899 Other long term (current) drug therapy
CPT/HCPCS: 99283

== ENCOUNTER → 2025-01-08 | Outpatient (CLI) | payer MEDICARE, OTHER ==
[~2025-01-08] MED LIST changes: +Neurontin 100100 MG PO
[2025-01-08 15:14] LABS: Source, Urine Fem Cath
[2025-01-08 16:11] LABS: Appearance, Urine Hazy (Clear); Bilirubin, Urine Neg (Neg); Blood, Urine 2+ (Neg); Color, Urine Yellow (P-Yellow); Glucose Qualitative, Urine Neg (Neg); Ketones, Urine Neg (Neg); Leukocyte Esterase, Urine 3+ (Neg); Nitrite, Urine Pos (Neg); Protein, Urine 3+ (Neg); Urobilinogen, Urine NORM (Normal); pH, Urine 6.5 (5.0-8.0)
[2025-01-08 16:22] LABS: White Blood Cells, Urine 25-50 /hpf (0-5)
[2025-01-08 16:23] LABS: Bacteria Many /hpf; Squamous Epithelial Cells Rare /hpf (Few)
[2025-01-08 16:27] LABS: Renal Epithelial Few /hpf (0-Rare)
== END ==
LOC: LAB SHORT 10:00 → LAB 10:00
PROVIDERS: Physician Assistant
DX: R10.9 Unspecified abdominal pain (principal)
CPT/HCPCS: 81001; 87077; 87086; 87186

== ENCOUNTER → 2025-01-09 | Outpatient (CLI) | payer MEDICARE, OTHER ==
[2025-01-09 11:21] LABS: BASOPHILS ABSOLUTE AUTO 0.02 K/mm3 (0.00-0.23); BASOPHILS PERCENT AUTO 0 % (0-2); EOSINOPHILS ABSOLUTE AUTO 0.09 K/mm3 (0.00-0.68); EOSINOPHILS PERCENT AUTO 2 % (0-6); Hematocrit 32.5 % (37.0-53.0); Hemoglobin 10.6 g/dL (13.5-17.5); IMMATURE GRAN ABSOLUTE AUTO 0.06 K/mm3 (0.00-0.10); IMMATURE GRAN PERCENT AUTO 1 % (0-1); LYMPHOCYTES ABSOLUTE AUTO 0.55 K/mm3 (0.84-5.20); LYMPHOCYTES PERCENT AUTO 12 % (21-46); MONOCYTES ABSOLUTE AUTO 0.23 K/mm3 (0.16-1.47); MONOCYTES PERCENT AUTO 5 % (4-13); Mean Corpuscular HGB 32.6 pg (26.0-34.0); Mean Corpuscular HGB Conc 32.6 g/dL (31.5-36.5); Mean Corpuscular Volume 100 fL (80-100); Mean Platelet Volume 9.4 fL (9.1-12.4); NEUTROPHILS ABSOLUTE AUTO 3.56 K/mm3 (1.96-9.15); NEUTROPHILS PERCENT AUTO 79 % (41-73); Platelet Count 190 K/mm3 (150-400); RDW Coefficient Variation 13.8 % (11.7-14.2); Red Blood Cell Count 3.25 M/mm3 (4.30-5.90); White Blood Cell Count 4.51 K/mm3 (4.00-11.30)
[2025-01-09 11:34] LABS: Albumin, Blood 3.1 g/dL (3.4-5.0); Albumin/Globulin Ratio 0.9 (0.8-1.8); Bilirubin, Total 0.3 mg/dL (0.1-1.0); Bun/Creatinine Ratio 25.8 (12.0-20.0); Calcium, Blood 8.7 mg/dL (8.5-10.1); Creatinine, Blood 1.63 mg/dL (0.60-1.20); Globulin, Blood 3.6 g/dL (2.2-4.0); Potassium, Blood 4.5 mmol/L (3.5-5.5); Total Protein, Blood 6.7 g/dL (6.4-8.2)
== END ==
LOC: LAB 11:17 → LAB SHORT 11:17
PROVIDERS: Family Medicine
DX: R10.9 Unspecified abdominal pain (principal)
CPT/HCPCS: 80053; 85025

== ENCOUNTER → 2025-01-16 | Outpatient (CLI) | payer MEDICARE, OTHER ==
[2025-01-16 17:22] LABS: Source, Urine Urostomy Bag
[2025-01-16 18:46] LABS: Appearance, Urine Clear (Clear); Bilirubin, Urine Neg (Neg); Blood, Urine Neg (Neg); Color, Urine Yellow (P-Yellow); Glucose Qualitative, Urine Neg (Neg); Ketones, Urine Neg (Neg); Leukocyte Esterase, Urine 1+ (Neg); Nitrite, Urine Neg (Neg); Protein, Urine 1+ (Neg); Urobilinogen, Urine NORM (Normal)
[2025-01-16 18:54] LABS: Hyaline Casts 0-2 /lpf (0-2)
[2025-01-16 18:55] LABS: Bacteria Few /hpf; Red Blood Cells, Urine Not Seen /hpf (0-2); Squamous Epithelial Cells Not Seen /hpf (Few)
== END ==
LOC: LAB SHORT 17:19 → LAB 17:19
PROVIDERS: Internal Medicine Hematology & Oncology
DX: N39.0 Urinary tract infection, site not specified (principal)
CPT/HCPCS: 81001; 87086

== ENCOUNTER → 2025-01-20 | Outpatient (CLI) | payer MEDICARE, OTHER ==
[2025-01-20 11:33] LABS: BASOPHILS ABSOLUTE AUTO 0.02 K/mm3 (0.00-0.23); BASOPHILS PERCENT AUTO 1 % (0-2); EOSINOPHILS ABSOLUTE AUTO 0.14 K/mm3 (0.00-0.68); EOSINOPHILS PERCENT AUTO 4 % (0-6); Hematocrit 38.3 % (37.0-53.0); Hemoglobin 12.2 g/dL (13.5-17.5); IMMATURE GRAN ABSOLUTE AUTO 0.02 K/mm3 (0.00-0.10); IMMATURE GRAN PERCENT AUTO 1 % (0-1); LYMPHOCYTES ABSOLUTE AUTO 0.53 K/mm3 (0.84-5.20); LYMPHOCYTES PERCENT AUTO 14 % (21-46); MONOCYTES ABSOLUTE AUTO 0.19 K/mm3 (0.16-1.47); MONOCYTES PERCENT AUTO 5 % (4-13); Mean Corpuscular HGB 32.9 pg (26.0-34.0); Mean Corpuscular HGB Conc 31.9 g/dL (31.5-36.5); Mean Corpuscular Volume 103 fL (80-100); NEUTROPHILS ABSOLUTE AUTO 2.82 K/mm3 (1.96-9.15); NEUTROPHILS PERCENT AUTO 76 % (41-73); Platelet Count 182 K/mm3 (150-400); RDW Coefficient Variation 14.3 % (11.7-14.2); RDW Standard Deviation 54.3 fL (35.1-46.3); Red Blood Cell Count 3.71 M/mm3 (4.30-5.90); White Blood Cell Count 3.72 K/mm3 (4.00-11.30)
[2025-01-20 11:46] LABS: Alanine Aminotransfer (ALT/SGP 21 U/L (12-78); Albumin, Blood 3.8 g/dL (3.4-5.0); Alk Phos 89 U/L (50-136); Anion Gap 11 mmol/L (3-11); Aspartate Aminotrans (AST/SGOT 25 U/L (12-37); Bilirubin, Total 0.4 mg/dL (0.1-1.0); Blood Urea Nitrogen 49 mg/dL (8-24); Bun/Creatinine Ratio 31.8 (12.0-20.0); CO2, Blood 19 mmol/L (21-32); Chloride, Blood 111 mmol/L (98-108); Creatinine, Blood 1.54 mg/dL (0.60-1.20); Globulin, Blood 3.8 g/dL (2.2-4.0); Glomerular Filtration Rate 45 (60-); Glucose, Blood 131 mg/dL (70-99); Potassium, Blood 5.5 mmol/L (3.5-5.5); Sodium, Blood 135 mmol/L (136-145); Total Protein, Blood 7.6 g/dL (6.4-8.2)
== END | disposition home or self-care (01) ==
LOC: LAB 10:27 → LAB SHORT 10:27
PROVIDERS: Physician Assistant
DX: D53.9 Nutritional anemia, unspecified (principal); R10.30 Lower abdominal pain, unspecified; R79.89 Other specified abnormal findings of blood chemistry
CPT/HCPCS: 80053; 82607; 82746; 85025; 85060; 87077; 87086; 87186

== ENCOUNTER → 2025-01-25 | Outpatient (CLI) | payer MEDICARE, OTHER ==
[2025-01-25 14:30] LABS: BASOPHILS ABSOLUTE AUTO 0.01 K/mm3 (0.00-0.23); BASOPHILS PERCENT AUTO 0 % (0-2); EOSINOPHILS ABSOLUTE AUTO 0.05 K/mm3 (0.00-0.68); EOSINOPHILS PERCENT AUTO 2 % (0-6); Hematocrit 34.1 % (37.0-53.0); Hemoglobin 10.8 g/dL (13.5-17.5); IMMATURE GRAN ABSOLUTE AUTO 0.02 K/mm3 (0.00-0.10); IMMATURE GRAN PERCENT AUTO 1 % (0-1); LYMPHOCYTES ABSOLUTE AUTO 0.52 K/mm3 (0.84-5.20); LYMPHOCYTES PERCENT AUTO 17 % (21-46); MONOCYTES ABSOLUTE AUTO 0.24 K/mm3 (0.16-1.47); MONOCYTES PERCENT AUTO 8 % (4-13); Mean Corpuscular HGB 32.6 pg (26.0-34.0); Mean Corpuscular HGB Conc 31.7 g/dL (31.5-36.5); Mean Corpuscular Volume 103 fL (80-100); Mean Platelet Volume 9.3 fL (9.1-12.4); NEUTROPHILS PERCENT AUTO 73 % (41-73); Platelet Count 155 K/mm3 (150-400); RDW Coefficient Variation 14.4 % (11.7-14.2); RDW Standard Deviation 54.4 fL (35.1-46.3); Red Blood Cell Count 3.31 M/mm3 (4.30-5.90); White Blood Cell Count 3.14 K/mm3 (4.00-11.30)
[2025-01-25 14:42] LABS: Albumin, Blood 3.7 g/dL (3.4-5.0); Albumin/Globulin Ratio 1.2 (0.8-1.8); Bilirubin, Total 0.4 mg/dL (0.1-1.0); Bun/Creatinine Ratio 20.5 (12.0-20.0); Calcium, Blood 9.1 mg/dL (8.5-10.1); Creatinine, Blood 2.19 mg/dL (0.60-1.20); Globulin, Blood 3.2 g/dL (2.2-4.0); Potassium, Blood 4.8 mmol/L (3.5-5.5); Total Protein, Blood 6.9 g/dL (6.4-8.2)
== END ==
LOC: LAB SHORT 14:23 → LAB 14:23
PROVIDERS: Family Medicine
DX: R42 Dizziness and giddiness (principal)
CPT/HCPCS: 80053; 85025

== ENCOUNTER 2025-01-26 09:08 | Emergency (ER) | payer MEDICARE, OTHER ==
[~2025-01-26] VITALS: Ht 182.9 cm; Wt 63.5 kg
[2025-01-26] MEDS ORDERED: Prochlorperazine Edisylate 10 mg Vial IV ONE (09:40)
[2025-01-26 10:19] LABS: BASOPHILS ABSOLUTE AUTO 0.03 K/mm3 (0.00-0.23); BASOPHILS PERCENT AUTO 1 % (0-2); EOSINOPHILS ABSOLUTE AUTO 0.11 K/mm3 (0.00-0.68); EOSINOPHILS PERCENT AUTO 3 % (0-6); Hematocrit 36.1 % (37.0-53.0); Hemoglobin 11.8 g/dL (13.5-17.5); IMMATURE GRAN ABSOLUTE AUTO 0.02 K/mm3 (0.00-0.10); IMMATURE GRAN PERCENT AUTO 1 % (0-1); LYMPHOCYTES ABSOLUTE AUTO 0.57 K/mm3 (0.84-5.20); LYMPHOCYTES PERCENT AUTO 13 % (21-46); MONOCYTES ABSOLUTE AUTO 0.23 K/mm3 (0.16-1.47); MONOCYTES PERCENT AUTO 5 % (4-13); Mean Corpuscular HGB Conc 32.7 g/dL (31.5-36.5); Mean Corpuscular Volume 104 fL (80-100); Mean Platelet Volume 9.4 fL (9.1-12.4); NEUTROPHILS ABSOLUTE AUTO 3.41 K/mm3 (1.96-9.15); NEUTROPHILS PERCENT AUTO 78 % (41-73); Platelet Count 160 K/mm3 (150-400); RDW Coefficient Variation 14.4 % (11.7-14.2); Red Blood Cell Count 3.47 M/mm3 (4.30-5.90); White Blood Cell Count 4.37 K/mm3 (4.00-11.30)
[2025-01-26 10:44] LABS: Albumin, Blood 3.8 g/dL (3.4-5.0); Albumin/Globulin Ratio 1.2 (0.8-1.8); Bilirubin, Total 0.3 mg/dL (0.1-1.0); Bun/Creatinine Ratio 23.3 (12.0-20.0); Calcium, Blood 8.5 mg/dL (8.5-10.1); Creatinine, Blood 1.5 mg/dL (0.60-1.20); Globulin, Blood 3.3 g/dL (2.2-4.0); Potassium, Blood 4.4 mmol/L (3.5-5.5); Total Protein, Blood 7.1 g/dL (6.4-8.2)
[2025-01-26 10:44] LABS: Source, Urine Voided
[2025-01-26 11:25] LABS: Appearance, Urine Clear (Clear); Bilirubin, Urine Neg (Neg); Blood, Urine 2+ (Neg); Color, Urine Yellow (P-Yellow); Glucose Qualitative, Urine Neg (Neg); Ketones, Urine Neg (Neg); Leukocyte Esterase, Urine 2+ (Neg); Nitrite, Urine Neg (Neg); Protein, Urine 2+ (Neg); Urobilinogen, Urine NORM (Normal)
[2025-01-26 11:34] LABS: Bacteria Few /hpf; Squamous Epithelial Cells Rare /hpf (Few); White Blood Cells, Urine 25-50 /hpf (0-5)
[2025-01-26] MEDS ORDERED: Droperidol 5 mg/2 ml Vial IV ONE (13:00)
[2025-01-26 14:30] VITALS: BP 161/85
== END 2025-01-26 14:36 | disposition home or self-care (01) ==
LOC: ER 09:08
PROVIDERS: Emergency Medicine
DX: R10.9 Unspecified abdominal pain (principal); N18.30 Chronic kidney disease, stage 3 unspecified; Z79.891 Long term (current) use of opiate analgesic; Z79.02 Long term (current) use of antithrombotics/antiplatelets; Z79.899 Other long term (current) drug therapy; Z79.1 Long term (current) use of non-steroidal anti-inflammatories (NSAID); Z79.85 Long-term (current) use of injectable non-insulin antidiabetic drugs; Z16.32 Resistance to antifungal drug(s)
CPT/HCPCS: 74177; 80053; 81001; 83690; 85025; 87077; 87086; 87186; 93005; 93010; 96374-59; 96375; 99284-25; J0780; J1790; Q9967

== ENCOUNTER 2025-01-31 02:38 | Day surgery (SDC) | payer MEDICARE, OTHER ==
[2025-01-31] MEDS ORDERED: CefTRIAXone Sodium 1,000 MG in NS 100 ML IV SCH (06:00)
[2025-01-31 16:45] VITALS: BP 107/65
== END 2025-01-31 17:05 | disposition home or self-care (01) ==
LOC: ATC 02:38
DX: N39.0 Urinary tract infection, site not specified (principal); I12.9 Hypertensive chronic kidney disease with stage 1 through stage 4 chronic kidney disease, or unspecified chronic kidney disease; E11.22 Type 2 diabetes mellitus with diabetic chronic kidney disease; N18.31 Chronic kidney disease, stage 3a; D63.1 Anemia in chronic kidney disease; N25.81 Secondary hyperparathyroidism of renal origin; M81.0 Age-related osteoporosis without current pathological fracture; Z79.899 Other long term (current) drug therapy
CPT/HCPCS: 96365; J0696

== ENCOUNTER 2025-02-01 04:03 | Day surgery (SDC) | payer MEDICARE, OTHER ==
[2025-02-01] MEDS ORDERED: CefTRIAXone Sodium 1,000 MG in NS 100 ML IV SCH (06:00)
[2025-02-01 16:55] VITALS: BP 119/62
== END 2025-02-01 17:25 | disposition home or self-care (01) ==
LOC: ATC 04:03
DX: N39.0 Urinary tract infection, site not specified (principal); E11.22 Type 2 diabetes mellitus with diabetic chronic kidney disease; I12.9 Hypertensive chronic kidney disease with stage 1 through stage 4 chronic kidney disease, or unspecified chronic kidney disease; N18.31 Chronic kidney disease, stage 3a; N25.81 Secondary hyperparathyroidism of renal origin; M81.0 Age-related osteoporosis without current pathological fracture; Z79.899 Other long term (current) drug therapy
CPT/HCPCS: 96365; J0696

== ENCOUNTER 2025-02-02 03:13 | Day surgery (SDC) | payer MEDICARE, OTHER ==
[2025-02-02] MEDS ORDERED: CefTRIAXone Sodium 1,000 MG in NS 100 ML IV SCH (06:00)
[2025-02-02 16:55] VITALS: BP 123/79
== END 2025-02-02 17:17 | disposition home or self-care (01) ==
LOC: ATC 03:13
DX: N39.0 Urinary tract infection, site not specified (principal); I12.9 Hypertensive chronic kidney disease with stage 1 through stage 4 chronic kidney disease, or unspecified chronic kidney disease; E11.22 Type 2 diabetes mellitus with diabetic chronic kidney disease; N18.31 Chronic kidney disease, stage 3a; D63.1 Anemia in chronic kidney disease; N25.81 Secondary hyperparathyroidism of renal origin; M81.0 Age-related osteoporosis without current pathological fracture; Z79.899 Other long term (current) drug therapy
CPT/HCPCS: 96365; J0696

== ENCOUNTER 2025-02-03 00:48 | Day surgery (SDC) | payer MEDICARE, OTHER ==
[2025-02-03] MEDS ORDERED: CefTRIAXone Sodium 1,000 MG in NS 100 ML IV SCH (06:00)
[2025-02-03 17:00] VITALS: BP 115/75
[2025-02-04] MEDS ORDERED: CefTRIAXone Sodium 1,000 MG in NS 100 ML IV SCH (06:00)
== END 2025-02-03 17:23 | disposition home or self-care (01) ==
LOC: ATC 00:48
DX: N39.0 Urinary tract infection, site not specified (principal); Z79.899 Other long term (current) drug therapy; I12.9 Hypertensive chronic kidney disease with stage 1 through stage 4 chronic kidney disease, or unspecified chronic kidney disease; E11.22 Type 2 diabetes mellitus with diabetic chronic kidney disease; N18.31 Chronic kidney disease, stage 3a; E86.9 Volume depletion, unspecified; N25.81 Secondary hyperparathyroidism of renal origin; M81.0 Age-related osteoporosis without current pathological fracture
CPT/HCPCS: 96365; J0696

== ENCOUNTER 2025-02-04 01:21 | Day surgery (SDC) | payer MEDICARE, OTHER ==
[2025-02-04] MEDS ORDERED: CefTRIAXone Sodium 1,000 MG in NS 100 ML IV SCH (06:00)
[2025-02-04 16:59] VITALS: BP 117/71
[2025-02-05] MEDS ORDERED: LINE600 PO (10:55)
== END 2025-02-04 17:23 | disposition home or self-care (01) ==
LOC: ATC 01:21
DX: N39.0 Urinary tract infection, site not specified (principal); I12.9 Hypertensive chronic kidney disease with stage 1 through stage 4 chronic kidney disease, or unspecified chronic kidney disease; E11.22 Type 2 diabetes mellitus with diabetic chronic kidney disease; N18.31 Chronic kidney disease, stage 3a; D63.1 Anemia in chronic kidney disease; N25.81 Secondary hyperparathyroidism of renal origin; E11.21 Type 2 diabetes mellitus with diabetic nephropathy; Z79.899 Other long term (current) drug therapy
CPT/HCPCS: 96365; J0696

== ENCOUNTER 2025-02-05 09:39 | Emergency (ER) | payer MEDICARE, OTHER ==
[~2025-02-05] VITALS: Ht 182.9 cm; Wt 63.5 kg
[2025-02-05 10:11] LABS: Source, Urine Clean Catch
[2025-02-05 10:16] LABS: Appearance, Urine Hazy (Clear); Bilirubin, Urine Neg (Neg); Blood, Urine 3+ (Neg); Color, Urine Yellow (P-Yellow); Glucose Qualitative, Urine Neg (Neg); Ketones, Urine Neg (Neg); Leukocyte Esterase, Urine 3+ (Neg); Nitrite, Urine Neg (Neg); Protein, Urine 2+ (Neg); Specific Gravity, Urine 1.005 (1.003-1.022); Urobilinogen, Urine NORM (Normal)
[2025-02-05 10:31] LABS: Bacteria Many /hpf; Squamous Epithelial Cells Rare /hpf (Few); White Blood Cells, Urine 50-100 /hpf (0-5)
[2025-02-05] MEDS ORDERED: LINE600 PO (10:55)
[2025-02-05 11:04] VITALS: BP 158/75
== END 2025-02-05 11:13 | disposition home or self-care (01) ==
LOC: ER 09:39
PROVIDERS: Emergency Medicine
DX: N39.0 Urinary tract infection, site not specified (principal); B95.2 Enterococcus as the cause of diseases classified elsewhere; N18.30 Chronic kidney disease, stage 3 unspecified; Z16.21 Resistance to vancomycin; Z79.899 Other long term (current) drug therapy
CPT/HCPCS: 81001; 87077; 87086; 87186; 99283

== ENCOUNTER → 2025-02-09 | Outpatient (CLI) | payer MEDICARE, OTHER ==
[2025-02-09 09:39] LABS: Source, Urine Clean Catch
[2025-02-09 10:54] LABS: Appearance, Urine Cloudy (Clear); Bilirubin, Urine Neg (Neg); Blood, Urine 3+ (Neg); Color, Urine Yellow (P-Yellow); Glucose Qualitative, Urine Neg (Neg); Ketones, Urine Neg (Neg); Leukocyte Esterase, Urine 3+ (Neg); Nitrite, Urine Neg (Neg); Protein, Urine 3+ (Neg); Urobilinogen, Urine NORM (Normal)
[2025-02-09 12:05] LABS: White Blood Cells, Urine TNTC /hpf (0-5)
[2025-02-09 12:06] LABS: Bacteria Many /hpf; Red Blood Cells, Urine 25-50 /hpf (0-2); Squamous Epithelial Cells Not Seen /hpf (Few)
== END ==
LOC: LAB 09:37 → LAB SHORT 09:37 → LAB FUT 10-16 18:55
PROVIDERS: Internal Medicine Nephrology
DX: N39.0 Urinary tract infection, site not specified (principal)
CPT/HCPCS: 81001; 87077; 87086; 87186

== ENCOUNTER → 2025-02-10 | Outpatient (CLI) | payer MEDICARE, OTHER | END | disposition home or self-care (01) | LOC: LAB 10:26 → LAB SHORT 10:26 | DX: N39.0 Urinary tract infection, site not specified (principal) | CPT/HCPCS: 87077; 87086; 87106; 87186 ==

== ENCOUNTER 2025-02-20 08:40 | Emergency (ER) | payer MEDICARE, OTHER ==
[~2025-02-20] VITALS: Ht 177.8 cm; Wt 68.0 kg
[2025-02-20 09:19] VITALS: BP 180/95
[2025-02-20 09:57] LABS: Source, Urine Clean Catch
[2025-02-20 10:07] LABS: Appearance, Urine Hazy (Clear); Bilirubin, Urine Neg (Neg); Blood, Urine 4+ (Neg); Color, Urine Yellow (P-Yellow); Glucose Qualitative, Urine Neg (Neg); Ketones, Urine Neg (Neg); Leukocyte Esterase, Urine 3+ (Neg); Nitrite, Urine Pos (Neg); Protein, Urine 3+ (Neg); Urobilinogen, Urine NORM (Normal)
[2025-02-20 10:21] LABS: White Blood Cells, Urine 50-100 /hpf (0-5)
[2025-02-20 10:22] LABS: Bacteria Many /hpf; Squamous Epithelial Cells Not Seen /hpf (Few)
== END 2025-02-20 09:52 | disposition home or self-care (01) ==
LOC: ER 08:40
PROVIDERS: Student in an Organized Health Care Education/Training Program
DX: N39.0 Urinary tract infection, site not specified (principal); R10.9 Unspecified abdominal pain; G89.29 Other chronic pain; Z79.899 Other long term (current) drug therapy
CPT/HCPCS: 81001; 87077; 87086; 87186; 99284

== ENCOUNTER → 2025-02-21 | Outpatient (CLI) | payer MEDICARE, OTHER | LOC: LAB 13:50 → LAB SHORT 13:50 | DX: N39.0 Urinary tract infection, site not specified (principal) | CPT/HCPCS: 87077; 87086; 87186 ==

== ENCOUNTER → 2025-03-01 | Outpatient (CLI) | payer MEDICARE, OTHER ==
[2025-03-01 15:25] LABS: U Amphetamine Screen Not Detected; U Barbituate Screen Not Detected; U Benzodiazapine Screen Not Detected; U Buprenorphine Screen Not Detected; U Cannabinoids Screen Not Detected; U Cocaine Screen Not Detected; U Methadone Screen Not Detected; U Methamphetamine Screen Not Detected; U Opiates Screen Not Detected; U Oxycodone Screen DETECTED; U Phencyclidine Screen Not Detected
== END ==
LOC: LAB 13:03 → LAB SHORT 13:03
PROVIDERS: Internal Medicine Hematology & Oncology
DX: Z51.81 Encounter for therapeutic drug level monitoring (principal); Z79.899 Other long term (current) drug therapy

== ENCOUNTER 2025-03-05 09:13 | Day surgery (SDC) | payer MEDICARE, OTHER ==
[2025-03-05] MEDS ORDERED: Ertapenem Sodium 1,000 MG in NS 50 ML IV SCH (09:50)
[2025-03-05 16:55] VITALS: BP 117/69
== END 2025-03-05 17:07 | disposition home or self-care (01) ==
LOC: ATC 09:13
DX: N39.0 Urinary tract infection, site not specified (principal); I12.9 Hypertensive chronic kidney disease with stage 1 through stage 4 chronic kidney disease, or unspecified chronic kidney disease; N18.31 Chronic kidney disease, stage 3a; E11.22 Type 2 diabetes mellitus with diabetic chronic kidney disease; M81.0 Age-related osteoporosis without current pathological fracture; Z79.899 Other long term (current) drug therapy
CPT/HCPCS: 96374; J1335

== ENCOUNTER 2025-03-06 02:59 | Day surgery (SDC) | payer MEDICARE, OTHER ==
[~2025-03-06 02:59] MED LIST changes: +Ertapenem Sodium 1,000 MG in NS 50 ML IV SCH
== END 2025-03-06 17:44 | disposition home or self-care (01) ==
LOC: ATC 02:59
DX: N39.0 Urinary tract infection, site not specified (principal); I12.9 Hypertensive chronic kidney disease with stage 1 through stage 4 chronic kidney disease, or unspecified chronic kidney disease; E11.22 Type 2 diabetes mellitus with diabetic chronic kidney disease; N18.31 Chronic kidney disease, stage 3a; N25.81 Secondary hyperparathyroidism of renal origin; D63.1 Anemia in chronic kidney disease; E87.5 Hyperkalemia; M81.0 Age-related osteoporosis without current pathological fracture; G60.9 Hereditary and idiopathic neuropathy, unspecified; E55.9 Vitamin D deficiency, unspecified; Z79.2 Long term (current) use of antibiotics; Z79.899 Other long term (current) drug therapy
CPT/HCPCS: 96365; J1335

== ENCOUNTER 2025-03-07 02:20 | Day surgery (SDC) | payer MEDICARE, OTHER ==
[2025-03-07 16:49] VITALS: BP 140/77
== END 2025-03-07 17:00 | disposition home or self-care (01) ==
LOC: ATC 02:20
DX: N39.0 Urinary tract infection, site not specified (principal); E11.22 Type 2 diabetes mellitus with diabetic chronic kidney disease; I12.9 Hypertensive chronic kidney disease with stage 1 through stage 4 chronic kidney disease, or unspecified chronic kidney disease; N18.31 Chronic kidney disease, stage 3a; M81.0 Age-related osteoporosis without current pathological fracture
CPT/HCPCS: 96365; J1335

== ENCOUNTER 2025-03-08 02:16 | Day surgery (SDC) | payer MEDICARE, OTHER ==
[2025-03-08 16:46] VITALS: BP 128/63
== END 2025-03-08 17:05 | disposition home or self-care (01) ==
LOC: ATC 02:16
DX: N39.0 Urinary tract infection, site not specified (principal); I12.9 Hypertensive chronic kidney disease with stage 1 through stage 4 chronic kidney disease, or unspecified chronic kidney disease; N18.9 Chronic kidney disease, unspecified; N18.31 Chronic kidney disease, stage 3a; D63.1 Anemia in chronic kidney disease; N25.81 Secondary hyperparathyroidism of renal origin; E11.21 Type 2 diabetes mellitus with diabetic nephropathy; Z79.899 Other long term (current) drug therapy
CPT/HCPCS: 96365; J1335

== ENCOUNTER 2025-03-09 03:50 | Day surgery (SDC) | payer MEDICARE, OTHER ==
[2025-03-09 17:15] VITALS: BP 111/75
== END 2025-03-09 17:35 | disposition home or self-care (01) ==
LOC: ATC 03:50
DX: N39.0 Urinary tract infection, site not specified (principal); I12.9 Hypertensive chronic kidney disease with stage 1 through stage 4 chronic kidney disease, or unspecified chronic kidney disease; E11.22 Type 2 diabetes mellitus with diabetic chronic kidney disease; N18.31 Chronic kidney disease, stage 3a; D63.1 Anemia in chronic kidney disease; N25.81 Secondary hyperparathyroidism of renal origin; E11.21 Type 2 diabetes mellitus with diabetic nephropathy; Z79.899 Other long term (current) drug therapy
CPT/HCPCS: 96365; J1335

== ENCOUNTER 2025-04-24 19:17 | Emergency (ER) | payer MEDICARE, OTHER ==
[~2025-04-24] VITALS: Ht 182.9 cm; Wt 63.5 kg
[~2025-04-24 19:17] MED LIST changes: -Ertapenem Sodium 1,000 MG in NS 50 ML IV SCH
[2025-04-24 19:21] VITALS: BP 174/119
[2025-04-24] MEDS ORDERED: Ketorolac Tromethamine 15mg Vial IV ONE (20:40)
[2025-04-24 20:56] LABS: BASOPHILS ABSOLUTE AUTO 0.01 K/mm3 (0.00-0.23); BASOPHILS PERCENT AUTO 0 % (0-2); EOSINOPHILS ABSOLUTE AUTO 0.03 K/mm3 (0.00-0.68); EOSINOPHILS PERCENT AUTO 1 % (0-6); Hematocrit 34.1 % (37.0-53.0); Hemoglobin 11.0 g/dL (13.5-17.5); IMMATURE GRAN ABSOLUTE AUTO 0.01 K/mm3 (0.00-0.10); IMMATURE GRAN PERCENT AUTO 0 % (0-1); LYMPHOCYTES ABSOLUTE AUTO 0.59 K/mm3 (0.84-5.20); LYMPHOCYTES PERCENT AUTO 19 % (21-46); MONOCYTES ABSOLUTE AUTO 0.30 K/mm3 (0.16-1.47); MONOCYTES PERCENT AUTO 10 % (4-13); Mean Corpuscular HGB Conc 32.3 g/dL (31.5-36.5); Mean Corpuscular Volume 103 fL (80-100); NEUTROPHILS ABSOLUTE AUTO 2.14 K/mm3 (1.96-9.15); NEUTROPHILS PERCENT AUTO 70 % (41-73); NRBC ABSOLUTE 0.00 K/mm3 (0.00-0.02); NRBC Auto 0.0 /100 WBC (0.0-0.2); Platelet Count 129 K/mm3 (150-400); RDW Coefficient Variation 13.6 % (11.7-14.2); RDW Standard Deviation 52.2 fL (35.1-46.3)
[2025-04-24 21:21] LABS: Alanine Aminotransfer (ALT/SGP 16.0 U/L (12-78); Albumin, Blood 3.7 g/dL (3.4-5.0); Albumin/Globulin Ratio 1.1 (0.8-1.8); Anion Gap 10.0 mmol/L (3-11); Aspartate Aminotrans (AST/SGOT 11.0 U/L (12-37); Bilirubin, Total 0.4 mg/dL (0.1-1.0); Blood Urea Nitrogen 40.0 mg/dL (8-24); CO2, Blood 21.0 mmol/L (21-32); Calcium, Blood 8.9 mg/dL (8.5-10.1); Chloride, Blood 111.0 mmol/L (98-108); Creatinine, Blood 1.86 mg/dL (0.60-1.20); Globulin, Blood 3.3 g/dL (2.2-4.0); Glucose, Blood 102.0 mg/dL (70-99); Potassium, Blood 5.1 mmol/L (3.5-5.5); Sodium, Blood 137.0 mmol/L (136-145); Total Protein, Blood 7.0 g/dL (6.4-8.2)
== END 2025-04-24 22:36 | disposition home or self-care (01) ==
LOC: ER 19:17
PROVIDERS: Student in an Organized Health Care Education/Training Program
DX: R10.9 Unspecified abdominal pain (principal); N18.30 Chronic kidney disease, stage 3 unspecified; Z79.899 Other long term (current) drug therapy; Z79.2 Long term (current) use of antibiotics; Z87.442 Personal history of urinary calculi
CPT/HCPCS: 74177; 80053; 85025; 96374-59; 99284-25; A9270; J1885; Q9967

== ENCOUNTER 2025-04-26 05:05 | Emergency (ER) | payer MEDICARE, OTHER ==
[~2025-04-26] VITALS: Ht 182.9 cm; Wt 63.5 kg
[2025-04-26] MEDS ORDERED: Ketorolac Tromethamine 15mg Vial IV ONE (06:20)
[2025-04-26 06:30] LABS: Source, Urine Urostomy Bag
[2025-04-26 06:34] LABS: Bilirubin, Urine Neg (Neg); Color, Urine Yellow (P-Yellow); Glucose Qualitative, Urine Neg (Neg); Ketones, Urine Neg (Neg); Leukocyte Esterase, Urine 3+ (Neg); Protein, Urine 3+ (Neg); Specific Gravity, Urine 1.010 (1.003-1.022); Urobilinogen, Urine NORM (Normal)
[2025-04-26 06:47] LABS: Red Blood Cells, Urine TNTC /hpf (0-2); White Blood Cells, Urine TNTC /hpf (0-5)
[2025-04-26 07:08] LABS: BASOPHILS ABSOLUTE AUTO 0.02 K/mm3 (0.00-0.23); BASOPHILS PERCENT AUTO 1 % (0-2); EOSINOPHILS ABSOLUTE AUTO 0.06 K/mm3 (0.00-0.68); EOSINOPHILS PERCENT AUTO 2 % (0-6); Hematocrit 32.3 % (37.0-53.0); Hemoglobin 10.4 g/dL (13.5-17.5); IMMATURE GRAN ABSOLUTE AUTO 0.01 K/mm3 (0.00-0.10); IMMATURE GRAN PERCENT AUTO 0 % (0-1); LYMPHOCYTES ABSOLUTE AUTO 0.48 K/mm3 (0.84-5.20); LYMPHOCYTES PERCENT AUTO 13 % (21-46); MONOCYTES ABSOLUTE AUTO 0.25 K/mm3 (0.16-1.47); MONOCYTES PERCENT AUTO 7 % (4-13); Mean Corpuscular HGB Conc 32.2 g/dL (31.5-36.5); Mean Corpuscular Volume 104 fL (80-100); NEUTROPHILS ABSOLUTE AUTO 2.81 K/mm3 (1.96-9.15); NEUTROPHILS PERCENT AUTO 77 % (41-73); NRBC ABSOLUTE 0.00 K/mm3 (0.00-0.02); NRBC Auto 0.0 /100 WBC (0.0-0.2); Platelet Count 112 K/mm3 (150-400); RDW Coefficient Variation 13.9 % (11.7-14.2); RDW Standard Deviation 52.7 fL (35.1-46.3)
[2025-04-26 07:16] LABS: Alanine Aminotransfer (ALT/SGP 16.0 U/L (12-78); Albumin, Blood 3.5 g/dL (3.4-5.0); Albumin/Globulin Ratio 1.2 (0.8-1.8); Anion Gap 8.0 mmol/L (3-11); Aspartate Aminotrans (AST/SGOT 10.0 U/L (12-37); Bilirubin, Total 0.4 mg/dL (0.1-1.0); Blood Urea Nitrogen 43.0 mg/dL (8-24); CO2, Blood 22.0 mmol/L (21-32); Calcium, Blood 8.0 mg/dL (8.5-10.1); Chloride, Blood 111.0 mmol/L (98-108); Creatinine, Blood 1.82 mg/dL (0.60-1.20); Globulin, Blood 3.0 g/dL (2.2-4.0); Glucose, Blood 116.0 mg/dL (70-99); Potassium, Blood 4.9 mmol/L (3.5-5.5); Sodium, Blood 136.0 mmol/L (136-145); Total Protein, Blood 6.5 g/dL (6.4-8.2)
[2025-04-26] MEDS ORDERED: Polyethylene Glycol 3350 17 gm PO ONE (07:20)
[2025-04-26 07:45] VITALS: BP 160/91
== END 2025-04-26 08:11 | disposition home or self-care (01) ==
LOC: ER 05:05
PROVIDERS: Emergency Medicine
DX: R10.30 Lower abdominal pain, unspecified (principal); N18.30 Chronic kidney disease, stage 3 unspecified; Z79.899 Other long term (current) drug therapy
CPT/HCPCS: 74018; 80053; 81001; 85025; 87077; 87086; 87186; 96374; 99283-25; A9270; J1885

== ENCOUNTER 2025-05-07 10:05 | Emergency (ER) | payer MEDICARE, OTHER ==
[~2025-05-07] VITALS: Ht 182.9 cm; Wt 72.6 kg
[2025-05-07 11:02] LABS: BASOPHILS ABSOLUTE AUTO 0.02 K/mm3 (0.00-0.23); BASOPHILS PERCENT AUTO 1 % (0-2); EOSINOPHILS ABSOLUTE AUTO 0.06 K/mm3 (0.00-0.68); EOSINOPHILS PERCENT AUTO 1 % (0-6); Hematocrit 34.5 % (37.0-53.0); Hemoglobin 11.0 g/dL (13.5-17.5); IMMATURE GRAN ABSOLUTE AUTO 0.03 K/mm3 (0.00-0.10); IMMATURE GRAN PERCENT AUTO 1 % (0-1); LYMPHOCYTES ABSOLUTE AUTO 0.34 K/mm3 (0.84-5.20); LYMPHOCYTES PERCENT AUTO 8 % (21-46); MONOCYTES ABSOLUTE AUTO 0.22 K/mm3 (0.16-1.47); MONOCYTES PERCENT AUTO 5 % (4-13); Mean Corpuscular HGB Conc 31.9 g/dL (31.5-36.5); Mean Corpuscular Volume 104 fL (80-100); NEUTROPHILS ABSOLUTE AUTO 3.53 K/mm3 (1.96-9.15); NEUTROPHILS PERCENT AUTO 84 % (41-73); NRBC ABSOLUTE 0.00 K/mm3 (0.00-0.02); NRBC Auto 0.0 /100 WBC (0.0-0.2); Platelet Count 117 K/mm3 (150-400); RDW Coefficient Variation 13.5 % (11.7-14.2); RDW Standard Deviation 52.1 fL (35.1-46.3)
[2025-05-07 12:03] LABS: Alanine Aminotransfer (ALT/SGP 15.0 U/L (12-78); Albumin, Blood 3.6 g/dL (3.4-5.0); Albumin/Globulin Ratio 1.2 (0.8-1.8); Anion Gap 4.0 mmol/L (3-11); Aspartate Aminotrans (AST/SGOT 16.0 U/L (12-37); Bilirubin, Total 0.4 mg/dL (0.1-1.0); Blood Urea Nitrogen 31.0 mg/dL (8-24); CO2, Blood 26.0 mmol/L (21-32); Calcium, Blood 8.2 mg/dL (8.5-10.1); Chloride, Blood 111.0 mmol/L (98-108); Creatinine, Blood 1.73 mg/dL (0.60-1.20); Globulin, Blood 3.0 g/dL (2.2-4.0); Glucose, Blood 113.0 mg/dL (70-99); Potassium, Blood 5.1 mmol/L (3.5-5.5); Sodium, Blood 136.0 mmol/L (136-145); Total Protein, Blood 6.6 g/dL (6.4-8.2)
[2025-05-07 12:55] LABS: Prothrombin Time Results 11.0 Sec (9.7-11.5)
[2025-05-07 14:45] VITALS: BP 167/90
== END 2025-05-07 15:23 | disposition short-term general hospital (02) ==
LOC: ER 10:05
PROVIDERS: Student in an Organized Health Care Education/Training Program
DX: S06.6XAA Traumatic subarachnoid hemorrhage with loss of consciousness status unknown, initial encounter (principal); S06.5XAA Traumatic subdural hemorrhage with loss of consciousness status unknown, initial encounter; S02.0XXA Fracture of vault of skull, initial encounter for closed fracture; S02.19XA Other fracture of base of skull, initial encounter for closed fracture; N18.30 Chronic kidney disease, stage 3 unspecified; Z93.50 Unspecified cystostomy status; Z79.899 Other long term (current) drug therapy; W19.XXXA Unspecified fall, initial encounter
CPT/HCPCS: 70450; 72125; 80053; 80320; 82947; 84484; 85025; 85610; 85730; 86850; 86900; 86901; 93005; 93010; 96365; 99285-25; J1953

== ENCOUNTER 2025-06-25 11:22 | Emergency (ER) | payer MEDICARE, OTHER ==
[~2025-06-25] VITALS: Ht 182.9 cm; Wt 59.0 kg
[2025-06-25 13:04] LABS: BASOPHILS ABSOLUTE AUTO 0.02 K/mm3 (0.00-0.23); BASOPHILS PERCENT AUTO 0 % (0-2); EOSINOPHILS ABSOLUTE AUTO 0.07 K/mm3 (0.00-0.68); EOSINOPHILS PERCENT AUTO 1 % (0-6); Hematocrit 39.9 % (37.0-53.0); Hemoglobin 12.3 g/dL (13.5-17.5); IMMATURE GRAN ABSOLUTE AUTO 0.04 K/mm3 (0.00-0.10); IMMATURE GRAN PERCENT AUTO 1 % (0-1); LYMPHOCYTES ABSOLUTE AUTO 0.82 K/mm3 (0.84-5.20); LYMPHOCYTES PERCENT AUTO 14 % (21-46); MONOCYTES ABSOLUTE AUTO 0.43 K/mm3 (0.16-1.47); MONOCYTES PERCENT AUTO 8 % (4-13); Mean Corpuscular HGB Conc 30.8 g/dL (31.5-36.5); Mean Corpuscular Volume 106 fL (80-100); NEUTROPHILS ABSOLUTE AUTO 4.32 K/mm3 (1.96-9.15); NEUTROPHILS PERCENT AUTO 76 % (41-73); NRBC ABSOLUTE 0.00 K/mm3 (0.00-0.02); NRBC Auto 0.0 /100 WBC (0.0-0.2); Platelet Count 143 K/mm3 (150-400); RDW Coefficient Variation 14.5 % (11.7-14.2); RDW Standard Deviation 56.8 fL (35.1-46.3)
[2025-06-25 13:21] LABS: Alanine Aminotransfer (ALT/SGP 10.0 U/L (12-78); Albumin, Blood 3.2 g/dL (3.4-5.0); Albumin/Globulin Ratio 0.8 (0.8-1.8); Anion Gap 8.0 mmol/L (3-11); Aspartate Aminotrans (AST/SGOT 10.0 U/L (12-37); Bilirubin, Total 0.4 mg/dL (0.1-1.0); Blood Urea Nitrogen 43.0 mg/dL (8-24); CO2, Blood 10.0 mmol/L (21-32); Calcium, Blood 8.1 mg/dL (8.5-10.1); Chloride, Blood 125.0 mmol/L (98-108); Creatinine, Blood 1.9 mg/dL (0.60-1.20); Globulin, Blood 3.8 g/dL (2.2-4.0); Glucose, Blood 119.0 mg/dL (70-99); Potassium, Blood 4.8 mmol/L (3.5-5.5); Sodium, Blood 138.0 mmol/L (136-145); Total Protein, Blood 7.0 g/dL (6.4-8.2)
[2025-06-25 15:40] VITALS: BP 147/79
[2025-06-25 15:57] LABS: Source, Urine Urostomy Bag
[2025-06-25 16:05] LABS: Bilirubin, Urine Neg (Neg); Color, Urine Yellow (P-Yellow); Glucose Qualitative, Urine Neg (Neg); Ketones, Urine Neg (Neg); Leukocyte Esterase, Urine 3+ (Neg); Protein, Urine 3+ (Neg); Specific Gravity, Urine 1.005 (1.003-1.022); Urobilinogen, Urine NORM (Normal)
[2025-06-25] MEDS ORDERED: MIRALAX17 GM PO (16:23)
[2025-06-25] MEDS ORDERED: DICY20 PO (16:23)
[2025-06-25 16:25] LABS: Red Blood Cells, Urine 25-50 /hpf (0-2); White Blood Cells, Urine 25-50 /hpf (0-5)
== END 2025-06-25 17:29 | disposition home or self-care (01) ==
LOC: ER 11:22
PROVIDERS: Student in an Organized Health Care Education/Training Program
DX: K59.00 Constipation, unspecified (principal); N18.30 Chronic kidney disease, stage 3 unspecified; Z79.899 Other long term (current) drug therapy; Z79.2 Long term (current) use of antibiotics; Z87.442 Personal history of urinary calculi
CPT/HCPCS: 74177; 80053; 81001; 83690; 84484; 85025; 87077; 87086; 87186; 99284-25; Q9967

== ENCOUNTER 2025-06-30 10:10 | Emergency (ER) | payer MEDICARE, OTHER ==
[~2025-06-30] VITALS: Ht 182.9 cm; Wt 61.7 kg
[2025-06-30 10:53] VITALS: BP 93/62
[2025-06-30] MEDS ORDERED: MAGCIT300 PO (12:28)
[2025-06-30] MEDS ORDERED: [UNRECOGNIZED DRUG - CODE] PO (14:08)
== END 2025-06-30 14:30 ==
LOC: ER 10:10
DX: K59.00 Constipation, unspecified (principal); Z79.899 Other long term (current) drug therapy
CPT/HCPCS: 74018; 99283-25

== ENCOUNTER → 2025-07-07 | Outpatient (CLI) | payer MEDICARE, OTHER ==
[~2025-07-07] MED LIST changes: +MAGCIT300 PO; +[UNRECOGNIZED DRUG - CODE] PO
== END ==
LOC: LAB 10:43 → LAB SHORT 10:43
DX: R30.0 Dysuria (principal)
CPT/HCPCS: 87077; 87086; 87186

== ENCOUNTER 2025-08-10 15:02 | Inpatient (IN) | payer MEDICARE, OTHER ==
[~2025-08-10] VITALS: Ht 172.7 cm; Wt 58.9 kg
[2025-08-10 15:33] LABS: BASOPHILS ABSOLUTE AUTO 0.03 K/mm3 (0.00-0.23); BASOPHILS PERCENT AUTO 0 % (0-2); EOSINOPHILS ABSOLUTE AUTO 0.00 K/mm3 (0.00-0.68); EOSINOPHILS PERCENT AUTO 0 % (0-6); Hematocrit 30.8 % (37.0-53.0); Hemoglobin 9.4 g/dL (13.5-17.5); IMMATURE GRAN ABSOLUTE AUTO 0.29 K/mm3 (0.00-0.10); IMMATURE GRAN PERCENT AUTO 2 % (0-1); LYMPHOCYTES ABSOLUTE AUTO 0.56 K/mm3 (0.84-5.20); LYMPHOCYTES PERCENT AUTO 4 % (21-46); MONOCYTES ABSOLUTE AUTO 0.92 K/mm3 (0.16-1.47); MONOCYTES PERCENT AUTO 7 % (4-13); Mean Corpuscular HGB Conc 30.5 g/dL (31.5-36.5); Mean Corpuscular Volume 109 fL (80-100); NEUTROPHILS ABSOLUTE AUTO 12.34 K/mm3 (1.96-9.15); NEUTROPHILS PERCENT AUTO 87 % (41-73); NRBC ABSOLUTE 0.00 K/mm3 (0.00-0.02); NRBC Auto 0.0 /100 WBC (0.0-0.2); Platelet Count 198 K/mm3 (150-400); RDW Coefficient Variation 15.7 % (11.7-14.2); RDW Standard Deviation 63.7 fL (35.1-46.3)
[2025-08-10] MEDS ORDERED: METO50 PO (15:44)
[2025-08-10] MEDS ORDERED: BISA10S PR (15:44)
[2025-08-10] MEDS ORDERED: LINZESS72 MCG PO (15:45)
[2025-08-10 15:47] LABS: Source, Urine Urostomy Bag
[2025-08-10 15:52] LABS: Bilirubin, Urine Neg (Neg); Glucose Qualitative, Urine Neg (Neg); Ketones, Urine Neg (Neg); Leukocyte Esterase, Urine 3+ (Neg); Protein, Urine 3+ (Neg); Specific Gravity, Urine 1.010 (1.003-1.022); Urobilinogen, Urine NORM (Normal)
[2025-08-10 16:00] LABS: Magnesium, Blood 2.1 mg/dL (1.6-2.4)
[2025-08-10 16:02] LABS: Prothrombin Time Results 12.0 Sec (9.7-11.5)
[2025-08-10 16:04] LABS: Color, Urine Pale Yellow (P-Yellow)
[2025-08-10 16:05] LABS: White Blood Cells, Urine 25-50 /hpf (0-5)
[2025-08-10 16:06] LABS: Red Blood Cells, Urine 25-50 /hpf (0-2)
[2025-08-10] MEDS ORDERED: Piperacillin/Tazobactam Sod 4.5 GM in NS 100 ML IV ONE (16:10)
[2025-08-10 16:13] LABS: Alanine Aminotransfer (ALT/SGP 15 U/L (12-78); Albumin, Blood 2.7 g/dL (3.4-5.0); Albumin/Globulin Ratio 0.7 (0.8-1.8); Anion Gap 14 mmol/L (3-11); Aspartate Aminotrans (AST/SGOT 13 U/L (12-37); Bilirubin, Direct <0.1 mg/dL (0.0-0.3); Bilirubin, Indirect Unable to Calculate mg/dL (0.1-0.7); Bilirubin, Total 0.4 mg/dL (0.1-1.0); Blood Urea Nitrogen 99 mg/dL (8-24); CO2, Blood 3 mmol/L (21-32); Calcium, Blood 8.8 mg/dL (8.5-10.1); Chloride, Blood 134 mmol/L (98-108); Creatinine, Blood 3.46 mg/dL (0.60-1.20); Globulin, Blood 3.7 g/dL (2.2-4.0); Glucose, Blood 153 mg/dL (70-99); Phosphorus, Blood 3.8 mg/dL (2.5-4.9); Potassium, Blood 6.0 mmol/L (3.5-5.5); Sodium, Blood 145 mmol/L (136-145); Total Protein, Blood 6.4 g/dL (6.4-8.2)
[2025-08-10 16:13] LABS: CORONAVIRUS COVID-19 AG Negative (NEGATIVE)
[2025-08-10] MEDS ORDERED: Insulin Regular 100 Unit/ML 1ML Dose IV ONE (16:25)
[2025-08-10] MEDS ORDERED: Sodium Bicarb 8.4% 1 MEQ/ML 50 ML Vial IV ONE ×2 (16:25→18:40)
[2025-08-10] MEDS ORDERED: Calcium Chloride 10% 1,000 MG in NS 50 ML IV ONE (16:25)
[2025-08-10] MEDS ORDERED: Sodium Bicarb 8.4% Inj 150 MEQ in Dextrose 5% 1,000 ML IV SCH ×2 (16:30→19:05)
[2025-08-10] MEDS ORDERED: FLU VACC TS2025(65UP)/MF59C/PF 45 MCG/0.5 ML SYRINGE IM SCH (17:30)
[2025-08-10 18:02] VITALS: BP 134/115
[2025-08-10 18:25] LABS: pH Blood Venous 7.15 (7.34-7.37)
--- NOTE | 2025-08-10 19:05 | NUR ---
SHIFT SUMMARY patient arrived to pcu at 1800. patient vital signs stable. tele sinus rhythm 70s. patient responds to painful stimuli, but otherwise will not wake up or talk. patient will yell out "bastards" when moving rolling patient but otherwise does not speak or follow commands. patient does not appear in pain. patient lung sounds clear throughout. patient has urostomy that is draining yellow urine. patient has pressure sore to right heel, pictures in chart, and left heel pictures in chart. patient critical vbg and md called, and patient having episodes of apneic periods without hypoxia but face turns purple. md aware. md sams at bedside to assess patient and ordered additional dose of bicarb and repeat labs and increase bicrab rate. see orders. md sams said if patient becomes hypoxic with apneic periods than to transfer over to icu and consider intubatiun.
[2025-08-10 19:41] LABS: Anion Gap 11.0 mmol/L (3-11); Blood Urea Nitrogen 98.0 mg/dL (8-24); CO2, Blood 8.0 mmol/L (21-32); Calcium, Blood 9.7 mg/dL (8.5-10.1); Chloride, Blood 137.0 mmol/L (98-108); Creatinine, Blood 3.57 mg/dL (0.60-1.20); Glucose, Blood 180.0 mg/dL (70-99); Sodium, Blood 152.0 mmol/L (136-145)
[2025-08-10 19:42] LABS: Potassium, Blood 4.0 mmol/L (3.5-5.5)
[2025-08-10 19:52] VITALS: BP 90/58
[2025-08-10] MEDS ORDERED: Lactobacil 2-S.Thermo-Bifido 1 1 Cap PO SCH (21:00)
[2025-08-10] MEDS ORDERED: Heparin Sodium,Porcine 5,000 UNIT/0.5 ML SDV SC SCH (21:00)
[2025-08-10 21:44] LABS: pH Blood Venous 7.18 (7.34-7.37)
[2025-08-10] MEDS ORDERED: SODIUM BICARB IV SCH (21:55)
[2025-08-10] MEDS ORDERED: POTASSIUM CHLORIDE 10 MEQ IV SCH (21:55)
[2025-08-10] MEDS ORDERED: DEXTROSE 5% IV SCH (21:55)
[2025-08-10 22:12] LABS: Anion Gap 13.0 mmol/L (3-11); Blood Urea Nitrogen 98.0 mg/dL (8-24); CO2, Blood 10.0 mmol/L (21-32); Calcium, Blood 9.2 mg/dL (8.5-10.1); Chloride, Blood 135.0 mmol/L (98-108); Creatinine, Blood 3.25 mg/dL (0.60-1.20); Glucose, Blood 170.0 mg/dL (70-99); Potassium, Blood 4.1 mmol/L (3.5-5.5); Sodium, Blood 154.0 mmol/L (136-145)
[2025-08-10 23:58] VITALS: BP 117/93
[2025-08-11] VITALS (40 sets, daily range): BP systolic 97–146; BP diastolic 55–117
[2025-08-11] MEDS ORDERED: Sodium Bicarb 8.4% Inj 75 MEQ in Sodium Chloride 0.45% 1,000 ML IV SCH (01:00)
[2025-08-11] MEDS ORDERED: SODIUM BICARB IV SCH (03:30)
[2025-08-11] MEDS ORDERED: SODIUM CHLORIDE 0.45% IV SCH (03:30)
[2025-08-11 04:10] LABS: BASOPHILS ABSOLUTE AUTO 0.02 K/mm3 (0.00-0.23); BASOPHILS PERCENT AUTO 0 % (0-2); EOSINOPHILS ABSOLUTE AUTO 0.01 K/mm3 (0.00-0.68); EOSINOPHILS PERCENT AUTO 0 % (0-6); Hematocrit 27.3 % (37.0-53.0); Hemoglobin 8.8 g/dL (13.5-17.5); IMMATURE GRAN ABSOLUTE AUTO 0.14 K/mm3 (0.00-0.10); IMMATURE GRAN PERCENT AUTO 1 % (0-1); LYMPHOCYTES ABSOLUTE AUTO 0.29 K/mm3 (0.84-5.20); LYMPHOCYTES PERCENT AUTO 3 % (21-46); MONOCYTES ABSOLUTE AUTO 0.86 K/mm3 (0.16-1.47); MONOCYTES PERCENT AUTO 9 % (4-13); Mean Corpuscular HGB Conc 32.2 g/dL (31.5-36.5); NEUTROPHILS ABSOLUTE AUTO 8.46 K/mm3 (1.96-9.15); NEUTROPHILS PERCENT AUTO 87 % (41-73); NRBC ABSOLUTE 0.00 K/mm3 (0.00-0.02); NRBC Auto 0.0 /100 WBC (0.0-0.2); Platelet Count 195 K/mm3 (150-400); RDW Coefficient Variation 15.7 % (11.7-14.2); RDW Standard Deviation 58.2 fL (35.1-46.3)
[2025-08-11 04:12] LABS: Mean Corpuscular Volume 102 fL (80-100)
[2025-08-11 04:30] LABS: Albumin, Blood 2.5 g/dL (3.4-5.0); Anion Gap 11 mmol/L (3-11); Blood Urea Nitrogen 92 mg/dL (8-24); CO2, Blood 12 mmol/L (21-32); Calcium, Blood 8.9 mg/dL (8.5-10.1); Chloride, Blood 132 mmol/L (98-108); Creatinine, Blood 3.13 mg/dL (0.60-1.20); Glucose, Blood 211 mg/dL (70-99); Magnesium, Blood 1.9 mg/dL (1.6-2.4); Phosphorus, Blood 2.4 mg/dL (2.5-4.9); Potassium, Blood 3.8 mmol/L (3.5-5.5); Sodium, Blood 151 mmol/L (136-145)
[2025-08-11 06:45] LABS: pH Blood Arterial 7.37 (7.35-7.45)
--- NOTE | 2025-08-11 07:14 | NUR ---
TRANSFER OF CARE PT OPENS EYES SLIGHTLY TO VERBAL/PAINFUL STIMULI. HE IS NONVERBAL. GRIMACES/CLENCHES TEETH WITH ORAL CARE/SUCTIONING. MINIMAL TO NO GAG REFLEX. PUPILS EQUAL AND REACTIVE TO LIGHT. HR IN THE 70'S-90'S, SR W/BBB. SBP STABLE, MAP >65. PT UNABLE TO EXPRESS IF HE IS HAVING ANY CP/PRESSURE. SpO2 >92% ON RA. PT HAS THICK SECRETIONS, HE IS COUGHING/CHOKING ON SECRETIONS, SUCTIONING EVERY 15-30MINUTES T/O NIGHT. L/S COARSE T/O. HE HAS A WEAK COUGH. 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 PER REPORT PT INCONTINENT OF BOWELS, HE HAS NOT HAD A BOWEL MOVEMENT T/O NIGHT. FOAM HEAL PROTECTOR IN PLACE OF BILAT HEELS. PT HAS PRESSURE INJURY ON LEFT HEEL, MD NOTIFIED. PT IN BED AT THIS TIME. BED IN LOWEST POSITION. WILL MONITOR PT AND REPORT TO ONCOMING RN. AROUND 0620 PT WITH APNEIC EPISODES, DESATING MULTIPLE TIMES TO 50%. PT HAVING INCREASINGLY THICK SECRETIONS. SUCTIONING PT MULTIPLE TIMES, PT WITH NO GAG REFLEX. CALL PLACED TO DR. TATE. DR TATE TO BEDSIDE TO EXAM PT. PT ABLE TO OPEN EYES TO VERBAL STIMULI AND FOLLOW COMMANDS. ORDERS PLACED FOR TRANSFER TO ICU AND STAT ABG. REPORT GIVEN TO GINETTE THIN FILM TECHNICIAN. PT TRANSFERRED TO ICU.
[2025-08-11] MEDS ORDERED: NS 250 ML IV PRN (07:15)
--- NOTE | 2025-08-11 07:22 | NUR ---
ASSUMED CARE/TRANSFER TO ICU PT ARRIVED TO ICU 10 VIA BED AT 0705. PT TRANSFERED TO ICU BED. PT IS SOMNOLENT, BUT AROUSEABLE TO VERBAL STIMULI. PT IS ABLE TO SQUEEZE HANDS UPON COMMAND. PT DOES NOT ANSWER QUESTIONS. PT NODS HEAD TO SOME QUESTIONS. VITAL SIGNS STABLE. PT ON ROOM AIR. UROSOTOMY BAG INTACT WITH YELLOW URINE OUTPUT NOTED. ATTENDS IN PLACE. NO STOOL NOTED AT THIS TIME. BICARB GTT INFUSING. NO FAMILY AT BEDSIDE. WILL CONTINUE TO MONITOR.
[2025-08-11] MEDS ORDERED: Potassium Chl 20MEQ/Water100ML 100 ML IV STA (13:16)
[2025-08-11 14:02] LABS: Ferritin, Serum 276.0 ng/mL (26-388); Total Iron Binding Capacity 137.0 ug/dL (250-450)
--- NOTE | 2025-08-11 16:23 | NUR ---
ASSUMED CARE... ASSUMED CARE OF PT AT APROX 1600. PT'S VSS. PT'S AT THE BEDSIDE. PT RESTING WITH EYES CLOSED IN THE BED.
--- NOTE | 2025-08-11 18:23 | NUR ---
SHIFT SUMMARY... PT HAS ATTEMPTED TO CLIMB OUT OF BED AT LEAST 4 TIMES SINCE THIS RN ASSUMED CARE AROUND 1600. PT WILL WAKE UP AND TRY TO SLIDE HIS LEGS OUT OF BED SAYING "I HEARD THE VOICES SAY I COULD GO HOME." PT IS HARD TO RE-ORIENT BUT ONCE HE STOPS FIGHTING TO GET OUT OF BED HE GOES BACK TO SLEEP. PT'S VS HAVE BEEN STABLE T/O THIS SHIFT. HE HAS POSSIBLE APNEIC EPISODES WHERE HIS SPO2 DROPS DOWN TO THE 40'S WITH A GOOD WAVEFORM, PT DOES NOT LOOK TO BE IN DISTRESS DURING THESE EPISODES, ONCE PT IS AWAKE THE SPO2 SLOWLY IMPROVES BACK TO 100% ON RA. UROSTOMY IS PATENT AND ATTENDS IN PLACE AND ARE C/D/I.
[2025-08-11 18:38] LABS: Albumin, Blood 2.5 g/dL (3.4-5.0); Anion Gap 7 mmol/L (3-11); Blood Urea Nitrogen 81 mg/dL (8-24); CO2, Blood 21 mmol/L (21-32); Calcium, Blood 8.4 mg/dL (8.5-10.1); Chloride, Blood 127 mmol/L (98-108); Creatinine, Blood 3.00 mg/dL (0.60-1.20); Glucose, Blood 182 mg/dL (70-99); Phosphorus, Blood 2.2 mg/dL (2.5-4.9); Potassium, Blood 4.0 mmol/L (3.5-5.5); Sodium, Blood 151 mmol/L (136-145)
[2025-08-11 21:50] LABS: Albumin, Blood 2.5 g/dL (3.4-5.0); Anion Gap 8 mmol/L (3-11); Blood Urea Nitrogen 78 mg/dL (8-24); CO2, Blood 21 mmol/L (21-32); Calcium, Blood 8.5 mg/dL (8.5-10.1); Chloride, Blood 126 mmol/L (98-108); Creatinine, Blood 2.69 mg/dL (0.60-1.20); Glucose, Blood 155 mg/dL (70-99); Phosphorus, Blood 1.9 mg/dL (2.5-4.9); Potassium, Blood 4.0 mmol/L (3.5-5.5); Sodium, Blood 151 mmol/L (136-145)
[2025-08-12] VITALS (14 sets, daily range): BP systolic 122–159; BP diastolic 66–102
[2025-08-12 03:24] LABS: Hematocrit 25.9 % (37.0-53.0); Hemoglobin 8.6 g/dL (13.5-17.5)
[2025-08-12 03:43] LABS: Albumin, Blood 2.5 g/dL (3.4-5.0); Anion Gap 8 mmol/L (3-11); Blood Urea Nitrogen 74 mg/dL (8-24); CO2, Blood 21 mmol/L (21-32); Calcium, Blood 8.2 mg/dL (8.5-10.1); Chloride, Blood 126 mmol/L (98-108); Creatinine, Blood 2.64 mg/dL (0.60-1.20); Glucose, Blood 149 mg/dL (70-99); Phosphorus, Blood 1.7 mg/dL (2.5-4.9); Potassium, Blood 3.8 mmol/L (3.5-5.5); Sodium, Blood 151 mmol/L (136-145)
[2025-08-12 03:45] LABS: Magnesium, Blood 1.6 mg/dL (1.6-2.4)
[2025-08-12] MEDS ORDERED: Potassium Phosphate Dibasic 10 MM in Dextrose 5% 250 ML IV ONE (03:55)
--- NOTE | 2025-08-12 05:38 | NUR ---
PT HAD VERY RESTLESS NIGHT, ORIENTED TO SELF ONLY, NEEDED FREQUENT REDIRECTING/REORIENTING WITH SITTER AT BS. VSS. NO ISSUES WITH APNEIC PERIODS. AFEBRILE. LUE POWERGLIDE IV INFILTRATED AND WAS D/C'D. NEW POWERGLIDE PLACED RUE AND DRAWS WELL. UROSTOMY BAG INTACT DRAINING YELLOW OUTPUT, STOMA PINK AND BENIGN. WILL UPDATE DAY RN WITH ALL OUTSTANDING ISSUES AND PROBLEMS TO DATE.
--- NOTE | 2025-08-12 05:48 | NUR ---
ADDENDUM SHIFT SUMMARY DR DIEZ UPDATED WITH AM LABS, ORDERS RECEIVED AND IMPLEMENTED.
--- NOTE | 2025-08-12 07:20 | NUR ---
ASSUMPTION OF CARE: REPORT FROM SALOMON CUNHA RN TO ASSUME CARE OF PT. PT RESTLESS IN BED WITH SITTER AT BEDSIDE. FLUIDS CONTINUES. REMAINS ON CARDIAC AND VS MONITORING. DOES NOT APPEAR TO BE IN ANY DISTRESS AT THIS TIME.
--- NOTE | 2025-08-12 15:37 | NUR ---
TRANSFER OF CARE TO PCU 9: REPORT TO SHERMAN Chavez RN. PT REMAINS ALERT TO SELF ONLY AND FOLLOWING COMMANDS. PT IS BECOMING MORE RESTLESS THROUGHOUT THE DAY. SVT FOUND DURING ULTRASOUND ON R ARM, POWERGLIDE REMOVED PER PROVIDER REQUEST AND PIV STARTED TO L ARM. D5 CONTINUES AT 100ML/HR. NO SIGNIFICANT EVENTS HAPPENED DURING THIS SHIFT. BELONGINGS COLLECTED AND TAKE TO PCU 9 WITH AT BEDSIDE.
[2025-08-13] VITALS (7 sets, daily range): BP systolic 113–143; BP diastolic 65–81
[2025-08-13 04:24] LABS: BASOPHILS ABSOLUTE AUTO 0.02 K/mm3 (0.00-0.23); BASOPHILS PERCENT AUTO 0 % (0-2); EOSINOPHILS ABSOLUTE AUTO 0.07 K/mm3 (0.00-0.68); EOSINOPHILS PERCENT AUTO 1 % (0-6); Hematocrit 22.6 % (37.0-53.0); Hemoglobin 7.4 g/dL (13.5-17.5); IMMATURE GRAN ABSOLUTE AUTO 0.09 K/mm3 (0.00-0.10); IMMATURE GRAN PERCENT AUTO 1 % (0-1); LYMPHOCYTES ABSOLUTE AUTO 0.39 K/mm3 (0.84-5.20); LYMPHOCYTES PERCENT AUTO 6 % (21-46); MONOCYTES ABSOLUTE AUTO 0.74 K/mm3 (0.16-1.47); MONOCYTES PERCENT AUTO 12 % (4-13); Mean Corpuscular HGB Conc 32.7 g/dL (31.5-36.5); Mean Corpuscular Volume 100 fL (80-100); NEUTROPHILS ABSOLUTE AUTO 5.09 K/mm3 (1.96-9.15); NEUTROPHILS PERCENT AUTO 80 % (41-73); NRBC ABSOLUTE 0.00 K/mm3 (0.00-0.02); NRBC Auto 0.0 /100 WBC (0.0-0.2); Platelet Count 168 K/mm3 (150-400); RDW Coefficient Variation 15.3 % (11.7-14.2); RDW Standard Deviation 55.3 fL (35.1-46.3)
[2025-08-13 04:42] LABS: Albumin, Blood 2.3 g/dL (3.4-5.0); Anion Gap 6 mmol/L (3-11); Blood Urea Nitrogen 55 mg/dL (8-24); CO2, Blood 22 mmol/L (21-32); Calcium, Blood 7.5 mg/dL (8.5-10.1); Chloride, Blood 120 mmol/L (98-108); Creatinine, Blood 1.97 mg/dL (0.60-1.20); Glucose, Blood 133 mg/dL (70-99); Magnesium, Blood 1.5 mg/dL (1.6-2.4); Phosphorus, Blood 2.2 mg/dL (2.5-4.9); Potassium, Blood 4.0 mmol/L (3.5-5.5); Sodium, Blood 144 mmol/L (136-145)
[2025-08-13] MEDS ORDERED: Mag Sulfate 1 GM/D5% 100ML 100 ML IV ONE (05:00)
[2025-08-13] MEDS ORDERED: Potassium Phosphate Dibasic 10 MM in Dextrose 5% 250 ML IV ONE (05:30)
--- NOTE | 2025-08-13 06:54 | NUR ---
SHIFT SUMMARY: 'JUAN' IS A&O TO SELF ONLY. VSS ON RA. SR 70'S-90'S. PT DID HAVE 3 EPISODES OF APNEA WITH DESATTING TO 67%. HE QUICKLY RECOVERS WITH PHYSICAL TOUCH TO WAKE HIM UP. PT IS RESTLESS MUCH OF THIS SHIFT. PT TELLS THIS NURSE THAT HE IS IN PAIN, EVERYWHERE. MEDICATED PER EMAR WITH PRN, [place] TYLENOL, WITH LITTLE RELIEF. PT REMAINS NPO D/T HIS MENTATION. HE OCCASIONALLY FOLLOWS SIMPLE COMMANDS. NOOB THIS SHIFT. PT IS FREQUENTLY REPOSITIONING HIMSELF IN THE BED. UROSTOMY DRAINING PALE YELLOW URINE. D/T MALFUNCTIONS OF PT'S UROSTOMY DEVICE, MULTIPLE BED CHANGES WERE COMPLETED THIS SHIFT. A NEW UROSTOMY DEVICE WAS PLACED. PT'S STOMA IS PINK, B[place], PROTRUDING ABOVE THE SKIN. PT HAD ONE, SMALL SOFT BM THIS SHIFT, BRIEF IN PLACE. PT'S RUE RED AND EDEMATOUS, WEEPING IN SOME AREAS. MEPILEX TO LEFT HEEL IN PLACE. PT NOT TOLERATING FOAM PINK BOOTIES. REPLACING MAGNESIUM AND POTASSIUM PER DR. DIEZ'S ORDER, STAT LAB REDRAW AT 1000, AND CALL HIM WITH RESULTS NO LATER THAN 1100. BED IN LOWEST POSITION, 1:1 SITTER AT BEDSIDE FOR SAFETY AND LINE MANAGEMENT. CONTACT PRECAUTIONS MAINTAINED FOR VRE IN THE URINE.
--- NOTE | 2025-08-13 12:40 | NUR ---
Patient is sleeping and his spouse, Grisel is bedside. Grisel tells me about how challenging the last 2 months have been (since the patient fell and hit his head). She tells me that she has a Roman [employer] background (as does the patient), but she has been going to [facility] in [place] [facility]. She asks me to provide prayer for the patient patient for his physical, mental and emotional health, which I gladly supply. The patient wakes up briefly for the parayer but then falls back to sleep. Grisel voices her appreciation and shows signs of greater peace. I will continue to remain available to the patient and family.
[2025-08-14] VITALS (7 sets, daily range): BP systolic 113–146; BP diastolic 48–80
--- NOTE | 2025-08-14 04:18 | NUR ---
NO ACUTE CHANGES DURING SHIFT. PATIENT ALERT AND ORIENTED X1, PATIENT ABLE TO TURN SELF IN BED WITH ENCOURAGEMENT AND ASSISTANCE. PATIENT ON ROOM AIR SATING >95%. PATIENT ON TELE RUNNING NSR. PATIENT IS NPO. TYLENOL SUPPOSITORY GIVEN FOR PAIN. CLINIMAX RUNNING AT 75 ML/HR. MEPILEX APPLIED TO COCCYX. NEW MEPILEX APPLIED TO LEFT HEEL. PATIENT IS 1:1. PATIENT TRIEDS TO CLIMB OUT OF BED, IS REDIRECTABLE. UROSTOMY TO Melanie [place]. BRIEF IN PLACE AND CHANGED PRN. RN TRIED TO PUT HEEL PROTECTORS ON FEET BUT PATIENT BECOMES AGITATED AND KICKS THEM OFF. BED IS LOW POSITION WITH WHEELS LOCKED. BED ALARM ON, CALL LIGHT IN PLACE. RN AT BEDSIDE.
[2025-08-14 05:01] LABS: BASOPHILS ABSOLUTE AUTO 0.00 K/mm3 (0.00-0.23); BASOPHILS PERCENT AUTO 0 % (0-2); EOSINOPHILS ABSOLUTE AUTO 0.08 K/mm3 (0.00-0.68); EOSINOPHILS PERCENT AUTO 2 % (0-6); Hematocrit 22.9 % (37.0-53.0); Hemoglobin 7.4 g/dL (13.5-17.5); IMMATURE GRAN ABSOLUTE AUTO 0.07 K/mm3 (0.00-0.10); IMMATURE GRAN PERCENT AUTO 2 % (0-1); LYMPHOCYTES ABSOLUTE AUTO 0.27 K/mm3 (0.84-5.20); LYMPHOCYTES PERCENT AUTO 6 % (21-46); MONOCYTES ABSOLUTE AUTO 0.41 K/mm3 (0.16-1.47); MONOCYTES PERCENT AUTO 9 % (4-13); Mean Corpuscular HGB Conc 32.3 g/dL (31.5-36.5); Mean Corpuscular Volume 99 fL (80-100); NEUTROPHILS ABSOLUTE AUTO 3.56 K/mm3 (1.96-9.15); NEUTROPHILS PERCENT AUTO 81 % (41-73); NRBC ABSOLUTE 0.00 K/mm3 (0.00-0.02); NRBC Auto 0.0 /100 WBC (0.0-0.2); Platelet Count 161 K/mm3 (150-400); RDW Coefficient Variation 14.9 % (11.7-14.2); RDW Standard Deviation 54.0 fL (35.1-46.3)
[2025-08-14 05:57] LABS: Magnesium, Blood 1.9 mg/dL (1.6-2.4)
[2025-08-14 05:58] LABS: Albumin, Blood 2.3 g/dL (3.4-5.0); Anion Gap 12 mmol/L (3-11); Blood Urea Nitrogen 49 mg/dL (8-24); CO2, Blood 18 mmol/L (21-32); Calcium, Blood 7.7 mg/dL (8.5-10.1); Chloride, Blood 118 mmol/L (98-108); Creatinine, Blood 1.69 mg/dL (0.60-1.20); Glucose, Blood 133 mg/dL (70-99); Phosphorus, Blood 3.3 mg/dL (2.5-4.9); Potassium, Blood 4.1 mmol/L (3.5-5.5); Sodium, Blood 144 mmol/L (136-145)
[2025-08-14] MEDS ORDERED: Sodium Bicarb 8.4% 1 MEQ/ML 50 ML Vial IV ONE (06:35)
--- NOTE | 2025-08-14 18:09 | NUR ---
SHIFT SUMMARY; ASSUMED CARE AT 0700. A/A/OX1. RESPONDS TO VERBAL STIMULI AND IS ABLE TO FOLLOW INSTRUCTIONS AT TIMES. WORKED WITH PT/OT AND WAS ABLE TO SIT IN A CHAIR IN THE AFTERNOON. UROSTOMY IN PLACE AND DRAINING CLEAR YELLOW URINE. EVALUATED BY UROLOGIST IN EVENING. MOVES SELF IN BED AND IS DIFFICULT TO REDIRECT. SITTER IN ROOM FOR SHIFT. CLINIMIX INFUSING AT 75ML/HR. ABX PER EMAR. WILL CONTINUE TO MONITOR AND TREAT UNTIL REPORT GIVEN TO NOC SHIFT RN.
[2025-08-14] MEDS ORDERED: Piperacillin/Tazobactam Sod 3.375 GM in NS 100 ML IV SCH (20:00)
--- NOTE | 2025-08-15 01:43 | NUR ---
Pt here with progressive weakness, AMS, and acute on chronic VU. Oriented to self only. Is able to ABBASI and follow commands, very weak. SR. BP WDL. RA. Able to swallow pills crushed in applesauce, on pureed diet. R forearm reddened with mild edema, abrasion to R FA and R leg, wound to L heel - mepilex in place, ileal conduit urostomy with yellow urine/sediment.
[2025-08-15] MEDS ORDERED: Naloxone HCl 0.4MG / ML 1ML Vial IV PRN (02:00)
--- NOTE | 2025-08-15 03:59 | NUR ---
SHIFT SUMMARY: PT TRANSFERRED TO UNIT AT ~0330. PT IS A&O TO SELF, AND IMPULSIVE. SITTER AT BEDSIDE. TELEMETRY MONITORING, NSR 70s. LUNG SOUNDS ARE DIMINISHED THROUGHOUT. UROSTOMY IS DRAINING YELLOW URINE. CLINIMIX IS RUNNING PER ORDERS. CALL LIGHT IS WITHIN REACH. BED IS LOW AND LOCKED. BED ALARM IS ON.
[2025-08-15 05:32] LABS: Albumin, Blood 2.5 g/dL (3.4-5.0); Anion Gap 11 mmol/L (3-11); Blood Urea Nitrogen 49 mg/dL (8-24); CO2, Blood 19 mmol/L (21-32); Calcium, Blood 8.4 mg/dL (8.5-10.1); Chloride, Blood 120 mmol/L (98-108); Creatinine, Blood 1.50 mg/dL (0.60-1.20); Glucose, Blood 136 mg/dL (70-99); Phosphorus, Blood 3.6 mg/dL (2.5-4.9); Potassium, Blood 4.4 mmol/L (3.5-5.5); Sodium, Blood 146 mmol/L (136-145)
[2025-08-15 07:34] VITALS: BP 138/86
[2025-08-15 11:47] LABS: Stool Occult Blood Guaiac 1 Neg (Neg)
[2025-08-15 12:28] VITALS: BP 127/71
[2025-08-15 16:43] VITALS: BP 125/72
[2025-08-15] MEDS ORDERED: Piperacillin/Tazobactam Sod 2.25 GM in NS 50 ML IV SCH (18:00)
--- NOTE | 2025-08-15 18:42 | NUR ---
PATIENT WITH SITTER MOST OF THIS SHIFT. PATIENT DECLINES EATING FOOD, WORKING WITH PT/OT. WHEN TOUCHED BY THIS RN PATIENT ASKED TO BE LEFT ALONE. AT SIDE FOR MOST OF DAY. PATIENT EASILY REDIRECTS BACK TO BED FROM A SITTING POSITION.
[2025-08-15 19:50] VITALS: BP 155/93
[2025-08-16] VITALS (7 sets, daily range): BP systolic 122–148; BP diastolic 68–93
--- NOTE | 2025-08-16 05:34 | NUR ---
[id number] ASSUME CARE, PT CONTINUOUSLY WRIGGLING IN BED AND SETTING OFF ALARMS BY ATTEMPTING TO SIT UP WHILE 3X BEDRAILS RAISED. ORDER ACQUIRED TO RAISE 4X BEDRAILS TO DISCOURAGE PT FROM GETTING OUT OF BED AND RISKING A FALL. UROSTOMY CARE PERFORMED AND NEW IV STARTED IN [facility]. PT REQUESTED PAIN MED FOR 5/10 PAIN IN HIS BACK AND WAS MEDICATED PER DEC. [id number] PT SLEPT SOUNDLY DURING THIS TIME STILL OCCASIONALLY RAISING LEGS OVER THE BEDRAILS BUT QUICKLY RETURNS THEM TO BED. PT STILL RECEIVING IV ANTIBIOTICS AND CLINIMIX, PT MAINTAINS POOR ORAL INTAKE EVEN THOUGH THEY ARE ENCOURAGED TO INTAKE.
[2025-08-16 06:28] LABS: BASOPHILS ABSOLUTE AUTO 0.03 K/mm3 (0.00-0.23); BASOPHILS PERCENT AUTO 1 % (0-2); EOSINOPHILS ABSOLUTE AUTO 0.08 K/mm3 (0.00-0.68); EOSINOPHILS PERCENT AUTO 2 % (0-6); Hematocrit 25.8 % (37.0-53.0); Hemoglobin 8.2 g/dL (13.5-17.5); IMMATURE GRAN ABSOLUTE AUTO 0.06 K/mm3 (0.00-0.10); IMMATURE GRAN PERCENT AUTO 1 % (0-1); LYMPHOCYTES ABSOLUTE AUTO 0.39 K/mm3 (0.84-5.20); LYMPHOCYTES PERCENT AUTO 8 % (21-46); MONOCYTES ABSOLUTE AUTO 0.39 K/mm3 (0.16-1.47); MONOCYTES PERCENT AUTO 8 % (4-13); Mean Corpuscular HGB Conc 31.8 g/dL (31.5-36.5); Mean Corpuscular Volume 101 fL (80-100); NEUTROPHILS ABSOLUTE AUTO 3.70 K/mm3 (1.96-9.15); NEUTROPHILS PERCENT AUTO 80 % (41-73); NRBC ABSOLUTE 0.00 K/mm3 (0.00-0.02); NRBC Auto 0.0 /100 WBC (0.0-0.2); Platelet Count 135 K/mm3 (150-400); RDW Coefficient Variation 14.9 % (11.7-14.2); RDW Standard Deviation 55.4 fL (35.1-46.3)
--- NOTE | 2025-08-16 06:33 | NUR ---
SUGAR CHECKS FREQUENCY CHANGED Dr. Calderon visiting at the bedside. NPP rounding. Received V.O. to check blood sugars q6h if npo or patient is not eating from Dr. Calderon. Added this order to current blood glucose check order of [facility].
[2025-08-16 06:46] LABS: Alanine Aminotransfer (ALT/SGP 15.0 U/L (12-78); Albumin, Blood 2.6 g/dL (3.4-5.0); Albumin/Globulin Ratio 0.8 (0.8-1.8); Anion Gap 9.0 mmol/L (3-11); Aspartate Aminotrans (AST/SGOT 12.0 U/L (12-37); Bilirubin, Total 0.5 mg/dL (0.1-1.0); Blood Urea Nitrogen 49.0 mg/dL (8-24); CO2, Blood 20.0 mmol/L (21-32); Calcium, Blood 8.7 mg/dL (8.5-10.1); Chloride, Blood 122.0 mmol/L (98-108); Creatinine, Blood 1.48 mg/dL (0.60-1.20); Globulin, Blood 3.4 g/dL (2.2-4.0); Glucose, Blood 121.0 mg/dL (70-99); Magnesium, Blood 2.3 mg/dL (1.6-2.4); Phosphorus, Blood 3.7 mg/dL (2.5-4.9); Potassium, Blood 4.9 mmol/L (3.5-5.5); Sodium, Blood 146.0 mmol/L (136-145); Total Protein, Blood 6.0 g/dL (6.4-8.2)
[2025-08-16] MEDS ORDERED: Multivitamins 1 Tab PO SCH (09:00)
[2025-08-16] MEDS ORDERED: Fat Emulsion 20 % IV 250 ML IV SCH (09:00)
--- NOTE | 2025-08-16 12:38 | NUR ---
ROUNDED ON PATIENT. , NORMAN, AT BEDSIDE. SHE WAS CONCERNED ABOUT ACCESSING INVESTMENT ACCOUNTS. DISCUSSED WITH SENIOR TECHNICAL SPECIALIST. ADVISED TO DISCUSS WITH WHOEVER (RN PERITONEAL DIALYSIS, PANTS PRESSER) WHO MANAGES THE ACCOUNTS FOR CLARITY ON WHAT DOCUMENTATION IS NEEDED. PROVIDED COPY OF HARD CHOICES FOR LOVING PEOPLE. DISCUSSED CASE WITH PROVIDER. ENCOURAGED TO CONSIDER CHANGING CODE STATUS. SHE WAS CONCERNED ABOUT CHANGING HIM TO DNR AND MAKING THAT DECISION FOR HIM. DISCUSSED THE PROBABLILITY OF A POOR OUTCOME AND CREATING UNNECESSARY SUFFERING IF A CODE WERE TO OCCUR.
--- NOTE | 2025-08-16 18:01 | NUR ---
Spiritual Care Visit. Pt. is resting when I enter the room. Spouse is at bedside and welcomed my visit. Facilitated a life review mostly with the spouse. The Pt. became less somnolent but didn't contribute much. Rapport with the Pt. was attempted, but displayed evidence of falling short. Spouse and this hoisting laborer prayed over the Pt. together. SPouse verbalized gratitude for the spiritual care visit.
--- NOTE | 2025-08-16 18:18 | NUR ---
SHIFT SUMMARY PT AOX0, MUMBLES. OFTEN DOES NOT ANSWER QUESTIONS APPROPRIATELY. SOMETIMES HE GETS FRUSTRATED AND ASKS STAFF TO LEAVE HIM ALONE. REPOSITIONS SELF IN BED, REPOSITIONED IF THE PT IS SLEEPING. AT THE BS. PG TO L UPPER ARM. INFUSING CLINIMIX AND LIPIDS. DR. DIEZ CONSULTING. PALLIATIVE ALSO ONBOARD. PT DOES NOT CALL AND CAN BE IMPULSIVE, 4 RAIL RESTRAINTS. CALL LIGHT WITHIN REACH, BED LOCKED AND IN THE LOWEST POSITION. WILL REPORT TO ONCOMING NURSE.
[2025-08-17 03:48] VITALS: BP 153/82
--- NOTE | 2025-08-17 05:26 | NUR ---
PT STILL VOIDING PER UROSTOMY, BAG REPLACED 08/16 @2200. PT REMAINS IN 4 SIDE RAILS RESTRAINTS HE CONTINUES TO ATTEMPT TO GET OUT OF BED. PT HAS A NEW 1 TIME DOSE OF TRAZADONE ORDERED FOR AGITATION, HOWEVER PRESCRIBED ROXICODONE SEEMS TO CALM THE PT DOWN AND REDUCE AGITATION. PT RESTED WELL THIS EVENING BUT CONTINUES TO ATTEMPT TO EXIT BED A HIGH FALL RISK. PT STILL RECEIVING TPN W/ LIPIDS AND D5W AND IS STILL ON IV TAZO/PIPERICILLIN. PT STILL ON ROOM AIR AND MAINTAINS SR WITH 1ST DEGREE BLOCK PER TELEMETRY.
[2025-08-17 06:21] LABS: Hematocrit 25.2 % (37.0-53.0); Hemoglobin 7.9 g/dL (13.5-17.5)
[2025-08-17 06:51] LABS: Albumin, Blood 2.4 g/dL (3.4-5.0); Anion Gap 7 mmol/L (3-11); Blood Urea Nitrogen 46 mg/dL (8-24); CO2, Blood 21 mmol/L (21-32); Calcium, Blood 8.3 mg/dL (8.5-10.1); Chloride, Blood 123 mmol/L (98-108); Creatinine, Blood 1.54 mg/dL (0.60-1.20); Glucose, Blood 139 mg/dL (70-99); Magnesium, Blood 2.2 mg/dL (1.6-2.4); Phosphorus, Blood 3.4 mg/dL (2.5-4.9); Potassium, Blood 4.8 mmol/L (3.5-5.5); Sodium, Blood 146 mmol/L (136-145); Triglycerides 124 mg/dL (30-160)
[2025-08-17 07:29] VITALS: BP 137/73
--- NOTE | 2025-08-17 10:52 | NUR ---
Pt. is mostly somnolent and not responsive. Spouse is at bedside and welcomed my visit. faciliated an update, and talked in detail about fatoumata and theology. Spouse verbalized some concern about the role of Palliative Care Nursing. Normalized the Pt. experience. Pts. physician and medical team arrived, Nereyda verbalizedgratitude for the spiritual care visit. Will attempt to round on this Pt. again later today.
[2025-08-17] MEDS ORDERED: Morphine Sulfate 20 MG/1ML 1 ML Oral Syringe SL PRN (11:25)
[2025-08-17 11:36] VITALS: BP 132/72
--- NOTE | 2025-08-17 11:53 | NUR ---
ROUNDED ON PATIENT WITH CARE COORDINATION, DR. MAXWELL AND BSRN. DISCUSSED DIRECTION OF CARE. DISCUSSED TREJECTORY OF TREATMENT, PROVIDER EXPLAINED THAT WE HAVE TREATED WHAT WE CAN MEDICALLY AND IT IS ANTICIPATED AT THIS TIME THAT HE LIKLY WILL NOT IMPROVE FURTHER FROM WHERE HE CURRENTLY IS. WE DISUSSED HOSPICE AND COMFORT CARE, IS AGREEABLE TO THIS PLAN. ORDERS PLACED. POLST FILLED OUT
--- NOTE | 2025-08-17 16:05 | NUR ---
"Spiritual Care | Comfort Care Visit. Pt. is on comfort care and is mostly not responsive. Pt. did respond clearly that he was thirsty and would like a drink. Facilitated a conversation with the spouse who displayed evidence of being overwhelmed and openly optimistic. Spouse verbalized concerns regarding the Pts. home hospice care. Soought to normalize the Pt. and family experience. Spouse is concerned about the spiritual condition of the Pt. Prayed over the Pt. using prayers of hope and healing. SPouse verbalized gratitude for the spiritual care visit. Notified the attending nurse about Pts. desire to have a drink."
--- NOTE | 2025-08-17 16:50 | NUR ---
SHIFT SUMMARY: PATIENT OPEN HIS EYES TO VERBAL STIMULI, MUMBLED SPEECH, CONFUSED, INTERMITTENT RESTLESSNESS AND CLIMBING OOB ON MULTIPLE OCCASION, BUT REDIRECTABLE. PATIENT ON COMFORT CARE MEAUSURE, REPOSITION AND MEDICATED FOR COMFORT PER EMAR. PATIENT HAS HAD NO ORAL INTAKE THIS SHIFT, ORAL CARE DONE. PATIENT HAS CHRONIC UROSTOMY, PATENT DRAINING CLEAR YELLOW URINE, INCONTINENT OF BOWEL, ATTENDS IN PLACE AND CHANGED PRN. PATIENT SPOUSE AT BEDSIDE T/O THE DAY, SPOKE TO HEALTH CARE TEAM c PLAN OF CARE. SPOUSE VERBALIZED UNDERSTANDING AND NO FURTHER QUESTIONS. BED IN LOWEST POSITION, X4 SIDE RAILS UP PER ORDER, BED ALARM ON FOR SAFETY. CALL LIGHT IN REACH.
--- NOTE | 2025-08-18 05:45 | NUR ---
PT RR ARE EVEN AND UNLABORED, OPENS EYES TO VERBAL STIMULI BUT DOES NOT INTERACT OR RESPOND TO STAFF.
[2025-08-18] MEDS ORDERED: Ativan1 MG PO (11:04)
[2025-08-18] MEDS ORDERED: MORP20L SL (11:06)
--- NOTE | 2025-08-18 15:21 | NUR ---
SHIFT/DISCHARGE SUMMARY: PATIENT ON COMFORT CARE MEASURE. PATIENT OPEN HIS EYES TO VERBAL STIMULI, CONFUSED, MUMBLED SPEECH. PATIENT MEDICATED AND REPOSITION FOR COMFORT. ORAL AND UROSTOMY CARE DONE. PATIENT POWERGLIDE DC'D. PATIENT HAS HAD NO NEW CHANGES THIS SHIFT. PATIENT DISCHARGE HOME c HOSPICE CARE THROUGH [facility]. DISCHARGE INSTRUCTIONS PACKET AND HARD SCRIPTS OF ATIVAN AND MORPHINE GIVEN TO SPOUSE-NORMAN. PATIENT/SPOUSE EDUCATED ON HOSPICE, END OF LIFE CARE, NEW RX AND TO COORDINATE c HOSPICE CARE TEAM. PATIENT/SPOUSE VERBALIZED UNDERSTANDING c NO FURTHER QUESTIONS. ALL PERSONAL BELONGINGS WERE GIVEN TO SPOUSE. PATIENT LEFT THE ROOM AT 1520, TRANSPORTED VIA BY [facility].
--- NOTE | 2025-08-18 15:36 | NUR ---
ADDITIONAL NOTE: MIPELEX DRESSING CHANGED TO BILAT HEEL, LOWER BACK FOR SKIN/BONY PROMINENCE PROTECTION.
== END 2025-08-18 15:20 | disposition hospice, home (50) | DRG 698 ==
LOC: ER 15:02 → MEDS 17:12 → ICUE 17:12 → PCU 17:12 → ICUE 08-11 07:02 → PCU 08-12 15:44 → MEDS 08-15 02:43 → ENPENDDIS 08-18 11:27 → MEDS 08-18 15:20
PROVIDERS: Emergency Medicine; Hospitalist; Internal Medicine; Internal Medicine Nephrology; Student in an Organized Health Care Education/Training Program; ADMIT Family Medicine
PROC: 3E03329 Introduction of Other Anti-infective into Peripheral Vein, Percutaneous Approach (ICD-10-PCS; principal; 2025-08-10)
PROC: 4A033R1 Measurement of Arterial Saturation, Peripheral, Percutaneous Approach (ICD-10-PCS; 2025-08-11)
DX: T83.518A Infection and inflammatory reaction due to other urinary catheter, initial encounter (principal); A41.59 Other Gram-negative sepsis; G92.8 Other toxic encephalopathy; J96.91 Respiratory failure, unspecified with hypoxia; N39.0 Urinary tract infection, site not specified; N17.9 Acute kidney failure, unspecified; Z51.5 Encounter for palliative care; Z66 Do not resuscitate; E87.0 Hyperosmolality and hypernatremia; E87.21 Acute metabolic acidosis; Z16.24 Resistance to multiple antibiotics; T83.598A Infection and inflammatory reaction due to other prosthetic device, implant and graft in urinary system, initial encounter; Y73.2 Prosthetic and other implants, materials and accessory gastroenterology and urology devices associated with adverse incidents; E87.5 Hyperkalemia; D63.1 Anemia in chronic kidney disease; N18.32 Chronic kidney disease, stage 3b; S06.5XAS Traumatic subdural hemorrhage with loss of consciousness status unknown, sequela; F02.80 Dementia in other diseases classified elsewhere, unspecified severity, without behavioral disturbance, psychotic disturbance, mood disturbance, and anxiety; W18.39XS Other fall on same level, sequela; E11.22 Type 2 diabetes mellitus with diabetic chronic kidney disease; E87.6 Hypokalemia; E86.9 Volume depletion, unspecified; E83.39 Other disorders of phosphorus metabolism; E88.09 Other disorders of plasma-protein metabolism, not elsewhere classified; E83.42 Hypomagnesemia; Z85.46 Personal history of malignant neoplasm of prostate; Z92.3 Personal history of irradiation; Z87.440 Personal history of urinary (tract) infections; Z79.890 Hormone replacement therapy; Z87.891 Personal history of nicotine dependence; Z90.6 Acquired absence of other parts of urinary tract
CPT/HCPCS: 36415; 36600; 70450; 71045; 74176; 80048; 80053; 80069; 81001; 82248; 82270; 82306; 82550; 82728; 82803; 82947; 83540; 83550; 83605; 83735; 83970; 84100; 84295; 84478; 85014; 85018; 85025; 85610; 85730; 87040; 87077; 87086; 87186; 87426-QW; 92526; 92610; 93005; 93010; 93306; 93971; 96365; 96368; 96375; 96376; 97162; 97166; 97530; 99285-25; A9270; C1751; J1644; J1815; J2185; J2543; J3475; J3480; J7050; J7060; J7070

== ENCOUNTER 2025-09-13 13:18 | Emergency (ER) | payer MEDICARE, OTHER ==
[~2025-09-13] VITALS: Ht 165.1 cm; Wt 59.0 kg
[~2025-09-13 13:18] MED LIST changes: +Ativan1 MG PO; +LINZESS72 MCG PO; +METO50 PO; +MORP20L SL
[2025-09-13] MEDS ORDERED: OxyCODONE 5 mg/Acetamin 325 mg TABLET PO ONE (16:05)
[2025-09-13 16:34] VITALS: BP 134/77
== END 2025-09-13 16:54 | disposition home or self-care (01) ==
LOC: ER 13:18
DX: S12.600A Unspecified displaced fracture of seventh cervical vertebra, initial encounter for closed fracture (principal); S09.90XA Unspecified injury of head, initial encounter; M85.80 Other specified disorders of bone density and structure, unspecified site; N18.30 Chronic kidney disease, stage 3 unspecified; Z79.899 Other long term (current) drug therapy; W18.30XA Fall on same level, unspecified, initial encounter
CPT/HCPCS: 70450; 72125; 73502; 99284-25; A9270